=== PATIENT | male | born 1950 | race Caucasian/White ===

== ENCOUNTER 2017-09-21 09:04 | Day surgery (SDC) | payer MEDICARE ==
[2017-09-16 15:58] VITALS: BMI 30.7
[~2017-09-21 09:04] MED LIST: LACTATED RINGERS 1,000 ML IV SCH
[2017-09-21 09:33] VITALS: RESP 16; TEMP 98.3
[2017-09-21] MEDS ORDERED: LIDOCAINE 1% 20 ML VIAL (10MG/ML) FOR IV START INTRADERMA ONE (09:45)
[2017-09-21] MEDS ORDERED: PROPOFOL 10 MG/ML 20 ML VIAL IV ONE (10:13)
[2017-09-21 11:04] VITALS: BP 128/80; PULSE 68
--- NOTE | 2017-09-21 11:04 | P.PCN ---
Date of Procedure: 09/21/17 Procedure(s) Performed: Procedure: Colonoscopy and biopsy. Preoperative diagnosis: History of Crohn's colitis. Postoperative diagnosis: 1. Active involvement in the distal sigmoid and rectum. 2. Mild involvement in the cecum. 3. Biopsies obtained from the terminal ileum, cecum, random colon and sigmoid. Preparation: HalfLytely prep. Sedation: Was provided by anesthesia. Brief clinical history: The patient is a 66-year-old male with history of Crohn' s colitis diagnosed more than 10 years ago maintained on Humira for the last 2 years or so with ongoing issues of frequent stools and intermittent bleeding and urgency. His last colonoscopy was with Dr. You in [place] around 2 years ago. This evaluation is to assess activity and rule out dysplasia or other pathology. Procedure: With the patient on his left lateral decubitus position and after informed consent and adequate sedation, the perianal area was inspected and it did not show any fissures or fistulas. There were no masses felt on digital rectal examination. The Olympus CFQ 160L video colonoscope was then inserted in the rectum in the usual fashion and advanced to the cecum. I did not intubate the ileocecal valve but I was able to obtain blind biopsy from the terminal ileum. The cecum showed some edema and erythema. The colon distal to 35 cm from the anal verge showed edema erythema and serpiginous ulcerations consistent with active colitis. That area of the rectum and distal sigmoid appeared somewhat not distensible but there were no obvious strictures to impeded the advancement of the endoscope. No polyps or tumors were seen. I obtained biopsies from the terminal ileum, cecum, random colon and sigmoid before the endoscope was withdrawn. The patient tolerated the procedure well. Plan: The patient was briefed regarding the findings on this exam. I will review pathology results and make further adjustments to his medical regimen. I anticipate repeating this examination in 2 years or so.
== END 2017-09-21 11:29 | disposition home or self-care (01) ==
LOC: ORWHC2ENDO 09:04
DX: K51.90 Ulcerative colitis, unspecified, without complications (principal); K52.9 Noninfective gastroenteritis and colitis, unspecified; I10 Essential (primary) hypertension; E78.5 Hyperlipidemia, unspecified; M19.90 Unspecified osteoarthritis, unspecified site; J44.9 Chronic obstructive pulmonary disease, unspecified; Z87.891 Personal history of nicotine dependence; G47.33 Obstructive sleep apnea (adult) (pediatric); N40.0 Benign prostatic hyperplasia without lower urinary tract symptoms; Z85.46 Personal history of malignant neoplasm of prostate; H91.90 Unspecified hearing loss, unspecified ear; Z79.899 Other long term (current) drug therapy
CPT/HCPCS: 88305; 45380; J2704

== ENCOUNTER → 2017-10-21 | Outpatient (CLI) | payer MEDICARE | END | disposition home or self-care (01) | LOC: LABWHC1 15:18 | DX: K50.80 Crohn's disease of both small and large intestine without complications (principal) | CPT/HCPCS: 36415 ==

== ENCOUNTER → 2019-05-15 | Outpatient (CLI) | payer MEDICARE ==
[2019-05-15 13:35] LABS: Erythrocyte Sedimentation Rate 44 mm/hr (0-15)
[2019-05-15 13:47] LABS: Basophils # (A) 0.1 k/uL (0-0.2); Basophils % (A) 1 %; Eosinophils # (A) 0.3 k/uL (0-0.7); Eosinophils % (A) 4 %; HCT 41.6 % (39.0-53.0); HGB 13.5 gm/dL (13.0-17.5); Lymphocytes % (A) 13 %; MCH 28.7 pg (25.0-35.0); MCHC 32.4 g/dL (31.0-37.0); MCV 88.7 fL (80.0-100.0); Monocytes # (A) 0.8 k/uL (0-1.0); Monocytes % (A) 10 %; Neutrophils # (A) 5.6 k/uL (1.3-7.7); Neutrophils % (A) 71 %; Platelet Count 221 k/uL (150-450); RBC 4.68 m/uL (4.30-5.90); RDW 13.3 % (11.5-15.5)
[2019-05-15 19:03] LABS: African American GFR (CKD) 100.6 (60.0-200.0); Albumin 3.8 g/dL (3.80-4.90); Albumin/Globulin Ratio 1.23 (1.60-3.17); Anion Gap 7.6 mmol/L (4.00-12.00); BUN/Creat Ratio 16.67 Ratio (12.00-20.00); C Reactive Protein 3.8 mg/dL (0.0-0.8); Calcium 8.5 mg/dL (8.7-10.3); Carbon Dioxide 28.4 mmol/L (21.6-31.8); Globulin 3.1 g/dL (1.6-3.3); Potassium 4.8 mmol/L (3.5-5.5); Total Bilirubin 0.6 mg/dL (0.3-1.2); Total Protein 6.9 g/dL (6.2-8.2)
== END | disposition home or self-care (01) ==
LOC: LABWHC1 09:59
PROVIDERS: ATTEND Nurse Practitioner
DX: K50.80 Crohn's disease of both small and large intestine without complications (principal)
CPT/HCPCS: 36415; 80053; 83993; 85025; 85652; 86140

== ENCOUNTER → 2019-06-05 | Outpatient (CLI) | payer MEDICARE ==
--- NOTE | 2019-06-05 23:52 | MR ---
EXAMINATION TYPE: MR sacroiliac joints wo con DATE OF EXAM: 06/05/2019 COMPARISON: HISTORY: SI Joint Inflammation / Hx of Crohns and CA/ Pain in lower extremities Standard multiplanar, multisequence MRI departmental protocol Multiplanar, multisequence images of the sacroiliac joints were acquired. FINDINGS: There is narrowing of the sacroiliac joint spaces with variable anchylosis. I see no focal bone destruction. There is no evidence of a fracture. There is no evidence of a soft tissue mass. IMPRESSION: There are some ankylotic changes of the sacroiliac joints consistent with long-standing sacroiliitis. No fracture.
== END ==
LOC: RADMRIMAIN 16:39
PROVIDERS: ATTEND Physician Assistant
DX: R93.7 Abnormal findings on diagnostic imaging of other parts of musculoskeletal system (principal)
CPT/HCPCS: 72195

== ENCOUNTER 2019-08-23 10:16 | Day surgery (SDC) | payer MEDICARE ==
[2019-08-22 09:11] VITALS: BMI 25.8
[~2019-08-23 10:16] MED LIST changes: +LIDOCAINE 1% 20 ML VIAL (10MG/ML) FOR IV START INTRADERMA PRN
[2019-08-23 10:54] VITALS: TEMP 97.1
[2019-08-23] MEDS ORDERED: PROPOFOL 10 MG/ML 20 ML VIAL IV ONE (11:33)
--- NOTE | 2019-08-23 11:58 | P.PCN ---
Date of Procedure: 08/23/19 Procedure(s) Performed: BRIEF HISTORY: Patient is a 68-year-old pleasant male scheduled for an elective colonoscopy as a part of surveillance of long-standing history of Crohn's colitis diagnosed in the . His last coloscopy was done in [address] Meza which revealed active proctosigmoiditis with some luminal narrowing. Has been maintained on antegrade infusions every 2 months. Lately has been having diarrhea 5-6 bottles daily with no blood or mucus in the stool. PROCEDURE PERFORMED: Colonoscop with multiple random biopsies y. PREOPERATIVE DIAGNOSIS: Chronic diarrhea/long-standing history of Crohn's colitis. IV sedation per Anesthesia. PROCEDURE: After informed consent was obtained, the patient, was brought into the endoscopy unit. IV sedation was administered by Anesthesia under continuous monitoring. Digital rectal examination revealed skin tags and anal fissure. Initially the Olympus CF-160 flexible video colonoscope was then inserted in the rectum, and in the proximal rectum at 10 cm from the anal was there was a tight stricture and the scope could not be advanced. At this time the scope was removed and a pediatric colonoscopy was then introduced into the rectum and with gentle pressure was able to advance to this stricture and gradually advanced into the cecum without any difficulty. Careful examination was performed as the scope was gradually being withdrawn. Ileocecal valve and the appendiceal orifice were visualized and appeared normal. Prep was excellent. Mucosa of the cecum, ascending colon, transverse colon, descending colon, sigmoid colon, appeared normal. Once again there was a tight stricture with mucosal erythema friability noted in the proximal rectum at 12-15 cm from the anal verge and biopsies were done from this area. There was mild proctitis seen. Biopsies were done from the rectum also. The patient tolerated the procedure well. IMPRESSION: Stricture involving the proximal rectum that was dilated with the passage of the pediatric colonoscope. He was erythema and friability noted at the bedside of the stricture consistent with active Crohn's disease Rest of the colon appeared normal. RECOMMENDATIONS: Findings of this examination were discussed with the patient as well as his family. He was advised to follow with the biopsy results. He'll be seen in office in one to 2 weeks.. Continue with entyvio infusions every 8 weeks.
[2019-08-23 12:07] VITALS: BP 116/68; PULSE 56; RESP 16
== END 2019-08-23 12:43 | disposition home or self-care (01) ==
LOC: ORWHC2ENDO 10:16
PROVIDERS: ATTEND Internal Medicine Gastroenterology
DX: K52.9 Noninfective gastroenteritis and colitis, unspecified (principal); K50.10 Crohn's disease of large intestine without complications; K62.4 Stenosis of anus and rectum; K62.89 Other specified diseases of anus and rectum; K60.2 Anal fissure, unspecified; K64.4 Residual hemorrhoidal skin tags; I10 Essential (primary) hypertension; E78.5 Hyperlipidemia, unspecified; G47.33 Obstructive sleep apnea (adult) (pediatric); J45.909 Unspecified asthma, uncomplicated; H91.90 Unspecified hearing loss, unspecified ear; C61 Malignant neoplasm of prostate; Z79.899 Other long term (current) drug therapy; Z87.891 Personal history of nicotine dependence
CPT/HCPCS: 88305; 45380; J2704

== ENCOUNTER → 2019-10-25 | Outpatient (CLI) | payer MEDICARE ==
--- NOTE | 2019-10-25 14:47 | MR ---
EXAMINATION TYPE: MR knee RT wo con DATE OF EXAM: 10/25/2019 COMPARISON: NONE HISTORY: Right knee effusion TECHNIQUE: Multiplanar, multisequence images of the knee is performed without IV contrast. FINDINGS: MEDIAL MENISCUS: Medial extrusion seen on coronal images. Anterior horn is intact without tear. Poste rior horn is truncated with abnormal signal through the central body consistent with tear. LATERAL MENISCUS: Posterior horn is intact without tear. Horizontal signal through the anterior horn is present not definitively extend to articular surface. CRUCIATE LIGAMENTS: The posterior cruciate ligament is intact and unremarkable. Anterior cruciate lig ament is intact with increased signal. COLLATERAL LIGAMENTS: The medial collateral ligament and lateral collateral ligament complex are inta ct and unremarkable. EXTENSOR MECHANISM: Visualized quadriceps and patellar tendons are intact. EFFUSION: Small to tiny suprapatellar joint effusion. POPLITEAL CYST: Moderate to large size popliteal/denise cyst coronal image 28 7.1 cm long axis. TRICOMPARTMENT SPACES: Moderate tricompartment joint space loss with mild to moderate spurring. CARTILAGE: Cartilaginous loss medial tibiofemoral compartment. Some chondromalacia patella with thinn ing of articular cartilage along the inferior posterior patellar pole. BONE MARROW SIGNAL: There is heterogeneous diminished T1 and increased T2 signal posterior aspect dis alexsander medial femoral condyle. OTHER: No additional significant abnormality is appreciated. IMPRESSION: 1. Full-thickness tear through the central body and posterior horn of medial meniscus. 2. Background moderate tricompartment degenerative changes greatest medial tibiofemoral compartment. 3. At least intrasubstance possible horizontal cleavage tear anterior horn of lateral meniscus. 4. Moderate to large sized popliteal cyst.
== END | disposition home or self-care (01) ==
LOC: RADMRIMAIN 13:36
PROVIDERS: ATTEND Internal Medicine Rheumatology
DX: S83.231A Complex tear of medial meniscus, current injury, right knee, initial encounter (principal); M17.11 Unilateral primary osteoarthritis, right knee

== ENCOUNTER → 2020-10-02 | Outpatient (CLI) | payer MEDICARE ==
--- NOTE | 2020-10-02 12:40 | CT ---
EXAMINATION TYPE: CT urogram wo/w con DATE OF EXAM: 10/02/2020 COMPARISON: None HISTORY: Hemturia, trouble urinaing CT DLP: 2814 mGycm, Automated Exposure Control for Dose Reduction was Utilized. CONTRAST: CT scan of the abdomen and pelvis is performed with oral and without and with IV Contrast, patient in jected with 100 mL of Isovue 300. FINDINGS: LUNG BASES: Findings suggest COPD and chronic interstitial lung disease with basilar atelectasis. 2 m m lower lobe nodule. LIVER/GB: Hypodensity within the dome of the liver is too small to characterize. There is mild intrah epatic biliary dilation likely related to postcholecystectomy status. PANCREAS: No significant abnormality is seen. SPLEEN: No significant abnormality is seen. Small accessory spleen noted. ADRENALS: No significant abnormality is seen. KIDNEYS: Multiple hypodense lesions are seen involving both kidneys most compatible with Bosniak clas sification 1 simple cysts. No hydronephrosis. 2 mm nonobstructing lower pole left renal calculus. Ure ters are normal course and caliber. No filling defect. Bladder wall mildly thickened which may be rel ated to incomplete distention. Correlate clinically. Prostate is enlarged with calcifications.. BOWEL: No significant abnormality is seen. PROSTATE/SEMINAL VESICLES: Prostate gland enlarged with calcifications. LYMPH NODES: No greater than 1cm abdominal or pelvic lymph nodes are appreciated. OSSEOUS STRUCTURES: Hypertrophic and degenerative changes of the spine. Multilevel facet arthropathy. OTHER: Small hiatal hernia. IMPRESSION: 1. Nonobstructing 2 mm left renal calculus. 2. Simple appearing bilateral renal cysts. 3. Prostate enlargement with calcifications. Correlate clinically with PSA. 4. Bladder wall thickening correlate for cystitis. Number 5. COPD with 2 mm right lower lobe pulmonary nodule.
== END | disposition home or self-care (01) ==
LOC: RADCTMAIN 11:10
PROVIDERS: ATTEND Urology
DX: N20.0 Calculus of kidney (principal); N28.1 Cyst of kidney, acquired; N40.0 Benign prostatic hyperplasia without lower urinary tract symptoms; R31.9 Hematuria, unspecified
CPT/HCPCS: 82565; 84520; 74178; 36415; 74400; Q9967

== ENCOUNTER 2021-05-13 11:37 | Inpatient (IN) | payer MEDICARE ==
--- NOTE | 2021-05-13 14:19 | ED ---
General Adult HPI - General Chief complaint: Urogenital Stated complaint: bladder infection Time Seen by Provider: 05/13/21 13:23 Source: patient, family Mode of arrival: wheelchair Limitations: no limitations - History of Present Illness Initial comments: 70-year-old male presents to the emergency room for a chief complaint of bladder infection. Patient states he has felt weak for the past few days. Patient reports that he went to his urologist today for a indwelling Harrison and they tested him and he had a bladder infection. He states his urologist sent him to the emergency room for IV antibiotics. Patient states he has felt feverish over the past couple days but has not checked a fever.Patient has no other complaints at this time including shortness of breath, chest pain, abdominal pain, nausea or vomiting, headache, or visual changes. - Related Data Home Medications Medication Instructions Recorded Confirmed Atorvastatin [Lipitor] 40 mg PO HS 09/16/17 08/22/19 Isosorbide Mononitrate ER [Imdur] 60 mg PO HS 09/16/17 08/23/19 Nitroglycerin Sl Tabs [Nitrostat] 0.4 mg SUBLINGUAL Q5M PRN 09/16/17 08/22/19 Vit C/E/Zn/Coppr/Lutein/Zeaxan 1 each PO DAILY 09/16/17 08/22/19 [Preservision Areds 2 Softgel] Cholecalciferol (Vitamin D3) 5,000 unit PO DAILY 08/22/19 08/22/19 [Vitamin D3] Cyanocobalamin (Vitamin B-12) 1,000 mcg PO DAILY 08/22/19 08/22/19 [Vitamin B-12] Entyvio Infusion 1 dose IV Q56D 08/22/19 08/22/19 Folic Acid 1 mg PO DAILY 08/22/19 08/22/19 Gabapentin [Neurontin] 300 mg PO BID 08/22/19 08/22/19 Sertraline HCl [Zoloft] 100 mg PO 1200 08/22/19 08/22/19 Allergies Allergy/AdvReac Type Severity Reaction Status Date / Time No Known Allergies Allergy Verified 05/13/21 12:09 Review of Systems ROS Statement: Those systems with pertinent positive or pertinent negative responses have been documented in the HPI. ROS Other: All systems not noted in ROS Statement are negative. Past Medical History Past Medical History: Asthma, Cancer, Hearing Disorder / Deafness, Hyperlipidemia, Hypertension, Prostate Disorder, Sleep Apnea/CPAP/BIPAP Additional Past Medical History / Comment(s): hx of Crohn's, hx of prostate ca with radiation approx 2009, does not use cpap machine,deaf rt ear,hearing aide lt ear History of Any Multi-Drug Resistant Organisms: None Reported Past Surgical History: Orthopedic Surgery Additional Past Surgical History / Comment(s): rt knee sx, neck "2 bolts", rod cataracts with lens implant Past Anesthesia/Blood Transfusion Reactions: No Reported Reaction Past Psychological History: No Psychological Hx Reported Smoking Status: Never smoker Past Alcohol Use History: Occasional Past Drug Use History: None Reported - Past Family History Mother Family Medical History: No Reported History Sister(s) Family Medical History: Cancer Additional Family Medical History / Comment(s): breast and lung CA General Exam Limitations: no limitations General appearance: alert, in no apparent distress Head exam: Present: atraumatic Eye exam: Present: normal appearance, PERRL, EOMI ENT exam: Present: normal exam, mucous membranes moist Neck exam: Present: normal inspection, full ROM. Absent: tenderness Respiratory exam: Present: normal lung sounds bilaterally. Absent: respiratory distress, wheezes Cardiovascular Exam: Present: regular rate, normal rhythm, normal heart sounds GI/Abdominal exam: Present: soft, normal bowel sounds. Absent: distended, tenderness Course Vital Signs 05/13/21 05/13/21 12:05 15:31 Temperature 97.8 F 98.9 F Pulse Rate 109 H 72 Respiratory 18 20 Rate Blood Pressure 99/61 92/50 O2 Sat by Pulse 97 100 Oximetry Medical Decision Making - Medical Decision Making Vitals are stable. Patient slightly tachycardic. CBC does show leukocytosis of 25.8 with a left shift. CMP also shows acute kidney injury. Lactic acid is elevated 2.6. Patient was given 2 g IV Rocephin assuming that patient has a urinary tract infection. Given fluid bolus of 30 mls/kg based on ideal body weight and started on 130 mls/hr of fluid. Blood cultures pending. Patient will be admitted for further treatment. - Lab Data Result diagrams: 05/13/21 13:40 05/13/21 13:40 Lab Results 05/13/21 05/13/21 05/13/21 Range/Units 13:40 13:40 13:40 WBC 25.8 H (3.8-10.6) k/uL RBC 4.41 (4.30-5.90) m/uL Hgb 14.1 (13.0-17.5) gm/dL Hct 41.3 (39.0-53.0) % MCV 93.6 (80.0-100.0) fL MCH 31.9 (25.0-35.0) pg MCHC 34.1 (31.0-37.0) g/dL RDW 15.7 H (11.5-15.5) % Plt Count 485 H (150-450) k/uL MPV 10.2 Neutrophils % 87 % Lymphocytes % 6 % Monocytes % 4 % Eosinophils % 1 % Basophils % 0 % Neutrophils # 22.5 H (1.3-7.7) k/uL Lymphocytes # 1.5 (1.0-4.8) k/uL Monocytes # 1.1 H (0-1.0) k/uL Eosinophils # 0.2 (0-0.7) k/uL Basophils # 0.1 (0-0.2) k/uL Sodium 132 L (137-145) mmol/L Potassium 4.8 (3.5-5.1) mmol/L Chloride 98 (98-107) mmol/L Carbon Dioxide 18 L (22-30) mmol/L Anion Gap 16 mmol/L BUN 76 H (9-20) mg/dL Creatinine 2.58 H (0.66-1.25) mg/dL Est GFR (CKD-EPI)AfAm 28 (>60 ml/min/1.73 sqM) Est GFR (CKD-EPI)NonAf 24 (>60 ml/min/1.73 sqM) Glucose 175 H (74-99) mg/dL Plasma Lactic Acid Leon (0.7-2.0) mmol/L Calcium 8.9 (8.4-10.2) mg/dL Total Bilirubin 1.6 H (0.2-1.3) mg/dL AST 61 H (17-59) U/L ALT 25 (4-49) U/L Alkaline Phosphatase 120 (38-126) U/L Total Protein 7.8 (6.3-8.2) g/dL Albumin 3.6 (3.5-5.0) g/dL Urine Color Yellow Urine Appearance Turbid (Clear) Urine pH 6.0 (5.0-8.0) Ur Specific [place] 1.013 (1.001-1.035) Urine Protein 2+ H (Negative) Urine Glucose (UA) Negative (Negative) Urine Ketones Negative (Negative) Urine Blood Large H (Negative) Urine Nitrite Negative (Negative) Urine Bilirubin Negative (Negative) Urine Urobilinogen <2.0 (<2.0) mg/dL Ur Leukocyte Esterase Large H (Negative) Urine RBC >182 H (0-5) /hpf Urine WBC >182 H (0-5) /hpf Urine WBC Clumps Many H (None) /hpf Urine Bacteria Many H (None) /hpf Urine Mucus Rare H (None) /hpf Urine Yeast (Budding) Occasional H (None) /hpf 05/13/21 Range/Units 13:40 WBC (3.8-10.6) k/uL RBC (4.30-5.90) m/uL Hgb (13.0-17.5) gm/dL Hct (39.0-53.0) % MCV (80.0-100.0) fL MCH (25.0-35.0) pg MCHC (31.0-37.0) g/dL RDW (11.5-15.5) % Plt Count (150-450) k/uL MPV Neutrophils % % Lymphocytes % % Monocytes % % Eosinophils % % Basophils % % Neutrophils # (1.3-7.7) k/uL Lymphocytes # (1.0-4.8) k/uL Monocytes # (0-1.0) k/uL Eosinophils # (0-0.7) k/uL Basophils # (0-0.2) k/uL Sodium (137-145) mmol/L Potassium (3.5-5.1) mmol/L Chloride (98-107) mmol/L Carbon Dioxide (22-30) mmol/L Anion Gap mmol/L BUN (9-20) mg/dL Creatinine (0.66-1.25) mg/dL Est GFR (CKD-EPI)AfAm (>60 ml/min/1.73 sqM) Est GFR (CKD-EPI)NonAf (>60 ml/min/1.73 sqM) Glucose (74-99) mg/dL Plasma Lactic Acid Leon 2.6 H* (0.7-2.0) mmol/L Calcium (8.4-10.2) mg/dL Total Bilirubin (0.2-1.3) mg/dL AST (17-59) U/L ALT (4-49) U/L Alkaline Phosphatase (38-126) U/L Total Protein (6.3-8.2) g/dL Albumin (3.5-5.0) g/dL Urine Color Urine Appearance (Clear) Urine pH (5.0-8.0) Ur Specific [place] (1.001-1.035) Urine Protein (Negative) Urine Glucose (UA) (Negative) Urine Ketones (Negative) Urine Blood (Negative) Urine Nitrite (Negative) Urine Bilirubin (Negative) Urine Urobilinogen (<2.0) mg/dL Ur Leukocyte Esterase (Negative) Urine RBC (0-5) /hpf Urine WBC (0-5) /hpf Urine WBC Clumps (None) /hpf Urine Bacteria (None) /hpf Urine Mucus (None) /hpf Urine Yeast (Budding) (None) /hpf Disposition Clinical Impression: Leukocytosis, Lactic acidosis, RAISA (acute kidney injury), UTI (urinary tract infection) Disposition: ADMITTED IP TO THIS HOSP Is patient prescribed a controlled substance at d/c from ED?: No Referrals: Kevin Ballard DO [Primary Care Provider] - 1-2 days Time of Disposition: 15:31
[2021-05-13] MEDS: SODIUM CHLORIDE 0.9% 500 ML 500 ML IV SCH ×2 (14:24→15:00)
[2021-05-13 14:26] LABS: Basophils # (A) 0.1 k/uL (0-0.2); Basophils % (A) 0 %; Eosinophils # (A) 0.2 k/uL (0-0.7); Eosinophils % (A) 1 %; HCT 41.3 % (39.0-53.0); HGB 14.1 gm/dL (13.0-17.5); Lymphocytes # (A) 1.5 k/uL (1.0-4.8); Lymphocytes % (A) 6 %; MCH 31.9 pg (25.0-35.0); MCHC 34.1 g/dL (31.0-37.0); MCV 93.6 fL (80.0-100.0); Mean Platelet Volume 10.2; Monocytes # (A) 1.1 k/uL (0-1.0); Monocytes % (A) 4 %; Neutrophils # (A) 22.5 k/uL (1.3-7.7); Neutrophils % (A) 87 %; Platelet Count 485 k/uL (150-450); RBC 4.41 m/uL (4.30-5.90); RDW 15.7 % (11.5-15.5); WBC 25.8 k/uL (3.8-10.6)
[2021-05-13 14:37] LABS: Albumin 3.6 g/dL (3.5-5.0); Calcium 8.9 mg/dL (8.4-10.2); Total Bilirubin 1.6 mg/dL (0.2-1.3); Total Protein 7.8 g/dL (6.3-8.2)
[2021-05-13 14:47] LABS: Potassium 4.8 mmol/L (3.5-5.1)
[2021-05-13] MEDS ORDERED: cefTRIAXone IN SWFI 1,000 MG/10 ML SYRINGE IVP STA ×2 (14:54→15:39)
--- NOTE | 2021-05-13 15:16 | XR ---
EXAMINATION TYPE: XR chest 2V DATE OF EXAM: 05/13/2021 COMPARISON: NONE HISTORY: Leukocytosis. Bladder infection. TECHNIQUE: Frontal and lateral views of the chest are obtained. FINDINGS: There is mild chronic parenchymal change without suspicious focal air space opacity, pleur al effusion, or pneumothorax seen. The cardiac silhouette size is within normal limits. The osseou s structures are somewhat demineralized. Old fracture deformities of the posterolateral left mid ribs are noted. IMPRESSION: No acute pulmonary process.
[2021-05-13] MEDS ORDERED: SODIUM CHLORIDE 0.9% 1,000 ML IV STA ×3 (15:30→15:45)
[2021-05-13 15:33] LABS: Appearance,Urine Turbid (Clear); Bacteria,Urine Many /hpf; Bilirubin,Urine Negative (Negative); Blood,Urine Large (Negative); Budding Yeast,Urine Occasional /hpf; Color,Urine Yellow; Glucose,Urine (UA) Negative (Negative); Ketones,Urine Negative (Negative); Leukocyte Esterase,Urine Large (Negative); Mucus,Urine Rare /hpf; Nitrite,Urine Negative (Negative); Protein,Urine 2+ (Negative); RBC,Urine >182 /hpf (0-5); Specific Gravity,Urine 1.013 (1.001-1.035); Urobilinogen,Urine <2.0 mg/dL (<2.0); WBC,Urine >182 /hpf (0-5)
[2021-05-13] MEDS ORDERED: ONDANSETRON 4 MG/2 ML VIAL IVP PRN (15:47)
[2021-05-13] MEDS ORDERED: NALOXONE 0.4 MG/ML 1 ML VIAL IV PRN (15:47)
--- NOTE | 2021-05-13 23:20 | P.HPIM ---
History of Present Illness H&P Date: 05/13/21 Patient is 70-year-old male with a PMH of ? BPH w/ history of prostate surgery, chronic urinary retention, hypertension, hyperlipidemia, and obstructive sleep apnea who presented to the emergency room for UTI. The patient reports that over the past 3 weeks, he has felt ill with occasional fevers, dysuria, suprapubic pain, and lethargy. He was seen at his urologist office earlier today where Harrison catheter was placed due to poor urinary output and the patient was sent to the emergency room. The patient reports feeling better since his admission. Reports a history of UTIs with last urine culture showing E. coli from 03/06/21. The patient denied chest discomfort, shortness of breath, cough, nausea, vomiting. Reports a poor oral intake due to inability to care for himself over the past few weeks. The patient lives with his who he claims is not very helpful. In the emergency room, after evaluation was remarkable for leukocytosis at 25.8, sodium 132, CO2 18, BUN 76 (baseline 14), creatinine 2.58 (baseline 1), lactic acid 2.6, and a grossly abnormal UA. Chest x-ray was unremarkable. Review of systems: Pertinent positives and negatives as discussed in HPI, a complete review of systems was performed and all other systems are negative. Physical examination: General: non toxic, no distress, appears at stated age, normal weight Derm: no unusual rashes/lesions no unusual ecchymoses, warm, dry Head: atraumatic, normocephalic, symmetric Eyes: EOMI, no lid lag, anicteric sclera, pupils equal round reactive to light ENT: Nose and ears atraumatic, no thrush, no pharyngeal erythema Neck: No thyromegaly, no cervical lymphadenopathy, trachea midline, supple Mouth: no lip lesion, mucus membranes moist Cardiovascular: S1S2 reg, no murmur, positive posterior tibial pulse bilateral, no edema, capillary refill less than 2 seconds Lungs: CTA bilateral, no rhonchi, no rales , no accessory muscle use Abdominal: soft, nontender to palpation, no guarding, no appreciable organomeg michael, normal bowel sounds Ext: no gross muscle atrophy, muscle strength 4 out of 5 in all 4 extremities grossly, no contractures, Neuro: CN II-XI grossly intact, light touch intact all 4 extremities, finger to nose within normal limits, Psych: Alert, oriented, appropriate affect Assessment/plan Sepsis secondary to UTI -C/w Ceftriaxone -F/u blood cultures -Urology consult -C/w IVFs RAISA on CKD -C/w IVFs -Monitor BMP Lactic acidosis -Monitor to resolution Chronic conditions: HTN, HLD -Hold off on antihypertensives -C/w home meds DVT prophylaxis -Heparin subq The patient is admitted with an anticipated greater than 2 midnight stay for evaluation of UTI CODE STATUS: Full Code Discussed with: Patient Anticipated discharge date: 2-[address]: Home Past Medical History Past Medical History: Asthma, Cancer, Hearing Disorder / Deafness, Hyperlipidemia, Hypertension, Prostate Disorder, Sleep Apnea/CPAP/BIPAP Additional Past Medical History / Comment(s): hx of Crohn's, hx of prostate ca with radiation approx 2009, does not use cpap machine,deaf rt ear,hearing aide lt ear History of Any Multi-Drug Resistant Organisms: None Reported Past Surgical History: Orthopedic Surgery Additional Past Surgical History / Comment(s): rt knee sx, neck "2 bolts", rod cataracts with lens implant Past Anesthesia/Blood Transfusion Reactions: No Reported Reaction Past Psychological History: No Psychological Hx Reported Smoking Status: Never smoker Past Alcohol Use History: Occasional Past Drug Use History: None Reported - Past Family History Mother Family Medical History: No Reported History Sister(s) Family Medical History: Cancer Additional Family Medical History / Comment(s): breast and lung CA Medications and Allergies Home Medications Medication Instructions Recorded Confirmed Type Atorvastatin [Lipitor] 40 mg PO HS 09/16/17 05/13/21 History Isosorbide Mononitrate ER [Imdur] 60 mg PO HS 09/16/17 05/13/21 History Vit C/E/Zn/Coppr/Lutein/Zeaxan 1 each PO DAILY 09/16/17 05/13/21 History [Preservision Areds 2 Softgel] Cyanocobalamin (Vitamin B-12) 1,000 mcg PO DAILY 08/22/19 05/13/21 History [Vitamin B-12] Entyvio Infusion 1 dose IV Q56D 08/22/19 05/13/21 History Folic Acid 1 mg PO DAILY 08/22/19 05/13/21 History Gabapentin [Neurontin] 300 mg PO DAILY 08/22/19 05/13/21 History Sertraline HCl [Zoloft] 150 mg PO DAILY 08/22/19 05/13/21 History Cholecalciferol (Vitamin D3) 125 mcg PO DAILY 05/13/21 05/13/21 History [Vitamin D3 (125 MCG = 5,000 IU)] Methotrexate/Pf [Reditrex 25 mg/ml 25 mg SQ TH 05/13/21 05/13/21 History Syringe] Allergies Allergy/AdvReac Type Severity Reaction Status Date / Time No Known Allergies Allergy Verified 05/13/21 16:27 Physical Exam Vitals: Vital Signs Temp Pulse Pulse Resp BP BP Pulse Ox 05/13/21 20:00 97.6 F 81 16 135/60 91 L 05/13/21 19:04 98.7 F 74 16 110/77 98 05/13/21 15:31 98.9 F 72 20 92/50 100 05/13/21 12:05 97.8 F 109 H 18 99/61 97 Intake and Output 05/13/21 05/13/21 05/13/21 06:59 14:59 22:59 Other: Voiding Method Indwelling Catheter Weight 70.76 kg Results CBC & Chem 7: 05/13/21 13:40 05/13/21 13:40 Labs: Abnormal Lab Results - Last 24 Hours (Table) 05/13/21 05/13/21 05/13/21 Range/Units 13:40 13:40 13:40 WBC 25.8 H (3.8-10.6) k/uL RDW 15.7 H (11.5-15.5) % Plt Count 485 H (150-450) k/uL Neutrophils # 22.5 H (1.3-7.7) k/uL Monocytes # 1.1 H (0-1.0) k/uL Sodium 132 L (137-145) mmol/L Carbon Dioxide 18 L (22-30) mmol/L BUN 76 H (9-20) mg/dL Creatinine 2.58 H (0.66-1.25) mg/dL Glucose 175 H (74-99) mg/dL Plasma Lactic Acid Leon (0.7-2.0) mmol/L Total Bilirubin 1.6 H (0.2-1.3) mg/dL AST 61 H (17-59) U/L Urine Protein 2+ H (Negative) Urine Blood Large H (Negative) Ur Leukocyte Esterase Large H (Negative) Urine RBC >182 H (0-5) /hpf Urine WBC >182 H (0-5) /hpf Urine WBC Clumps Many H (None) /hpf Urine Bacteria Many H (None) /hpf Urine Mucus Rare H (None) /hpf Urine Yeast (Budding) Occasional H (None) /hpf 05/13/21 Range/Units 13:40 WBC (3.8-10.6) k/uL RDW (11.5-15.5) % Plt Count (150-450) k/uL Neutrophils # (1.3-7.7) k/uL Monocytes # (0-1.0) k/uL Sodium (137-145) mmol/L Carbon Dioxide (22-30) mmol/L BUN (9-20) mg/dL Creatinine (0.66-1.25) mg/dL Glucose (74-99) mg/dL Plasma Lactic Acid Leon 2.6 H* (0.7-2.0) mmol/L Total Bilirubin (0.2-1.3) mg/dL AST (17-59) U/L Urine Protein (Negative) Urine Blood (Negative) Ur Leukocyte Esterase (Negative) Urine RBC (0-5) /hpf Urine WBC (0-5) /hpf Urine WBC Clumps (None) /hpf Urine Bacteria (None) /hpf Urine Mucus (None) /hpf Urine Yeast (Budding) (None) /hpf
--- NOTE | 2021-05-14 08:05 | P.GSCN ---
History of Present Illness Consult date: 05/14/21 History of present illness: 70-year-old gentleman who was recently in our office with a recurrent urine infection and incomplete bladder emptying. The patient has been cared for by in the past. He had radiation therapy for prostate cancer in 2009. Upon correction has cared for the patient. He is been treated different times for urine infection over the last month. He was seen in the office yesterday and a catheter apparently was placed for 600 mL of urine. The patient urine was grossly infected. He is sent to the emergency room for antibiotics and further evaluation and treatment. THe patient has been having problems urinating over the last several months. He doesn't feel as if he empties. It ordonez she has frequent urination. He feels better since he has been in the hospital. The patient's white count was 25,000 upon admission. Urine cultures have been obtained. Review of Systems All systems: negative Past Medical History Past Medical History: Asthma, Cancer, Hearing Disorder / Deafness, Hyperlipidemia, Hypertension, Prostate Disorder, Sleep Apnea/CPAP/BIPAP Additional Past Medical History / Comment(s): hx of Crohn's, hx of prostate ca with radiation approx 2009, does not use cpap machine,deaf rt ear,hearing aide lt ear History of Any Multi-Drug Resistant Organisms: None Reported Past Surgical History: Orthopedic Surgery Additional Past Surgical History / Comment(s): rt knee sx, neck "2 bolts", rod cataracts with lens implant Past Anesthesia/Blood Transfusion Reactions: No Reported Reaction Past Psychological History: No Psychological Hx Reported Smoking Status: Never smoker Past Alcohol Use History: Occasional Past Drug Use History: None Reported - Past Family History Mother Family Medical History: No Reported History Sister(s) Family Medical History: Cancer Additional Family Medical History / Comment(s): breast and lung CA Medications and Allergies Home Medications Medication Instructions Recorded Confirmed Type Atorvastatin [Lipitor] 40 mg PO HS 09/16/17 05/13/21 History Isosorbide Mononitrate ER [Imdur] 60 mg PO HS 09/16/17 05/13/21 History Vit C/E/Zn/Coppr/Lutein/Zeaxan 1 each PO DAILY 09/16/17 05/13/21 History [Preservision Areds 2 Softgel] Cyanocobalamin (Vitamin B-12) 1,000 mcg PO DAILY 08/22/19 05/13/21 History [Vitamin B-12] Entyvio Infusion 1 dose IV Q56D 08/22/19 05/13/21 History Folic Acid 1 mg PO DAILY 08/22/19 05/13/21 History Gabapentin [Neurontin] 300 mg PO DAILY 08/22/19 05/13/21 History Sertraline HCl [Zoloft] 150 mg PO DAILY 08/22/19 05/13/21 History Cholecalciferol (Vitamin D3) 125 mcg PO DAILY 05/13/21 05/13/21 History [Vitamin D3 (125 MCG = 5,000 IU)] Methotrexate/Pf [Reditrex 25 mg/ml 25 mg SQ TH 05/13/21 05/13/21 History Syringe] Allergies Allergy/AdvReac Type Severity Reaction Status Date / Time No Known Allergies Allergy Verified 05/13/21 16:27 Surgical - Exam Vital Signs Temp Pulse Resp BP Pulse Ox 97.8 F 109 H 18 99/61 97 05/13/21 12:05 05/13/21 12:05 05/13/21 12:05 05/13/21 12:05 05/13/21 12:05 - General well developed, well nourished, no distress - Eyes PERRL - ENT no hearing loss - Neck trachea midline - Respiratory normal expansion, normal respiratory effort - Cardiovascular Rhythm: regular - Abdomen Abdomen: soft, non tender - Genitourinary Indwelling catheter with cloudy urine - Neurologic normal sensation - Musculoskeletal normal posture - Psychiatric oriented to time, oriented to person, oriented to place, speech is normal, memory intact Results - Labs 05/13/21 13:40 05/13/21 13:40 Abnormal Lab Results - Last 24 Hours (Table) 05/13/21 05/13/21 05/13/21 Range/Units 13:40 13:40 13:40 WBC 25.8 H (3.8-10.6) k/uL RDW 15.7 H (11.5-15.5) % Plt Count 485 H (150-450) k/uL Neutrophils # 22.5 H (1.3-7.7) k/uL Monocytes # 1.1 H (0-1.0) k/uL Sodium 132 L (137-145) mmol/L Carbon Dioxide 18 L (22-30) mmol/L BUN 76 H (9-20) mg/dL Creatinine 2.58 H (0.66-1.25) mg/dL Glucose 175 H (74-99) mg/dL Plasma Lactic Acid Leon (0.7-2.0) mmol/L Total Bilirubin 1.6 H (0.2-1.3) mg/dL AST 61 H (17-59) U/L Urine Protein 2+ H (Negative) Urine Blood Large H (Negative) Ur Leukocyte Esterase Large H (Negative) Urine RBC >182 H (0-5) /hpf Urine WBC >182 H (0-5) /hpf Urine WBC Clumps Many H (None) /hpf Urine Bacteria Many H (None) /hpf Urine Mucus Rare H (None) /hpf Urine Yeast (Budding) Occasional H (None) /hpf 05/13/21 Range/Units 13:40 WBC (3.8-10.6) k/uL RDW (11.5-15.5) % Plt Count (150-450) k/uL Neutrophils # (1.3-7.7) k/uL Monocytes # (0-1.0) k/uL Sodium (137-145) mmol/L Carbon Dioxide (22-30) mmol/L BUN (9-20) mg/dL Creatinine (0.66-1.25) mg/dL Glucose (74-99) mg/dL Plasma Lactic Acid Leon 2.6 H* (0.7-2.0) mmol/L Total Bilirubin (0.2-1.3) mg/dL AST (17-59) U/L Urine Protein (Negative) Urine Blood (Negative) Ur Leukocyte Esterase (Negative) Urine RBC (0-5) /hpf Urine WBC (0-5) /hpf Urine WBC Clumps (None) /hpf Urine Bacteria (None) /hpf Urine Mucus (None) /hpf Urine Yeast (Budding) (None) /hpf Microbiology - Last 24 Hours (Table) 05/13/21 13:40 Urine Culture - Preliminary Urine,Clean Catch Diabetes panel 05/13/21 Range/Units 13:40 Sodium 132 L (137-145) mmol/L Potassium 4.8 (3.5-5.1) mmol/L Chloride 98 (98-107) mmol/L Carbon Dioxide 18 L (22-30) mmol/L BUN 76 H (9-20) mg/dL Creatinine 2.58 H (0.66-1.25) mg/dL Glucose 175 H (74-99) mg/dL Calcium 8.9 (8.4-10.2) mg/dL AST 61 H (17-59) U/L ALT 25 (4-49) U/L Alkaline Phosphatase 120 (38-126) U/L Total Protein 7.8 (6.3-8.2) g/dL Albumin 3.6 (3.5-5.0) g/dL Calcium panel 05/13/21 Range/Units 13:40 Calcium 8.9 (8.4-10.2) mg/dL Albumin 3.6 (3.5-5.0) g/dL Pituitary panel 05/13/21 Range/Units 13:40 Sodium 132 L (137-145) mmol/L Potassium 4.8 (3.5-5.1) mmol/L Chloride 98 (98-107) mmol/L Carbon Dioxide 18 L (22-30) mmol/L BUN 76 H (9-20) mg/dL Creatinine 2.58 H (0.66-1.25) mg/dL Glucose 175 H (74-99) mg/dL Calcium 8.9 (8.4-10.2) mg/dL Adrenal panel 05/13/21 Range/Units 13:40 Sodium 132 L (137-145) mmol/L Potassium 4.8 (3.5-5.1) mmol/L Chloride 98 (98-107) mmol/L Carbon Dioxide 18 L (22-30) mmol/L BUN 76 H (9-20) mg/dL Creatinine 2.58 H (0.66-1.25) mg/dL Glucose 175 H (74-99) mg/dL Calcium 8.9 (8.4-10.2) mg/dL Total Bilirubin 1.6 H (0.2-1.3) mg/dL AST 61 H (17-59) U/L ALT 25 (4-49) U/L Alkaline Phosphatase 120 (38-126) U/L Total Protein 7.8 (6.3-8.2) g/dL Albumin 3.6 (3.5-5.0) g/dL Assessment and Plan Assessment: Impression: Recurrent urinary tract infection aggravated by incomplete bladder emptying. History of prostate cancer treated with radiation therapy. Medical illnesses. Recommendations: Patient will continue with IV antibiotics until cultures are back. The catheter should remain in place. He will have to have further evaluation for the incomplete bladder emptying patient by as an outpatient.
[2021-05-14 08:35] LABS: HCT 37.3 % (39.0-53.0); HGB 11.5 gm/dL (13.0-17.5); MCH 30.2 pg (25.0-35.0); MCHC 30.8 g/dL (31.0-37.0); Mean Platelet Volume 8.2; Platelet Count 334 k/uL (150-450); RDW 15.3 % (11.5-15.5); WBC 21.2 k/uL (3.8-10.6)
[2021-05-14] MEDS ORDERED: cefTRIAXone IN SWFI 1,000 MG/10 ML SYRINGE IVP SCH (09:00)
[2021-05-14 09:13] LABS: Albumin 2.6 g/dL (3.5-5.0); Calcium 8.1 mg/dL (8.4-10.2); Potassium 3.2 mmol/L (3.5-5.1); Total Bilirubin 0.7 mg/dL (0.2-1.3); Total Protein 5.9 g/dL (6.3-8.2)
[2021-05-14] MEDS: HEPARIN SODIUM,PORCINE/PF 5,000 UNIT/0.5 ML SYRINGE SQ SCH ×2 (09:27→16:26)
[2021-05-14] MEDS: SERTRALINE 50 MG TAB PO SCH (09:28)
--- NOTE | 2021-05-14 11:23 | P.PN ---
Subjective Progress Note Date: 05/14/21 No acute events overnight. Pt reports feeling better but still generally weak, tired. Objective - Vital Signs Vital signs: Vital Signs Temp 98.5 F 05/14/21 04:31 Pulse 68 05/14/21 04:31 Resp 18 05/14/21 04:31 BP 101/54 05/14/21 04:31 Pulse Ox 97 05/14/21 04:31 Intake & Output 05/13/21 05/14/21 05/14/21 18:59 06:59 18:59 Intake Total 1000 Output Total 1500 Balance -500 Weight 70.76 kg Intake: Oral 1000 Output: Urine 1500 Other: Voiding Method Indwelling Catheter - Exam Gen: awake, alert HEENT: normocephalic, atraumatic, good hearing acuity, moist mucous membranes Resp: good air exchange, symmetric chest expansion CVS: good distal perfusion x 4, GI: soft, NTTP, ND : no SPT, no CVAT, quintanilla catheter is present MSK: no pitting edema, no clubbing Neuro: non-focal, moving all extremities Psych: cooperative, euthymic mood - Labs CBC & Chem 7: 05/14/21 08:22 05/14/21 08:22 Labs: Abnormal Lab Results - Last 24 Hours (Table) 05/13/21 05/13/21 05/13/21 Range/Units 13:40 13:40 13:40 WBC 25.8 H (3.8-10.6) k/uL RBC (4.30-5.90) m/uL Hgb (13.0-17.5) gm/dL Hct (39.0-53.0) % MCHC (31.0-37.0) g/dL RDW 15.7 H (11.5-15.5) % Plt Count 485 H (150-450) k/uL Neutrophils # 22.5 H (1.3-7.7) k/uL Monocytes # 1.1 H (0-1.0) k/uL Sodium 132 L (137-145) mmol/L Potassium (3.5-5.1) mmol/L Chloride (98-107) mmol/L Carbon Dioxide 18 L (22-30) mmol/L BUN 76 H (9-20) mg/dL Creatinine 2.58 H (0.66-1.25) mg/dL Glucose 175 H (74-99) mg/dL Plasma Lactic Acid Leon (0.7-2.0) mmol/L Calcium (8.4-10.2) mg/dL Total Bilirubin 1.6 H (0.2-1.3) mg/dL AST 61 H (17-59) U/L Total Protein (6.3-8.2) g/dL Albumin (3.5-5.0) g/dL Urine Protein 2+ H (Negative) Urine Blood Large H (Negative) Ur Leukocyte Esterase Large H (Negative) Urine RBC >182 H (0-5) /hpf Urine WBC >182 H (0-5) /hpf Urine WBC Clumps Many H (None) /hpf Urine Bacteria Many H (None) /hpf Urine Mucus Rare H (None) /hpf Urine Yeast (Budding) Occasional H (None) /hpf 05/13/21 05/14/21 05/14/21 Range/Units 13:40 08:22 08:22 WBC 21.2 H (3.8-10.6) k/uL RBC 3.80 L (4.30-5.90) m/uL Hgb 11.5 L (13.0-17.5) gm/dL Hct 37.3 L (39.0-53.0) % MCHC 30.8 L (31.0-37.0) g/dL RDW (11.5-15.5) % Plt Count (150-450) k/uL Neutrophils # (1.3-7.7) k/uL Monocytes # (0-1.0) k/uL Sodium (137-145) mmol/L Potassium 3.2 L (3.5-5.1) mmol/L Chloride 110 H (98-107) mmol/L Carbon Dioxide 20 L (22-30) mmol/L BUN 57 H (9-20) mg/dL Creatinine 1.66 H (0.66-1.25) mg/dL Glucose 184 H (74-99) mg/dL Plasma Lactic Acid Leon 2.6 H* (0.7-2.0) mmol/L Calcium 8.1 L (8.4-10.2) mg/dL Total Bilirubin (0.2-1.3) mg/dL AST (17-59) U/L Total Protein 5.9 L (6.3-8.2) g/dL Albumin 2.6 L (3.5-5.0) g/dL Urine Protein (Negative) Urine Blood (Negative) Ur Leukocyte Esterase (Negative) Urine RBC (0-5) /hpf Urine WBC (0-5) /hpf Urine WBC Clumps (None) /hpf Urine Bacteria (None) /hpf Urine Mucus (None) /hpf Urine Yeast (Budding) (None) /hpf Microbiology - Last 24 Hours (Table) 05/13/21 13:40 Urine Culture - Preliminary Urine,Clean Catch Assessment and Plan Assessment: Sepsis secondary to UTI -C/w Ceftriaxone daily -F/u blood cultures = NGTD -Urology consult, appreciate recs: outpatient follow up for delayed bladder e mptying, discharge with quintanilla -C/w IVFs RAISA on CKD, improving -C/w IVFs -Monitor BMP, Cr improving Chronic conditions: HTN, HLD -Hold off on antihypertensives: only home med for BP is imdur 60mg qHS, will follow pressures and restart at lower dose if pressures allow -C/w home meds DVT prophylaxis -Heparin subq The patient is admitted with an anticipated greater than 2 midnight stay for evaluation of UTI CODE STATUS: Full Code Discussed with: Patient Anticipated discharge date: 2-[address]: Home
[2021-05-14] MEDS ORDERED: ATORVASTATIN 40 MG TAB PO SCH (21:00)
[2021-05-15] MEDS: HEPARIN SODIUM,PORCINE/PF 5,000 UNIT/0.5 ML SYRINGE SQ SCH ×2 (01:14→07:22)
[2021-05-15 06:29] LABS: Basophils # (A) 0.1 k/uL (0-0.2); Basophils % (A) 1 %; Eosinophils # (A) 0.4 k/uL (0-0.7); Eosinophils % (A) 3 %; HCT 35.7 % (39.0-53.0); HGB 11.4 gm/dL (13.0-17.5); Lymphocytes # (A) 1.4 k/uL (1.0-4.8); Lymphocytes % (A) 11 %; MCH 31.1 pg (25.0-35.0); MCHC 31.9 g/dL (31.0-37.0); MCV 97.2 fL (80.0-100.0); Mean Platelet Volume 9.2; Monocytes # (A) 1.1 k/uL (0-1.0); Monocytes % (A) 9 %; Neutrophils # (A) 9.1 k/uL (1.3-7.7); Neutrophils % (A) 74 %; Platelet Count 329 k/uL (150-450); RBC 3.67 m/uL (4.30-5.90); RDW 15.5 % (11.5-15.5); WBC 12.3 k/uL (3.8-10.6)
[2021-05-15 06:43] LABS: Calcium 8.2 mg/dL (8.4-10.2); Magnesium 1.4 mg/dL (1.6-2.3); Potassium 3.4 mmol/L (3.5-5.1)
[2021-05-15] MEDS: SERTRALINE 50 MG TAB PO SCH (07:22)
[2021-05-15 07:52] VITALS: BP 141/63; PULSE 78; RESP 17; TEMP 97.8
[2021-05-15] MEDS ORDERED: GABAPENTIN 300 MG CAP PO SCH (09:00)
[2021-05-15] MEDS ORDERED: POTASSIUM CHLORIDE ER 20 MEQ TAB.ER PO STA (11:05)
[2021-05-15] MEDS: MAGNESIUM SULFATE-D5W PMX 1 GM in DEXTROSE/WATER 1 100ML.BAG IVPB SCH ×2 (11:31→12:32)
--- NOTE | 2021-05-15 12:50 | P.DS ---
Providers Date of admission: 05/13/21 15:47 Expected date of discharge: 05/15/21 Attending physician: Jere Hopkins Consults: 05/13/21 15:49 Consult Physician Routine Consulting Provider: Terrance Lockhart Consult Reason/Comments: urosepsis Do you want consulting provider notified?: Yes 05/13/21 23:16 Consult Physician Urgent Consulting Provider: Michael Mclaughlin Consult Reason/Comments: UTI, BPH Do you want consulting provider notified?: Yes Primary care physician: Kevin Ballard DO Hospital Course: Sepsis secondary to UTI Acute Kidney Injury Patient presented with sepsis secondary to UTI. He was started on ceftriaxone daily. UCX and BCx did not grow microbiota. Urology consulted for delayed bladder emptying and recommended treating infection and following up in their clinic after treatment; also recommended discharge with quintanilla catheter. Due to UTI/Sepsis, patient also had RAISA which resolved with IVF. Patient discharged with cefdinir to complete 7 day course of abx. Chronic conditions: HTN, HLD -Held antihypertensives in house and BP recovered: only home med for BP is imdur 60mg qHS, on discharge, changed dosing of imdur to half dose of 30mg qHS. -No ther medication changes. Assessment: Gen: awake, alert HEENT: normocephalic, atraumatic, good hearing acuity, moist mucous membranes Resp: good air exchange, symmetric chest expansion CVS: good distal perfusion x 4, GI: soft, NTTP, ND : no SPT, no CVAT, quintanilla catheter is present MSK: no pitting edema, no clubbing Neuro: non-focal, moving all extremities Psych: cooperative, euthymic mood Patient Condition at Discharge: Good Plan - Discharge Summary Discharge Rx Participant: No New Discharge Prescriptions: New Cefdinir [Omnicef] 300 mg PO Q12HR #10 Continue Isosorbide Mononitrate ER [Imdur] 60 mg PO HS Atorvastatin [Lipitor] 40 mg PO HS Vit C/E/Zn/Coppr/Lutein/Zeaxan [Preservision Areds 2 Softgel] 1 each PO DAILY Sertraline HCl [Zoloft] 150 mg PO DAILY Folic Acid 1 mg PO DAILY Gabapentin [Neurontin] 300 mg PO DAILY Cyanocobalamin (Vitamin B-12) [Vitamin B-12] 1,000 mcg PO DAILY Entyvio Infusion 1 dose IV Q56D Cholecalciferol (Vitamin D3) [Vitamin D3 (125 MCG = 5,000 IU)] 125 mcg PO DAILY Methotrexate/Pf [Reditrex 25 mg/ml Syringe] 25 mg SQ TH Discharge Medication List Atorvastatin [Lipitor] 40 mg PO HS 09/16/17 [History] Isosorbide Mononitrate ER [Imdur] 60 mg PO HS 09/16/17 [History] Vit C/E/Zn/Coppr/Lutein/Zeaxan [Preservision Areds 2 Softgel] 1 each PO DAILY 09/16/17 [History] Cyanocobalamin (Vitamin B-12) [Vitamin B-12] 1,000 mcg PO DAILY 08/22/19 [History] Entyvio Infusion 1 dose IV Q56D 08/22/19 [History] Folic Acid 1 mg PO DAILY 08/22/19 [History] Gabapentin [Neurontin] 300 mg PO DAILY 08/22/19 [History] Sertraline HCl [Zoloft] 150 mg PO DAILY 08/22/19 [History] Cholecalciferol (Vitamin D3) [Vitamin D3 (125 MCG = 5,000 IU)] 125 mcg PO DAILY 05/13/21 [History] Methotrexate/Pf [Reditrex 25 mg/ml Syringe] 25 mg SQ TH 05/13/21 [History] Cefdinir [Omnicef] 300 mg PO Q12HR #10 05/15/21 [Rx] Follow up Appointment(s)/Referral(s): Kevin Ballard DO [Primary Care Provider] - 1-2 days [facility], [NON-STAFF] - 1-2 Days Patient Instructions/Handouts: Urinary Tract Infection in Men (DC), Leukocytosis (DC) Discharge Disposition: HOME SELF-CARE
== END 2021-05-15 14:59 | disposition home or self-care (01) | DRG 872 ==
LOC: EC 11:37 → 4SSUR 15:47 → 1SOBS 18:19
PROVIDERS: ADMIT Internal Medicine; ATTEND Internal Medicine
DX: A41.9 Sepsis, unspecified organism (principal); N17.9 Acute kidney failure, unspecified; E87.2 Acidosis; K50.90 Crohn's disease, unspecified, without complications; I12.9 Hypertensive chronic kidney disease with stage 1 through stage 4 chronic kidney disease, or unspecified chronic kidney disease; N18.9 Chronic kidney disease, unspecified; Z20.822 Contact with and (suspected) exposure to COVID-19; R33.8 Other retention of urine; N30.90 Cystitis, unspecified without hematuria; G47.33 Obstructive sleep apnea (adult) (pediatric); E78.5 Hyperlipidemia, unspecified; H91.90 Unspecified hearing loss, unspecified ear; J45.909 Unspecified asthma, uncomplicated; N40.1 Benign prostatic hyperplasia with lower urinary tract symptoms; Z79.899 Other long term (current) drug therapy; Z85.46 Personal history of malignant neoplasm of prostate; Z87.440 Personal history of urinary (tract) infections; Z92.3 Personal history of irradiation; Z98.42 Cataract extraction status, left eye; Z98.41 Cataract extraction status, right eye; Z96.1 Presence of intraocular lens
CPT/HCPCS: 36415; 71046; 80048; 80053; 81001; 83605; 83735; 85025; 85027; 87040; 87077; 87086; 87186; 87635; 96361; 96374; 99285

== ENCOUNTER 2021-07-16 12:59 | Inpatient (IN) | payer MEDICARE ==
[2021-07-16] MEDS ORDERED: SODIUM CHLORIDE 0.9% 1,000 ML IV STA (15:09)
[2021-07-16 15:11] LABS: Calcium 8.1 mg/dL (8.4-10.2); Potassium 3.1 mmol/L (3.5-5.1); Total Protein 6.5 g/dL (6.3-8.2)
[2021-07-16 15:14] LABS: INR 1.1 (<1.2); Prothrombin Time 11.2 sec (9.0-12.0)
--- NOTE | 2021-07-16 15:18 | XR ---
EXAMINATION TYPE: XR chest 2V DATE OF EXAM: 07/16/2021 COMPARISON: 05/13/2021 INDICATION: Weakness, fall TECHNIQUE: Frontal and lateral views chest were obtained. FINDINGS: The heart size is normal. The pulmonary vasculature is normal. The lungs are clear. Old left rib fractures are present. No pneumothorax is evident. IMPRESSION: 1. No acute pulmonary process.
[2021-07-16 15:20] LABS: Anisocytosis Slight; HCT 36.3 % (39.0-53.0); HGB 11.7 gm/dL (13.0-17.5); MCH 31.4 pg (25.0-35.0); MCHC 32.3 g/dL (31.0-37.0); MCV 97.2 fL (80.0-100.0); Macrocytosis Slight; Platelet Count 166 k/uL (150-450); RBC 3.73 m/uL (4.30-5.90); RDW 17.1 % (11.5-15.5); WBC 10.1 k/uL (3.8-10.6)
[2021-07-16] MEDS ORDERED: ASPIRIN 81 MG PO STA (15:35)
[2021-07-16] MEDS ORDERED: POTASSIUM CHLORIDE ER 20 MEQ TAB.ER PO STA (15:55)
--- NOTE | 2021-07-16 15:56 | ED ---
Weakness HPI - General Chief complaint: Weakness Stated complaint: weakness, falls Time Seen by Provider: 07/16/21 13:43 Source: patient, RN notes reviewed Mode of arrival: wheelchair Limitations: no limitations - History of Present Illness Initial comments: Patient is a 70-year-old male that presents to the emergency Department the complaint of feeling sick for the past 2-4 days. He notes that he has some congestion not sleeping aching all over coughing and shortness of breath. States that he is been feeling weak and has been falling over for the past 4 days. States that he is for about 3-4 times. Patient denies having chest pain or nausea vomiting. Patient did appear to be mildly lethargic and under the weather while in bed during the exam interview. Again he denied chest pain. He denied any headache nausea vomiting diarrhea constipation fever fatigue chills. - Related Data Home Medications Medication Instructions Recorded Confirmed Atorvastatin [Lipitor] 40 mg PO HS 09/16/17 05/13/21 Vit C/E/Zn/Coppr/Lutein/Zeaxan 1 each PO DAILY 09/16/17 05/13/21 [Preservision Areds 2 Softgel] Cyanocobalamin (Vitamin B-12) 1,000 mcg PO DAILY 08/22/19 05/13/21 [Vitamin B-12] Entyvio Infusion 1 dose IV Q56D 08/22/19 05/13/21 Folic Acid 1 mg PO DAILY 08/22/19 05/13/21 Gabapentin [Neurontin] 300 mg PO DAILY 08/22/19 05/13/21 Sertraline HCl [Zoloft] 150 mg PO DAILY 08/22/19 05/13/21 Cholecalciferol (Vitamin D3) 125 mcg PO DAILY 05/13/21 05/13/21 [Vitamin D3 (125 MCG = 5,000 IU)] Methotrexate/Pf [Reditrex 25 mg/ml 25 mg SQ TH 05/13/21 05/13/21 Syringe] Previous Rx's Medication Instructions Recorded Cefdinir [Omnicef] 300 mg PO Q12HR #10 cap 05/15/21 Isosorbide Mononitrate ER [Imdur] 30 mg PO HS #0 05/15/21 Allergies Allergy/AdvReac Type Severity Reaction Status Date / Time No Known Allergies Allergy Verified 07/16/21 15:52 Review of Systems ROS Statement: Those systems with pertinent positive or pertinent negative responses have been documented in the HPI. ROS Other: All systems not noted in ROS Statement are negative. Past Medical History Past Medical History: Asthma, Cancer, Hearing Disorder / Deafness, Hyperlipidemia, Hypertension, Prostate Disorder, Sleep Apnea/CPAP/BIPAP Additional Past Medical History / Comment(s): hx of Crohn's, hx of prostate ca with radiation approx 2009, does not use cpap machine,deaf rt ear,hearing aide lt ear History of Any Multi-Drug Resistant Organisms: None Reported Past Surgical History: Orthopedic Surgery Additional Past Surgical History / Comment(s): rt knee sx, neck "2 bolts", rod cataracts with lens implant Past Anesthesia/Blood Transfusion Reactions: No Reported Reaction Past Psychological History: No Psychological Hx Reported Smoking Status: Never smoker Past Alcohol Use History: Occasional Past Drug Use History: None Reported - Past Family History Mother Family Medical History: No Reported History Sister(s) Family Medical History: Cancer Additional Family Medical History / Comment(s): breast and lung CA General Exam Limitations: no limitations General appearance: alert, in no apparent distress Head exam: Present: atraumatic, normocephalic, normal inspection Eye exam: Present: normal appearance, PERRL, EOMI. Absent: scleral icterus, conjunctival injection, periorbital swelling ENT exam: Present: normal exam, mucous membranes moist Neck exam: Present: normal inspection Respiratory exam: Present: normal lung sounds bilaterally. Absent: respiratory distress, wheezes, rales, rhonchi, stridor Cardiovascular Exam: Present: regular rate, normal rhythm, normal heart sounds. Absent: systolic murmur, diastolic murmur, rubs, gallop, clicks GI/Abdominal exam: Present: soft, normal bowel sounds. Absent: distended, tenderness, guarding, rebound, rigid Extremities exam: Present: normal inspection, full ROM, normal capillary refill. Absent: tenderness, pedal edema, joint swelling, calf tenderness Neurological exam: Present: alert, oriented X3 Psychiatric exam: Present: normal affect, normal mood Skin exam: Present: warm, dry, intact, normal color. Absent: rash Course Vital Signs 07/16/21 07/16/21 13:05 15:29 Temperature 98.5 F Pulse Rate 74 83 Respiratory 20 20 Rate Blood Pressure 98/61 89/51 O2 Sat by Pulse 100 98 Oximetry EKG Findings - EKG Comments: EKG Findings:: Ventricular rate 99 bpm, AR interval 150 ms, QRS duration 84 ms, QTC 530 ms, PRT axes 69/40//54. Sinus rhythm with marked sinus arrhythmia with occasional premature ventricular complexes, prolonged QT, abnormal ECG. Medical Decision Making - Medical Decision Making 70-year-old male with weakness for the past 4 days. Covid test ordered. Covid test negative. Labs, chest x-ray, 1 L normal saline ordered. Labs: CBC unremarkable, CMP shows potassium of 3.1 creatinine of 4.4, last comparable lab value was 1.15, lactic acid 2.5, troponin 0.039. Chest x-ray shows no acute pulmonary process. Case discussed with Dr. Aguilera, patient will be admitted for elevated troponins acute kidney injury and hypokalemia. Dr. Villar was consulted and will accept the admit with nephrology on consult. RSV and influenza test ordered. - Lab Data Result diagrams: 07/16/21 14:52 07/16/21 14:52 Lab Results 07/16/21 07/16/21 07/16/21 Range/Units 13:35 14:52 14:52 WBC 10.1 (3.8-10.6) k/uL RBC 3.73 L (4.30-5.90) m/uL Hgb 11.7 L (13.0-17.5) gm/dL Hct 36.3 L (39.0-53.0) % MCV 97.2 (80.0-100.0) fL MCH 31.4 (25.0-35.0) pg MCHC 32.3 (31.0-37.0) g/dL RDW 17.1 H (11.5-15.5) % Plt Count 166 (150-450) k/uL MPV 10.0 Anisocytosis Slight Macrocytosis Slight PT 11.2 (9.0-12.0) sec INR 1.1 (<1.2) APTT 28.0 (22.0-30.0) sec Sodium (137-145) mmol/L Potassium (3.5-5.1) mmol/L Chloride (98-107) mmol/L Carbon Dioxide (22-30) mmol/L Anion Gap mmol/L BUN (9-20) mg/dL Creatinine (0.66-1.25) mg/dL Est GFR (CKD-EPI)AfAm (>60 ml/min/1.73 sqM) Est GFR (CKD-EPI)NonAf (>60 ml/min/1.73 sqM) Glucose (74-99) mg/dL Plasma Lactic Acid Leon (0.7-2.0) mmol/L Calcium (8.4-10.2) mg/dL Total Bilirubin (0.2-1.3) mg/dL AST (17-59) U/L ALT (4-49) U/L Alkaline Phosphatase (38-126) U/L Troponin I (0.000-0.034) ng/mL Total Protein (6.3-8.2) g/dL Albumin (3.5-5.0) g/dL Coronavirus (PCR) Not Detected (Not Detectd) 07/16/21 07/16/21 07/16/21 Range/Units 14:52 14:52 14:52 WBC (3.8-10.6) k/uL RBC (4.30-5.90) m/uL Hgb (13.0-17.5) gm/dL Hct (39.0-53.0) % MCV (80.0-100.0) fL MCH (25.0-35.0) pg MCHC (31.0-37.0) g/dL RDW (11.5-15.5) % Plt Count (150-450) k/uL MPV Anisocytosis Macrocytosis PT (9.0-12.0) sec INR (<1.2) APTT (22.0-30.0) sec Sodium 137 (137-145) mmol/L Potassium 3.1 L (3.5-5.1) mmol/L Chloride 100 (98-107) mmol/L Carbon Dioxide 21 L (22-30) mmol/L Anion Gap 16 mmol/L BUN 65 H (9-20) mg/dL Creatinine 4.44 H (0.66-1.25) mg/dL Est GFR (CKD-EPI)AfAm 14 (>60 ml/min/1.73 sqM) Est GFR (CKD-EPI)NonAf 12 (>60 ml/min/1.73 sqM) Glucose 195 H (74-99) mg/dL Plasma Lactic Acid Leon 2.5 H* (0.7-2.0) mmol/L Calcium 8.1 L (8.4-10.2) mg/dL Total Bilirubin 1.0 (0.2-1.3) mg/dL AST 22 (17-59) U/L ALT 20 (4-49) U/L Alkaline Phosphatase 81 (38-126) U/L Troponin I 0.039 H* (0.000-0.034) ng/mL Total Protein 6.5 (6.3-8.2) g/dL Albumin 3.0 L (3.5-5.0) g/dL Coronavirus (PCR) (Not Detectd) - EKG Data -: EKG Interpreted by [place] EKG shows normal: sinus rhythm, QRS complexes (Prolonged) Rate: normal - Radiology Data Radiology results: report reviewed, image reviewed Chest x-ray: No acute pulmonary process. Disposition Clinical Impression: RAISA (acute kidney injury), Elevated troponin, Hypokalemia Disposition: ADMITTED IP TO THIS [facility] Condition: Good Is patient prescribed a controlled substance at d/c from ED?: No Referrals: Kevin Ballard DO [Primary Care Provider] - 1-2 days Time of Disposition: 16:01
[2021-07-16] MEDS ORDERED: NALOXONE 0.4 MG/ML 1 ML VIAL IV PRN (15:59)
[2021-07-16] MEDS ORDERED: SODIUM CHLORIDE 0.9% 1,000 ML IV SCH (16:00)
[2021-07-16] MEDS ORDERED: LACTATED RINGERS 1,000 ML IV ONE (16:10)
[2021-07-16] MEDS ORDERED: MAGNESIUM SULFATE-D5W PMX 1 GM in DEXTROSE/WATER 1 100ML.BAG IVPB ONE (16:15)
[2021-07-16 16:30] LABS: Band Neutrophils % 3 %; Lymphocytes # (M) 1.92 k/uL (1.0-4.8); Monocytes # (M) 0.81 k/uL (0-1.0); Neutrophils % (M) 69 %; Nucleated Red Blood Cells 0 /100 WBC (0-0); Total Cells Counted 100
--- NOTE | 2021-07-16 17:27 | CT ---
EXAMINATION TYPE: CT abdomen pelvis wo con DATE OF EXAM: 07/16/2021 COMPARISON: 10/02/2020 HISTORY: Right sided pain with difficulty urinating. CT DLP: 519.2 mGycm Automated exposure control for dose reduction was used. There is coarse reticular interstitial infiltrate in the lower lobes and more on the right side. Hear t size is normal. There is no pericardial effusion. There is no pleural effusion. Liver is intact. There are clips from cholecystectomy. The bile ducts are not dilated. Spleen is inta ct. Stomach is intact. There is no evidence of pancreatic mass. There are bilateral renal multiple cortical cysts. There is a large cyst posterior right kidney with anterior displacement of the kidney. Cyst measures 9 cm. There is bilateral hydronephrosis and hydrou reter. There is 1 mm calculus lower pole left kidney. No other calculus seen. There is no retroperito lam adenopathy. There is prostatic calcification. Bladder distends fairly smoothly. There is no ingu inal hernia. There is no mesenteric edema. There is some fat stranding around the right kidney. There is no ascite s. There is no sign of free air. There is no bowel obstruction. There is no inguinal hernia. The lumbar vertebra have normal alignment. There is no compression fracture. There is L5 spondylolysi s without spondylolisthesis. There is no evidence of a pelvic fracture. Hip joints are intact. IMPRESSION: Bilateral renal cortical cysts. There is bilateral hydronephrosis and hydroureter which is new compar ed to old exam. No obstructing calculus seen. Cause for the hydronephrosis and hydroureter is not isidra ar. There is enlarged prostate with calcification. Prostate measures 5.4 cm. There is right-sided perinephric edema and fat stranding that suggests obstruction on the right side. Appendix not seen. No sign of appendicitis. There is some interstitial infiltrates at the lung bases which have increased compared to last exam.
--- NOTE | 2021-07-16 17:29 | P.HPIM ---
History of Present Illness Chief Complaint: Generalized weakness and difficulties in urination This is a very pleasant 70-year-old male with history of BPH who is coming for evaluation of generalized weakness, difficulties urination and malaise for one week. Patient states that about a week ago he started experiencing some nasal drainage and congestion and was started on Vianey. He's been having also some URI-like symptoms. He was tested for COVID-19 and it was negative. From that standpoint he quite improved. However for the last few days he's noticed difficulties in urination sustaining and burning with urination. Frequency. He then started experiencing generalized weakness and malaise low energy level. He was experiencing right flank pain intermittent lasting few minutes and radiating down to his right groin. No nausea or vomiting but his appetite significantly declined he had poor by mouth intake. He did not have any fever. He did not describe any shortness of breath chest pain nausea vomiting orthopnea. This morning all of the symptoms intensified and he had one episode of brown nonbloody diarrhea and he decided to come to emergency department Emergency department it was found that he has elevated 4.4 and BUNs of 65 which is significantly above his baseline. White blood cell count was normal. He was slightly anemic which was at his baseline. Lactic acid 2.5. Vital signs notable for hypertension in the range of 80s. Troponin slightly elevated. Chest x-ray shows some interstitial changes no infiltrates. Patient received a bolus of IV fluids in the emergency department. COVID-19 test was negative and he was admitted for further evaluation. Patient tells me that he does not take any medications at home he has no known cardiac problems that he not a smoker. Patient tells me that he has a history of BPH and bladder issues. He was admitted in the past with urinary tract infections and difficulties in urination. He had cystoscopy about a month ago and was told that his bladder he is in "poor shape". Review of Systems All systems: negative Past Medical History Past Medical History: Asthma, Cancer, Hearing Disorder / Deafness, Hyperlipidemia, Hypertension, Prostate Disorder, Sleep Apnea/CPAP/BIPAP Additional Past Medical History / Comment(s): hx of Crohn's, hx of prostate ca with radiation approx 2009, does not use cpap machine,deaf rt ear,hearing aide lt ear History of Any Multi-Drug Resistant Organisms: None Reported Past Surgical History: Orthopedic Surgery Additional Past Surgical History / Comment(s): rt knee sx, neck "2 bolts", rod cataracts with lens implant Past Anesthesia/Blood Transfusion Reactions: No Reported Reaction Past Psychological History: No Psychological Hx Reported Smoking Status: Never smoker Past Alcohol Use History: Occasional Past Drug Use History: None Reported - Past Family History Mother Family Medical History: No Reported History Sister(s) Family Medical History: Cancer Additional Family Medical History / Comment(s): breast and lung CA Medications and Allergies Home Medications Medication Instructions Recorded Confirmed Type Atorvastatin [Lipitor] 40 mg PO HS 09/16/17 07/16/21 History Vit C/E/Zn/Coppr/Lutein/Zeaxan 1 tab PO DAILY 09/16/17 07/16/21 History [Preservision Areds 2 Softgel] Cyanocobalamin (Vitamin B-12) 1,000 mcg PO DAILY 08/22/19 07/16/21 History [Vitamin B-12] Entyvio Infusion 1 dose IV Q56D 08/22/19 07/16/21 History Folic Acid 1 mg PO DAILY 08/22/19 07/16/21 History Gabapentin [Neurontin] 300 mg PO DAILY 08/22/19 07/16/21 History Sertraline HCl [Zoloft] 150 mg PO DAILY 08/22/19 07/16/21 History Cholecalciferol (Vitamin D3) 125 mcg PO DAILY 05/13/21 07/16/21 History [Vitamin D3 (125 MCG = 5,000 IU)] Methotrexate/Pf [Reditrex 25 mg/ml 25 mg SQ TH 05/13/21 07/16/21 History Syringe] Fexofenadine HCl [Vianey Allergy] 180 mg PO DAILY PRN 07/16/21 07/16/21 History Isosorbide Mononitrate ER [Imdur] 60 mg PO HS 07/16/21 07/16/21 History predniSONE See Taper PO DIRECTED 07/16/21 07/16/21 History Allergies Allergy/AdvReac Type Severity Reaction Status Date / Time No Known Allergies Allergy Verified 07/16/21 15:52 Physical Exam Vitals: Vital Signs Temp Pulse Resp BP Pulse Ox 07/16/21 15:29 83 20 89/51 98 07/16/21 13:05 98.5 F 74 20 98/61 100 Intake and Output 07/16/21 07/16/21 07/16/21 06:59 14:59 22:59 Other: Weight 77.111 kg Patient is awake and alert oriented 3 no any active distress but appears somewhat tired Head and neck: Anicteric sclere, no facial asymmetry, dry mucous members without any lesions, neck I do not see any neck vein distention or masses or thyromegaly Lungs: Normal breath sounds bilaterally, without any wheezing rhonchi or cr ackles, breathing is nonlabored Cardiovascular: Regular rhythm and rate S1-S2 no murmurs rubs or gallops Abdomen: Bowel sounds are present throughout he does have some suprapubic tenderness otherwise not tender to palpation soft he does have right flank tenderness to percussion Extremities: No peripheral edema no cyanosis warm well perfused Neurological: No focal neurological deficits cranial nerves are intact no asterixis Skin without rashes Musculoskeletal: No joint swelling Results CBC & Chem 7: 07/16/21 14:52 07/16/21 14:52 Labs: Abnormal Lab Results - Last 24 Hours (Table) 07/16/21 07/16/21 07/16/21 Range/Units 14:52 14:52 14:52 RBC 3.73 L (4.30-5.90) m/uL Hgb 11.7 L (13.0-17.5) gm/dL Hct 36.3 L (39.0-53.0) % RDW 17.1 H (11.5-15.5) % Potassium 3.1 L (3.5-5.1) mmol/L Carbon Dioxide 21 L (22-30) mmol/L BUN 65 H (9-20) mg/dL Creatinine 4.44 H (0.66-1.25) mg/dL Glucose 195 H (74-99) mg/dL Plasma Lactic Acid Leon 2.5 H* (0.7-2.0) mmol/L Calcium 8.1 L (8.4-10.2) mg/dL Troponin I (0.000-0.034) ng/mL Albumin 3.0 L (3.5-5.0) g/dL 07/16/21 Range/Units 14:52 RBC (4.30-5.90) m/uL Hgb (13.0-17.5) gm/dL Hct (39.0-53.0) % RDW (11.5-15.5) % Potassium (3.5-5.1) mmol/L Carbon Dioxide (22-30) mmol/L BUN (9-20) mg/dL Creatinine (0.66-1.25) mg/dL Glucose (74-99) mg/dL Plasma Lactic Acid Leon (0.7-2.0) mmol/L Calcium (8.4-10.2) mg/dL Troponin I 0.039 H* (0.000-0.034) ng/mL Albumin (3.5-5.0) g/dL Assessment and Plan Plan: #Acute kidney injury we need to urgently rule acute urinary retention especially in view of recently being started on Vianey and history of BPH with difficulties in urination plus patient presented hypotensive Continue IV fluids Ordered stat UA Spoke with nursing staff, Harrison catheter to be placed stat CT of abdomen and pelvis without contrast stone protocol Sepsis workup ESR, CRP Nephrology consultation #SIRS r/o severe sepsis Rule out urinary tract infection and pyelonephritis Continue IV fluids, received volume bolus per sepsis protocol in the ER Ordered blood cultures, urine analysis and urine culture Ordered cefepime Chart review showing previous UTI with pansensitive E. coli CT of the abdomen and pelvis without contrast stone protocol #Lactic acidosis Hypotension Due to dehydration sepsis Received IV fluids per sepsis protocol, continue IV fluids we'll adjust Repeat lactic acid pending If blood pressure and lactic acidosis does not respond to IV fluids he should be considered for intensive care unit #Electronic abnormalities Hypokalemia, hypomagnesemia Significantly decreased by mouth intake Patient claims not to be a diuretic This was replaced in ER #Elevated troponin No chest pain EKG without acute findings Received aspirin in ER Serial troponin Cardiology consultation Echocardiogram #Acute URI Likely acute bronchitis No infiltrates in the chest x-ray Lungs are clear to auscultation He does have some interstitial changes, will monitor respiratory status, repeat imaging We will order bronchodilators, incentive spirometer COVID-19 test was negative Influenza, RSV Pro calcitonin ESR, CRP Patient will need more than 2 minutes hospital stay Patient is a full code Home medications reviewed
[2021-07-16] MEDS ORDERED: CEFEPIME 2 GM in SODIUM CHLORIDE 0.9% 100 ML IVPB STA (17:38)
[2021-07-16 17:51] LABS: Appearance,Urine Turbid (Clear); Bilirubin,Urine Negative (Negative); Blood,Urine Moderate (Negative); Color,Urine Yellow; Glucose,Urine (UA) Negative (Negative); Ketones,Urine Negative (Negative); Leukocyte Esterase,Urine Large (Negative); Nitrite,Urine Negative (Negative); PH, Urine 6.5 (5.0-8.0); Protein,Urine 2+ (Negative); Urobilinogen,Urine <2.0 mg/dL (<2.0); WBC,Urine >182 /hpf (0-5)
[2021-07-16 17:56] LABS: Specific Gravity,Urine 1.011 (1.001-1.035)
--- NOTE | 2021-07-16 20:23 | US ---
EXAMINATION TYPE: US kidneys/renal and bladder DATE OF EXAM: 07/16/2021 COMPARISON: CT CLINICAL HISTORY: RAISA. RAISA. Hx cyst. EXAM MEASUREMENTS: Right Kidney: 12.6 x 7.4 x 6.9 cm Left Kidney: 11.9 x 6.0 x 6.1 cm Right Kidney: Appears slightly enlarged. Hydronephrosis appearance present. Area of mixed echogenicit y seen upper pole: 8.3 x 9.2 x 8.5 cm. Area does not appear to be completely anechoic. Left Kidney: Hydronephrosis appearance present. Hyperechoic focus seen upper pole: 0.5 x 0.6 x 0.5 cm . Multiple anechoic areas seen. Largest appears slightly complex, medially: 3.2 x 2.6 x 2.7 cm. Bladder: Catheter in place. Unable to evaluate bladder. Bilateral Jets seen: No. IMPRESSION: Bilateral hydronephrosis. Large cyst in the upper pole right kidney. No definite solid renal mass.
[2021-07-16] MEDS: ATORVASTATIN 40 MG TAB PO SCH (21:11)
[2021-07-17] MEDS: LACTATED RINGERS 1,000 ML IV SCH ×3 (00:12→22:26)
[2021-07-17] MEDS ORDERED: CEFEPIME 1 GM in SODIUM CHLORIDE 0.9% 50 ML IVPB SCH (06:00)
[2021-07-17 09:03] LABS: Anisocytosis Slight; HCT 33.9 % (39.0-53.0); HGB 10.8 gm/dL (13.0-17.5); MCH 31.3 pg (25.0-35.0); MCHC 31.9 g/dL (31.0-37.0); MCV 98.3 fL (80.0-100.0); Macrocytosis Slight; Mean Platelet Volume 9.3; Platelet Count 194 k/uL (150-450); RBC 3.45 m/uL (4.30-5.90); RDW 17.4 % (11.5-15.5); WBC 8.1 k/uL (3.8-10.6)
[2021-07-17 09:16] LABS: Calcium 8.1 mg/dL (8.4-10.2); Magnesium 1.8 mg/dL (1.6-2.3); Potassium 3.3 mmol/L (3.5-5.1)
[2021-07-17] MEDS ORDERED: POTASSIUM CHLORIDE ER 20 MEQ TAB.ER PO STA (09:28)
--- NOTE | 2021-07-17 09:36 | P.PN ---
Subjective Principal diagnosis: Urinary retention, severe sepsis, UTI This is a 70-year-old male with history of BPH admitted with generalized w eakness and difficulties in urination post URI and Vianey. Presented with acute urinary retention bilateral hydronephrosis, severe sepsis due to urinary tract infection. Patient has been treated with fluids per sepsis protocol, antibiotics, urine and blood cultures obtained. This morning he is feeling better. Blood pressures are better. Urine output has been satisfactory overnight. He still feeling weak and tired but better than yesterday. He has no respiratory complaints no abdominal pain nausea or vomiting at this time. Objective - Vital Signs Vital signs: Vital Signs Temp 98.2 F 07/17/21 08:56 Pulse 95 07/17/21 08:56 Resp 20 07/17/21 08:56 BP 109/65 07/17/21 08:56 Pulse Ox 97 07/17/21 08:56 Intake & Output 07/16/21 07/17/21 07/17/21 18:59 06:59 18:59 Intake Total 150 480 Output Total 1300 Balance 150 -820 Weight 77.111 kg 73.5 kg Intake: IV 50 Cefepime 1 gm In Sodium 50 Chloride 0.9% 50 ml @ 100 mls/hr IVPB Q12H [facility] Rx# :[id number] Intake, IV Titration 100 Amount Magnesium Sulfate-D5w Pmx 100 1 gm In Dextrose/Water 1 100ml.bag @ 100 mls/hr IVPB ONCE ONE Rx#: [id number] Oral 480 Output: Urine 1300 Other: Voiding Method Indwelling Catheter Indwelling Catheter Indwelling Catheter # Bowel Movements 2 - Exam Patient is awake and alert oriented 3 no any active distress but appears somewhat tired Head and neck: Anicteric sclere, no facial asymmetry, dry mucous members without any lesions, neck I do not see any neck vein distention or masses or thyromegaly Lungs: Normal breath sounds bilaterally, without any wheezing rhonchi or crackles, breathing is nonlabored Cardiovascular: Regular rhythm and rate S1-S2 no murmurs rubs or gallops Abdomen: Bowel sounds are present throughout he does have some suprapubic tenderness otherwise not tender to palpation soft he does have right flank tenderness to percussion Extremities: No peripheral edema no cyanosis warm well perfused Neurological: No focal neurological deficits cranial nerves are intact no asterixis Skin without rashes Musculoskeletal: No joint swelling - Labs CBC & Chem 7: 07/17/21 07:32 07/17/21 07:32 Labs: Abnormal Lab Results - Last 24 Hours (Table) 07/16/21 07/16/21 07/16/21 Range/Units 14:52 14:52 14:52 RBC 3.73 L (4.30-5.90) m/uL Hgb 11.7 L (13.0-17.5) gm/dL Hct 36.3 L (39.0-53.0) % RDW 17.1 H (11.5-15.5) % Potassium 3.1 L (3.5-5.1) mmol/L Carbon Dioxide 21 L (22-30) mmol/L BUN 65 H (9-20) mg/dL Creatinine 4.44 H (0.66-1.25) mg/dL Glucose 195 H (74-99) mg/dL Plasma Lactic Acid Leon 2.5 H* (0.7-2.0) mmol/L Calcium 8.1 L (8.4-10.2) mg/dL Troponin I (0.000-0.034) ng/mL Albumin 3.0 L (3.5-5.0) g/dL Urine Protein (Negative) Urine Blood (Negative) Ur Leukocyte Esterase (Negative) Urine WBC (0-5) /hpf Urine WBC Clumps (None) /hpf RSV (PCR) (Negative) 07/16/21 07/16/21 07/16/21 Range/Units 14:52 17:06 17:26 RBC (4.30-5.90) m/uL Hgb (13.0-17.5) gm/dL Hct (39.0-53.0) % RDW (11.5-15.5) % Potassium (3.5-5.1) mmol/L Carbon Dioxide (22-30) mmol/L BUN (9-20) mg/dL Creatinine (0.66-1.25) mg/dL Glucose (74-99) mg/dL Plasma Lactic Acid Leon (0.7-2.0) mmol/L Calcium (8.4-10.2) mg/dL Troponin I 0.039 H* (0.000-0.034) ng/mL Albumin (3.5-5.0) g/dL Urine Protein 2+ H (Negative) Urine Blood Moderate H (Negative) Ur Leukocyte Esterase Large H (Negative) Urine WBC >182 H (0-5) /hpf Urine WBC Clumps Many H (None) /hpf RSV (PCR) Positive H (Negative) 07/16/21 07/17/21 07/17/21 Range/Units 17:36 07:32 07:32 RBC 3.45 L (4.30-5.90) m/uL Hgb 10.8 L (13.0-17.5) gm/dL Hct 33.9 L (39.0-53.0) % RDW 17.4 H (11.5-15.5) % Potassium 3.3 L (3.5-5.1) mmol/L Carbon Dioxide 20 L (22-30) mmol/L BUN 57 H (9-20) mg/dL Creatinine 3.24 H (0.66-1.25) mg/dL Glucose 133 H (74-99) mg/dL Plasma Lactic Acid Leon 2.3 H* (0.7-2.0) mmol/L Calcium 8.1 L (8.4-10.2) mg/dL Troponin I (0.000-0.034) ng/mL Albumin (3.5-5.0) g/dL Urine Protein (Negative) Urine Blood (Negative) Ur Leukocyte Esterase (Negative) Urine WBC (0-5) /hpf Urine WBC Clumps (None) /hpf RSV (PCR) (Negative) Microbiology - Last 24 Hours (Table) 07/16/21 17:26 Urine Culture - Preliminary Urine,Voided Assessment and Plan Plan: #Acute pyelonephritis with severe sepsis Due to acute urinary obstruction post Harrison catheter: Draining purulent urine that has been clearing up this morning Started on cefepime on 07/16/21 Blood and urine culture pending Urine cultures 04/2010: Pansensitive E. 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 with urologist information technology professor at admission time #Lactic acidosis Due sepsis and dehydration Received IV fluids per sepsis protocol Repeat lactic acid within normal limits Continue IV fluid #Electronic abnormalities Hypokalemia, hypomagnesemia Continue replacement #Elevated troponin Likely related to demand ischemia due to severe sepsis Trending down No chest pain EKG without acute findings Received aspirin in ER Serial troponin Cardiology consultation Echocardiogram #Acute URI with acute bronchitis due to RSV Bronchodilators when necessary, nasal decongestion DVT prophylaxis: Subcu Lovenox
--- NOTE | 2021-07-17 10:15 | P.NPCON ---
History of Present Illness - Reason for Consult acute renal failure - History of Present Illness Reason for consult: Acute kidney injury History of present illness: The patient is a 70-year-old male seen in consultation for acute kidney injury. Patient's creatinine on admission was 4.44 and is 3.24 today. Patient presented to the hospital due to generalized weakness and not feeling well for about one week. He admits to a productive cough with clear phlegm. Also complains of diarrhea. No vomiting. Oral intake has been poor. He is currently receiving IV fluids. He was noted to have urinary retention and currently is a 40 catheter. He is nonoliguric. He denies use of nonsteroidals. No history of diabetes. He tested negative for coronavirus but positive for RSV. He is currently receiving antibiotics for UTI. UA is suggestive of UTI. CT of the abdomen and pelvis also showed bilateral hydronephrosis. Kidneys are normal in size. Urology has been consulted. Blood pressure stable. He is currently on room air. Vital signs are stable. General: The patient appeared well nourished and normally developed. HEENT: Head exam is unremarkable. LUNGS: Breath sounds decreased. HEART: Rate and Rhythm are regular. ABDOMEN: Soft, no distention. EXTREMITITES: No edema. Past Medical History Past Medical History: Asthma, Cancer, Hearing Disorder / Deafness, Hyperlipidemia, Hypertension, Prostate Disorder, Sleep Apnea/CPAP/BIPAP Additional Past Medical History / Comment(s): hx of Crohn's, hx of prostate ca with radiation approx 2009, does not use cpap machine,deaf rt ear,hearing aide lt ear History of Any Multi-Drug Resistant Organisms: None Reported Past Surgical History: Orthopedic Surgery Additional Past Surgical History / Comment(s): rt knee sx, neck "2 bolts", rod cataracts with lens implant Past Anesthesia/Blood Transfusion Reactions: No Reported Reaction Past Psychological History: No Psychological Hx Reported Smoking Status: Former smoker Past Alcohol Use History: Occasional Additional Past Alcohol Use History / Comment(s): quit smoking approx 1997, smoked 2ppd from age 11 (1961) Past Drug Use History: None Reported - Past Family History Mother Family Medical History: No Reported History Sister(s) Family Medical History: Cancer Additional Family Medical History / Comment(s): breast and lung CA Medications and Allergies Home Medications Medication Instructions Recorded Confirmed Type Atorvastatin [Lipitor] 40 mg PO HS 09/16/17 07/16/21 History Vit C/E/Zn/Coppr/Lutein/Zeaxan 1 tab PO DAILY 09/16/17 07/16/21 History [Preservision Areds 2 Softgel] Cyanocobalamin (Vitamin B-12) 1,000 mcg PO DAILY 08/22/19 07/16/21 History [Vitamin B-12] Entyvio Infusion 1 dose IV Q56D 08/22/19 07/16/21 History Folic Acid 1 mg PO DAILY 08/22/19 07/16/21 History Gabapentin [Neurontin] 300 mg PO DAILY 08/22/19 07/16/21 History Sertraline HCl [Zoloft] 150 mg PO DAILY 08/22/19 07/16/21 History Cholecalciferol (Vitamin D3) 125 mcg PO DAILY 05/13/21 07/16/21 History [Vitamin D3 (125 MCG = 5,000 IU)] Methotrexate/Pf [Reditrex 25 mg/ml 25 mg SQ TH 05/13/21 07/16/21 History Syringe] Fexofenadine HCl [Vianye Allergy] 180 mg PO DAILY PRN 07/16/21 07/16/21 History Isosorbide Mononitrate ER [Imdur] 60 mg PO HS 07/16/21 07/16/21 History predniSONE See Taper PO DIRECTED 07/16/21 07/16/21 History Allergies Allergy/AdvReac Type Severity Reaction Status Date / Time No Known Allergies Allergy Verified 07/16/21 15:52 Physical Exam Vitals: Vital Signs Temp Pulse Pulse Resp BP BP Pulse Ox 07/17/21 08:56 98.2 F 95 16 109/65 97 07/17/21 04:00 99.3 F 97 20 118/56 96 07/17/21 00:00 99 F 93 18 117/53 95 07/16/21 20:00 98.7 F 89 20 97/57 99 07/16/21 18:32 18 07/16/21 17:26 83 16 122/51 98 07/16/21 15:29 83 20 89/51 98 07/16/21 13:05 98.5 F 74 20 98/61 100 Intake and Output 07/16/21 07/17/21 07/17/21 22:59 06:59 14:59 Intake Total 390 240 480 Output Total 500 800 Balance -110 -560 480 Intake: IV 50 Cefepime 1 gm In Sodium 50 Chloride 0.9% 50 ml @ 100 mls/hr IVPB Q12H [facility] Rx# :[id number] Intake, IV Titration 100 Amount Magnesium Sulfate-D5w Pmx 100 1 gm In Dextrose/Water 1 100ml.bag @ 100 mls/hr IVPB ONCE ONE Rx#: [id number] Oral 240 240 480 Output: Urine 500 800 Other: Voiding Method Indwelling Catheter Indwelling Catheter Indwelling Catheter # Bowel Movements 1 2 Weight 77.111 kg 73.5 kg Results - Lab Results Most recent lab results Calcium 8.1 mg/dL (8.4-10.2) L 07/17/21 07:32 Magnesium 1.8 mg/dL (1.6-2.3) 07/17/21 07:32 07/17/21 07:32 07/17/21 07:32 Assessment and Plan Plan: Assessment: 1. Acute kidney injury secondary to ATN secondary to infection as well as obstructive uropathy. Creatinine was 4.44 on admission and is 3.24 today. 2. Bilateral hydronephrosis. Currently has a Harrison catheter. Urology c onsulted. 3. Hypokalemia from poor intake. Magnesium normal. 4. UTI maintained on antibiotics. 5. Metabolic acidosis secondary to acute kidney injury. Plan: Maintain IV fluids. Add oral bicarb. Replace potassium. Follow-up cultures. Add Flomax. Continue to monitor renal function and urine output. Thank you for the consultation. I will continue to follow the patient with you during his hospital stay.
[2021-07-17] MEDS: METOPROLOL SUCCINATE (ER) 25 MG TAB.ER.24H PO SCH (10:56)
[2021-07-17] MEDS: SODIUM BICARBONATE TAB 650 MG TAB PO SCH ×2 (10:57→21:25)
[2021-07-17] MEDS: TAMSULOSIN 0.4 MG CAP.ER.24H PO SCH (10:57)
[2021-07-17] MEDS: ASPIRIN 81 MG PO SCH (10:57)
--- NOTE | 2021-07-17 11:29 | P.CRDCN ---
History of Present Illness Consult date: 07/17/21 History of present illness: CHIEF COMPLAINT: abnormal troponins HISTORY OF PRESENT ILLNESS: This is a 70-year-old male with a past medical history significant for hyperlipidemia and BPH. 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 We have been asked to see the patient in consultation for abnormal troponins. Patient initially presented to the hospital with a chief complaint of generalized weakness, feeling "sick" for 3-4 days, respiratory congestion, body aches, coughing, and shortness of breath. Patient was tested for Covid and it was negative but he was found to be positive for RSV. Patient was also found to be in acute renal failure with a creatinine of 4.44. Case discussed with the patient's nurse who states the patient has had no complaints of chest pain or pressure. Blood pressure 109/65. Telemetry reveals sinus mechanism with a heart rate in the 90s. He is afebrile. He is on room air with oxygen s aturations greater than 92%. DIAGNOSTICS: EKG reveals sinus mechanism with PACs with nonspecific ST-T wave changes Chest xray negative for acute process Laboratory data: WBC 8.1. Hemoglobin 10.8. Platelet count 194. Sodium 139. Potassium 3.3. BUN 57. Creatinine 3.24. Lactic acid 2.3. Repeat 1.9. Troponin 0.039. 0.033. Current home cardiac medications include imdur 30mg daily and lipitor 40mg at HS REVIEW OF SYSTEMS: Thorough review of systems not completed secondary to limited evaluation/examination due to RSV PHYSICAL EXAM: Thorough physical exam not completed secondary to limited evaluation/examination due to RSV ASSESSMENT: Weakness and generalized malaise Acute URI with acute bronchitis secondary to RSV Acute renal failure Urinary tract infection Obstructive uropathy Minimally abnormal troponin, likely secondary to infectious process and RAISA, not suggestive of ACS Hyperlipidemia PLAN: Obtain 2D echo to assess cardiac structure and function Add aspirin 81mg daily and metoprolol succinate 12.5mg daily Check additional troponin level Continue Lipitor Further recommendations pending patient's course Nurse practitioner note has been reviewed by physician. Signing provider agrees with the documented findings, assessment, and plan of care. Past Medical History Past Medical History: Asthma, Cancer, Hearing Disorder / Deafness, Hyperlipidemia, Hypertension, Prostate Disorder, Sleep Apnea/CPAP/BIPAP Additional Past Medical History / Comment(s): hx of Crohn's, hx of prostate ca with radiation approx 2009, does not use cpap machine,deaf rt ear,hearing aide lt ear History of Any Multi-Drug Resistant Organisms: None Reported Past Surgical History: Orthopedic Surgery Additional Past Surgical History / Comment(s): rt knee sx, neck "2 bolts", rod cataracts with lens implant Past Anesthesia/Blood Transfusion Reactions: No Reported Reaction Past Psychological History: No Psychological Hx Reported Smoking Status: Former smoker Past Alcohol Use History: Occasional Additional Past Alcohol Use History / Comment(s): quit smoking approx 1997, smoked 2ppd from age 11 (1961) Past Drug Use History: None Reported - Past Family History Mother Family Medical History: No Reported History Sister(s) Family Medical History: Cancer Additional Family Medical History / Comment(s): breast and lung CA Medications and Allergies Home Medications Medication Instructions Recorded Confirmed Type Atorvastatin [Lipitor] 40 mg PO HS 09/16/17 07/16/21 History Vit C/E/Zn/Coppr/Lutein/Zeaxan 1 tab PO DAILY 09/16/17 07/16/21 History [Preservision Areds 2 Softgel] Cyanocobalamin (Vitamin B-12) 1,000 mcg PO DAILY 08/22/19 07/16/21 History [Vitamin B-12] Entyvio Infusion 1 dose IV Q56D 08/22/19 07/16/21 History Folic Acid 1 mg PO DAILY 08/22/19 07/16/21 History Gabapentin [Neurontin] 300 mg PO DAILY 08/22/19 07/16/21 History Sertraline HCl [Zoloft] 150 mg PO DAILY 08/22/19 07/16/21 History Cholecalciferol (Vitamin D3) 125 mcg PO DAILY 05/13/21 07/16/21 History [Vitamin D3 (125 MCG = 5,000 IU)] Methotrexate/Pf [Reditrex 25 mg/ml 25 mg SQ TH 05/13/21 07/16/21 History Syringe] Fexofenadine HCl [Vianey Allergy] 180 mg PO DAILY PRN 07/16/21 07/16/21 History Isosorbide Mononitrate ER [Imdur] 60 mg PO HS 07/16/21 07/16/21 History predniSONE See Taper PO DIRECTED 07/16/21 07/16/21 History Allergies Allergy/AdvReac Type Severity Reaction Status Date / Time No Known Allergies Allergy Verified 07/16/21 15:52 Physical Exam Vitals: Vital Signs Temp Pulse Pulse Resp BP BP Pulse Ox 07/17/21 08:56 98.2 F 95 16 109/65 97 07/17/21 04:00 99.3 F 97 20 118/56 96 07/17/21 00:00 99 F 93 18 117/53 95 07/16/21 20:00 98.7 F 89 20 97/57 99 07/16/21 18:32 18 07/16/21 17:26 83 16 122/51 98 07/16/21 15:29 83 20 89/51 98 07/16/21 13:05 98.5 F 74 20 98/61 100 Intake and Output 07/16/21 07/17/21 07/17/21 22:59 06:59 14:59 Intake Total 390 240 480 Output Total 500 800 Balance -110 -560 480 Intake: IV 50 Cefepime 1 gm In Sodium 50 Chloride 0.9% 50 ml @ 100 mls/hr IVPB Q12H [facility] Rx# :[id number] Intake, IV Titration 100 Amount Magnesium Sulfate-D5w Pmx 100 1 gm In Dextrose/Water 1 100ml.bag @ 100 mls/hr IVPB ONCE ONE Rx#: [id number] Oral 240 240 480 Output: Urine 500 800 Other: Voiding Method Indwelling Catheter Indwelling Catheter Indwelling Catheter # Bowel Movements 1 2 Weight 77.111 kg 73.5 kg Results 07/17/21 07:32 07/17/21 07:32 Cardiac Enzymes 07/16/21 07/16/21 07/16/21 Range/Units 14:52 14:52 17:36 AST 22 (17-59) U/L Troponin I 0.039 H* 0.033 (0.000-0.034) ng/mL Coagulation 07/16/21 Range/Units 14:52 PT 11.2 (9.0-12.0) sec APTT 28.0 (22.0-30.0) sec CBC 07/16/21 07/17/21 Range/Units 14:52 07:32 WBC 10.1 8.1 (3.8-10.6) k/uL RBC 3.73 L 3.45 L (4.30-5.90) m/uL Hgb 11.7 L 10.8 L (13.0-17.5) gm/dL Hct 36.3 L 33.9 L (39.0-53.0) % Plt Count 166 194 (150-450) k/uL Comprehensive Metabolic Panel 07/16/21 07/17/21 Range/Units 14:52 07:32 Sodium 137 139 (137-145) mmol/L Potassium 3.1 L 3.3 L (3.5-5.1) mmol/L Chloride 100 107 (98-107) mmol/L Carbon Dioxide 21 L 20 L (22-30) mmol/L BUN 65 H 57 H (9-20) mg/dL Creatinine 4.44 H 3.24 H (0.66-1.25) mg/dL Glucose 195 H 133 H (74-99) mg/dL Calcium 8.1 L 8.1 L (8.4-10.2) mg/dL AST 22 (17-59) U/L ALT 20 (4-49) U/L Alkaline Phosphatase 81 (38-126) U/L Total Protein 6.5 (6.3-8.2) g/dL Albumin 3.0 L (3.5-5.0) g/dL Current Medications Generic Name Dose Route Start Last Admin Trade Name Freq PRN Reason Stop Dose Admin Aspirin 81 mg 07/17/21 09:45 07/17/21 10:57 Aspirin 81 Mg PO 81 mg DAILY NOEL Administration Atorvastatin Calcium 40 mg 07/16/21 21:00 07/16/21 21:11 Atorvastatin 40 Mg Tab PO 40 mg HS NOEL Administration Lactated Ringer's 1,000 mls @ 125 mls/hr 07/16/21 23:45 07/17/21 05:15 Lactated Ringers IV 125 mls/hr .Q8H NOEL Administration Cefepime HCl 1 gm/ Sodium 50 mls @ 100 mls/hr 07/17/21 18:00 Chloride IVPB Q12H [facility] Metoprolol Succinate 12.5 mg 07/17/21 10:00 07/17/21 10:56 Metoprolol Succinate (Er) 25 Mg Tab.Er.24h PO 12.5 mg DAILY NOEL Administration Naloxone HCl 0.2 mg 07/16/21 15:59 Naloxone 0.4 Mg/Ml 1 Ml Vial IV Q2M PRN Opioid Reversal Sodium Bicarbonate 650 mg 07/17/21 10:15 12/09/21 10:57 Sodium Bicarbonate Tab 650 Mg Tab PO 650 mg BID NOEL Administration Tamsulosin HCl 0.4 mg 07/17/21 10:15 07/17/21 10:57 Tamsulosin 0.4 Mg Cap.Er.24h PO 0.4 mg [id number] NOEL Administration Intake and Output 07/16/21 07/17/21 07/17/21 22:59 06:59 14:59 Intake Total 390 240 480 Output Total 500 800 Balance -110 -560 480 Intake: IV 50 Cefepime 1 gm In Sodium 50 Chloride 0.9% 50 ml @ 100 mls/hr IVPB Q12H [facility] Rx# :[id number] Intake, IV Titration 100 Amount Magnesium Sulfate-D5w Pmx 100 1 gm In Dextrose/Water 1 100ml.bag @ 100 mls/hr IVPB ONCE ONE Rx#: [id number] Oral 240 240 480 Output: Urine 500 800 Other: Voiding Method Indwelling Catheter Indwelling Catheter Indwelling Catheter # Bowel Movements 1 2 Weight 77.111 kg 73.5 kg 07/17/21 07:32 07/17/21 07:32
[2021-07-17 11:38] VITALS: BMI 24.6
--- NOTE | 2021-07-17 18:50 | ECHOF ---
Referral Reason:LV function MEASUREMENTS -------- HEIGHT: 172.7 cm WEIGHT: 73.5 kg BP: 109/65 IVSd: 1.0 cm (0.6 - 1.1) LVIDd: 5.3 cm (3.9 - 5.3) LVPWd: 1.1 cm (0.6 - 1.1) EDV(Teich): 135 ml IVSs: 1.4 cm LVIDs: 3.9 cm LVPWs: 1.9 cm %IVS Thck: 39 % ESV(Teich): 65 ml EF(Teich): 52 % %FS: 27 % SV(Teich): 70 ml LVOT Diam: 2.1 cm LA Diam: 3.2 cm (2.7 - 3.8) RVIDd: 3.1 cm (< 3.3) LALs A4C: 5.0 cm LAAs A4C: 17.0 cm LAESV A-L A4C: 49 ml LAESV MOD A4C: 45 ml LALs A2C: 4.9 cm LAAs A2C: 15.2 cm LAESV A-L A2C: 40 ml LAESV MOD A2C: 37 ml LAESV(A-L): 44 ml LAESV Index (A-L): 23.69 ml/m Ao Diam: 3.8 cm (2.0 - 3.7) AV Cusp: 2.0 cm (1.5 - 2.6) EPSS: 0.7 cm MV E Petar: 0.69 m/s MV DecT: 216 ms MV Dec Tol[place]: 3.2 m/s MV A Petar: 0.90 m/s MV E/A Ratio: 0.76 MV PHT: 63 ms LVOT Vmax: 1.26 m/s LVOT maxP.34 mmHg AV Vmax: 3.24 m/s AV maxP.08 mmHg GENIA Vmax, Pt: 1.4 cm AV Vmax: 3.27 m/s AV Vmean: 2.44 m/s AV maxP.91 mmHg AV meanP.08 mmHg AV Env.Ti: 271 ms AV VTI: 66.0 cm GENIA Vmax, Pt: 1.3 cm AR Vmax: 4.47 m/s AR maxP.75 mmHg AR PHT: 362 ms AR Dec Time: 1247 ms AR Dec [place]: 3.6 m/s TR Vmax: 2.00 m/s TR maxP.00 mmHg RAP: 5.00 mmHg RVSP: 21.00 mmHg MV EF SLOPE: 58.21 mm/s (70 - 150) MV EXCURSION: 17.70 mm (> 18.000) FINDINGS -------- Sinus rhythm. This was a technically adequate study. The left ventricular size is normal. There is borderline concentric left ventricular hypertrophy. Overall left ventricular systolic function is mild-moderately impaired with, an EF between 40 - 45 % . The right ventricle is normal in size. Normal LA size by volume 22+/-6 ml/m2. The right atrium is normal in size. Interatrial and interventricular septum intact. There is moderate aortic valve sclerosis. There is moderate aortic regurgitation. There is modera te aortic stenosis present. Peak/mean gradient across the Aortic Valve is 42.91mmHg / 26.08mmHg. There is trace to mild mitral regurgitation. Mild tricuspid regurgitation present. Right ventricular systolic pressure is normal at < 35 mmHg. Trace/mild (physiologic) pulmonic regurgitation. The aortic root is dilated measuring 3.8cm. Normal inferior vena cava with normal inspiratory collapse consistent with estimated right atrial pre ssure of 5 mmHg. There is no pericardial effusion. CONCLUSIONS -------- 1. The left ventricular size is normal. 2. There is borderline concentric left ventricular hypertrophy. 3. Overall left ventricular systolic function is mild-moderately impaired with, an EF between 40 - 45 %. 4. There is moderate aortic valve sclerosis. 5. There is moderate aortic regurgitation. 6. There is moderate aortic stenosis present. 7. Peak/mean gradient across the Aortic Valve is 42.91mmHg / 26.08mmHg. 8. There is trace to mild mitral regurgitation. 9. Mild tricuspid regurgitation present. 10. Trace/mild (physiologic) pulmonic regurgitation. 11. The aortic root is dilated measuring 3.8cm. 12. There is no pericardial effusion. HOOKER INSPECTOR: Amanda Cordon RDCS
[2021-07-17] MEDS: ATORVASTATIN 40 MG TAB PO SCH (21:25)
[2021-07-17] MEDS ORDERED: MELATONIN 3 MG TABLET PO STA (21:42)
[2021-07-17] MEDS: CEFEPIME 1 GM in SODIUM CHLORIDE 0.9% 50 ML IVPB SCH (22:18)
[2021-07-18] MEDS: CEFEPIME 1 GM in SODIUM CHLORIDE 0.9% 50 ML IVPB SCH (05:43)
[2021-07-18] MEDS: LACTATED RINGERS 1,000 ML IV SCH ×2 (05:43→17:01)
[2021-07-18 07:34] LABS: Anisocytosis Slight; HCT 32.3 % (39.0-53.0); HGB 10.2 gm/dL (13.0-17.5); Hypochromasia Slight; MCH 31.7 pg (25.0-35.0); MCHC 31.5 g/dL (31.0-37.0); MCV 100.6 fL (80.0-100.0); Macrocytosis Slight; Mean Platelet Volume 8.9; Platelet Count 247 k/uL (150-450); RBC 3.21 m/uL (4.30-5.90); WBC 7.7 k/uL (3.8-10.6)
[2021-07-18 08:11] LABS: Calcium 8.1 mg/dL (8.4-10.2); Magnesium 1.7 mg/dL (1.6-2.3); Potassium 3.6 mmol/L (3.5-5.1)
[2021-07-18] MEDS: ASPIRIN 81 MG PO SCH (08:58)
[2021-07-18] MEDS: SODIUM BICARBONATE TAB 650 MG TAB PO SCH ×2 (08:58→20:35)
[2021-07-18] MEDS: TAMSULOSIN 0.4 MG CAP.ER.24H PO SCH (08:58)
[2021-07-18] MEDS: METOPROLOL SUCCINATE (ER) 25 MG TAB.ER.24H PO SCH (08:58)
[2021-07-18] MEDS ORDERED: ENOXAPARIN 30 MG/0.3 ML SYRINGE SQ SCH (09:00)
[2021-07-18] MEDS ORDERED: POTASSIUM CHLORIDE ER 20 MEQ TAB.ER PO STA (09:52)
--- NOTE | 2021-07-18 09:52 | P.PN ---
Subjective Patient is seen in follow-up for acute kidney injury and urinary retention. Renal function improving. Nonoliguric. Receiving IV fluids. Oral intake fair. On room air. Blood pressure stable. Vital signs are stable. General: The patient appeared well nourished and normally developed. HEENT: Head exam is unremarkable. LUNGS: Breath sounds decreased. HEART: Rate and Rhythm are regular. ABDOMEN: Soft, no distention. EXTREMITITES: No edema. Objective - Vital Signs Vital signs: Vital Signs Temp 97.9 F 07/17/21 20:00 Pulse 77 07/18/21 04:00 Resp 18 07/18/21 04:00 BP 106/59 07/18/21 04:00 Pulse Ox 96 07/18/21 04:00 Intake & Output 07/17/21 07/18/21 07/18/21 18:59 06:59 18:59 Intake Total 1440 1535 Output Total 1250 2500 Balance 190 -965 Weight 73.5 kg 74.5 kg Intake: Intake, IV Titration 1050 Amount Cefepime 1 gm In Sodium 50 Chloride 0.9% 50 ml @ 100 mls/hr IVPB Q12H [facility] Rx# :[id number] Lactated Ringers 1,000 ml 1000 @ 125 mls/hr IV .Q8H [facility] Rx#:[id number] Oral 1440 485 Output: Urine 1250 2500 Other: Voiding Method Indwelling Catheter Indwelling Catheter # Bowel Movements 1 - Labs CBC & Chem 7: 07/18/21 07:23 07/18/21 07:23 Labs: Abnormal Lab Results - Last 24 Hours (Table) 07/18/21 07/18/21 Range/Units 07:23 07:23 RBC 3.21 L (4.30-5.90) m/uL Hgb 10.2 L (13.0-17.5) gm/dL Hct 32.3 L (39.0-53.0) % MCV 100.6 H (80.0-100.0) fL RDW 17.0 H (11.5-15.5) % BUN 47 H (9-20) mg/dL Creatinine 1.93 H (0.66-1.25) mg/dL Glucose 129 H (74-99) mg/dL Calcium 8.1 L (8.4-10.2) mg/dL Microbiology - Last 24 Hours (Table) 07/16/21 17:26 Urine Culture - Preliminary Urine,Voided Gram Neg Bacilli 07/16/21 17:36 Blood Culture - Preliminary Blood No Growth after 24 hours Assessment and Plan Plan: Assessment: 1. Acute kidney injury secondary to ATN secondary to infection as well as obstructive uropathy. Creatinine was 4.44 on admission and is 1.93 today. 2. Bilateral hydronephrosis. Currently has a Harrison catheter. Urology consulted. On Flomax. 3. Hypokalemia from poor intake. Magnesium normal. 4. UTI maintained on antibiotics. Urine culture positive for gram-negative bacilli. 5. Metabolic acidosis secondary to acute kidney injury. Improved. On oral bicarbonate. Plan: Maintain IV fluids - decreased rate to 75 mL an hour. Replace potassium. Follow-up cultures. Continue to monitor renal function and urine output.
--- NOTE | 2021-07-18 11:35 | P.CONS ---
History of Present Illness - Reason for Consult Consult date: 07/17/21 urosepsis Requesting physician: Diego Petersen - Chief Complaint weakness x few days - History of Present Illness History of Present Illness : Patient is 70-year male presenting to the hospital yesterday afternoon for evaluation of feeling sick for the last 2 to 4 days patient complaining of some congestion not sleeping aching all over the body along with shortness of breath patient also complaining of pain to the right flank area describing it to be more of a dull aching to sharp 5-6 over 10 and no radiation patient on presentation to the hospital was afebrile did have low-grade fever subsequently of 99.3 patient currently not hypoxic or need for supplemental oxygen therapy patient did have normal white count did have elevated BUN/creatinine patient did have a positive UA carrillo PCR was negative RSV was positive urine showing a gram-negative bacilli patient did have a chest x-ray no acute pulmonary process patient did have a CT of abdominal pelvis with evidence of bilateral renal cortical cyst bilateral hydronephrosis hydroureter ureter which is new compared to old exam no obstructing calculus is seen right- sided perinephric edema and fat stranding suggest obstruction on the right side patient also have an ultrasound bilateral hydronephrosis large cyst in the upper pole of the right kidney patient is currently being treated with cefepime infectious was consulted for urosepsis Review of system: CONSTITUTIONAL: Positive for weakness denies high-grade fever. EYES: No complaint. ENT: No complaint. RESPIRATORY: As per history of present illness CARDIOVASCULAR: No complaint. GENITOURINARY as per history of present illness. GASTROINTESTINAL: As per history of present illness. MUSCULOSKELETAL: No complaint. INTEGUMENTARY : No complaint. PSYCHOLOGIC: No complaint. ENDOCRINE: No complaint. NEUROLOGIC: No complaint. Past medical history : Reviewed, documented below Past surgical history : Reviewed, documented below Social history: Reviewed, documented below Medications: Reviewed, as documented below EXAMINATION: Vital sigans= Reviewed and documented below GENERAL DESCRIPTION: Elderly male lying in bed, no distress. No tachypnea or accessory muscle of respiration use. HEENT: Shows Pallor , no scleral icterus. Oral mucous membrane is dry. NECK: Trachea central, no thyromegaly. LUNGS: Unlabored breathing. Clear to auscultation anteriorly. No wheeze or crackle. HEART: S1, S2, regular rate and rhythm. ABDOMEN: Soft, no tenderness , guarding or rigidity EXTREMITIES: No edema feet SKIN: No rash, no masses palpable. NEUROLOGICAL: The patient is awake, alert, oriented x3, mood and affect normal. LABS AND RADIOLOGY: Reviewed results see below Assessment :1- Patient presented to hospital generalized weakness which is likely multifactorial in this patient with a complicated UTI with evidence of bilateral hydronephrosis mild on the right side positive UA likely will need to call for the enteric gram-negative with a likely pathogen 2-patient with a positive RSV PCR with some respiratory symptoms however chest x -ray has been negative more likely mild RSV pneumonia treatment will be supportive Plan: 1-await urology evaluation and possible cystoscopy and right-sided ureteral stent placement 2-cefepime 1 g every 12 hours dose has been adjusted the kidney function 3-gentle IV fluid We will follow on clinical condition and cultures to further adjust medication if needed Thank you for this consultation we will follow the patient along with you Past Medical History Past Medical History: Asthma, Cancer, Hearing Disorder / Deafness, Hyperlipidemia, Hypertension, Prostate Disorder, Sleep Apnea/CPAP/BIPAP Additional Past Medical History / Comment(s): hx of Crohn's, hx of prostate ca with radiation approx 2009, does not use cpap machine,deaf rt ear,hearing aide lt ear History of Any Multi-Drug Resistant Organisms: None Reported Past Surgical History: Orthopedic Surgery Additional Past Surgical History / Comment(s): rt knee sx, neck "2 bolts", rod cataracts with lens implant Past Anesthesia/Blood Transfusion Reactions: No Reported Reaction Past Psychological History: No Psychological Hx Reported Smoking Status: Former smoker Past Alcohol Use History: Occasional Additional Past Alcohol Use History / Comment(s): quit smoking approx 1997, smoked 2ppd from age 11 (1961) Past Drug Use History: None Reported - Past Family History Mother Family Medical History: No Reported History Sister(s) Family Medical History: Cancer Additional Family Medical History / Comment(s): breast and lung CA Medications and Allergies Home Medications Medication Instructions Recorded Confirmed Type Atorvastatin [Lipitor] 40 mg PO HS 09/16/17 07/16/21 History Vit C/E/Zn/Coppr/Lutein/Zeaxan 1 tab PO DAILY 09/16/17 07/16/21 History [Preservision Areds 2 Softgel] Cyanocobalamin (Vitamin B-12) 1,000 mcg PO DAILY 08/22/19 07/16/21 History [Vitamin B-12] Entyvio Infusion 1 dose IV Q56D 08/22/19 07/16/21 History Folic Acid 1 mg PO DAILY 08/22/19 07/16/21 History Gabapentin [Neurontin] 300 mg PO DAILY 08/22/19 07/16/21 History Sertraline HCl [Zoloft] 150 mg PO DAILY 08/22/19 07/16/21 History Cholecalciferol (Vitamin D3) 125 mcg PO DAILY 05/13/21 07/16/21 History [Vitamin D3 (125 MCG = 5,000 IU)] Methotrexate/Pf [Reditrex 25 mg/ml 25 mg SQ TH 05/13/21 07/16/21 History Syringe] Fexofenadine HCl [Vianey Allergy] 180 mg PO DAILY PRN 07/16/21 07/16/21 History Isosorbide Mononitrate ER [Imdur] 60 mg PO HS 07/16/21 07/16/21 History predniSONE See Taper PO DIRECTED 07/16/21 07/16/21 History Allergies Allergy/AdvReac Type Severity Reaction Status Date / Time No Known Allergies Allergy Verified 07/16/21 15:52 Physical Exam Vitals: Vital Signs Temp Pulse Pulse Resp BP BP Pulse Ox 07/17/21 08:56 98.2 F 95 16 109/65 97 07/17/21 04:00 99.3 F 97 20 118/56 96 07/17/21 00:00 99 F 93 18 117/53 95 07/16/21 20:00 98.7 F 89 20 97/57 99 07/16/21 18:32 18 07/16/21 17:26 83 16 122/51 98 07/16/21 15:29 83 20 89/51 98 07/16/21 13:05 98.5 F 74 20 98/61 100 Intake and Output 07/16/21 07/17/21 07/17/21 22:59 06:59 14:59 Intake Total 390 240 480 Output Total 500 800 Balance -110 -560 480 Intake: IV 50 Cefepime 1 gm In Sodium 50 Chloride 0.9% 50 ml @ 100 mls/hr IVPB Q12H [facility] Rx# :[id number] Intake, IV Titration 100 Amount Magnesium Sulfate-D5w Pmx 100 1 gm In Dextrose/Water 1 100ml.bag @ 100 mls/hr IVPB ONCE ONE Rx#: [id number] Oral 240 240 480 Output: Urine 500 800 Other: Voiding Method Indwelling Catheter Indwelling Catheter Indwelling Catheter # Bowel Movements 1 2 Weight 77.111 kg 73.5 kg Results CBC & Chem 7: 07/18/21 07:23 07/18/21 07:23 Labs: Abnormal Lab Results - Last 24 Hours (Table) 07/16/21 07/16/21 07/16/21 Range/Units 14:52 14:52 14:52 RBC 3.73 L (4.30-5.90) m/uL Hgb 11.7 L (13.0-17.5) gm/dL Hct 36.3 L (39.0-53.0) % RDW 17.1 H (11.5-15.5) % Potassium 3.1 L (3.5-5.1) mmol/L Carbon Dioxide 21 L (22-30) mmol/L BUN 65 H (9-20) mg/dL Creatinine 4.44 H (0.66-1.25) mg/dL Glucose 195 H (74-99) mg/dL Plasma Lactic Acid Leon 2.5 H* (0.7-2.0) mmol/L Calcium 8.1 L (8.4-10.2) mg/dL Troponin I (0.000-0.034) ng/mL Albumin 3.0 L (3.5-5.0) g/dL Urine Protein (Negative) Urine Blood (Negative) Ur Leukocyte Esterase (Negative) Urine WBC (0-5) /hpf Urine WBC Clumps (None) /hpf RSV (PCR) (Negative) 07/16/21 07/16/21 07/16/21 Range/Units 14:52 17:06 17:26 RBC (4.30-5.90) m/uL Hgb (13.0-17.5) gm/dL Hct (39.0-53.0) % RDW (11.5-15.5) % Potassium (3.5-5.1) mmol/L Carbon Dioxide (22-30) mmol/L BUN (9-20) mg/dL Creatinine (0.66-1.25) mg/dL Glucose (74-99) mg/dL Plasma Lactic Acid Leon (0.7-2.0) mmol/L Calcium (8.4-10.2) mg/dL Troponin I 0.039 H* (0.000-0.034) ng/mL Albumin (3.5-5.0) g/dL Urine Protein 2+ H (Negative) Urine Blood Moderate H (Negative) Ur Leukocyte Esterase Large H (Negative) Urine WBC >182 H (0-5) /hpf Urine WBC Clumps Many H (None) /hpf RSV (PCR) Positive H (Negative) 07/16/21 07/17/21 07/17/21 Range/Units 17:36 07:32 07:32 RBC 3.45 L (4.30-5.90) m/uL Hgb 10.8 L (13.0-17.5) gm/dL Hct 33.9 L (39.0-53.0) % RDW 17.4 H (11.5-15.5) % Potassium 3.3 L (3.5-5.1) mmol/L Carbon Dioxide 20 L (22-30) mmol/L BUN 57 H (9-20) mg/dL Creatinine 3.24 H (0.66-1.25) mg/dL Glucose 133 H (74-99) mg/dL Plasma Lactic Acid Leon 2.3 H* (0.7-2.0) mmol/L Calcium 8.1 L (8.4-10.2) mg/dL Troponin I (0.000-0.034) ng/mL Albumin (3.5-5.0) g/dL Urine Protein (Negative) Urine Blood (Negative) Ur Leukocyte Esterase (Negative) Urine WBC (0-5) /hpf Urine WBC Clumps (None) /hpf RSV (PCR) (Negative) Microbiology - Last 24 Hours (Table) 07/16/21 17:26 Urine Culture - Preliminary Urine,Voided
[2021-07-18] MEDS ORDERED: ALBUTEROL NEBULIZED 2.5 MG/3 ML INHALATION PRN (12:47)
--- NOTE | 2021-07-18 12:47 | P.PN ---
Subjective Principal diagnosis: Urinary retention, severe sepsis, UTI This is a 70-year-old male with history of BPH admitted with generalized w eakness and difficulties in urination post URI and Vianey. Presented with acute urinary retention bilateral hydronephrosis, severe sepsis due to urinary tract infection. Patient has been treated with fluids per sepsis protocol, antibiotics, urine and blood cultures obtained. This morning he is feeling better. Blood pressures are better. Urine output has been satisfactory overnight. He still feeling weak and tired but better than yesterday. He has no respiratory complaints no abdominal pain nausea or vomiting at this time. Objective - Vital Signs Vital signs: Vital Signs Temp 97.9 F 07/18/21 11:39 Pulse 71 07/18/21 11:39 Resp 20 07/18/21 11:39 BP 107/59 07/18/21 11:39 Pulse Ox 99 07/18/21 11:39 Intake & Output 07/17/21 07/18/21 07/18/21 18:59 06:59 18:59 Intake Total 1440 1535 360 Output Total 1250 2500 1000 Balance 190 -965 -640 Weight 73.5 kg 74.5 kg Intake: Intake, IV Titration 1050 Amount Cefepime 1 gm In Sodium 50 Chloride 0.9% 50 ml @ 100 mls/hr IVPB Q12H [facility] Rx# :[id number] Lactated Ringers 1,000 ml 1000 @ 75 mls/hr IV .[id number] [facility] Rx#:[id number] Oral 1440 485 360 Output: Urine 1250 2500 1000 Other: Voiding Method Indwelling Catheter Indwelling Catheter Indwelling Catheter # Bowel Movements 1 - Exam Patient is awake and alert oriented 3 no any active distress but appears somewhat tired Head and neck: Anicteric sclere, no facial asymmetry, dry mucous members without any lesions, neck I do not see any neck vein distention or masses or thyromegaly Lungs: Normal breath sounds bilaterally, without any wheezing rhonchi or cr ackles, breathing is nonlabored Cardiovascular: Regular rhythm and rate S1-S2 no murmurs rubs or gallops Abdomen: Bowel sounds are present throughout he does have some suprapubic tenderness otherwise not tender to palpation soft he does have right flank tenderness to percussion Extremities: No peripheral edema no cyanosis warm well perfused Neurological: No focal neurological deficits cranial nerves are intact no asterixis Skin without rashes Musculoskeletal: No joint swelling - Labs CBC & Chem 7: 07/18/21 07:23 07/18/21 07:23 Labs: Abnormal Lab Results - Last 24 Hours (Table) 07/18/21 07/18/21 Range/Units 07:23 07:23 RBC 3.21 L (4.30-5.90) m/uL Hgb 10.2 L (13.0-17.5) gm/dL Hct 32.3 L (39.0-53.0) % MCV 100.6 H (80.0-100.0) fL RDW 17.0 H (11.5-15.5) % BUN 47 H (9-20) mg/dL Creatinine 1.93 H (0.66-1.25) mg/dL Glucose 129 H (74-99) mg/dL Calcium 8.1 L (8.4-10.2) mg/dL Microbiology - Last 24 Hours (Table) 07/16/21 17:26 Urine Culture - Preliminary Urine,Voided Gram Neg Bacilli 07/16/21 17:36 Blood Culture - Preliminary Blood No Growth after 24 hours Assessment and Plan Plan: #Acute pyelonephritis with severe sepsis Due to acute urinary obstruction post Harrison catheter: Draining purulent urine that has been clearing up this morning Started on cefepime on 07/16/21 Blood and urine culture pending Urine culture: Gram-negative bacilli Urine cultures 04/2010: Pansensitive E. 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
--- NOTE | 2021-07-18 13:57 | P.PN ---
Subjective Progress Note Date: 07/18/21 CHIEF COMPLAINT: abnormal troponins HISTORY OF PRESENT ILLNESS: This is a 70-year-old male with a past medical history significant for hyperlipidemia and BPH. Patient does not follow with a biostatistics teacher. We have been asked to see the patient in consultation for abnormal troponins. Patient initially presented to the hospital with a chief complaint of generalized weakness, feeling "sick" for 3-4 days, respiratory congestion, body aches, coughing, and shortness of breath. Patient was tested for Covid and it was negative but he was found to be positive for RSV. Patient was also found to be in acute renal failure with a creatinine of 4.44. Case discussed with the patient's nurse who states the patient has had no complaints of chest pain or pressure. Blood pressure 109/65. Telemetry reveals sinus mechanism with a heart rate in the 90s. He is afebrile. He is on room air with oxygen saturations greater than 92%. DIAGNOSTICS: EKG reveals sinus mechanism with PACs with nonspecific ST-T wave changes Chest xray negative for acute process Laboratory data: WBC 8.1. Hemoglobin 10.8. Platelet count 194. Sodium 139. Potassium 3.3. BUN 57. Creatinine 3.24. Lactic acid 2.3. Repeat 1.9. Troponin 0.039. 0.033. Current home cardiac medications include imdur 30mg daily and lipitor 40mg at HS 07/18/2021 Patient remains on the cardiac stepdown unit. Echocardiogram completed revealing ejection fraction 40-45%, moderate aortic regurgitation, moderate aortic stenosis, trace to mild mitral regurgitation, and mild tricuspid regurgitation. Patient's vital signs are stable. He has no complaints of chest pain or pressure. PHYSICAL EXAM: Thorough physical exam not completed secondary to limited evaluation/examination due to RSV ASSESSMENT: Weakness and generalized malaise Acute URI with acute bronchitis secondary to RSV Acute renal failure Urinary tract infection Obstructive uropathy Minimally abnormal troponin, likely secondary to infectious process and RAISA, not suggestive of ACS Hyperlipidemia PLAN: Continue current cardiac medications No further inpatient recommendations from a cardiac standpoint. We will sign off. Please reconsult if needed. Nurse practitioner note has been reviewed by physician. Signing provider agrees with the documented findings, assessment, and plan of care. Objective - Vital Signs Vital signs: Vital Signs Temp 97.9 F 07/18/21 11:39 Pulse 71 07/18/21 11:39 Resp 20 07/18/21 11:39 BP 107/59 07/18/21 11:39 Pulse Ox 99 07/18/21 11:39 Intake & Output 07/17/21 07/18/21 07/18/21 18:59 06:59 18:59 Intake Total 1440 1535 360 Output Total 1250 2500 1000 Balance 190 -965 -640 Weight 73.5 kg 74.5 kg Intake: Intake, IV Titration 1050 Amount Cefepime 1 gm In Sodium 50 Chloride 0.9% 50 ml @ 100 mls/hr IVPB Q12H [facility] Rx# :[id number] Lactated Ringers 1,000 ml 1000 @ 75 mls/hr IV .[id number] [facility] Rx#:[id number] Oral 1440 485 360 Output: Urine 1250 2500 1000 Other: Voiding Method Indwelling Catheter Indwelling Catheter Indwelling Catheter # Bowel Movements 1 - Labs CBC & Chem 7: 07/18/21 07:23 07/18/21 07:23 Labs: Abnormal Lab Results - Last 24 Hours (Table) 07/18/21 07/18/21 Range/Units 07:23 07:23 RBC 3.21 L (4.30-5.90) m/uL Hgb 10.2 L (13.0-17.5) gm/dL Hct 32.3 L (39.0-53.0) % MCV 100.6 H (80.0-100.0) fL RDW 17.0 H (11.5-15.5) % BUN 47 H (9-20) mg/dL Creatinine 1.93 H (0.66-1.25) mg/dL Glucose 129 H (74-99) mg/dL Calcium 8.1 L (8.4-10.2) mg/dL Microbiology - Last 24 Hours (Table) 07/16/21 17:26 Urine Culture - Preliminary Urine,Voided Gram Neg Bacilli 07/16/21 17:36 Blood Culture - Preliminary Blood No Growth after 24 hours
--- NOTE | 2021-07-18 16:27 | P.GSCN ---
History of Present Illness Consult date: 07/18/21 Reason for Consult: Bilateral hydronephrosis, UTI Requesting physician: Kristie Villar History of present illness: The patient is a 70-year-old white male with a history of prostate cancer, treated with radiation therapy approximately 10 years ago. His PSA level in April 2021 was 0.3. He also has a long history of lower urinary tract symptoms. He was previously followed by Dr. Oseguera and more recently by Dr. Harmony fair. He has been found to empty his bladder incompletely. Urodynamic testing has shown a small capacity bladder with uninhibited contractions. He is now admitted with renal failure. His serum creatinine level at the time of admission was 4.44, and a CT scan showed bilateral hydroureteronephrosis and moderate bladder distention. A Harrison catheter was placed, and his renal function is improving. Review of Systems - Constitutional Reports weakness, Denies chills, Denies fever - Genitourinary Reports as per HPI Past Medical History Past Medical History: Asthma, Cancer, Hearing Disorder / Deafness, Hyperlipidemia, Hypertension, Prostate Disorder, Sleep Apnea/CPAP/BIPAP Additional Past Medical History / Comment(s): hx of Crohn's, hx of prostate ca with radiation approx 2009, does not use cpap machine,deaf rt ear,hearing aide lt ear History of Any Multi-Drug Resistant Organisms: None Reported Past Surgical History: Orthopedic Surgery Additional Past Surgical History / Comment(s): rt knee sx, neck "2 bolts", rod cataracts with lens implant Past Anesthesia/Blood Transfusion Reactions: No Reported Reaction Past Psychological History: No Psychological Hx Reported Smoking Status: Former smoker Past Alcohol Use History: Occasional Additional Past Alcohol Use History / Comment(s): quit smoking approx 1997, smoked 2ppd from age 11 (1961) Past Drug Use History: None Reported - Past Family History Mother Family Medical History: No Reported History Sister(s) Family Medical History: Cancer Additional Family Medical History / Comment(s): breast and lung CA Medications and Allergies Home Medications Medication Instructions Recorded Confirmed Type Atorvastatin [Lipitor] 40 mg PO HS 09/16/17 07/16/21 History Vit C/E/Zn/Coppr/Lutein/Zeaxan 1 tab PO DAILY 09/16/17 07/16/21 History [Preservision Areds 2 Softgel] Cyanocobalamin (Vitamin B-12) 1,000 mcg PO DAILY 08/22/19 07/16/21 History [Vitamin B-12] Entyvio Infusion 1 dose IV Q56D 08/22/19 07/16/21 History Folic Acid 1 mg PO DAILY 08/22/19 07/16/21 History Gabapentin [Neurontin] 300 mg PO DAILY 08/22/19 07/16/21 History Sertraline HCl [Zoloft] 150 mg PO DAILY 08/22/19 07/16/21 History Cholecalciferol (Vitamin D3) 125 mcg PO DAILY 05/13/21 07/16/21 History [Vitamin D3 (125 MCG = 5,000 IU)] Methotrexate/Pf [Reditrex 25 mg/ml 25 mg SQ TH 05/13/21 07/16/21 History Syringe] Fexofenadine HCl [Vianey Allergy] 180 mg PO DAILY PRN 07/16/21 07/16/21 History Isosorbide Mononitrate ER [Imdur] 60 mg PO HS 07/16/21 07/16/21 History predniSONE See Taper PO DIRECTED 07/16/21 07/16/21 History Allergies Allergy/AdvReac Type Severity Reaction Status Date / Time No Known Allergies Allergy Verified 07/16/21 15:52 Surgical - Exam Vital Signs Temp Pulse Resp BP Pulse Ox 98.5 F 74 20 98/61 100 07/16/21 13:05 07/16/21 13:05 07/16/21 13:05 07/16/21 13:05 07/16/21 13:05 - General well developed, well nourished, no distress - Respiratory normal respiratory effort - Abdomen Abdomen: soft, non tender, no guarding, no rigid, no rebound - Genitourinary normal penis with no external lesions, testicles non-tender - Psychiatric oriented to time, oriented to person, oriented to place, speech is normal, memory intact Results - Labs 07/18/21 07:23 07/18/21 07:23 Abnormal Lab Results - Last 24 Hours (Table) 07/17/21 07/17/21 Range/Units 07:32 07:32 RBC 3.45 L (4.30-5.90) m/uL Hgb 10.8 L (13.0-17.5) gm/dL Hct 33.9 L (39.0-53.0) % RDW 17.4 H (11.5-15.5) % Potassium 3.3 L (3.5-5.1) mmol/L Carbon Dioxide 20 L (22-30) mmol/L BUN 57 H (9-20) mg/dL Creatinine 3.24 H (0.66-1.25) mg/dL Glucose 133 H (74-99) mg/dL Calcium 8.1 L (8.4-10.2) mg/dL Microbiology - Last 24 Hours (Table) 07/16/21 17:26 Urine Culture - Preliminary Urine,Voided Gram Neg Bacilli 07/16/21 17:36 Blood Culture - Preliminary Blood No Growth after 24 hours Diabetes panel 07/17/21 Range/Units 07:32 Sodium 139 (137-145) mmol/L Potassium 3.3 L (3.5-5.1) mmol/L Chloride 107 (98-107) mmol/L Carbon Dioxide 20 L (22-30) mmol/L BUN 57 H (9-20) mg/dL Creatinine 3.24 H (0.66-1.25) mg/dL Glucose 133 H (74-99) mg/dL Calcium 8.1 L (8.4-10.2) mg/dL Calcium panel 07/17/21 Range/Units 07:32 Calcium 8.1 L (8.4-10.2) mg/dL Pituitary panel 07/17/21 Range/Units 07:32 Sodium 139 (137-145) mmol/L Potassium 3.3 L (3.5-5.1) mmol/L Chloride 107 (98-107) mmol/L Carbon Dioxide 20 L (22-30) mmol/L BUN 57 H (9-20) mg/dL Creatinine 3.24 H (0.66-1.25) mg/dL Glucose 133 H (74-99) mg/dL Calcium 8.1 L (8.4-10.2) mg/dL Adrenal panel 07/17/21 Range/Units 07:32 Sodium 139 (137-145) mmol/L Potassium 3.3 L (3.5-5.1) mmol/L Chloride 107 (98-107) mmol/L Carbon Dioxide 20 L (22-30) mmol/L BUN 57 H (9-20) mg/dL Creatinine 3.24 H (0.66-1.25) mg/dL Glucose 133 H (74-99) mg/dL Calcium 8.1 L (8.4-10.2) mg/dL - Imaging CT scan - abdomen: report reviewed, image reviewed CT scan - chest: report reviewed, image reviewed Assessment and Plan (1) Unspecified hydronephrosis Current Visit: Yes Status: Acute Code(s): N13.30 - UNSPECIFIED HYDR ONEPHROSIS SNOMED Code(s): 28171677 (2) UTI (urinary tract infection) Current Visit: No Status: Acute Code(s): N39.0 - URINARY TRACT INFECTION, SITE NOT SPECIFIED SNOMED Code(s): 28822905 Plan: There is no evidence of recurrent prostate cancer at this time. The patient's hydronephrosis and renal failure appears to be due to a poorly compliant bladder with incomplete bladder emptying. I would suggested the Harrison catheter remain in place. I anticipate continued improvement in the patient's renal function. He should be discharged home with the Harrison catheter and follow up with Dr. Lockhart as an outpatient. Time with Patient: Greater than 30
[2021-07-18] MEDS: CEFEPIME 2 GM in SODIUM CHLORIDE 0.9% 100 ML IVPB SCH (17:42)
[2021-07-18] MEDS ORDERED: BUDESONIDE 0.25 MG/2 ML NEBU INHALATION SCH (20:00)
[2021-07-18] MEDS: ATORVASTATIN 40 MG TAB PO SCH (20:35)
[2021-07-18] MEDS: FLUTICASONE 110 MCG INHALER INHALATION SCH (20:53)
[2021-07-18] MEDS ORDERED: MELATONIN 5 MG TABLET PO STA (20:56)
--- NOTE | 2021-07-18 23:31 | PN ---
PROGRESS NOTE DATE OF SERVICE: 07/18/2021 REASON FOR FOLLOWUP: 1. Complicated urinary tract infection. 2. RSV infection. INTERVAL HISTORY: Patient is afebrile. The patient is breathing comfortably. Still complaining of cough and bringing up some sputum though for any supplemental oxygen. Denies any chest pain. Denies any flank pain has improved. No vomiting or diarrhea. PHYSICAL EXAMINATION: Blood pressure 118/59 with a pulse of 79, temperature of 97.9. He is 98% on room air. General description is an elderly male lying in bed in no distress. Respiratory system: Unlabored breathing, decreased intensity of breath sounds. No wheeze. Heart S1, S2. Regular rate and rhythm. Abdomen soft, no tenderness. LABS: Hemoglobin is 10.1, white count 7.7. Creatinine is 1.93. Urine with Gram-negative bacilli. Blood culture has been negative so far. DIAGNOSTIC IMPRESSION AND PLAN: 1. Patient with complicated urinary tract infection with bilateral hydronephrosis. Urine showing gram-negative. Patient is covered cefepime. 2. Patient with RSV pneumonia, mild illness. The patient is not hypoxic and continue with current supportive treatment. MMODL / IJN: [id number] /
[2021-07-19] MEDS: CEFEPIME 2 GM in SODIUM CHLORIDE 0.9% 100 ML IVPB SCH ×2 (06:24→17:41)
[2021-07-19] MEDS: FLUTICASONE 110 MCG INHALER INHALATION SCH ×2 (08:19→20:37)
[2021-07-19] MEDS: ALBUTEROL HFA INHALER INHALATION PRN ×2 (08:20→20:36)
[2021-07-19 09:01] LABS: Calcium 8.4 mg/dL (8.4-10.2); Magnesium 1.5 mg/dL (1.6-2.3); Potassium 4.1 mmol/L (3.5-5.1)
[2021-07-19] MEDS: ASPIRIN 81 MG PO SCH (09:49)
[2021-07-19] MEDS: METOPROLOL SUCCINATE (ER) 25 MG TAB.ER.24H PO SCH (09:49)
[2021-07-19] MEDS: ENOXAPARIN 40 MG/0.4 ML SYRINGE SQ SCH (09:49)
[2021-07-19] MEDS: SODIUM BICARBONATE TAB 650 MG TAB PO SCH ×2 (09:49→20:11)
[2021-07-19] MEDS: TAMSULOSIN 0.4 MG CAP.ER.24H PO SCH (09:49)
--- NOTE | 2021-07-19 10:19 | P.PN ---
Progress Note - Text Progress Note Date: 07/19/21 Mr. De La O has no complaints. He remains afebrile. His Harrison catheter is draining clear yellow urine. His serum creatinine level continues to improve and was 1.51 today. It is my recommendation that he be discharged home with the Harrison catheter and follow up with Dr. Lockhart to discuss alternative treatment options. Urine culture shows an E. coli UTI, so would be appropriate to discharge him on appropriate antibiotic therapy. Please notify me if I can be of any further assistance.
--- NOTE | 2021-07-19 10:58 | P.PN ---
Subjective Progress Note Date: 07/19/21 Principal diagnosis: This is 70-year-old male seen in consultation because of acute kidney injury, had bilateral hydronephrosis, creatinine coming down with a Harrison catheter also has antibiotics started for E. coli urinary tract infection. Currently on Ceftin. Urology has seen him and has recommended Harrison catheter to be maintained He complains of cough and wheezing. In the remote past few years to be on inhalers for asthma He is Covid negative. No nausea vomiting diarrhea abdominal pain no fever chills. Objective - Vital Signs Vital signs: Vital Signs Temp 97.9 F 07/18/21 20:00 Pulse 71 07/19/21 04:00 Resp 16 07/19/21 04:00 BP 131/60 07/19/21 04:00 Pulse Ox 98 07/19/21 04:00 Intake & Output 07/18/21 07/19/21 07/19/21 18:59 06:59 18:59 Intake Total 1540 970 Output Total 1550 1850 600 Balance -10 -880 -600 Weight 73 kg Intake: Intake, IV Titration 700 Amount Cefepime 2 gm In Sodium 100 Chloride 0.9% 100 ml @ 25 mls/hr IVPB Q12H [facility] Rx# :[id number] Lactated Ringers 1,000 ml 600 @ 75 mls/hr IV .[id number] [facility] Rx#:[id number] Oral 840 970 Output: Urine 1550 1850 600 Other: Voiding Method Indwelling Catheter Indwelling Catheter Exam is awake alert oriented A chin exam no JVP neck is supple no facial asymmetry Lungs clear to auscultation except for occasional end expiratory wheezing Heart sounds unremarkable for any murmur rub gallop Abdomen soft nontender Extremity exam was no edema Neurologically awake alert oriented - Labs CBC & Chem 7: 07/18/21 07:23 07/19/21 07:52 Labs: Abnormal Lab Results - Last 24 Hours (Table) 07/19/21 Range/Units 07:52 Chloride 108 H (98-107) mmol/L BUN 35 H (9-20) mg/dL Creatinine 1.51 H (0.66-1.25) mg/dL Glucose 145 H (74-99) mg/dL Magnesium 1.5 L (1.6-2.3) mg/dL Microbiology - Last 24 Hours (Table) 07/16/21 17:26 Urine Culture - Final Urine,Voided Escherichia coli 07/16/21 17:36 Blood Culture - Preliminary Blood No Growth after 48 hours Assessment and Plan Assessment: Impression 1. Acute kidney injury from bilateral hydronephrosis from outlet obstruction possibly neurogenic bladder and improving with Harrison catheter. Creatinine came down from 4.4-1.5 on as of this morning. Good urine output 2. Previous creatinine was 1.15 on 05/15/2021 3. Computed tomography scan on 07/16/2021 shows bilateral renal cortical cysts bilateral hydro-nephrosis and hydroureter no calculi seen enlarged prostate with calcification noted Large cyst in the right upper pole by ultrasound on 07/16/2021. Recommendation 1. Continue antibiotics for E. coli urinary tract infection 2. Deferred to the primary regarding his shortness of breath and may benefit from some bronchodilator inhalation treatments. Patient is already prescribed inhaler twice a day 3. Monitor labs urine output blood pressure.
--- NOTE | 2021-07-19 12:22 | XR ---
EXAMINATION TYPE: XR chest 1V DATE OF EXAM: 07/19/2021 COMPARISON: Chest x-ray 07/16/2021 HISTORY: Wheezing TECHNIQUE: Single frontal view of the chest is obtained. FINDINGS: There is no focal air space opacity, pleural effusion, or pneumothorax seen. The cardiac silhouette size is within normal limits. There are overlying leads. Some interstitial changes are pr esent at the costophrenic angle similar to prior exam. Patient is rotated. The osseous structures are intact. IMPRESSION: There is interstitial lung disease present.
--- NOTE | 2021-07-19 13:09 | P.PN ---
Subjective Principal diagnosis: Urinary retention, severe sepsis, UTI This is a 70-year-old male with history of BPH admitted with generalized w eakness and difficulties in urination post URI and Vianey. Presented with acute urinary retention bilateral hydronephrosis, severe sepsis due to urinary tract infection. Feeling better better. His most complained of respiratory discomfort some wheezing in shortness of breath. He is in the room air. He is not coughing up any phlegm. Objective - Vital Signs Vital signs: Vital Signs Temp 98.5 F 07/19/21 08:00 Pulse 78 07/19/21 08:00 Resp 18 07/19/21 08:00 BP 128/60 07/19/21 08:00 Pulse Ox 98 07/19/21 08:00 Intake & Output 07/18/21 07/19/21 07/19/21 18:59 06:59 18:59 Intake Total 1540 970 Output Total 1550 1850 600 Balance -10 -880 -600 Weight 73 kg Intake: Intake, IV Titration 700 Amount Cefepime 2 gm In Sodium 100 Chloride 0.9% 100 ml @ 25 mls/hr IVPB Q12H [facility] Rx# :[id number] Lactated Ringers 1,000 ml 600 @ 75 mls/hr IV .[id number] [facility] Rx#:[id number] Oral 840 970 Output: Urine 1550 1850 600 Other: Voiding Method Indwelling Catheter Indwelling Catheter Indwelling Catheter # Bowel Movements 1 - Exam Patient is awake and alert oriented 3 no any active distress but appears somewhat tired Head and neck: Anicteric sclere, no facial asymmetry, dry mucous members without any lesions, neck I do not see any neck vein distention or masses or thyromegaly Lungs: Normal breath sounds bilaterally, bilateral diffuse expiratory wheezing Cardiovascular: Regular rhythm and rate S1-S2 no murmurs rubs or gallops Abdomen: Bowel sounds are present throughout he does have some suprapubic tenderness otherwise not tender to palpation soft he does have right flank tenderness to percussion Extremities: No peripheral edema no cyanosis warm well perfused Neurological: No focal neurological deficits cranial nerves are intact no asterixis Skin without rashes Musculoskeletal: No joint swelling - Labs CBC & Chem 7: 07/18/21 07:23 07/19/21 07:52 Labs: Abnormal Lab Results - Last 24 Hours (Table) 07/19/21 Range/Units 07:52 Chloride 108 H (98-107) mmol/L BUN 35 H (9-20) mg/dL Creatinine 1.51 H (0.66-1.25) mg/dL Glucose 145 H (74-99) mg/dL Magnesium 1.5 L (1.6-2.3) mg/dL Microbiology - Last 24 Hours (Table) 07/16/21 17:26 Urine Culture - Final Urine,Voided Escherichia coli 07/16/21 17:36 Blood Culture - Preliminary Blood No Growth after 48 hours Assessment and Plan Plan: #Acute pyelonephritis with severe sepsis Due to acute urinary obstruction post Harrison catheter: Draining purulent urine that has been clearing up this morning Started on cefepime on 07/16/21 Blood and urine culture pending Urine culture: Gram-negative bacilli Urine cultures 04/2010: Pansensitive E. coli Urology and infectious disease consultation #Acute URI with acute bronchitis due to RSV Patient has more respiratory complaints, on today's exam he has diffuse expiratory wheezing Related to acute bronchitis versus fluid overload We'll start systemic steroids, continue bronchodilators, incentive spirometer Encourage out of bed into recliner Bumex 1 Chest x-ray #Acute kidney injury, nonoliguric Due to acute urinary obstruction, severe sepsis, hypotension, ATN Creatinine trending down He is having a great urine output this morning Urine catheter in place, continue IV fluids Strict ins and outs Nephrology consultation #Acute urinary retention With bilateral hydroureteronephrosis Likely to related to combination of BPH and use of Vianey Continue Harrison catheter Urology consultation, case was discussed with urologist stone layer at admission time #Lactic acidosis Due sepsis and dehydration Received IV fluids per sepsis protocol Repeat lactic acid within normal limits Continue IV fluid #Electronic abnormalities Hypokalemia, hypomagnesemia Continue replacement #Elevated troponin Likely related to demand ischemia due to severe sepsis Trending down No chest pain EKG without acute findings Received aspirin in ER Serial troponin Cardiology consultation Echocardiogram DVT prophylaxis: Subcu Lovenox
[2021-07-19] MEDS: methylPREDNISolone SOD SUCCI 40 MG/ML 1 ML VIAL IV SCH ×5 (16:28→23:46)
[2021-07-19] MEDS: BUMETANIDE 0.25 MG/ML 10 ML VIAL IV SCH (17:41)
[2021-07-19] MEDS: MAGNESIUM SULFATE-D5W PMX 1 GM in DEXTROSE/WATER 1 100ML.BAG IVPB SCH ×2 (17:42→20:20)
[2021-07-19] MEDS ORDERED: MELATONIN 5 MG TABLET PO STA (20:06)
[2021-07-19] MEDS: ATORVASTATIN 40 MG TAB PO SCH (20:11)
[2021-07-19] MEDS ORDERED: MAGNESIUM SULFATE-D5W PMX 1 GM in DEXTROSE/WATER 1 100ML.BAG IVPB ONE (20:30)
--- NOTE | 2021-07-20 01:24 | PN ---
PROGRESS NOTE DATE OF SERVICE: 07/19/2021 REASON FOR FOLLOW UP: 1. Complicated UTI. 2. RSV infection. INTERVAL HISTORY: Patient is afebrile. The patient is breathing comfortably. The patient denies having any chest pain. Did have a cough with occasional clear sputum. No nausea, vomiting. No abdominal pain. No diarrhea. PHYSICAL EXAMINATION: Blood pressure 113/56, pulse of 88, temperature 98.2. He is 95% on room air. General description is an elderly male lying in bed in no distress. Respiratory system: Unlabored breathing, clear to auscultation anteriorly. Heart S1, S2. Regular rate and rhythm. Abdomen soft, no tenderness. LABS: BUN of 35, creatinine 1.51, E coli sensitive pathogen. DIAGNOSTIC IMPRESSION AND PLAN: 1. Patient with complicated E coli urinary tract infection which is sensitive pathogen with bilateral hydronephrosis. Patient's kidney function has improved. Antibiotic adjusted to Rocephin 2 grams daily. 2. Patient with RSV infection. Mild illness. No evidence of pneumonia. Treated symptomatic along with . Continue supportive care. MMODL / IJN: [id number] /
[2021-07-20] MEDS: ALBUTEROL HFA INHALER INHALATION PRN ×3 (08:28→21:45)
[2021-07-20] MEDS: FLUTICASONE 110 MCG INHALER INHALATION SCH ×2 (08:28→21:45)
[2021-07-20] MEDS: BUMETANIDE 0.25 MG/ML 10 ML VIAL IV SCH (08:50)
[2021-07-20] MEDS: SODIUM BICARBONATE TAB 650 MG TAB PO SCH ×2 (08:50→21:34)
[2021-07-20] MEDS: ASPIRIN 81 MG PO SCH (08:50)
[2021-07-20] MEDS: METOPROLOL SUCCINATE (ER) 25 MG TAB.ER.24H PO SCH (08:50)
[2021-07-20] MEDS: TAMSULOSIN 0.4 MG CAP.ER.24H PO SCH (08:50)
[2021-07-20] MEDS: ENOXAPARIN 40 MG/0.4 ML SYRINGE SQ SCH (08:51)
[2021-07-20] MEDS: methylPREDNISolone SOD SUCCI 40 MG/ML 1 ML VIAL IV SCH (08:51)
--- NOTE | 2021-07-20 09:27 | P.PN ---
Subjective Principal diagnosis: Urinary retention, severe sepsis, UTI This is a 70-year-old male with history of BPH admitted with generalized w eakness and difficulties in urination post URI and Vianey. Presented with acute urinary retention bilateral hydronephrosis, severe sepsis due to urinary tract infection. Patient has a setback in his recovery process is due to shortness of breath and wheezing. Chest x-ray showed some interstitial changes. He is positive for RSV. [place] to be likely fluid overloaded as well. He was started yesterday on prednisone, bronchodilators and given Bumex. He is feeling much better today. He is up in the chair. He is still feeling somewhat weak and reluctant to go home but feels otherwise improved. No nausea no vomiting no abdominal pain or diarrhea. Objective - Vital Signs Vital signs: Vital Signs Temp 97.9 F 07/19/21 20:00 Pulse 82 07/20/21 04:00 Resp 18 07/20/21 04:00 BP 122/56 07/20/21 04:00 Pulse Ox 97 07/20/21 04:00 Intake & Output 07/19/21 07/20/21 07/20/21 18:59 06:59 18:59 Intake Total 118 485 Output Total 1800 1600 Balance -3322 -1110 Weight 71 kg Intake: Oral 118 485 Output: Urine 1800 1600 Other: Voiding Method Indwelling Catheter Indwelling Catheter # Bowel Movements 1 1 - Exam Patient is awake and alert oriented 3 no any active distress but appears somewhat tired Head and neck: Anicteric sclere, no facial asymmetry, dry mucous members without any lesions, neck I do not see any neck vein distention or masses or thyromegaly Lungs: Normal breath sounds, wheezing is not present today Cardiovascular: Regular rhythm and rate S1-S2 no murmurs rubs or gallops Abdomen: Bowel sounds are present throughout he does have some suprapubic tenderness otherwise not tender to palpation soft he does have right flank tenderness to percussion Extremities: No peripheral edema no cyanosis warm well perfused Neurological: No focal neurological deficits cranial nerves are intact no asterixis Skin without rashes Musculoskeletal: No joint swelling - Labs CBC & Chem 7: 07/18/21 07:23 07/19/21 07:52 Labs: Microbiology - Last 24 Hours (Table) 07/16/21 17:36 Blood Culture - Preliminary Blood No Growth after 72 hours Assessment and Plan Plan: #Acute pyelonephritis with severe sepsis Due to acute urinary obstruction post Harrison catheter: Draining purulent urine that has been clearing up this morning Started on cefepime on 07/16/21 Blood cultures, no growth to date Urine culture: E. coli Urology and infectious diseases consultants following #Acute URI with acute bronchitis and bronchospasm due to RSV and acute hypoxic respiratory failure Chest x-ray: Interstitial changes no infiltrates Started on prednisone, bronchodilators and Bumex when necessary Respiratory status improving, subjective feeling much better, lungs are clear to auscultation today Continue above treatment, encourage out of bed, incentive spirometer Wean off oxygen #Acute kidney injury, nonoliguric Due to acute urinary obstruction, severe sepsis, hypotension, ATN Creatinine trending down He is having a great urine output this morning Urine catheter in place, continue IV fluids Strict ins and outs Nephrology consultation #Acute urinary retention With bilateral hydroureteronephrosis Likely to related to combination of BPH and use of Vianey Continue Harrison catheter Urology consultation, case was discussed with urologist production pattern maker at admission time #Lactic acidosis Due sepsis and dehydration Received IV fluids per sepsis protocol Repeat lactic acid within normal limits Continue IV fluid #Electronic abnormalities Hypokalemia, hypomagnesemia Continue replacement #Elevated troponin Likely related to demand ischemia due to severe sepsis Trending down No chest pain EKG without acute findings Received aspirin in ER Serial troponin Cardiology consultation Echocardiogram DVT prophylaxis: Subcu Lovenox Disposition: We will obtain physical and occupational therapy. Patient is clinically improving however he will need physical therapy assessment as he remains quite weak and concerned about going home.
--- NOTE | 2021-07-20 11:01 | P.PN ---
Subjective Progress Note Date: 07/20/21 Principal diagnosis: This is 70-year-old male seen in consultation because of acute kidney injury, had bilateral hydronephrosis, creatinine coming down with a Harrison catheter also has antibiotics started for E. coli urinary tract infection. Currently on Ceftin. Urology has seen him and has recommended Harrison catheter to be maintained his urine output is 3400 mL, vital signs arestable He complains of cough and wheezinghas improved. In the remote past few years to be on inhalers for asthma He is Covid negative. No nausea vomiting diarrhea abdominal pain no fever chills. Objective - Vital Signs Vital signs: Vital Signs Temp 97.9 F 07/19/21 20:00 Pulse 68 07/20/21 08:00 Resp 18 07/20/21 08:00 BP 111/59 07/20/21 08:00 Pulse Ox 98 07/20/21 08:00 Intake & Output 07/19/21 07/20/21 07/20/21 18:59 06:59 18:59 Intake Total 118 485 118 Output Total 1800 1600 Balance -4972 -1115 118 Weight 71 kg Intake: Oral 118 485 118 Output: Urine 1800 1600 Other: Voiding Method Indwelling Catheter Indwelling Catheter Indwelling Catheter # Bowel Movements 1 1 Exam is awake alert oriented HEENTexam no JVP neck is supple no facial asymmetry Lungs clear to auscultation except for occasional end expiratory wheezing, significantly improved since yesterday Heart sounds unremarkable for any murmur rub gallop Abdomen soft non tender Extremity exam was no edema Neurologically awake alert oriented - Labs CBC & Chem 7: 07/18/21 07:23 07/19/21 07:52 Labs: Microbiology - Last 24 Hours (Table) 07/16/21 17:36 Blood Culture - Preliminary Blood No Growth after 72 hours Assessment and Plan Assessment: Impression 1. Acute kidney injury from bilateral hydronephrosis from outlet obstruction possibly neurogenic bladder and improving with Harrison catheter. Creatinine came down from 4.4-1.5 yesterday. Good urine output 2. Previous creatinine was 1.15 on 05/15/2021 3. Computed tomography scan on 07/16/2021 shows bilateral renal cortical cysts bilateral hydro-nephrosis and hydroureter no calculi seen enlarged prostate with calcification noted Large cyst in the right upper pole by ultrasound on 07/16/2021. Recommendation 1. Continue antibiotics for E. coli urinary tract infection 2. Cont Bicarb, for now 3. patient may be dischargedmay be discharged per prim Care
[2021-07-20] MEDS: ATORVASTATIN 40 MG TAB PO SCH (21:34)
[2021-07-20] MEDS ORDERED: MELATONIN 5 MG TABLET PO ONE (21:45)
--- NOTE | 2021-07-20 22:55 | PN ---
PROGRESS NOTE DATE OF SERVICE: 07/20/2021 REASON FOR FOLLOWUP: 1. Complicated E coli urinary tract infection. 2. Patient with RSV infection. INTERVAL HISTORY: The patient is afebrile. The patient is currently breathing comfortably. The patient denies having any chest pain. Cough has decreased in intensity. The patient's right flank pain has improved. No vomiting or diarrhea. PHYSICAL EXAMINATION: Blood pressure 119/56, pulse of 83, temperature of 97.6. He is 97% on room air. General description is an elderly male lying in bed in no distress. Respiratory system: Unlabored breathing, decreased intensity of breath sounds. No wheeze. Heart S1, S2. Regular rate and rhythm. Abdomen soft, no tenderness. LABS: Creatinine is 1.51, white count of 7.7. Urine with an E coli. Blood culture has been negative. DIAGNOSTIC IMPRESSION AND PLAN: 1. Patient with an Escherichia coli complicated urinary tract infection in this patient who did have bilateral hydronephrosis. Patient's overall kidney function is improving. He is currently on Rocephin. Will transition to oral Cipro for another 7-10 days to finish his course of therapy. 2. Patient with an RSV infection. No evidence of pneumonia. Treatment is mostly supportive. Continue supportive care. MMODL / IJN: [id number] /
[2021-07-21 00:41] LABS: Potassium 4.7 mmol/L (3.5-5.1)
[2021-07-21 00:42] LABS: Calcium 8.4 mg/dL (8.4-10.2); Magnesium 1.7 mg/dL (1.6-2.3)
[2021-07-21] MEDS: FLUTICASONE 110 MCG INHALER INHALATION SCH (07:15)
[2021-07-21] MEDS: ALBUTEROL HFA INHALER INHALATION PRN (07:15)
[2021-07-21] MEDS: TAMSULOSIN 0.4 MG CAP.ER.24H PO SCH (09:19)
[2021-07-21] MEDS: ASPIRIN 81 MG PO SCH (09:19)
[2021-07-21] MEDS: SODIUM BICARBONATE TAB 650 MG TAB PO SCH (09:19)
[2021-07-21] MEDS: ENOXAPARIN 40 MG/0.4 ML SYRINGE SQ SCH (09:19)
[2021-07-21] MEDS: BUMETANIDE 0.25 MG/ML 10 ML VIAL IV SCH (09:19)
[2021-07-21] MEDS: METOPROLOL SUCCINATE (ER) 25 MG TAB.ER.24H PO SCH (09:19)
--- NOTE | 2021-07-21 12:32 | PN ---
PROGRESS NOTE Patient is seen for followup for acute kidney injury obstructive uropathy currently with Harrison catheter with improved creatinine currently staying at about 1.5 mg/dL. Patient has an indwelling Harrison catheter. EXAMINATION: Today patient is doing well. Blood pressure 110/64, heart rate 84 per minute. He is afebrile. Examination of the heart S1, S2. Examination of the lungs, decreased breath sounds at bases. Abdomen is soft, nontender. Examination of lower extremities shows no significant edema. 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 LAB: Show sodium 132, potassium 4.7, serum creatinine 1.59 on 07/20/2021. ASSESSMENT: 1. Acute kidney injury, obstructive uropathy, currently with indwelling Harrison catheter with improving renal function. The patient can be discharged. Will follow up as outpatient with Urology and Nephrology. 2. Escherichia coli urinary tract infection. 3. Bilateral hydronephrosis, possibly neurogenic bladder. Follow up with Urology as outpatient. 4. Bilateral renal cortical cysts. Repeat ultrasound in about 6 months to a year. 5. Metabolic acidosis maintained on oral sodium bicarb, can decrease to once a day. PLAN: Follow up as outpatient in 2 weeks. Follow up with Urology in one week and decrease sodium bicarb to once a day. MMODL / IJN: [id number] /
[2021-07-21 12:50] VITALS: BP 115/60; PULSE 75; RESP 16; TEMP 97.6
--- NOTE | 2021-07-21 17:59 | P.DS ---
Providers Date of admission: 07/16/21 16:00 Expected date of discharge: 07/21/21 Attending physician: Kristie Villar DO Consults: 07/16/21 15:59 Consult Physician Urgent Consulting Provider: Gui Chau Consult Reason/Comments: RAISA Do you want consulting provider notified?: Yes 07/16/21 17:00 Consult Physician Routine Consulting Provider: Terrance Lockhart Consult Reason/Comments: Urinary retention Do you want consulting provider notified?: Yes 07/16/21 17:01 Consult Physician Routine Consulting Provider: Javad Jamison Consult Reason/Comments: Elevated trop Do you want consulting provider notified?: Yes 07/17/21 06:56 Consult Physician Routine Consulting Provider: Turner Petersen Consult Reason/Comments: Urosepsis Do you want consulting provider notified?: Yes Primary care physician: Kevin Ballard DO Hospital Course: Discharge Diagnosis: E. coli urinary tract infection with sepsis Bilateral hydronephrosis Acute urinary retention Upper respiratory tract infection secondary to bronchitis Acute kidney injury Metabolic acidosis Hypokalemia Cardiomyopathy with ejection fraction 40-45% Lactic acidosis Elevated troponin Hospital Course: Patient is a 70-year-old male for history of BPH, asthma, hypertension, dyslipidemia, and sleep apnea who presented to the emergency department for generalized weakness difficulty urinating 1 week. In the emergency department he underwent an extensive evaluation. Troponin was mildly elevated. Creatinine was significantly elevated at 4.4 lactic acid was elevated at 2.5. Chest x-ray showed no interstitial infiltrates. COVID-19 testing was negative. He is admitted for further monitoring. Patient had a bladder scan was found to be in acute urinary retention and immediately had a Harrison catheter placed. He underwent a CT abdomen and pelvis which showed bilateral hydroureter and hydronephrosis with the right side showing fat stranding consistent with pyelonephritis. This was confirmed with ultrasound of the kidneys and bladder. He was seen by nephrology and medication regimen was optimized. He was seen by urology who recommended continued Harrison catheter at discharge and follow-up as outpatient. He was seen by cardiology secondary to his abnormal troponin which was felt to be secondary to sepsis and not suggestive of acute coronary syndrome, echocardiogram was completed which showed an ejection fraction of 40- 45% however this is felt to be old. He was seen by infectious disease. His urine culture came back with E. coli. He was doing well. He did have some upper respiratory symptoms during hospital stay was subsequently diagnosed with RSV. He is up and ambulating well. He was determined stable for discharge with outpatient home health. He'll complete an additional 7 days of Cipro at the recommendations of infectious disease, he will follow up with his primary care physician and his ethics instructor. He will also follow-up with urology. He was given instructions on how to watch his leg bag. He will stay off his injectable methotrexate and biologic agent for his Crohn's disease until he completes tr eatment for UTI. He will be on Oral Bicarb once dialy for the next 2 weeks. He should follow-up with Dr. Jaffe in 2 weeks. Patient seen and examined at bedside. Feeling well. No abdominal pain no nausea no vomiting no diarrhea. No chest pain or shortness of breath. He wants to go home. Vital signs reviewed and stable. General: non toxic, no distress, appears at stated age Derm: warm, dry Head: atraumatic, normocephalic, symmetric Eyes: EOMI, no lid lag, anicteric sclera Mouth: no lip lesion, mucus membranes moist Cardiovascular: S1S2 reg, no murmur, positive posterior tibial pulse bilateral, Lungs: CTA bilateral, no rhonchi, no rales , no accessory muscle use Abdominal: soft, nontender to palpation, no guarding, no appreciable organomegaly Ext: no gross muscle atrophy, no edema, no contractures Neuro: CN II-XI grossly intact, no focal neuro deficits Psych: Alert, oriented, appropriate affect A total of 42 minutes of time were spent preparing this complex discharge summar y . Patient Condition at Discharge: Good Plan - Discharge Summary Discharge Rx Participant: Yes New Discharge Prescriptions: New Aspirin 81 mg PO DAILY tab Isosorbide Mononitrate ER [Imdur] 30 mg PO DAILY #30 tab Metoprolol Succinate (ER) [Toprol XL] 12.5 mg PO DAILY #30 tablet Albuterol Inhaler [Ventolin Hfa Inhaler] 2 puff INHALATION RT-QID PRN #1 inh PRN Reason: Shortness Of Breath Or Wheezing Tamsulosin [Flomax] 0.4 mg PO PC-BRKFST #30 capsule Sodium Bicarbonate Tab 650 mg PO DAILY #30 tablet Ciprofloxacin HCl [Cipro] 500 mg PO Q12HR 7 Days #14 tab Continue Atorvastatin [Lipitor] 40 mg PO HS Vit C/E/Zn/Coppr/Lutein/Zeaxan [Preservision Areds 2 Softgel] 1 tab PO DAILY Sertraline HCl [Zoloft] 150 mg PO DAILY Folic Acid 1 mg PO DAILY Gabapentin [Neurontin] 300 mg PO DAILY Cyanocobalamin (Vitamin B-12) [Vitamin B-12] 1,000 mcg PO DAILY Cholecalciferol (Vitamin D3) [Vitamin D3 (125 MCG = 5,000 IU)] 125 mcg PO DAILY Methotrexate/Pf [Reditrex 25 mg/ml Syringe] 25 mg SQ TH Fexofenadine HCl [Vianey Allergy] 180 mg PO DAILY PRN PRN Reason: Runny Nose Discontinued Entyvio Infusion 1 dose IV Q56D predniSONE See Taper PO DIRECTED Isosorbide Mononitrate ER [Imdur] 60 mg PO HS Discharge Medication List Atorvastatin [Lipitor] 40 mg PO HS 09/16/17 [History] Vit C/E/Zn/Coppr/Lutein/Zeaxan [Preservision Areds 2 Softgel] 1 tab PO DAILY 09/16/17 [History] Cyanocobalamin (Vitamin B-12) [Vitamin B-12] 1,000 mcg PO DAILY 08/22/19 [History] Folic Acid 1 mg PO DAILY 08/22/19 [History] Gabapentin [Neurontin] 300 mg PO DAILY 08/22/19 [History] Sertraline HCl [Zoloft] 150 mg PO DAILY 08/22/19 [History] Cholecalciferol (Vitamin D3) [Vitamin D3 (125 MCG = 5,000 IU)] 125 mcg PO DAILY 05/13/21 [History] Methotrexate/Pf [Reditrex 25 mg/ml Syringe] 25 mg SQ TH 05/13/21 [History] Fexofenadine HCl [Vianey Allergy] 180 mg PO DAILY PRN 07/16/21 [History] Albuterol Inhaler [Ventolin Hfa Inhaler] 2 puff INHALATION RT-QID PRN #1 inh 07/21/21 [Rx] Aspirin 81 mg PO DAILY tab 07/21/21 [Rx] Ciprofloxacin HCl [Cipro] 500 mg PO Q12HR 7 Days #14 tab 07/21/21 [Rx] Isosorbide Mononitrate ER [Imdur] 30 mg PO DAILY #30 tab 07/21/21 [Rx] Metoprolol Succinate (ER) [Toprol XL] 12.5 mg PO DAILY #30 tablet 07/21/21 [Rx] Sodium Bicarbonate Tab 650 mg PO DAILY #30 tablet 07/21/21 [Rx] Tamsulosin [Flomax] 0.4 mg PO PC-BRKFST #30 capsule 07/21/21 [Rx] Follow up Appointment(s)/Referral(s): Kevin Ballard DO [Primary Care Provider] - 07/22/21 11:00 am Terrance Lockhart MD [STAFF PHYSICIAN] - 07/29/21 8:00 am [facility], [NON-STAFF] - Sharron Jaffe MD [STAFF PHYSICIAN] - 2 Weeks Patient Instructions/Handouts: Respiratory Syncytial Virus (DC), Acute Kidney Injury (DC) Activity/Diet/Wound Care/Special Instructions: Activity: as tolerated Diet: heart healthy Special Instructions: Discharge home with Harrison catheter. Follow up with Dr. Lockhart in 1 week., Leg bag with instructions on discharge. Follow-up with your ethics instructor in 2 weeks Discharge Disposition: HOME WITH HOME HEALTH SERVICES
== END 2021-07-21 12:34 | disposition home health service (06) | DRG 871 ==
LOC: EC 12:59 → 3SCARD 16:00
PROVIDERS: ADMIT Internal Medicine; ATTEND Internal Medicine
DX: A41.9 Sepsis, unspecified organism (principal); N17.0 Acute kidney failure with tubular necrosis; E87.2 Acidosis; I42.9 Cardiomyopathy, unspecified; K50.90 Crohn's disease, unspecified, without complications; N13.6 Pyonephrosis; N39.0 Urinary tract infection, site not specified; R65.20 Severe sepsis without septic shock; D64.9 Anemia, unspecified; E78.5 Hyperlipidemia, unspecified; E83.42 Hypomagnesemia; E86.0 Dehydration; E87.6 Hypokalemia; E87.70 Fluid overload, unspecified; H91.90 Unspecified hearing loss, unspecified ear; I10 Essential (primary) hypertension; J20.5 Acute bronchitis due to respiratory syncytial virus; J45.909 Unspecified asthma, uncomplicated; N28.1 Cyst of kidney, acquired; N32.89 Other specified disorders of bladder; N40.1 Benign prostatic hyperplasia with lower urinary tract symptoms; Z20.822 Contact with and (suspected) exposure to COVID-19; R33.8 Other retention of urine; R77.8 Other specified abnormalities of plasma proteins; B96.20 Unspecified Escherichia coli [E. coli] as the cause of diseases classified elsewhere; Z79.899 Other long term (current) drug therapy; Z80.1 Family history of malignant neoplasm of trachea, bronchus and lung; Z85.46 Personal history of malignant neoplasm of prostate; Z87.891 Personal history of nicotine dependence; Z92.3 Personal history of irradiation
CPT/HCPCS: 36415; 71045; 71046; 74176; 76770; 80048; 80053; 81001; 83605; 83735; 84145; 84484; 85025; 85027; 85610; 85730; 87040; 87077; 87086; 87186; 87502; 87634; 87635; 93005; 93306; 94640; 99285

== ENCOUNTER → 2021-08-20 | Outpatient (CLI) | payer MEDICARE ==
--- NOTE | 2021-08-20 16:01 | US ---
EXAMINATION TYPE: US kidneys/renal and bladder DATE OF EXAM: 08/20/2021 COMPARISON: CT scan 07/16/2021 CLINICAL HISTORY: N13.30 hydronephrosis. history of hydronephrosis EXAM MEASUREMENTS: Right Kidney: 10.8 x 4.7 x 5.1 cm Left Kidney: 10.9 x 5.3 x 4.4 cm Right Kidney: complex cystic area upper pole = 2.4 x 2.3 x 2.5cm. mild hydronephrosis Left Kidney: cystic area medially = 2.7 x 1.7 x 3.3cm. mild hydronephrosis Bladder: irregularities noted along posterior wall Bilateral Jets seen: no IMPRESSION: 1. Complex cystic area within the right kidney with mild right hydronephrosis. Lesion does not meet t he criteria of a simple cyst and MRI is recommended. 2. Bladder wall thickening with irregularity could be on the basis of cystitis. Could not exclude muc osal lesion correlate clinically.
== END | disposition home or self-care (01) ==
LOC: RADUSWWP 14:59
PROVIDERS: ATTEND Urology
DX: N13.30 Unspecified hydronephrosis (principal); N28.1 Cyst of kidney, acquired; N32.89 Other specified disorders of bladder
CPT/HCPCS: 76770

== ENCOUNTER → 2021-10-13 | Outpatient (CLI) | payer MEDICARE ==
--- NOTE | 2021-10-13 21:20 | MR ---
MR kidney without and with contrast HISTORY: N 28.3 Multiplanar multisequence and postcontrast images obtained through the kidneys following 8 cc Gadavis t IV Correlation to renal ultrasound dated 07/16/2021, 08/20/2021, CT scan 07/16/2021 Large exophytic cyst at the upper pole the right kidney seen on CT scan and ultrasound 07/16/2021 rolanda uring 8.3 x 8.5 cm is not present on ultrasound 08/20/2021, is likely been interval decrease in size, possible rupture of cyst in the interval. On MRI, the area now shows intermediate signal on T1, low s ignal on T2-weighted sequences, no significant enhancement following contrast administration, there i s residual distortion at the upper pole the right kidney with possible septation present on postcontr ast images. There is a cortical cyst at the upper pole of the left kidney which shows increased signa l on T1-weighted sequences suggesting proteinaceous cyst measuring approximately 18 mm. Right-sided hydronephrosis is again noted, there is left-sided hydronephrosis, cortical cysts are ass ociated with the left kidney. There is bilateral hydroureter. No retroperitoneal adenopathy. Aorta sh ows normal caliber. There is a left pleural effusion present. Interstitial changes are present within the lungs. Probable splenule is present posterior to the spleen. Patient is post cholecystectomy. Di lated ducts within the liver are likely due to postcholecystectomy change. Pancreas shows no mass. Ad renal glands are unremarkable. There is no bowel obstruction. Aorta shows normal caliber. IMPRESSION: Findings in the upper pole the right kidney may be residual of ruptured cortical cysts, f ollow-up could BE performed to assess for stability.
== END | disposition home or self-care (01) ==
LOC: RADMRIMAIN 14:02
PROVIDERS: ATTEND Urology
DX: N28.89 Other specified disorders of kidney and ureter (principal); N28.1 Cyst of kidney, acquired; N13.30 Unspecified hydronephrosis; N13.4 Hydroureter
CPT/HCPCS: 74183; A9585

== ENCOUNTER 2021-10-25 15:38 | Emergency (ER) | payer MEDICARE ==
[2021-10-25 16:20] VITALS: TEMP 99.1
[2021-10-25 16:58] LABS: Appearance,Urine Turbid (Clear); Bilirubin,Urine Negative (Negative); Blood,Urine Large (Negative); Color,Urine Light Orange; Glucose,Urine (UA) Negative (Negative); Ketones,Urine Negative (Negative); Leukocyte Esterase,Urine Large (Negative); Mucus,Urine Occasional /hpf; Nitrite,Urine Positive (Negative); PH, Urine 7.5 (5.0-8.0); Protein,Urine 3+ (Negative); RBC,Urine >182 /hpf (0-5); Specific Gravity,Urine 1.018 (1.001-1.035); Urobilinogen,Urine <2.0 mg/dL (<2.0); WBC,Urine >182 /hpf (0-5)
[2021-10-25] MEDS ORDERED: CIPROFLOXACIN HCL 500 MG TAB PO STA (17:43)
--- NOTE | 2021-10-25 17:46 | ED ---
General Adult HPI - General Chief complaint: Urogenital Stated complaint: Blood in urine Time Seen by Provider: 10/25/21 17:35 Source: patient, RN notes reviewed, old records reviewed Mode of arrival: ambulatory Limitations: no limitations - History of Present Illness Initial comments: 71-year-old male presents with 1 day of suprapubic abdominal pain, dysuria and hematuria. He has a history of frequent urinary tract infections and sees [facility] with Dr. Lockhart He denies any fevers, no nausea vomiting diarrhea or back pain. He is a nonsmoker. -: days(s) (1) Location: pelvis (suprapubic) Severity scale (1-10): 8 Quality: aching Consistency: constant Improves with: none Worsens with: none Associated Symptoms: denies other symptoms - Related Data Home Medications Medication Instructions Recorded Confirmed Atorvastatin [Lipitor] 40 mg PO HS 09/16/17 10/25/21 Vit C/E/Zn/Coppr/Lutein/Zeaxan 1 tab PO DAILY 09/16/17 10/25/21 [Preservision Areds 2 Softgel] Cyanocobalamin (Vitamin B-12) 1,000 mcg PO DAILY 08/22/19 10/25/21 [Vitamin B-12] Folic Acid 1 mg PO DAILY 08/22/19 10/25/21 Gabapentin [Neurontin] 300 mg PO DAILY 08/22/19 10/25/21 Sertraline HCl [Zoloft] 150 mg PO DAILY 08/22/19 10/25/21 Cholecalciferol (Vitamin D3) 125 mcg PO DAILY 05/13/21 10/25/21 [Vitamin D3 (125 MCG = 5,000 IU)] Methotrexate/Pf [Reditrex 25 mg/ml 25 mg SQ TH 05/13/21 10/25/21 Syringe] Chlorthalidone [Hygroton] 12.5 mg PO DAILY 10/25/21 10/25/21 Isosorbide Mononitrate ER [Imdur] 15 mg PO DAILY 10/25/21 10/25/21 Previous Rx's Medication Instructions Recorded Albuterol Inhaler [Ventolin Hfa 2 puff INHALATION RT-QID PRN #1 inh 07/21/21 Inhaler] Ciprofloxacin HCl [Cipro] 500 mg PO Q12HR #20 tablet 10/25/21 Allergies Allergy/AdvReac Type Severity Reaction Status Date / Time No Known Allergies Allergy Verified 10/25/21 18:10 Review of Systems ROS Statement: Those systems with pertinent positive or pertinent negative responses have been documented in the HPI. ROS Other: All systems not noted in ROS Statement are negative. Past Medical History Past Medical History: Asthma, Cancer, Hearing Disorder / Deafness, Hyperlipidemia, Hypertension, Prostate Disorder, Sleep Apnea/CPAP/BIPAP Additional Past Medical History / Comment(s): hx of Crohn's, hx of prostate ca with radiation approx 2009, does not use cpap machine,deaf rt ear,hearing aide lt ear History of Any Multi-Drug Resistant Organisms: None Reported Past Surgical History: Orthopedic Surgery Additional Past Surgical History / Comment(s): rt knee sx, neck "2 bolts", rod cataracts with lens implant Past Anesthesia/Blood Transfusion Reactions: No Reported Reaction Past Psychological History: No Psychological Hx Reported Smoking Status: Former smoker Past Alcohol Use History: Occasional Past Drug Use History: None Reported - Past Family History Mother Family Medical History: No Reported History Sister(s) Family Medical History: Cancer Additional Family Medical History / Comment(s): breast and lung CA General Exam Limitations: no limitations General appearance: alert, in no apparent distress ENT exam: Present: normal oropharynx, mucous membranes moist Respiratory exam: Present: normal lung sounds bilaterally. Absent: respiratory distress, wheezes, rales, rhonchi, stridor, accessory muscle use, decreased breath sounds Cardiovascular Exam: Present: regular rate GI/Abdominal exam: Present: soft, tenderness (Suprapubic). Absent: distended, guarding, rebound, rigid, normal bowel sounds exam: Present: normal inspection, circumcision. Absent: testicular tenderness, urethral discharge, scrotal swelling Extremities exam: Absent: pedal edema, calf tenderness Neurological exam: Present: alert, oriented X3, normal gait Psychiatric exam: Present: normal affect, normal mood Skin exam: Present: warm, dry, normal color. Absent: cyanosis, diaphoretic Course Vital Signs 10/25/21 10/25/21 16:18 18:00 Temperature 99.1 F Pulse Rate 86 78 Respiratory 16 18 Rate Blood Pressure 163/69 161/93 O2 Sat by Pulse 97 94 L Oximetry Medical Decision Making - Medical Decision Making 71-year-old male presents with 1 day of dysuria and hematuria. He has history of frequent UTIs in the past. He is patient of Dr. Blveins. He has been in remission from prostate cancer for more than 10 years. He denies any fevers, no nausea vomiting diarrhea or flank pain. He is able to urinate in the emergency room without difficulty. Testicles are not swollen or tender. He'll be discharged home on Cipro directed follow-up with his urologist on Wednesday morning return to the emergency room with any new or concerning symptoms. - Lab Data Lab Results 10/25/21 Range/Units 16:27 Urine Color Light [place] Urine Appearance Turbid (Clear) Urine pH 7.5 (5.0-8.0) Ur Specific [place] 1.018 (1.001-1.035) Urine Protein 3+ H (Negative) Urine Glucose (UA) Negative (Negative) Urine Ketones Negative (Negative) Urine Blood Large H (Negative) Urine Nitrite Positive (Negative) Urine Bilirubin Negative (Negative) Urine Urobilinogen <2.0 (<2.0) mg/dL Ur Leukocyte Esterase Large H (Negative) Urine RBC >182 H (0-5) /hpf Urine WBC >182 H (0-5) /hpf Urine WBC Clumps Many H (None) /hpf Urine Mucus Occasional H (None) /hpf Disposition Clinical Impression: UTI (urinary tract infection) Disposition: HOME SELF-CARE Condition: Good Instructions (If sedation given, give patient instructions): Urinary Tract Infection in Men (ED) Additional Instructions: Increase your fluid intake. Take the antibiotics as prescribed. Follow-up with your urologist on Wednesday. Return to the emergency room with any new or concerning symptoms including increased pain, fevers, nausea vomiting or inability to urinate. Prescriptions: Ciprofloxacin HCl [Cipro] 500 mg PO Q12HR #20 tablet Is patient prescribed a controlled substance at d/c from ED?: No Referrals: Kevin Ballard DO [Primary Care Provider] - 1-2 days Terrance Lockhart MD [STAFF PHYSICIAN] - 1-2 days Time of Disposition: 17:50
[2021-10-25] MEDS ORDERED: IBUPROFEN 600 MG TAB PO STA (17:50)
[2021-10-25 18:02] VITALS: BP 161/93; PULSE 78; RESP 18
== END 2021-10-25 18:25 | disposition home or self-care (01) ==
LOC: EC 15:38
DX: N39.0 Urinary tract infection, site not specified (principal); E78.5 Hyperlipidemia, unspecified; J45.909 Unspecified asthma, uncomplicated; I10 Essential (primary) hypertension; Z79.899 Other long term (current) drug therapy; Z87.891 Personal history of nicotine dependence
CPT/HCPCS: 81001; 87086; 99284

== ENCOUNTER → 2021-11-25 | Outpatient (CLI) | payer MEDICARE ==
[~2021-11-25] MED LIST changes: +FUROSEMIDE 10 MG/ML 2 ML VIAL IV ONE; -LACTATED RINGERS 1,000 ML IV SCH; -LIDOCAINE 1% 20 ML VIAL (10MG/ML) FOR IV START INTRADERMA PRN
--- NOTE | 2021-11-25 16:11 | NM ---
EXAMINATION TYPE: NM lasix renogram DATE OF EXAM: 11/25/2021 COMPARISON: NONE HISTORY: Hydronephrosis Following administration of 9.8 mCi Tc 99m MAG3 with 20mg Lasix. Immediate images post injection FINDINGS: Left: 40 %. Right: 60 %. Max renal flow left: 21.5 minutes. Max renal flow right: 60 minutes. Satisfactory accumulation of radiotracer within both renal collecting systems. After the administrati on of Lasix, there is delayed excretion from both collecting systems. On the right excretion appears to begin 11 minutes after Lasix injection. Significant excretion on the left is not identified by the calculated curves. T 1/2 left: NA minutes. T 1/2 right: NA minutes. IMPRESSION: 1. Findings compatible with left renal obstruction.
== END | disposition home or self-care (01) ==
LOC: RADNMMAIN 13:10
PROVIDERS: ATTEND Urology
DX: N13.30 Unspecified hydronephrosis (principal)
CPT/HCPCS: 78708; A9562

== ENCOUNTER 2023-06-30 17:29 | Emergency (ER) | payer MEDICARE ==
--- NOTE | 2023-06-30 18:04 | ED ---
General Adult HPI - General Source: patient, family Mode of arrival: ambulatory Limitations: no limitations <Shmuel Coffey - Last Filed: 06/30/23 18:04> <Nelli Gore - Last Filed: 06/30/23 19:37> - General Chief complaint: Urogenital Stated complaint: UTI - History of Present Illness Initial comments: Male presents to the ED with a chief complaint of urinary tract infection. Patient states for the past week has had difficulties urinating noting pain with urination, urgency, frequency. For this, patient states that he was taking leftover antibiotics however reports no improvement of his symptoms since starting his antibiotics prompting presentation to the ED for further evaluation. Patient has been taking Keflex 250 mg once a day for the past few days. (Shmuel Coffey) 72-year-old male presenting with chief complaint of UTI like symptoms. Patient admits to dysuria, urgency, frequency for the last several days. He also admits to suprapubic discomfort. Patient has been taking leftover Keflex 250 mg daily for his symptoms, no improvement. No flank pain, fever, chills, nausea, vomiting, diarrhea. (Nelli Gore) - Related Data Home Medications Medication Instructions Recorded Confirmed Atorvastatin [Lipitor] 40 mg PO HS 09/16/17 09/17/22 Vit C/E/Zn/Coppr/Lutein/Zeaxan 1 tab PO HS 09/16/17 09/17/22 [Preservision Areds 2 Softgel] Cyanocobalamin (Vitamin B-12) 1,000 mcg PO HS 08/22/19 09/17/22 [Vitamin B-12] Folic Acid 1 mg PO DAILY 08/22/19 09/17/22 Gabapentin [Neurontin] 300 mg PO HS 08/22/19 09/17/22 Sertraline HCl [Zoloft] 150 mg PO HS 08/22/19 09/17/22 Cholecalciferol (Vitamin D3) 125 mcg PO DAILY 05/13/21 09/17/22 [Vitamin D3 (125 MCG = 5,000 IU)] Isosorbide Mononitrate ER [Imdur] 15 mg PO HS 10/25/21 09/17/22 traMADol HCL 50 mg PO BID 09/17/22 09/17/22 Previous Rx's Medication Instructions Recorded Albuterol Inhaler [Ventolin Hfa 2 puff INHALATION RT-QID PRN #1 inh 07/21/21 Inhaler] Levofloxacin [Levaquin] 750 mg PO DAILY 5 Days #5 tab 06/30/23 Allergies Allergy/AdvReac Type Severity Reaction Status Date / Time No Known Allergies Allergy Verified 09/18/22 12:10 Review of Systems ROS Other: All systems not noted in ROS Statement are negative. <Shmuel Coffey - Last Filed: 06/30/23 18:04> ROS Other: All systems not noted in ROS Statement are negative. <Nelli Gore - Last Filed: 06/30/23 19:37> ROS Statement: Those systems with pertinent positive or pertinent negative responses have been documented in the HPI. Past Medical History Past Medical History: Asthma, Cancer, Hearing Disorder / Deafness, Hyperlipidemia, Hypertension, Prostate Disorder, Sleep Apnea/CPAP/BIPAP Additional Past Medical History / Comment(s): hx of Crohn's, hx of prostate ca with radiation approx 2009, does not use cpap machine,deaf rt ear,hearing aide lt ear History of Any Multi-Drug Resistant Organisms: None Reported Past Surgical History: Orthopedic Surgery Additional Past Surgical History / Comment(s): rt knee sx, neck "2 bolts", rod cataracts with lens implant Past Anesthesia/Blood Transfusion Reactions: No Reported Reaction Past Psychological History: No Psychological Hx Reported Smoking Status: Former smoker - Past Family History Mother Family Medical History: No Reported History Sister(s) Family Medical History: Cancer Additional Family Medical History / Comment(s): breast and lung CA <Shmuel Coffey - Last Filed: 06/30/23 18:04> General Exam Limitations: no limitations Eye exam: Present: normal appearance Neck exam: Present: normal inspection Extremities exam: Present: normal inspection Back exam: Present: normal inspection Neurological exam: Present: alert <Shmuel Coffey - Last Filed: 06/30/23 18:04> Limitations: no limitations General appearance: alert, in no apparent distress Head exam: Present: atraumatic, normocephalic, normal inspection Eye exam: Present: normal appearance, EOMI Neck exam: Present: normal inspection, full ROM Respiratory exam: Absent: respiratory distress Neurological exam: Present: alert, oriented X3 Psychiatric exam: Present: normal affect, normal mood Skin exam: Present: warm, dry, intact, normal color. Absent: rash <Nelli Gore - Last Filed: 06/30/23 19:37> Course Vital Signs 06/30/23 06/30/23 17:56 19:24 Temperature 97.4 F L 98.2 F Pulse Rate 88 76 Respiratory 20 16 Rate Blood Pressure 135/69 132/76 O2 Sat by Pulse 98 98 Oximetry Medical Decision Making <Shmuel Coffey - Last Filed: 06/30/23 18:04> <Nelli Gore - Last Filed: 06/30/23 19:37> - Medical Decision Making Quicknote portion performed. Signed Shmuel Coffey PA-C (Shmuel Coffey) Was pt. sent in by a medical professional or institution (FELA Padron, FOLDER GLUER OPERATOR, urgent care, hospital, or prison...) When possible be specific @ -No Did you speak to anyone other than the patient for history (EMS, parent, family, police, friend...)? What history was obtained from this source @ -No Did you review nursing and triage notes (agree or disagree)? Why? @ -I reviewed and agree with nursing and triage notes Were old charts reviewed (outside hosp., previous admission, EMS record, old EKG, old radiological studies, urgent care reports/EKG's, prison records)? Report findings @ -No old charts were reviewed Differential Diagnosis (chest pain, altered mental status, abdominal pain women, abdominal pain men, vaginal bleeding, weakness, fever, dyspnea, syncope, hea dache, dizziness, GI bleed, back pain, seizure, CVA, palpatations, mental health, musculoskeletal)? @ -Differential includes UTI, pyelonephritis, kidney stone, this is not an all inclusive last EKG interpreted by me (3pts min.). @ -As above X-rays interpreted by me (1pt min.). @ -None done CT interpreted by me (1pt min.). @ -None done U/S interpreted by me (1pt. min.). @ -None done What testing was considered but not performed or refused? (CT, X-rays, U/S, labs)? Why? @ -None What meds were considered but not given or refused? Why? @ -None Did you discuss the management of the patient with other professionals (professionals i.e. Dr., PA, FOLDER GLUER OPERATOR, lab, RT, psych nurse, manager social work, testing coordinator, teacher, corporate responsibility officer, immigration case worker)? Give summary @ -No Was smoking cessation discussed for >3mins.? @ -No Was critical care preformed (if so, how long)? @ -No Were there social determinants of health that impacted care today? How? (Homelessness, low income, unemployed, alcoholism, drug addiction, transportation, low edu. Level, literacy, decrease access to med. care, fdc, rehab)? @ -No Was there de-escalation of care discussed even if they declined (Discuss DNR or withdrawal of care, Hospice)? DNR status @ -No What co-morbidities impacted this encounter? (DM, HTN, Smoking, COPD, CAD, Cancer, CVA, ARF, Chemo, Hep., AIDS, mental health diagnosis, sleep apnea, morbid obesity)? @ -None Was patient admitted / discharged? Hospital course, mention meds given and route, prescriptions, significant lab abnormalities, going to OR and other pertinent info. @ -72-year-old male presenting with chief complaint of UTI like symptoms. Denies flank pain, fever, vomiting. History and physical exam are contracted. Urine shows UTI. Patient will be treated with Levaquin based on previous culture results. Urine culture sent out. Patient's educated on today's findings and treatment plan. Follow-up with PCP. Report back to ER with any new or worsening symptoms. Discussed return parameters and answered all questions. Patient conveyed verbal understanding and agreed to the plan. I discussed this case in detail with my attending Dr. Charles Undiagnosed new problem with uncertain prognosis? @ -No Drug Therapy requiring intensive monitoring for toxicity (Heparin, Nitro, Insulin, Cardizem)? @ -No Were any procedures done? @ -No Diagnosis/symptom? @ -UTI Acute, or Chronic, or Acute on Chronic? @ -Acute Uncomplicated (without systemic symptoms) or Complicated (systemic symptoms)? @ -Uncomplicated Side effects of treatment? @ -No Exacerbation, Progression, or Severe Exacerbation? @ -No Poses a threat to life or bodily function? How? (Chest pain, [place], [place], pneumonia, PE, COPD, DKA, ARF, appy, cholecystitis, CVA, Diverticulitis, Homicidal, Suicidal, threat to staff... and all critical care pts) @ -Low likelihood (Nelli Gore) - Lab Data Lab Results 06/30/23 Range/Units 18:07 Urine Color Light Yellow Urine Appearance Turbid (Clear) Urine pH 5.5 (5.0-8.0) Ur Specific [place] 1.018 (1.001-1.035) Urine Protein 1+ H (Negative) Urine Glucose (UA) Negative (Negative) Urine Ketones Negative (Negative) Urine Blood Moderate H (Negative) Urine Nitrite Negative (Negative) Urine Bilirubin Negative (Negative) Urine Urobilinogen <2.0 (<2.0) mg/dL Ur Leukocyte Esterase Large H (Negative) Urine RBC 36 H (0-5) /hpf Urine WBC >182 H (0-5) /hpf Urine WBC Clumps Many H (None) /hpf Urine Bacteria Few H (None) /hpf Urine Mucus Rare H (None) /hpf Disposition <Shmuel Coffey - Last Filed: 06/30/23 18:04> Is patient prescribed a controlled substance at d/c from ED?: No Time of Disposition: 19:17 <Nelli Gore - Last Filed: 06/30/23 19:37> Clinical Impression: UTI (urinary tract infection) Disposition: HOME SELF-CARE Condition: Good Instructions (If sedation given, give patient instructions): Urinary Tract Infection in Men (ED) Additional Instructions: Follow-up with PCP. Report back to ER with any new or worsening symptoms. Take medication as prescribed. Prescriptions: Levofloxacin [Levaquin] 750 mg PO DAILY 5 Days #5 tab Referrals: Kevin Ballard DO [Primary Care Provider] - 1-2 days
[2023-06-30 18:28] LABS: Appearance,Urine Turbid (Clear); Bacteria,Urine Few /hpf; Bilirubin,Urine Negative (Negative); Blood,Urine Moderate (Negative); Color,Urine Light Yellow; Glucose,Urine (UA) Negative (Negative); Ketones,Urine Negative (Negative); Leukocyte Esterase,Urine Large (Negative); Mucus,Urine Rare /hpf; Nitrite,Urine Negative (Negative); PH, Urine 5.5 (5.0-8.0); Protein,Urine 1+ (Negative); RBC,Urine 36 /hpf (0-5); Specific Gravity,Urine 1.018 (1.001-1.035); Urobilinogen,Urine <2.0 mg/dL (<2.0); WBC,Urine >182 /hpf (0-5)
[2023-06-30] MEDS ORDERED: LEVOFLOXACIN 500 MG TAB PO STA (19:16)
[2023-06-30 19:29] VITALS: BP 132/76; PULSE 76; RESP 16; TEMP 98.2
== END 2023-06-30 19:24 | disposition home or self-care (01) ==
LOC: EC 17:29
DX: N39.0 Urinary tract infection, site not specified (principal); J45.909 Unspecified asthma, uncomplicated; E78.5 Hyperlipidemia, unspecified; I10 Essential (primary) hypertension; Z87.891 Personal history of nicotine dependence; Z79.899 Other long term (current) drug therapy
CPT/HCPCS: 81001; 87086; 99283

== ENCOUNTER → 2023-07-29 | Outpatient (CLI) | payer MEDICARE ==
[2023-07-29 11:22] LABS: African American GFR (CKD) 21 (>60 ml/min/1.73 sqM); Blood Urea Nitrogen 35 mg/dL (9-20); Non-African American GFR(CKD) 18 (>60 ml/min/1.73 sqM)
--- NOTE | 2023-07-29 13:36 | CT ---
EXAMINATION: CT ABDOMEN AND PELVIS WITH IV CONTRAST DATE OF EXAMINATION: 07/29/2023. COMPARISON: 07/16/2021.. INDICATION: Urinary tract infection. PROCEDURE: Axial CT of the abdomen and pelvis was performed with contrast and sagittal and coronal reformatted images were performed. CT dose lowering techniques were used, to include: automated expos ure control, adjustment for patient size, and/or use of iterative reconstruction. FINDINGS: LOWER CHEST : Scattered subpleural areas of reticulation are seen within the lower lobes bilaterally which is likely related to early fibrotic changes. There is no significant honeycombing seen at this time. There are trace bilateral pleural effusions. ABDOMEN: Liver and Biliary system: Normal. Adrenal glands: Normal. Kidneys and ureters: There is severe bilateral hydronephrosis and dilation of the ureters down to the level of the ureterovesical junctions without a definitive obstructing lesion or mass identified. No definitive stones are seen. There are a few scattered cortical cysts also seen within the left kidne y. Evaluation for solid renal masses is limited due to the lack of intravenous contrast. Pelvis. Ther e is a right-sided Spleen: Normal. Pancreas: Normal. Gallbladder: Surgically absent. Lymph nodes, Peritoneum and mesentery: There is no mesenteric or retroperitoneal lymphadenopathy. Gastrointestinal tract: There are no dilated loops of bowel or free intraperitoneal air. The appe ndix is normal. There is a small sliding hiatal hernia. Aorta/IVC: There is moderate vascular calcification seen throughout the abdominal aorta without shankar dence of aneurysmal dilation IVC normal. Abdominal wall: Normal. PELVIS: Fluid: There is no free fluid in the pelvis. Lymph Nodes: There is no pelvic or inguinal lymphadenopathy.. Urinary bladder: The prostate is mildly enlarged indenting the base of the bladder with areas of comfort cification.. BONES: There are no osseous destructive lesions.. ADDITIONAL SIGNIFICANT FINDINGS: None. IMPRESSION: 1. Severe bilateral hydronephrosis and hydroureter dilated down to the level of the ureterovesical ju nction well without a clear obstructing lesion or stone identified on this noncontrast examination. T his is significantly progressed since the previous examination. 2. Small hiatal hernia. 3. Prostamegaly. 4. Additional findings as above.
== END | disposition home or self-care (01) ==
LOC: RADCTMAIN 10:39
PROVIDERS: ATTEND Urology
DX: K44.9 Diaphragmatic hernia without obstruction or gangrene (principal); N13.30 Unspecified hydronephrosis; N39.0 Urinary tract infection, site not specified; N40.0 Benign prostatic hyperplasia without lower urinary tract symptoms; Z90.49 Acquired absence of other specified parts of digestive tract
CPT/HCPCS: 74176; 82565; 84520

== ENCOUNTER 2023-08-13 17:28 | Emergency (ER) | payer OTHER, MEDICARE ==
[2023-08-13] MEDS ORDERED: SODIUM CHLORIDE 0.9% 1,000 ML IV STA (17:40)
[2023-08-13 17:47] VITALS: RESP 18
[2023-08-13 17:47] LABS: Glucose,Whole Blood 171 mg/dL (70-110)
[2023-08-13] MEDS ORDERED: HYDROmorphone 1 MG/ML 1 ML SYRINGE IVP STA ×3 (17:47→19:56)
[2023-08-13 17:56] LABS: HCT 31.4 % (39.0-53.0); HGB 10.1 gm/dL (13.0-17.5); MCH 28.7 pg (25.0-35.0); MCHC 32.1 g/dL (31.0-37.0); MCV 89.6 fL (80.0-100.0); Mean Platelet Volume 9.3; Platelet Count 186 k/uL (150-450); RDW 15.5 % (11.5-15.5); WBC 21.3 k/uL (3.8-10.6)
[2023-08-13 18:09] LABS: ALT 26 U/L (4-49); African American GFR (CKD) 23 (>60 ml/min/1.73 sqM); Alcohol <10 mg/dL; Anion Gap 14 mmol/L; Blood Urea Nitrogen 37 mg/dL (9-20); Calcium 8.4 mg/dL (8.4-10.2); Carbon Dioxide 21 mmol/L (22-30); Chloride 105 mmol/L (98-107); Glucose 154 mg/dL (74-99); Non-African American GFR(CKD) 20 (>60 ml/min/1.73 sqM); Sodium 140 mmol/L (137-145)
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
[2023-08-13 18:16] LABS: AST 66 U/L (17-59); Alkaline Phosphatase 77 U/L (38-126); Potassium 5.5 mmol/L (3.5-5.1)
[2023-08-13 18:17] LABS: Albumin 3.7 g/dL (3.5-5.0); Total Bilirubin 0.8 mg/dL (0.2-1.3)
[2023-08-13 18:19] LABS: Prothrombin Time 10.8 sec (10.0-12.5)
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
[2023-08-13 18:32] LABS: Partial Thromboplastin Time 20.9 sec (22.0-30.0)
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
[2023-08-13] MEDS ORDERED: SODIUM CHLORIDE 0.9% 1,000 ML IV ONE (19:59)
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
[2023-08-13 20:37] VITALS: BP 135/76; PULSE 89; TEMP 98.5
[2023-08-13 21:35] LABS: Basophils # (M) 0.21 k/uL (0-0.2); Lymphocytes # (M) 10.01 k/uL (1.0-4.8); Monocytes # (M) 1.28 k/uL (0-1.0); Neutrophils % (M) 46 %; Nucleated Red Blood Cells 0 /100 WBC (0-0); Total Cells Counted 100
== END 2023-08-13 20:05 | disposition other institution (70) ==
LOC: EC 17:28
DX: S32.019A Unspecified fracture of first lumbar vertebra, initial encounter for closed fracture (principal); S61.402A Unspecified open wound of left hand, initial encounter; E78.5 Hyperlipidemia, unspecified; I10 Essential (primary) hypertension; J45.909 Unspecified asthma, uncomplicated; G47.30 Sleep apnea, unspecified; Z87.891 Personal history of nicotine dependence; Z79.899 Other long term (current) drug therapy; V89.2XXA Person injured in unspecified motor-vehicle accident, traffic, initial encounter; Y92.410 Unspecified street and highway as the place of occurrence of the external cause
CPT/HCPCS: 36415; 93005; 86900; 86901; 80053; 83605; 84484; 85025; 85610; 85730; 86850; 80320; 72170; 73030; 73130; 71045; 72125; 70450; 71260; 74177; 99285; 96365; 96375; 96376 ×2; G0390; J0690; J1170; Q9967

== ENCOUNTER → 2023-09-15 | Outpatient (CLI) | payer MEDICARE ==
[2023-09-16 03:10] LABS: BUN/Creat Ratio 17.29 Ratio (12.00-20.00); Blood Urea Nitrogen 29.4 mg/dL (9.0-27.0); Calcium 9.7 mg/dL (8.7-10.3); Carbon Dioxide 22.2 mmol/L (21.6-31.8); Chloride 104 mmol/L (96-109); Glucose 103 mg/dL (70-110); Potassium 4.7 mmol/L (3.5-5.5); Sodium 139 mmol/L (135-145)
== END | disposition home or self-care (01) ==
LOC: LABWHC1 14:54
PROVIDERS: ATTEND Urology
DX: C61 Malignant neoplasm of prostate (principal); N13.30 Unspecified hydronephrosis
CPT/HCPCS: 36415; 80048; 84153

== ENCOUNTER 2023-11-26 17:52 | Inpatient (IN) | payer MEDICARE ==
[2023-11-26 19:46] LABS: HCT 30.9 % (39.0-53.0); HGB 9.4 gm/dL (13.0-17.5); Hypochromasia Slight; MCH 27.6 pg (25.0-35.0); MCHC 30.5 g/dL (31.0-37.0); MCV 90.3 fL (80.0-100.0); Mean Platelet Volume 8.1; Platelet Count 318 k/uL (150-450); RBC 3.43 m/uL (4.30-5.90); RDW 14.7 % (11.5-15.5); WBC 32.1 k/uL (3.8-10.6)
[2023-11-26 19:57] LABS: ALT 23 U/L (4-49); AST 30 U/L (17-59); African American GFR (CKD) 20 (>60 ml/min/1.73 sqM); Albumin 3.5 g/dL (3.5-5.0); Alkaline Phosphatase 99 U/L (38-126); Anion Gap 11 mmol/L; Blood Urea Nitrogen 45 mg/dL (9-20); Calcium 9.2 mg/dL (8.4-10.2); Carbon Dioxide 17 mmol/L (22-30); Chloride 111 mmol/L (98-107); Glucose 92 mg/dL (74-99); Lipase 74 U/L (23-300); Non-African American GFR(CKD) 17 (>60 ml/min/1.73 sqM); Sodium 139 mmol/L (137-145); Total Bilirubin 0.4 mg/dL (0.2-1.3)
[2023-11-26] MEDS: SODIUM CHLORIDE 0.9% 500 ML 500 ML IV STA (19:58)
[2023-11-26 20:01] LABS: Appearance,Urine Turbid (Clear); Bacteria,Urine Moderate /hpf; Bilirubin,Urine Negative (Negative); Blood,Urine Small (Negative); Color,Urine Colorless; Glucose,Urine (UA) Negative (Negative); Ketones,Urine Negative (Negative); Leukocyte Esterase,Urine Large (Negative); Nitrite,Urine Negative (Negative); PH, Urine 6.5 (5.0-8.0); Protein,Urine 1+ (Negative); RBC,Urine 11 /hpf (0-5); Specific Gravity,Urine 1.018 (1.001-1.035); Urobilinogen,Urine <2.0 mg/dL (<2.0); WBC,Urine >182 /hpf (0-5)
[2023-11-26 20:11] LABS: Potassium 6.3 mmol/L (3.5-5.1)
[2023-11-26] MEDS ORDERED: NALOXONE 0.4 MG/ML 1 ML VIAL IV PRN (20:54)
--- NOTE | 2023-11-26 20:54 | ED ---
General Adult HPI - General Chief complaint: Recheck/Abnormal Lab/Rx Stated complaint: Abn labs Time Seen by Provider: 11/26/23 18:05 Source: patient Mode of arrival: ambulatory Limitations: no limitations - History of Present Illness Initial comments: 73-year-old male with past medical history of asthma, Crohn's, recurrent urinary tract infections who presents to the emergency department from Dr. Patino's office. Patient has been having some lower abdominal pain with abnormal urination. He had laboratory studies conducted which demonstrated high potassium. He was called and told to come into the emergency department to have this reevaluated. He does take potassium supplementation. Reports to a history of chronic kidney disease. States that his urine output has been significantly decreased. He has lower pelvic pain. Denies fevers. Admits nausea without vomiting. Denies any black or bloody stools. No other alleviating, prec ipitating or modifying factors - Related Data Home Medications Medication Instructions Recorded Confirmed Atorvastatin [Lipitor] 40 mg PO HS 09/16/17 11/27/23 Cyanocobalamin (Vitamin B-12) 1,000 mcg PO HS 08/22/19 11/27/23 [Vitamin B-12] Folic Acid 1 mg PO HS 08/22/19 11/27/23 Gabapentin [Neurontin] 300 mg PO HS 08/22/19 11/27/23 Sertraline HCl [Zoloft] 150 mg PO HS 08/22/19 11/27/23 Isosorbide Mononitrate ER [Imdur] 30 mg PO HS 10/25/21 11/27/23 Acetaminophen Tab [Tylenol] 650 mg PO HS 11/27/23 11/27/23 Cholecalciferol [Vitamin D3 (25 50 mcg PO HS 11/27/23 11/27/23 Mcg = 1000 Iu)] Furosemide [Lasix] 20 mg PO HS 11/27/23 11/27/23 Ibuprofen [Motrin] 800 mg PO Q8H PRN 11/27/23 11/27/23 Magnesium Oxide 420mg 420 mg PO BID 11/27/23 11/27/23 Metoprolol Succinate (ER) [Toprol 25 mg PO HS 11/27/23 11/27/23 XL] Nitroglycerin Sl Tabs [Nitrostat] 0.4 mg SL Q5M PRN 11/27/23 11/27/23 Vedolizumab [Entyvio] 300 mg IV Q56D 11/29/23 11/29/23 Previous Rx's Medication Instructions Recorded Amoxic-Pot Clav 875-125Mg 1 tab PO Q12HR 7 Days #14 tab 12/01/23 [Augmentin 875-125] Famotidine [Pepcid] 20 mg PO DAILY #30 tab 12/01/23 Allergies Allergy/AdvReac Type Severity Reaction Status Date / Time No Known Allergies Allergy Verified 11/27/23 12:16 Review of Systems ROS Statement: Those systems with pertinent positive or pertinent negative responses have been documented in the HPI. ROS Other: All systems not noted in ROS Statement are negative. Past Medical History Past Medical History: Asthma, Cancer, Hearing Disorder / Deafness, Hyperlipidemia, Hypertension, Prostate Disorder, Sleep Apnea/CPAP/BIPAP Additional Past Medical History / Comment(s): hx of Crohn's, hx of prostate ca with radiation approx 2009, does not use cpap machine,deaf rt ear,hearing aide lt ear History of Any Multi-Drug Resistant Organisms: None Reported Past Surgical History: Orthopedic Surgery Additional Past Surgical History / Comment(s): rt knee sx, neck "2 bolts", rod cataracts with lens implant Past Anesthesia/Blood Transfusion Reactions: No Reported Reaction Past Psychological History: No Psychological Hx Reported Smoking Status: Former smoker - Past Family History Mother Family Medical History: No Reported History Sister(s) Family Medical History: Cancer Additional Family Medical History / Comment(s): breast and lung CA General Exam Limitations: no limitations General appearance: alert, in no apparent distress Head exam: Present: atraumatic, normocephalic, normal inspection Eye exam: Present: normal appearance, PERRL, EOMI. Absent: scleral icterus, conjunctival injection, periorbital swelling ENT exam: Present: normal exam, mucous membranes moist Neck exam: Present: normal inspection. Absent: tenderness, meningismus, lymphadenopathy Respiratory exam: Present: normal lung sounds bilaterally. Absent: respiratory distress, wheezes, rales, rhonchi, stridor Cardiovascular Exam: Present: regular rate, normal rhythm, normal heart sounds. Absent: systolic murmur, diastolic murmur, rubs, gallop, clicks GI/Abdominal exam: Present: soft, tenderness (Suprapubic), normal bowel sounds. Absent: distended, guarding, rebound, rigid Extremities exam: Present: normal inspection, full ROM, normal capillary refill. Absent: tenderness, pedal edema, joint swelling, calf tenderness Back exam: Present: normal inspection Neurological exam: Present: alert, oriented X3, CN II-XII intact Psychiatric exam: Present: normal affect, normal mood Skin exam: Present: warm, dry, intact, normal color. Absent: rash Course Vital Signs 11/26/23 11/26/23 11/26/23 18:01 20:00 21:00 Temperature 98.0 F Pulse Rate 69 70 117 H Respiratory 16 18 19 Rate Blood Pressure 135/74 143/62 142/60 O2 Sat by Pulse 94 L 100 95 Oximetry 11/26/23 11/26/23 11/26/23 21:54 22:00 23:00 Temperature Pulse Rate 88 115 H 114 H Respiratory 18 18 Rate Blood Pressure 130/69 105/53 O2 Sat by Pulse 94 L 94 L Oximetry 11/27/23 00:00 Temperature Pulse Rate 105 H Respiratory 19 Rate Blood Pressure 103/51 O2 Sat by Pulse 96 Oximetry Medical Decision Making - Medical Decision Making Was pt. sent in by a medical professional or institution (, PA, ASSEMBLING FABRICATOR, urgent care, hospital, or residential...) When possible be specific @ -Patient was sent in by Dr. Patino's office for abnormal labs Did you speak to anyone other than the patient for history (EMS, parent, family, police, friend...)? What history was obtained from this source @ -Spoke with the patient's son for history Did you review nursing and triage notes (agree or disagree)? Why? @ -I reviewed and agree with nursing and triage notes Were old charts reviewed (outside hosp., previous admission, EMS record, old EKG, old radiological studies, urgent care reports/EKG's, residential records)? Report findings @ -No old charts were reviewed Differential Diagnosis (chest pain, altered mental status, abdominal pain women, abdominal pain men, vaginal bleeding, weakness, fever, dyspnea, syncope, headache, dizziness, GI bleed, back pain, seizure, CVA, palpatations, mental health, musculoskeletal)? @ -Differential Abdominal Pain Men: Appendicitis, cholecystitis, diverticulosis, ischemic bowel, pancreatitis, hepatitis, UTI, gastroenteritis, AAA, incarcerated hernia, bowel obstruction, constipation, inflammatory bowel, hepatitis, peptic ulcer disease, splenic infarction, perforated viscus, testicular torsion, this is not meant to be an all-inclusive list EKG interpreted by me (3pts min.). @ -Yes and demonstrates sinus rhythm with a rate of 70. AR interval 175. QRS 86. QTc of 369. No acute ST segment elevations or depression X-rays interpreted by me (1pt min.). @ -None done CT interpreted by me (1pt min.). @ -None done U/S interpreted by me (1pt. min.). @ -Yes and demonstrates bilateral severe hydronephrosis What testing was considered but not performed or refused? (CT, X-rays, U/S, labs)? Why? @ -None What meds were considered but not given or refused? Why? @ -None Did you discuss the management of the patient with other professionals (jessica zamora i.e. , PA, ASSEMBLING FABRICATOR, lab, RT, psych nurse, social media coordinator, manager willow, teacher, equal employment opportunity officer, bilingual case manager)? Give summary @ -Spoke with [facility] for admission Was smoking cessation discussed for >3mins.? @ -No Was critical care preformed (if so, how long)? @ -Yes, 40 minutes for management of hyperkalemia Were there social determinants of health that impacted care today? How? (Homelessness, low income, unemployed, alcoholism, drug addiction, transportation, low edu. Level, literacy, decrease access to med. care, correction, rehab)? @ -No Was there de-escalation of care discussed even if they declined (Discuss DNR or withdrawal of care, Hospice)? DNR status @ -No What co-morbidities impacted this encounter? (DM, HTN, Smoking, COPD, CAD, Cancer, CVA, ARF, Chemo, Hep., AIDS, mental health diagnosis, sleep apnea, morbid obesity)? @ -Crohn's Was patient admitted / discharged? Hospital course, mention meds given and route, prescriptions, significant lab abnormalities, going to OR and other perti nent info. @ -Upon arrival patient was seen and evaluated in room 12. Thorough history and physical exam was performed. IV access was established. Laboratory studies were conducted. Blood cultures obtained. Patient initiated on antibiotics for UTI. As he is in kidney failure a Harrison was placed. Renal ultrasound was performed. Recommended admission for nephrology consultation. Patient was agreeable to this. Spoke with [facility] for admission Undiagnosed new problem with uncertain prognosis? @ -Yes Drug Therapy requiring intensive monitoring for toxicity (Heparin, Nitro, Insulin, Cardizem)? @ -Yes, intravenous insulin Were any procedures done? @ -No Diagnosis/symptom? @ -Acute suprapubic pain, acute UTI, RAISA, severe hydronephrosis, acute hyperkalemia Acute, or Chronic, or Acute on Chronic? @ -Acute Uncomplicated (without systemic symptoms) or Complicated (systemic symptoms)? @ -Complicated Side effects of treatment? @ -Hypoglycemia Exacerbation, Progression, or Severe Exacerbation? @ -No Poses a threat to life or bodily function? How? (Chest pain, [place], NH, pneumonia, PE, COPD, DKA, ARF, appy, cholecystitis, CVA, Diverticulitis, Homicidal, Suicidal, threat to staff... and all critical care pts) @ -Yes as patient has significant hyperkalemia - Lab Data Result diagrams: 12/01/23 04:31 12/01/23 04:31 Lab Results 11/26/23 11/26/23 11/26/23 Range/Units 19:20 19:20 19:20 WBC 32.1 H (3.8-10.6) k/uL RBC 3.43 L (4.30-5.90) m/uL Hgb 9.4 L (13.0-17.5) gm/dL Hct 30.9 L (39.0-53.0) % MCV 90.3 (80.0-100.0) fL MCH 27.6 (25.0-35.0) pg MCHC 30.5 L (31.0-37.0) g/dL RDW 14.7 (11.5-15.5) % Plt Count 318 (150-450) k/uL MPV 8.1 Neutrophils % (Manual) 26 % Lymphocytes % (Manual) 71 % Monocytes % (Manual) 2 % Eosinophils % (Manual) 1 % Neutrophils # (Manual) 8.35 H (1.3-7.7) k/uL Lymphocytes # (Manual) 22.79 H (1.0-4.8) k/uL Monocytes # (Manual) 0.64 (0-1.0) k/uL Eosinophils # (Manual) 0.32 (0-0.7) k/uL Nucleated RBCs 0 (0-0) /100 WBC Manual Slide Review Performed Pathologist Review See comment A Hypochromasia Slight Rouleaux Present Sodium 139 (137-145) mmol/L Potassium 6.3 H* (3.5-5.1) mmol/L Chloride 111 H (98-107) mmol/L Carbon Dioxide 17 L (22-30) mmol/L Anion Gap 11 mmol/L BUN 45 H (9-20) mg/dL Creatinine 3.32 H (0.66-1.25) mg/dL Est GFR (CKD-EPI)AfAm 20 (>60 ml/min/1.73 sqM) Est GFR (CKD-EPI)NonAf 17 (>60 ml/min/1.73 sqM) Glucose 92 (74-99) mg/dL Plasma Lactic Acid Leon (0.7-2.0) mmol/L Calcium 9.2 (8.4-10.2) mg/dL Total Bilirubin 0.4 (0.2-1.3) mg/dL AST 30 (17-59) U/L ALT 23 (4-49) U/L Alkaline Phosphatase 99 (38-126) U/L Total Protein 8.0 (6.3-8.2) g/dL Albumin 3.5 (3.5-5.0) g/dL Lipase 74 (23-300) U/L Urine Color Colorless Urine Appearance Turbid (Clear) Urine pH 6.5 (5.0-8.0) Ur Specific [place] 1.018 (1.001-1.035) Urine Protein 1+ H (Negative) Urine Glucose (UA) Negative (Negative) Urine Ketones Negative (Negative) Urine Blood Small H (Negative) Urine Nitrite Negative (Negative) Urine Bilirubin Negative (Negative) Urine Urobilinogen <2.0 (<2.0) mg/dL Ur Leukocyte Esterase Large H (Negative) Urine RBC 11 H (0-5) /hpf Urine WBC >182 H (0-5) /hpf Urine WBC Clumps Many H (None) /hpf Urine Bacteria Moderate H (None) /hpf 11/26/23 Range/Units 19:20 WBC (3.8-10.6) k/uL RBC (4.30-5.90) m/uL Hgb (13.0-17.5) gm/dL Hct (39.0-53.0) % MCV (80.0-100.0) fL MCH (25.0-35.0) pg MCHC (31.0-37.0) g/dL RDW (11.5-15.5) % Plt Count (150-450) k/uL MPV Neutrophils % (Manual) % Lymphocytes % (Manual) % Monocytes % (Manual) % Eosinophils % (Manual) % Neutrophils # (Manual) (1.3-7.7) k/uL Lymphocytes # (Manual) (1.0-4.8) k/uL Monocytes # (Manual) (0-1.0) k/uL Eosinophils # (Manual) (0-0.7) k/uL Nucleated RBCs (0-0) /100 WBC Manual Slide Review Pathologist Review Hypochromasia Rouleaux Sodium (137-145) mmol/L Potassium (3.5-5.1) mmol/L Chloride (98-107) mmol/L Carbon Dioxide (22-30) mmol/L Anion Gap mmol/L BUN (9-20) mg/dL Creatinine (0.66-1.25) mg/dL Est GFR (CKD-EPI)AfAm (>60 ml/min/1.73 sqM) Est GFR (CKD-EPI)NonAf (>60 ml/min/1.73 sqM) Glucose (74-99) mg/dL Plasma Lactic Acid Leon 1.1 (0.7-2.0) mmol/L Calcium (8.4-10.2) mg/dL Total Bilirubin (0.2-1.3) mg/dL AST (17-59) U/L ALT (4-49) U/L Alkaline Phosphatase (38-126) U/L Total Protein (6.3-8.2) g/dL Albumin (3.5-5.0) g/dL Lipase (23-300) U/L Urine Color Urine Appearance (Clear) Urine pH (5.0-8.0) Ur Specific [place] (1.001-1.035) Urine Protein (Negative) Urine Glucose (UA) (Negative) Urine Ketones (Negative) Urine Blood (Negative) Urine Nitrite (Negative) Urine Bilirubin (Negative) Urine Urobilinogen (<2.0) mg/dL Ur Leukocyte Esterase (Negative) Urine RBC (0-5) /hpf Urine WBC (0-5) /hpf Urine WBC Clumps (None) /hpf Urine Bacteria (None) /hpf Disposition Clinical Impression: RAISA (acute kidney injury), UTI (urinary tract infection), Leukocytosis, H yperkalemia Disposition: ADMITTED IP TO THIS HOSP Condition: Stable Is patient prescribed a controlled substance at d/c from ED?: No Time of Disposition: 20:53 Decision to Admit Reason: Admit from EC Decision Date: 11/26/23 Decision Time: 20:54
[2023-11-26 20:57] LABS: Eosinophils # (M) 0.32 k/uL (0-0.7); Lymphocytes # (M) 22.79 k/uL (1.0-4.8); Monocytes # (M) 0.64 k/uL (0-1.0); Neutrophils # (M) 8.35 k/uL (1.3-7.7); Neutrophils % (M) 26 %; Nucleated Red Blood Cells 0 /100 WBC (0-0); Total Cells Counted 100
[2023-11-26] MEDS: SODIUM CHLORIDE 0.9% 1,000 ML IV ONE (21:03)
[2023-11-26] MEDS: SODIUM CHLORIDE 0.9% 1,000 ML IV STA (21:09)
[2023-11-26] MEDS: DEXTROSE 50% SYRINGE 50 ML IVP STA (21:24)
[2023-11-26] MEDS: INSULIN REGULAR 100 UNIT/ML VIAL (IV) IV ONE (21:24)
[2023-11-26] MEDS: ALBUTEROL NEBULIZED 2.5 MG/3 ML INHALATION STA (21:52)
--- NOTE | 2023-11-26 23:55 | US ---
EXAMINATION TYPE: US kidneys/renal and bladder DATE OF EXAM: 11/26/2023 COMPARISON: CT 08/13/2023, US 08/20/2021 CLINICAL INDICATION: Male, 73 years old with history of abd pain; EXAM MEASUREMENTS: Right Kidney: 10.6 x 5.9 x 5.8 cm Left Kidney: 11.4 x 5.7 x 5.1 cm FINDINGS: The bilateral kidneys show moderate to severe hydronephrosis, this appears similar to the most recent CT. No definite shadowing calculus or mass identified. Bladder is nondistended, decompressed with a Harrison in place. IMPRESSION: Moderate to severe bilateral hydronephrosis.
[2023-11-27 00:04] LABS: Glucose,Whole Blood 82 mg/dL (70-110)
[2023-11-27 02:16] LABS: Glucose,Whole Blood 92 mg/dL (70-110)
[2023-11-27 04:06] LABS: Glucose,Whole Blood 92 mg/dL (70-110)
[2023-11-27 04:19] LABS: African American GFR (CKD) 22 (>60 ml/min/1.73 sqM); Anion Gap 11 mmol/L; Blood Urea Nitrogen 38 mg/dL (9-20); Calcium 8.2 mg/dL (8.4-10.2); Carbon Dioxide 13 mmol/L (22-30); Chloride 115 mmol/L (98-107); Glucose 87 mg/dL (74-99); Non-African American GFR(CKD) 19 (>60 ml/min/1.73 sqM); Potassium 5.2 mmol/L (3.5-5.1); Sodium 139 mmol/L (137-145)
[2023-11-27 04:27] LABS: HCT 26.8 % (39.0-53.0); HGB 8.2 gm/dL (13.0-17.5); Hypochromasia Marked; MCHC 30.6 g/dL (31.0-37.0); MCV 91.5 fL (80.0-100.0); Mean Platelet Volume 8.6; Platelet Count 251 k/uL (150-450); RBC 2.93 m/uL (4.30-5.90); RDW 14.7 % (11.5-15.5); WBC 26.6 k/uL (3.8-10.6)
[2023-11-27 05:59] LABS: Lymphocytes # (M) 11.17 k/uL (1.0-4.8); Monocytes # (M) 1.06 k/uL (0-1.0); Neutrophils # (M) 14.36 k/uL (1.3-7.7); Neutrophils % (M) 54 %; Nucleated Red Blood Cells 0 /100 WBC (0-0); Total Cells Counted 100
[2023-11-27 06:01] LABS: RBC Morphology Normal
[2023-11-27 06:07] LABS: Glucose,Whole Blood 84 mg/dL (70-110)
[2023-11-27 08:04] LABS: Glucose,Whole Blood 150 mg/dL (70-110)
[2023-11-27 11:04] LABS: Glucose,Whole Blood 119 mg/dL (70-110)
--- NOTE | 2023-11-27 11:30 | CT ---
EXAMINATION TYPE: CT abdomen pelvis wo con DATE OF EXAM: 11/27/2023 COMPARISON: 08/13/2023 HISTORY: 73-year-old male lower abdominal pain , hematuria CT DLP: 536.1 mGycm. Automated exposure control for dose reduction was used. TECHNIQUE: Contiguous axial scanning of the abdomen and pelvis without IV contrast. Coronal and sagit alexsander reconstructions performed. FINDINGS: Heart normal size without pericardial effusion. Moderate emphysematous change in the lower lungs. The re is some interstitial fibrosis. Numerous calcified granulomas are also present. Noncontrast the liver, adrenal glands, spleen, and pancreas show no gross abnormality. Bile duct remains dilated at 1 cm, likely normal given postcholecystectomy status. A couple renal cortical cysts measuring up to 1.7 cm. There is ongoing moderate bilateral hydronephro sis and hydroureter but no obstructing stone seen. No dilated small bowel, free fluid, or free air. Scattered liquid stool within the colon. The mid to distal sigmoid colon and rectum shows fairly moderate circumferential wall thickening with pericolonic fat stranding and inflammation. Prostate gland enlargement 5.0 cm wide with a Harrison catheter in place. There is moderate circumferent ial bladder wall thickening which appears to have increased from 08/13/2023 also with surrounding fat s tranding. No pelvic lymphadenopathy seen. Bones: Interval vertebroplasty at the fracture L1 vertebral body with T12-L2 posterior fusion present . There are bilateral L5 pars defects present with trace grade 1 anterolisthesis L5-S1. Degenerative bony ankylosis SI joints. Mild degenerative change bilateral hips. IMPRESSION: 1. A significant nonspecific colitis extending from the mid to distal sigmoid colon and rectum. Mode rate surrounding inflammation and fat stranding. No abscess or free air. 2. Adjacent new moderate circumferential bladder wall thickening with surrounding fat stranding here as well. Correlate for concurrent cystitis. A Harrison catheter is in place. 3. Ongoing moderate bilateral hydronephrosis and bilateral hydroureter. No obstructing lesion or obs tructing stone is seen. Correlate with patient's kidney function.
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
[2023-11-27 12:48] LABS: Rouleaux Present
[2023-11-27] MEDS: DEXTROSE 5% IN WATER 1,000 ML with SODIUM BICARB (1 MEQ/ML) 150 ML IV SCH (12:57)
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
[2023-11-27 16:18] LABS: Glucose,Whole Blood 121 mg/dL (70-110)
[2023-11-27 21:06] LABS: Glucose,Whole Blood 127 mg/dL (70-110)
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
[2023-11-27] MEDS: metroNIDAZOLE 500 MG TAB PO SCH (22:34)
[2023-11-27] MEDS: ACETAMINOPHEN TAB 325 MG TAB PO PRN (22:34)
[2023-11-28 04:40] LABS: ALT 21 U/L (4-49); AST 30 U/L (17-59); African American GFR (CKD) 29 (>60 ml/min/1.73 sqM); Albumin 2.6 g/dL (3.5-5.0); Albumin/Globulin Ratio 0.7; Alkaline Phosphatase 83 U/L (38-126); Anion Gap 9 mmol/L; Blood Urea Nitrogen 32 mg/dL (9-20); Calcium 8.3 mg/dL (8.4-10.2); Carbon Dioxide 22 mmol/L (22-30); Chloride 108 mmol/L (98-107); Globulin 3.7 g/dL; Glucose 120 mg/dL (74-99); Non-African American GFR(CKD) 25 (>60 ml/min/1.73 sqM); Potassium 4.5 mmol/L (3.5-5.1); Sodium 139 mmol/L (137-145); Total Bilirubin 0.2 mg/dL (0.2-1.3); Total Protein 6.3 g/dL (6.3-8.2)
[2023-11-28 04:53] LABS: Basophils # (A) 0.1 k/uL (0-0.2); Basophils % (A) 0 %; Eosinophils # (A) 0.4 k/uL (0-0.7); Eosinophils % (A) 2 %; HCT 30.4 % (39.0-53.0); HGB 9.8 gm/dL (13.0-17.5); Hypochromasia Moderate; Lymphocytes # (A) 9.5 k/uL (1.0-4.8); Lymphocytes % (A) 51 %; MCH 28.8 pg (25.0-35.0); MCHC 32.2 g/dL (31.0-37.0); MCV 89.4 fL (80.0-100.0); Mean Platelet Volume 8.8; Monocytes # (A) 0.7 k/uL (0-1.0); Monocytes % (A) 4 %; Neutrophils # (A) 7.2 k/uL (1.3-7.7); Neutrophils % (A) 39 %; Platelet Count 235 k/uL (150-450); RBC 3.41 m/uL (4.30-5.90); RDW 14.6 % (11.5-15.5); WBC 18.6 k/uL (3.8-10.6)
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
[2023-11-28 11:00] LABS: Appearance,Urine Cloudy (Clear); Bilirubin,Urine Negative (Negative); Blood,Urine Moderate (Negative); Color,Urine Colorless; Glucose,Urine (UA) Negative (Negative); Ketones,Urine Negative (Negative); Leukocyte Esterase,Urine Large (Negative); Mucus,Urine Rare /hpf; Nitrite,Urine Negative (Negative); PH, Urine 7.5 (5.0-8.0); Protein,Urine 2+ (Negative); RBC,Urine >182 /hpf (0-5); Specific Gravity,Urine 1.011 (1.001-1.035); Urobilinogen,Urine <2.0 mg/dL (<2.0); WBC,Urine 142 /hpf (0-5)
--- NOTE | 2023-11-28 12:04 | P.PN ---
Subjective Patient is seen for follow-up for acute kidney injury. Currently maintained on IV fluids. Also noted to have significant urine retention on admission, currently with indwelling Harrison catheter. Renal function has improved. Serum creatinine decreased to 2.4 from 3.3 on initial admission. Objective - Vital Signs Vital signs: Vital Signs Temp 97.6 F 11/28/23 06:53 Pulse 60 11/28/23 06:53 Resp 18 11/28/23 06:53 BP 149/61 11/28/23 06:53 Pulse Ox 98 11/28/23 06:53 FiO2 Intake & Output 11/27/23 11/28/23 11/28/23 18:59 06:59 18:59 Intake Total 118 Output Total 1200 700 Balance -1200 -582 Weight 62.7 kg Intake: Oral 118 Output: Urine 1200 700 Other: Voiding Method Indwelling Catheter Indwelling Catheter Indwelling Catheter # Voids 2 # Bowel Movements 1 2 - Exam patient is awake, comfortable, in no acute distress Alert oriented 3 Examination of the heart S1 and S2 Examination of the lungs bilateral breath sounds are heard [place] abdomen is sof t nontender Examination of lower extremities shows no significant edema [place] exam grossly intac - Labs CBC & Chem 7: 11/28/23 03:41 11/28/23 03:41 Labs: Abnormal Lab Results - Last 24 Hours (Table) 11/26/23 11/27/23 11/27/23 Range/Units 19:20 16:17 21:03 WBC 32.1 H (3.8-10.6) k/uL RBC 3.43 L (4.30-5.90) m/uL Hgb 9.4 L (13.0-17.5) gm/dL Hct 30.9 L (39.0-53.0) % MCHC 30.5 L (31.0-37.0) g/dL Neutrophils # (Manual) 8.35 H (1.3-7.7) k/uL Lymphocytes # (1.0-4.8) k/uL Lymphocytes # (Manual) 22.79 H (1.0-4.8) k/uL Chloride (98-107) mmol/L BUN (9-20) mg/dL Creatinine (0.66-1.25) mg/dL Glucose (74-99) mg/dL POC Glucose (mg/dL) 121 H 127 H (70-110) mg/dL Calcium (8.4-10.2) mg/dL Albumin (3.5-5.0) g/dL Urine Protein (Negative) Urine Blood (Negative) Ur Leukocyte Esterase (Negative) Urine RBC (0-5) /hpf Urine WBC (0-5) /hpf Urine WBC Clumps (None) /hpf Urine Mucus (None) /hpf 11/28/23 11/28/23 11/28/23 Range/Units 03:41 03:41 09:53 WBC 18.6 H (3.8-10.6) k/uL RBC 3.41 L (4.30-5.90) m/uL Hgb 9.8 L D (13.0-17.5) gm/dL Hct 30.4 L (39.0-53.0) % MCHC (31.0-37.0) g/dL Neutrophils # (Manual) (1.3-7.7) k/uL Lymphocytes # 9.5 H (1.0-4.8) k/uL Lymphocytes # (Manual) (1.0-4.8) k/uL Chloride 108 H (98-107) mmol/L BUN 32 H (9-20) mg/dL Creatinine 2.45 H (0.66-1.25) mg/dL Glucose 120 H (74-99) mg/dL POC Glucose (mg/dL) (70-110) mg/dL Calcium 8.3 L (8.4-10.2) mg/dL Albumin 2.6 L (3.5-5.0) g/dL Urine Protein 2+ H (Negative) Urine Blood Moderate H (Negative) Ur Leukocyte Esterase Large H (Negative) Urine RBC >182 H (0-5) /hpf Urine WBC 142 H (0-5) /hpf Urine WBC Clumps Occasional H (None) /hpf Urine Mucus Rare H (None) /hpf Microbiology - Last 24 Hours (Table) 11/26/23 20:15 Blood Culture - Preliminary Blood 11/26/23 20:30 Blood Culture - Preliminary Blood Assessment and Plan Assessment: 1. Acute kidney injury, ATN, as well as secondary to urine retention. Ultrasound showed bilateral hydronephrosis.currently with indwelling Harrison catheter. Maintained on IV fluids. 2. Chronic kidney disease NKF stage IV with previous creatinine 2.5 on 10/25/2023, probably has had worsening renal function due to obstructive uropathy as serum creatinine increased from 1.7 on 09/15/2023 to 2.5 on 10/25/2023. 3. Non-gap metabolic acidosis secondary to GI fluid loss and acute kidney injury 4. Hyperkalemia associated with acute kidney injury metabolic acidosis and potassium supplementation, currently on hold. 5. Volume depletion 6. Crohn's disease with recent exacerbation, being followed by Dr. Bryan 7. Anemia, multifactorial, rule out iron deficiency 8. Bilateral hydronephrosis, currently with Harrison catheter and urology on consult. Plan: continue IV fluids. Continue with IV bicarb for 1 more day Repeat labs in a.m.
--- NOTE | 2023-11-28 12:25 | P.PN ---
Subjective Progress Note Date: 11/28/23 patient is a 73-year-old gentleman with past medical history significant for Crohn's disease, recurrent UTIs, prostate cancer status post radiation therapy who was sent in to the ER from Dr. bradshaw office for abnormal labs . patient has been complaining of lower abdominal pain, also complaining of inability to empty his bladder, there was no complain of burning micturition but was complaining of decreased urination. There was no complains of fever or chills. Dr. Patino ordered some labs and later called the patient to come to the ER as his potassium was elevated. Patient does follow up outpatient with urology and has been told that he empty his bladder incompletely, Urodynamic testing has shown a small capacity bladder with uninhibited contractions. Initial lab work done in the ER showed WBC 32.1, hemoglobin 9.4, platelet count 318, sodium 139, potassium 6.3, BUN 45, creatinine 3.32, glucose 92 UA showing leukocyte Estrace positive, urine WBC 182, nitrite negative ultrasound abdominal done showed moderate to severe bilateral hydronephrosis Patient admitted to internal medicine service 11/27. Patient seen and examined. Patient renal functions are improving, creatinine is down to 2.4. Complaining of lethargy and weakness. REVIEW OF SYSTEMS: CONSTITUTIONAL: No fever, no malaise,. CARDIOVASCULAR: No chest pain, no palpitations, no syncope. PULMONARY: No shortness of breath, no cough, GASTROINTESTINAL: No diarrhea, no nausea, no vomiting, no abdominal pain. NEUROLOGICAL: No headaches, no weakness, PHYSICAL EXAMINATION: GENERAL: The patient is alert and oriented x3, not in any acute distress. Well developed, well nourished. HEENT: Pupils are round and equally reacting to light. EOMI. No scleral icterus. No conjunctival pallor. Normocephalic, atraumatic. No pharyngeal erythema. No thyromegaly. CARDIOVASCULAR: S1 and S2 present. No murmurs, rubs, or gallops. PULMONARY: Chest is clear to auscultation, no wheezing or crackles. ABDOMEN: Soft, nontender, nondistended, normoactive bowel sounds. No palpable organomegaly. MUSCULOSKELETAL: No joint swelling or deformity. EXTREMITIES: No cyanosis, clubbing, or pedal edema. NEUROLOGICAL: Gross neurological examination did not reveal any focal deficits. SKIN: No rashes. Assessment and plan UTI Sepsis Hyperkalemia Acute on chronic kidney disease Bilateral hydronephrosis history of prostate cancer history of hypertension History of dyslipidemia Monitor vital signs Monitor CBC Monitor CMP Continue telemetry monitoring follow-up on blood cultures Follow-up on urine cultures Continue IV Rocephin Flagyl Continue IV fluids ID following Nephrology following Urology following, recommend discharging patient home with Harrison with outpatient follow-up at which time they will start patient on CIC program with eventual p jnoelle of starting Botox for his bladder Labs and medication were reviewed.. Continue same treatment. Continue with symptomatic treatment. Resume home medication. Monitor labs and vitals. DVT and GI prophylaxis. Further recommendations as per clinical course of the patient Dictation was produced using [employer] dictation software. please excuse any grammatical, word or spelling errors. Objective - Vital Signs Vital signs: Vital Signs Temp 97.6 F 11/28/23 06:53 Pulse 60 11/28/23 06:53 Resp 18 11/28/23 06:53 BP 149/61 11/28/23 06:53 Pulse Ox 98 11/28/23 06:53 FiO2 Intake & Output 11/27/23 11/28/23 11/28/23 18:59 06:59 18:59 Intake Total 118 Output Total 1200 700 Balance -1200 -582 Weight 62.7 kg Intake: Oral 118 Output: Urine 1200 700 Other: Voiding Method Indwelling Catheter Indwelling Catheter Indwelling Catheter # Voids 2 # Bowel Movements 1 2 - Labs CBC & Chem 7: 11/28/23 03:41 11/28/23 03:41 Labs: Abnormal Lab Results - Last 24 Hours (Table) 11/26/23 11/27/23 11/27/23 Range/Units 19:20 16:17 21:03 WBC 32.1 H (3.8-10.6) k/uL RBC 3.43 L (4.30-5.90) m/uL Hgb 9.4 L (13.0-17.5) gm/dL Hct 30.9 L (39.0-53.0) % MCHC 30.5 L (31.0-37.0) g/dL Neutrophils # (Manual) 8.35 H (1.3-7.7) k/uL Lymphocytes # (1.0-4.8) k/uL Lymphocytes # (Manual) 22.79 H (1.0-4.8) k/uL Chloride (98-107) mmol/L BUN (9-20) mg/dL Creatinine (0.66-1.25) mg/dL Glucose (74-99) mg/dL POC Glucose (mg/dL) 121 H 127 H (70-110) mg/dL Calcium (8.4-10.2) mg/dL Albumin (3.5-5.0) g/dL Urine Protein (Negative) Urine Blood (Negative) Ur Leukocyte Esterase (Negative) Urine RBC (0-5) /hpf Urine WBC (0-5) /hpf Urine WBC Clumps (None) /hpf Urine Mucus (None) /hpf 11/28/23 11/28/23 11/28/23 Range/Units 03:41 03:41 09:53 WBC 18.6 H (3.8-10.6) k/uL RBC 3.41 L (4.30-5.90) m/uL Hgb 9.8 L D (13.0-17.5) gm/dL Hct 30.4 L (39.0-53.0) % MCHC (31.0-37.0) g/dL Neutrophils # (Manual) (1.3-7.7) k/uL Lymphocytes # 9.5 H (1.0-4.8) k/uL Lymphocytes # (Manual) (1.0-4.8) k/uL Chloride 108 H (98-107) mmol/L BUN 32 H (9-20) mg/dL Creatinine 2.45 H (0.66-1.25) mg/dL Glucose 120 H (74-99) mg/dL POC Glucose (mg/dL) (70-110) mg/dL Calcium 8.3 L (8.4-10.2) mg/dL Albumin 2.6 L (3.5-5.0) g/dL Urine Protein 2+ H (Negative) Urine Blood Moderate H (Negative) Ur Leukocyte Esterase Large H (Negative) Urine RBC >182 H (0-5) /hpf Urine WBC 142 H (0-5) /hpf Urine WBC Clumps Occasional H (None) /hpf Urine Mucus Rare H (None) /hpf Microbiology - Last 24 Hours (Table) 11/26/23 20:15 Blood Culture - Preliminary Blood 11/26/23 20:30 Blood Culture - Preliminary Blood
[2023-11-29 09:18] LABS: ALT 21 U/L (10-49); AST 39 U/L (14-35); Albumin 2.6 g/dL (3.8-4.9); Alkaline Phosphatase 70 U/L (41-126); BUN/Creat Ratio 10.67 Ratio (12.00-20.00); Blood Urea Nitrogen 22.4 mg/dL (9.0-27.0); Carbon Dioxide 30.4 mmol/L (21.6-31.8); Chloride 98 mmol/L (96-109); Globulin 3.7 g/dL (1.6-3.3); Glucose 123 mg/dL (70-110); Potassium 4.7 mmol/L (3.5-5.5); Sodium 139 mmol/L (135-145); Total Bilirubin <0.2 mg/dL (0.3-1.2); Total Protein 6.3 g/dL (6.2-8.2)
[2023-11-29 09:35] LABS: HCT 27.1 % (39.6-50.0); HGB 8.4 g/dL (13.0-17.0); MCH 26.9 pg (27.0-32.0); MCV 86.9 FL (80.0-97.0); NRBC Per 100 WBC 0 X 10*3/uL (0.00-0.01); Platelet Count 304 X 10*3/uL (140-440); RBC 3.12 X 10*6/uL (4.40-5.60); RDW 14.6 % (11.5-14.5); WBC 19.88 X 10*3/uL (4.50-10.00)
[2023-11-29 09:36] LABS: Basophils # (M) 0 X 10*3/uL (0.00-0.10); Lymphocytes # (M) 11.93 X 10*3/uL (0.90-5.00); Neutrophils # (M) 6.76 X 10*3/uL (1.80-7.70); Neutrophils % (M) 34 %
--- NOTE | 2023-11-29 10:57 | P.PN ---
Subjective Patient is seen in follow-up for acute kidney injury. Has Harrison catheter for urinary retention. Nonoliguric. Renal function improving. Vital signs are stable. General: No acute distress. HEENT: Head exam is unremarkable. LUNGS: No audible rhonchi or wheezes. HEART: Rate and Rhythm are regular. ABDOMEN: Nontender. EXTREMITITES: No edema. Objective - Vital Signs Vital signs: Vital Signs Temp 97.5 F L 11/29/23 07:00 Pulse 65 11/29/23 07:00 Resp 15 11/29/23 07:00 BP 152/79 11/29/23 07:00 Pulse Ox 97 11/29/23 07:00 FiO2 Intake & Output 11/28/23 11/29/23 11/29/23 18:59 06:59 18:59 Intake Total 118 1960 Output Total 1100 1300 800 Balance -982 660 -800 Weight 61.4 kg Intake: Intake, IV Titration 1000 Amount Dextrose 5% in Water 1, 1000 000 ml @ 100 mls/hr IV . [id number] NOEL with Sodium Bicarb (1 Meq/ml) 150 ml Rx#:[id number] Oral 118 960 Output: Urine 1100 1300 800 Uretheral (Harrison) 800 Other: Voiding Method Indwelling Catheter Indwelling Catheter Indwelling Catheter # Voids 4 # Bowel Movements 1 - Labs CBC & Chem 7: 11/29/23 04:52 11/29/23 04:52 Labs: Abnormal Lab Results - Last 24 Hours (Table) 11/28/23 11/29/23 11/29/23 Range/Units 09:53 04:52 04:52 WBC 19.88 H (4.50-10.00) X 10*3/uL RBC 3.12 L (4.40-5.60) X 10*6/uL Hgb 8.4 L (13.0-17.0) g/dL Hct 27.1 L (39.6-50.0) % MCH 26.9 L (27.0-32.0) pg MCHC 31.0 L (32.0-37.0) g/dL RDW 14.6 H (11.5-14.5) % Lymphocytes # (Manual) 11.93 H (0.90-5.00) X 10*3/uL Eosinophils # (Manual) 0.80 H (0.04-0.35) X 10*3/uL Creatinine 2.1 H (0.6-1.5) mg/dL Est GFR (CKD-EPI) 32 L (>=60) BUN/Creatinine Ratio 10.67 L (12.00-20.00) Ratio Glucose 123 H (70-110) mg/dL Calcium 8.0 L (8.7-10.3) mg/dL Total Bilirubin <0.2 L (0.3-1.2) mg/dL AST 39 H (14-35) U/L Albumin 2.6 L (3.8-4.9) g/dL Globulin 3.7 H (1.6-3.3) g/dL Albumin/Globulin Ratio 0.70 L (1.60-3.17) Ratio Urine Protein 2+ H (Negative) Urine Blood Moderate H (Negative) Ur Leukocyte Esterase Large H (Negative) Urine RBC >182 H (0-5) /hpf Urine WBC 142 H (0-5) /hpf Urine WBC Clumps Occasional H (None) /hpf Urine Mucus Rare H (None) /hpf Microbiology - Last 24 Hours (Table) 11/26/23 20:15 Blood Culture - Preliminary Blood 11/26/23 20:30 Blood Culture - Preliminary Blood Assessment and Plan Plan: Assessment: 1. Acute kidney injury secondary to obstructive uropathy. Creatinine 3.3 on admission and is 2.1 today. Urology following. Plan to go home with Harrison cat heter and follow-up outpatient. 2. Chronic kidney disease stage IIIb with creatinine 1.7 dated September 15, 2023. Etiology is nephrosclerosis and obstructive uropathy. 3. Metabolic acidosis secondary to acute kidney injury maintained on bicarb drip. Resolved. 4. Anemia. Rule out on deficiency. Plan: Stop bicarb drip. Start normal saline at 75 cc an hour. Encouraged oral intake. Avoid nephrotoxins. Follow-up outpatient 1 week postdischarge.
[2023-11-29] MEDS: FAMOTIDINE 20 MG TAB PO SCH (11:26)
[2023-11-29] MEDS: SODIUM CHLORIDE 0.9% 1,000 ML IV SCH (11:26)
--- NOTE | 2023-11-29 12:36 | P.PN ---
Subjective Progress Note Date: 11/29/23 Creat continues to trend down, now 2.1. Denies flank pain. quintanilla draining clear yellow urine Objective - Vital Signs Vital signs: Vital Signs Temp 97.5 F L 11/29/23 07:00 Pulse 65 11/29/23 07:00 Resp 15 11/29/23 07:00 BP 152/79 11/29/23 07:00 Pulse Ox 97 11/29/23 07:00 FiO2 Intake & Output 11/28/23 11/29/23 11/29/23 18:59 06:59 18:59 Intake Total 118 1960 Output Total 1100 1300 800 Balance -982 660 -800 Weight 61.4 kg Intake: Intake, IV Titration 1000 Amount Dextrose 5% in Water 1, 1000 000 ml @ 100 mls/hr IV . [id number] NOEL with Sodium Bicarb (1 Meq/ml) 150 ml Rx#:[id number] Oral 118 960 Output: Urine 1100 1300 800 Uretheral (Quintanilla) 800 Other: Voiding Method Indwelling Catheter Indwelling Catheter Indwelling Catheter # Voids 4 # Bowel Movements 1 - Constitutional General appearance: Present: no acute distress - Gastrointestinal General gastrointestinal: Present: soft. Absent: distended, tenderness - Psychiatric Psychiatric: Present: A&O x's 3 - Labs CBC & Chem 7: 11/29/23 04:52 11/29/23 04:52 Labs: Abnormal Lab Results - Last 24 Hours (Table) 11/29/23 11/29/23 Range/Units 04:52 04:52 WBC 19.88 H (4.50-10.00) X 10*3/uL RBC 3.12 L (4.40-5.60) X 10*6/uL Hgb 8.4 L (13.0-17.0) g/dL Hct 27.1 L (39.6-50.0) % MCH 26.9 L (27.0-32.0) pg MCHC 31.0 L (32.0-37.0) g/dL RDW 14.6 H (11.5-14.5) % Lymphocytes # (Manual) 11.93 H (0.90-5.00) X 10*3/uL Eosinophils # (Manual) 0.80 H (0.04-0.35) X 10*3/uL Creatinine 2.1 H (0.6-1.5) mg/dL Est GFR (CKD-EPI) 32 L (>=60) BUN/Creatinine Ratio 10.67 L (12.00-20.00) Ratio Glucose 123 H (70-110) mg/dL Calcium 8.0 L (8.7-10.3) mg/dL Total Bilirubin <0.2 L (0.3-1.2) mg/dL AST 39 H (14-35) U/L Albumin 2.6 L (3.8-4.9) g/dL Globulin 3.7 H (1.6-3.3) g/dL Albumin/Globulin Ratio 0.70 L (1.60-3.17) Ratio Microbiology - Last 24 Hours (Table) 11/26/23 20:15 Blood Culture - Preliminary Blood 11/26/23 20:30 Blood Culture - Preliminary Blood Assessment and Plan Assessment: 73-year-old male with history of chronic bilateral hydronephrosis, previously had bilateral stents without improvement in hydronephrosis or kidney function. His baseline creatinine is 1.7, presentation was 3.3 trended down to 2.1. His hydronephrosis was likely secondary to neurogenic bladder rather than ureteral obstruction given the failed improvement with previous stent placement. At this point his creatinine is trending down with Quintanilla catheter. given continue d erica creat no need for stent or any further intervention from Urology standpoint -Recommend keeping Quintanilla catheter in place at this time, can be discharged home with a Quintanilla catheter and he can follow-up as an outpatient in 2 weeks in our office, at that point we will start him on CIC program with eventual plan of starting Botox for his bladder
[2023-11-29 16:16] LABS: % Iron Saturation 9.09 (15.00-50.00)
[2023-11-29] MEDS: HEPARIN SODIUM,PORCINE 5,000 UNIT/ML 1 ML VIAL SQ SCH (21:25)
--- NOTE | 2023-11-30 06:03 | P.PN ---
Subjective Progress Note Date: 11/29/23 patient is a 73-year-old gentleman with past medical history significant for Crohn's disease, recurrent UTIs, prostate cancer status post radiation therapy who was sent in to the ER from Dr. bradshaw office for abnormal labs . patient has been complaining of lower abdominal pain, also complaining of inability to empty his bladder, there was no complain of burning micturition but was complaining of decreased urination. There was no complains of fever or chills. Dr. Patino o rdered some labs and later called the patient to come to the ER as his potassium was elevated. Patient does follow up outpatient with urology and has been told that he empty his bladder incompletely, Urodynamic testing has shown a small capacity bladder with uninhibited contractions. Initial lab work done in the ER showed WBC 32.1, hemoglobin 9.4, platelet count 318, sodium 139, potassium 6.3, BUN 45, creatinine 3.32, glucose 92 UA showing leukocyte Estrace positive, urine WBC 182, nitrite negative ultrasound abdominal done showed moderate to severe bilateral hydronephrosis Patient admitted to internal medicine service 11/27. Patient seen and examined. Patient renal functions are improving, creatinine is down to 2.4. Complaining of lethargy and weakness. 11/29/2023 Patient is evaluated today in follow-up. Urine culture is currently pending at this time patient remains on a combination of IV ceftriaxone. White blood cell count has improved down to 19. Additionally potassium is now 4.7. Patient continues with indwelling catheter for the urinary retention with urology recommending to continue with indwelling catheter on discharge. Patient had evidence of moderate to severe hydronephrosis on imaging. Review of Systems Constitutional: Denied any fatigue denied any fever. Cardio vascular: denied any chest pain, palpitations Gastrointestinal: denied any nausea, vomiting, diarrhea Pulmonary: Denied any shortness of breath cough Neurologic denied any new focal deficits All inpatient medications were reviewed and appropriate changes in these medications as dictated in the interval history and assessment and plan. PHYSICAL EXAMINATION: GENERAL: The patient is alert and oriented x3, not in any acute distress. Well developed, well nourished. HEENT: Pupils are round and equally reacting to light. EOMI. No scleral icterus. No conjunctival pallor. Normocephalic, atraumatic. No pharyngeal erythema. No thyromegaly. CARDIOVASCULAR: S1 and S2 present. No murmurs, rubs, or gallops. PULMONARY: Chest is clear to auscultation, no wheezing or crackles. ABDOMEN: Soft, nontender, nondistended, normoactive bowel sounds. No palpable organomegaly. MUSCULOSKELETAL: No joint swelling or deformity. EXTREMITIES: No cyanosis, clubbing, or pedal edema. NEUROLOGICAL: Gross neurological examination did not reveal any focal deficits. SKIN: No rashes. Assessment and plan acute urinary tract infection with sepsis, present on admission Urinary retention requiring indwelling quintanilla catheter Hyperkalemia Acute kidney injury from urinary retention/ATN improving Chronic kidney disease Bilateral hydronephrosis Anemia rule out iron deficient history of prostate cancer history of hypertension History of dyslipidemia GI prophylaxis DVT prophylaxis Full Code Plan follow-up on blood cultures Follow-up on urine cultures Continue IV Rocephin Flagyl per ID Continue IV fluids Pending iron studies ID following Nephrology following Urology following, recommend discharging patient home with Quintanilla with outpatient follow-up at which time they will start patient on CIC program with eventual plan of starting Botox for his bladder Repeat labs in the AM The impression and plan of care has been dictated by Ana Villa Nurse Practitioner as directed. Dr. Roberto Carlos MD I have performed a history and physical examination and medical decision making of this patient, discussed the same with the dictator, and agree with the dictators assessment and plan as written, documented as a scribe. Based on total visit time, I have performed more than 50% of this visit. Objective - Vital Signs Vital signs: Vital Signs Temp 97.5 F L 11/29/23 07:00 Pulse 65 11/29/23 07:00 Resp 15 11/29/23 07:00 BP 152/79 11/29/23 07:00 Pulse Ox 97 11/29/23 07:00 FiO2 Intake & Output 11/28/23 11/29/23 11/29/23 18:59 06:59 18:59 Intake Total 118 1960 Output Total 1100 1300 800 Balance -982 660 -800 Weight 61.4 kg Intake: Intake, IV Titration 1000 Amount Dextrose 5% in Water 1, 1000 000 ml @ 100 mls/hr IV . [id number] NOEL with Sodium Bicarb (1 Meq/ml) 150 ml Rx#:[id number] Oral 118 960 Output: Urine 1100 1300 800 Uretheral (Quintanilla) 800 Other: Voiding Method Indwelling Catheter Indwelling Catheter Indwelling Catheter # Voids 4 # Bowel Movements 1 - Labs CBC & Chem 7: 11/29/23 04:52 11/29/23 04:52 Labs: Abnormal Lab Results - Last 24 Hours (Table) 11/29/23 11/29/23 Range/Units 04:52 04:52 WBC 19.88 H (4.50-10.00) X 10*3/uL RBC 3.12 L (4.40-5.60) X 10*6/uL Hgb 8.4 L (13.0-17.0) g/dL Hct 27.1 L (39.6-50.0) % MCH 26.9 L (27.0-32.0) pg MCHC 31.0 L (32.0-37.0) g/dL RDW 14.6 H (11.5-14.5) % Lymphocytes # (Manual) 11.93 H (0.90-5.00) X 10*3/uL Eosinophils # (Manual) 0.80 H (0.04-0.35) X 10*3/uL Creatinine 2.1 H (0.6-1.5) mg/dL Est GFR (CKD-EPI) 32 L (>=60) BUN/Creatinine Ratio 10.67 L (12.00-20.00) Ratio Glucose 123 H (70-110) mg/dL Calcium 8.0 L (8.7-10.3) mg/dL Total Bilirubin <0.2 L (0.3-1.2) mg/dL AST 39 H (14-35) U/L Albumin 2.6 L (3.8-4.9) g/dL Globulin 3.7 H (1.6-3.3) g/dL Albumin/Globulin Ratio 0.70 L (1.60-3.17) Ratio Microbiology - Last 24 Hours (Table) 11/26/23 20:15 Blood Culture - Preliminary Blood 11/26/23 20:30 Blood Culture - Preliminary Blood Assessment and Plan Time with Patient: Less than 30
[2023-11-30 09:28] LABS: BUN/Creat Ratio 9.05 Ratio (12.00-20.00); Blood Urea Nitrogen 17.2 mg/dL (9.0-27.0); Chloride 104 mmol/L (96-109); Glucose 87 mg/dL (70-110); Magnesium 1.3 mg/dL (1.5-2.4); Potassium 3.8 mmol/L (3.5-5.5); Sodium 142 mmol/L (135-145)
[2023-11-30] MEDS ORDERED: Magnesium Replacement Protocol 1 EACH MISC MISCELLANE PRN (09:52)
--- NOTE | 2023-11-30 11:11 | P.PN ---
Subjective Patient is seen in follow-up for acute kidney injury. Has Harrison catheter for urinary retention. Nonoliguric. Renal function improving. Hemodynamically stable. No active complaints. Vital signs are stable. General: No acute distress. HEENT: Head exam is unremarkable. LUNGS: No audible rhonchi or wheezes. HEART: Rate and Rhythm are regular. ABDOMEN: Nontender. EXTREMITITES: No edema. Objective - Vital Signs Vital signs: Vital Signs Temp 97.4 F L 11/30/23 07:03 Pulse 72 11/30/23 07:03 Resp 15 11/30/23 07:03 BP 158/65 11/30/23 07:03 Pulse Ox 97 11/30/23 07:03 FiO2 Intake & Output 11/29/23 11/30/23 11/30/23 18:59 06:59 18:59 Intake Total 118 Output Total 1600 625 Balance -1482 -625 Weight 63 kg Intake: Oral 118 Output: Urine 1600 625 Uretheral (Harrison) 800 Other: Voiding Method Indwelling Catheter Indwelling Catheter Indwelling Catheter # Bowel Movements 1 1 - Labs CBC & Chem 7: 11/29/23 04:52 11/30/23 06:10 Labs: Abnormal Lab Results - Last 24 Hours (Table) 11/26/23 11/29/23 11/30/23 Range/Units 19:20 04:52 06:10 Pathologist Review See comment A Creatinine 1.9 H (0.6-1.5) mg/dL Est GFR (CKD-EPI) 37 L (>=60) BUN/Creatinine Ratio 9.05 L (12.00-20.00) Ratio Calcium 8.0 L (8.7-10.3) mg/dL Magnesium 1.3 L (1.5-2.4) mg/dL Iron 16 L (65-175) UG/DL TIBC 176 L (228-460) UG/DL % Saturation 9.09 L (15.00-50.00) Transferrin 126.0 L (204.0-354.0) mg/dL Microbiology - Last 24 Hours (Table) 11/27/23 13:56 Stool Culture - Preliminary Stool 11/26/23 20:15 Blood Culture - Preliminary Blood 11/26/23 20:30 Blood Culture - Preliminary Blood 11/28/23 09:53 Urine Culture - Final Urine,Voided Assessment and Plan Plan: Assessment: 1. Acute kidney injury secondary to obstructive uropathy. Creatinine 3.3 on admission and is 1.9 today. Urology following. Plan to go home with Harrison catheter and follow-up outpatient with urology. 2. Chronic kidney disease stage IIIb with creatinine 1.7 dated September 15, 2023. Etiology is nephrosclerosis and obstructive uropathy. 3. Metabolic acidosis secondary to acute kidney injury status post bicarb drip. Resolved. 4. Anemia. Iron deficiency noted. 5. Hypomagnesemia from poor intake and postobstructive diuresis. Plan: Maintain IV fluids. Add IV iron. Replace magnesium. Encouraged oral intake. Avoid nephrotoxins. Follow-up outpatient 1 week postdischarge.
[2023-11-30] MEDS ORDERED: MAGNESIUM SULFATE-D5W PMX 1 GM in DEXTROSE/WATER 1 100ML.BAG IVPB SCH (11:15)
[2023-11-30] MEDS: MAGNESIUM SULFATE-D5W PMX 1 GM in DEXTROSE/WATER 1 100ML.BAG IVPB SCH (11:36)
[2023-11-30 12:42] LABS: HCT 30.5 % (39.0-53.0); HGB 9.1 gm/dL (13.0-17.5); Hypochromasia Marked; MCH 27.4 pg (25.0-35.0); MCV 91.4 fL (80.0-100.0); Mean Platelet Volume 7.7; Platelet Count 318 k/uL (150-450); RBC 3.33 m/uL (4.30-5.90); RDW 14.5 % (11.5-15.5)
--- NOTE | 2023-11-30 13:21 | P.PN ---
Subjective Progress Note Date: 11/28/23 Principal diagnosis: Reason for follow-up is colitis and UTI Patient is a 73-year-old male with a past medical history significant for hypertension hyperlipidemia prostate disorder did have history of Crohn's disease and prostate cancer s/p radiation was sent to the hospital because of abnormal blood work in this patient who did have elevated white count patient did have cloudy urine urine retention requiring Harrison catheter placement CT abdominal pelvis did show some nonspecific colitis. On today's evaluation that is 11/28/2023, the patient continues to be afebrile, the patient is on room air and breathing comfortably, the Pt denies having any chest pain or cough, the patient denies having any abdominal pain no vomiting diarrhea has slowed down. Patient white count is down to 18.6, creatinine is 2.45 cultures currently pending stool for C. difficile negative Objective - Vital Signs Vital signs: Vital Signs Temp 97.6 F 11/28/23 06:53 Pulse 60 11/28/23 06:53 Resp 18 11/28/23 06:53 BP 149/61 11/28/23 06:53 Pulse Ox 98 11/28/23 06:53 FiO2 Intake & Output 11/27/23 11/28/23 11/28/23 18:59 06:59 18:59 Intake Total 118 Output Total 1200 Balance -1200 118 Weight 62.7 kg Intake: Oral 118 Output: Urine 1200 Other: Voiding Method Indwelling Catheter Indwelling Catheter Indwelling Catheter # Voids 2 # Bowel Movements 1 2 - Exam GENERAL DESCRIPTION: An elderly male lying in bed in no distress RESPIRATORY SYSTEM: Unlabored breathing , decreased breath sounds at bases HEART: S1 S2 regular rate and rhythm , ABDOMEN: Soft , no tenderness EXTREMITIES: No edema feet Exam completed with help of TRASH COLLECTOR - Labs CBC & Chem 7: 11/30/23 11:55 11/30/23 06:10 Labs: Abnormal Lab Results - Last 24 Hours (Table) 11/26/23 11/27/23 11/27/23 Range/Units 19:20 11:02 16:17 WBC 32.1 H (3.8-10.6) k/uL RBC 3.43 L (4.30-5.90) m/uL Hgb 9.4 L (13.0-17.5) gm/dL Hct 30.9 L (39.0-53.0) % MCHC 30.5 L (31.0-37.0) g/dL Neutrophils # (Manual) 8.35 H (1.3-7.7) k/uL Lymphocytes # (1.0-4.8) k/uL Lymphocytes # (Manual) 22.79 H (1.0-4.8) k/uL Chloride (98-107) mmol/L BUN (9-20) mg/dL Creatinine (0.66-1.25) mg/dL Glucose (74-99) mg/dL POC Glucose (mg/dL) 119 H 121 H (70-110) mg/dL Calcium (8.4-10.2) mg/dL Albumin (3.5-5.0) g/dL 11/27/23 11/28/23 11/28/23 Range/Units 21:03 03:41 03:41 WBC 18.6 H (3.8-10.6) k/uL RBC 3.41 L (4.30-5.90) m/uL Hgb 9.8 L D (13.0-17.5) gm/dL Hct 30.4 L (39.0-53.0) % MCHC (31.0-37.0) g/dL Neutrophils # (Manual) (1.3-7.7) k/uL Lymphocytes # 9.5 H (1.0-4.8) k/uL Lymphocytes # (Manual) (1.0-4.8) k/uL Chloride 108 H (98-107) mmol/L BUN 32 H (9-20) mg/dL Creatinine 2.45 H (0.66-1.25) mg/dL Glucose 120 H (74-99) mg/dL POC Glucose (mg/dL) 127 H (70-110) mg/dL Calcium 8.3 L (8.4-10.2) mg/dL Albumin 2.6 L (3.5-5.0) g/dL Microbiology - Last 24 Hours (Table) 11/26/23 20:15 Blood Culture - Preliminary Blood 11/26/23 20:30 Blood Culture - Preliminary Blood Assessment and Plan (1) Colitis Current Visit: Yes Status: Acute Code(s): K52.9 - NONINFECTIVE GASTROENTERITIS AND COLITIS, UNSPECIFIED SNOMED Code(s): 36229505 (2) Leukocytosis Current Visit: Yes Status: Acute Code(s): D72.829 - ELEVATED WHITE BLOOD CELL COUNT, UNSPECIFIED SNOMED Code(s): 577978695 (3) UTI (urinary tract infection) Current Visit: Yes Status: Acute Code(s): N39.0 - URINARY TRACT INFECTION, SITE NOT SPECIFIED SNOMED Code(s): 80726399 Plan: 1patient with admission to the hospital with abnormal lab in this patient who did have elevated potassium also have elevated white count of 32,000 patient to have a history of Crohn's disease with recent exacerbation and has received antibiotics, now with elevated white count diarrhea and evidence of colitis question of infectious colitis also have abnormality of the bladder wall with a positive UA symptomatic UTI likely etiology 2, stool for C. difficile is negative and stool culture as well as urine culture currently pending 3patient currently being treated with Rocephin and Flagyl to continue while waiting for the workup to complete Dictation was produced using [employer] dictation software. please excuse any grammatical, word or spelling errors. Time with Patient: Less than 30
--- NOTE | 2023-11-30 13:23 | P.PN ---
Subjective Progress Note Date: 11/29/23 Principal diagnosis: Reason for follow-up is colitis and UTI Patient is a 73-year-old male with a past medical history significant for hypertension hyperlipidemia prostate disorder did have history of Crohn's disease and prostate cancer s/p radiation was sent to the hospital because of abnormal blood work in this patient who did have elevated white count patient did have cloudy urine urine retention requiring Harrison catheter placement CT abdominal pelvis did show some nonspecific colitis. On today's evaluation that is 11/29/2023, Patient is afebrile patient is cur rently on room air and denies having any shortness of breath, the patient denies any chest pain or cough, the patient denies any nausea vomiting denies any abdominal pain and diarrhea has resolved still have the Harrison catheter and urine is clearing out. Patient white count slightly up to 19.8 today creatinine is 2.1 blood urine cultures currently pending stool cultures pending Objective - Vital Signs Vital signs: Vital Signs Temp 97.5 F L 11/29/23 19:09 Pulse 68 11/29/23 19:09 Resp 18 11/29/23 19:09 BP 121/66 11/29/23 19:09 Pulse Ox 99 11/29/23 19:09 FiO2 Intake & Output 11/29/23 11/29/23 11/30/23 06:59 18:59 06:59 Intake Total 1960 118 Output Total 1300 1600 Balance 660 -1482 Weight 61.4 kg Intake: Intake, IV Titration 1000 Amount Dextrose 5% in Water 1, 1000 000 ml @ 100 mls/hr IV . [id number] NOEL with Sodium Bicarb (1 Meq/ml) 150 ml Rx#:[id number] Oral 960 118 Output: Urine 1300 1600 Uretheral (Harrison) 800 Other: Voiding Method Indwelling Catheter Indwelling Catheter # Voids 4 # Bowel Movements 1 1 - Exam GENERAL DESCRIPTION: An elderly male lying in bed in no distress RESPIRATORY SYSTEM: Unlabored breathing , decreased breath sounds at bases HEART: S1 S2 regular rate and rhythm , ABDOMEN: Soft , no tenderness EXTREMITIES: No edema feet - Labs CBC & Chem 7: 11/30/23 11:55 11/30/23 06:10 Labs: Abnormal Lab Results - Last 24 Hours (Table) 11/26/23 11/29/23 11/29/23 Range/Units 19:20 04:52 04:52 WBC 19.88 H (4.50-10.00) X 10*3/uL RBC 3.12 L (4.40-5.60) X 10*6/uL Hgb 8.4 L (13.0-17.0) g/dL Hct 27.1 L (39.6-50.0) % MCH 26.9 L (27.0-32.0) pg MCHC 31.0 L (32.0-37.0) g/dL RDW 14.6 H (11.5-14.5) % Lymphocytes # (Manual) 11.93 H (0.90-5.00) X 10*3/uL Eosinophils # (Manual) 0.80 H (0.04-0.35) X 10*3/uL Pathologist Review See comment A Creatinine 2.1 H (0.6-1.5) mg/dL Est GFR (CKD-EPI) 32 L (>=60) BUN/Creatinine Ratio 10.67 L (12.00-20.00) Ratio Glucose 123 H (70-110) mg/dL Calcium 8.0 L (8.7-10.3) mg/dL Iron (65-175) UG/DL TIBC (228-460) UG/DL % Saturation (15.00-50.00) Transferrin (204.0-354.0) mg/dL Total Bilirubin <0.2 L (0.3-1.2) mg/dL AST 39 H (14-35) U/L Albumin 2.6 L (3.8-4.9) g/dL Globulin 3.7 H (1.6-3.3) g/dL Albumin/Globulin Ratio 0.70 L (1.60-3.17) Ratio 11/29/23 Range/Units 04:52 WBC (4.50-10.00) X 10*3/uL RBC (4.40-5.60) X 10*6/uL Hgb (13.0-17.0) g/dL Hct (39.6-50.0) % MCH (27.0-32.0) pg MCHC (32.0-37.0) g/dL RDW (11.5-14.5) % Lymphocytes # (Manual) (0.90-5.00) X 10*3/uL Eosinophils # (Manual) (0.04-0.35) X 10*3/uL Pathologist Review Creatinine (0.6-1.5) mg/dL Est GFR (CKD-EPI) (>=60) BUN/Creatinine Ratio (12.00-20.00) Ratio Glucose (70-110) mg/dL Calcium (8.7-10.3) mg/dL Iron 16 L (65-175) UG/DL TIBC 176 L (228-460) UG/DL % Saturation 9.09 L (15.00-50.00) Transferrin 126.0 L (204.0-354.0) mg/dL Total Bilirubin (0.3-1.2) mg/dL AST (14-35) U/L Albumin (3.8-4.9) g/dL Globulin (1.6-3.3) g/dL Albumin/Globulin Ratio (1.60-3.17) Ratio Microbiology - Last 24 Hours (Table) 11/28/23 09:53 Urine Culture - Final Urine,Voided 11/26/23 20:15 Blood Culture - Preliminary Blood 11/26/23 20:30 Blood Culture - Preliminary Blood Assessment and Plan (1) Colitis Current Visit: Yes Status: Acute Code(s): K52.9 - NONINFECTIVE GASTROENTERITIS AND COLITIS, UNSPECIFIED SNOMED Code(s): 20067068 (2) Leukocytosis Current Visit: Yes Status: Acute Code(s): D72.829 - ELEVATED WHITE BLOOD CELL COUNT, UNSPECIFIED SNOMED Code(s): 801699752 (3) UTI (urinary tract infection) Current Visit: Yes Status: Acute Code(s): N39.0 - URINARY TRACT INFECTION, SITE NOT SPECIFIED SNOMED Code(s): 95039479 Plan: 1patient with admission to the hospital with abnormal lab in this patient who did have elevated potassium also have elevated white count of 32,000 patient to have a history of Crohn's disease with recent exacerbation and has received antibiotics, now with elevated white count diarrhea and evidence of colitis question of infectious colitis also have abnormality of the bladder wall with a positive UA symptomatic UTI likely etiology 2the patient stool for C. difficile is negative and stool culture and blood cultures pending urine culture has been done so far 3patient white count is slightly up today and need to be monitored closely for now continue with Rocephin and Flagyl keeping in mind clinical improvement Dictation was produced using [employer] dictation software. please excuse any grammatical, word or spelling errors. Time with Patient: Less than 30
--- NOTE | 2023-11-30 13:24 | P.PN ---
Subjective Progress Note Date: 11/30/23 Principal diagnosis: Reason for follow-up is colitis and UTI Patient is a 73-year-old male with a past medical history significant for hypertension hyperlipidemia prostate disorder did have history of Crohn's disease and prostate cancer s/p radiation was sent to the hospital because of abnormal blood work in this patient who did have elevated white count patient did have cloudy urine urine retention requiring Harrison catheter placement CT abdominal pelvis did show some nonspecific colitis. On today's evaluation that is 11/30/2023, patient has been afebrile, patient is breathing comfortably and is currently on room air, patient denies having any significant cough no chest pain shortness of breath, patient denies nausea vomiting and no abdominal pain, did have resolution of his diarrhea and did have soft bowel movement and urine is clearing out the Harrison catheter. The patient white count is down to 16,000 creatinine is 1.9 Objective - Vital Signs Vital signs: Vital Signs Temp 97.4 F L 11/30/23 07:03 Pulse 72 11/30/23 07:03 Resp 15 11/30/23 07:03 BP 158/65 11/30/23 07:03 Pulse Ox 97 11/30/23 07:03 FiO2 Intake & Output 11/29/23 11/30/23 11/30/23 18:59 06:59 18:59 Intake Total 118 Output Total 1600 625 Balance -1482 -625 Weight 63 kg Intake: Oral 118 Output: Urine 1600 625 Uretheral (Harrison) 800 Other: Voiding Method Indwelling Catheter Indwelling Catheter Indwelling Catheter # Bowel Movements 1 1 - Exam GENERAL DESCRIPTION: An elderly male lying in bed in no distress RESPIRATORY SYSTEM: Unlabored breathing , decreased breath sounds at bases HEART: S1 S2 regular rate and rhythm , ABDOMEN: Soft , no tenderness EXTREMITIES: No edema feet - Labs CBC & Chem 7: 11/30/23 11:55 11/30/23 06:10 Labs: Abnormal Lab Results - Last 24 Hours (Table) 11/26/23 11/29/23 11/30/23 Range/Units 19:20 04:52 06:10 WBC (3.8-10.6) k/uL RBC (4.30-5.90) m/uL Hgb (13.0-17.5) gm/dL Hct (39.0-53.0) % MCHC (31.0-37.0) g/dL Pathologist Review See comment A Creatinine 1.9 H (0.6-1.5) mg/dL Est GFR (CKD-EPI) 37 L (>=60) BUN/Creatinine Ratio 9.05 L (12.00-20.00) Ratio Calcium 8.0 L (8.7-10.3) mg/dL Magnesium 1.3 L (1.5-2.4) mg/dL Iron 16 L (65-175) UG/DL TIBC 176 L (228-460) UG/DL % Saturation 9.09 L (15.00-50.00) Transferrin 126.0 L (204.0-354.0) mg/dL 11/30/23 Range/Units 11:55 WBC 16.0 H (3.8-10.6) k/uL RBC 3.33 L (4.30-5.90) m/uL Hgb 9.1 L (13.0-17.5) gm/dL Hct 30.5 L (39.0-53.0) % MCHC 30.0 L (31.0-37.0) g/dL Pathologist Review Creatinine (0.6-1.5) mg/dL Est GFR (CKD-EPI) (>=60) BUN/Creatinine Ratio (12.00-20.00) Ratio Calcium (8.7-10.3) mg/dL Magnesium (1.5-2.4) mg/dL Iron (65-175) UG/DL TIBC (228-460) UG/DL % Saturation (15.00-50.00) Transferrin (204.0-354.0) mg/dL Microbiology - Last 24 Hours (Table) 11/27/23 13:56 Stool Culture - Preliminary Stool 11/26/23 20:15 Blood Culture - Preliminary Blood 11/26/23 20:30 Blood Culture - Preliminary Blood 11/28/23 09:53 Urine Culture - Final Urine,Voided Assessment and Plan (1) Colitis Current Visit: Yes Status: Acute Code(s): K52.9 - NONINFECTIVE GASTROENTERITIS AND COLITIS, UNSPECIFIED SNOMED Code(s): 75041904 (2) Leukocytosis Current Visit: Yes Status: Acute Code(s): D72.829 - ELEVATED WHITE BLOOD CELL COUNT, UNSPECIFIED SNOMED Code(s): 609968762 (3) UTI (urinary tract infection) Current Visit: Yes Status: Acute Code(s): N39.0 - URINARY TRACT INFECTION, SITE NOT SPECIFIED SNOMED Code(s): 68080002 Plan: 1patient with admission to the hospital with abnormal lab in this patient who did have elevated potassium also have elevated white count of 32,000 patient to have a history of Crohn's disease with recent exacerbation and has received antibiotics, now with elevated white count diarrhea and evidence of colitis question of infectious colitis also have abnormality of the bladder wall with a positive UA symptomatic UTI likely etiology 2the patient stool for C. difficile is negative and stool culture and blood cultures pending urine culture has been done so far 3patient white count is slightly down today to 16,000 from yesterday of 19,000 still elevated for now continue with Rocephin and Flagyl any further improvement in the white count by tomorrow may be able to finish therapy with oral Ceftin and Flagyl multiple question concern answered Dictation was produced using [employer] dictation software. please excuse any grammatical, word or spelling errors. Time with Patient: Less than 30
[2023-11-30 14:02] LABS: Eosinophils # (M) 0.16 k/uL (0-0.7); Lymphocytes # (M) 11.04 k/uL (1.0-4.8); Monocytes # (M) 0.64 k/uL (0-1.0); Neutrophils # (M) 4.16 k/uL (1.3-7.7); Neutrophils % (M) 26 %; Nucleated Red Blood Cells 0 /100 WBC (0-0); Total Cells Counted 100
--- NOTE | 2023-11-30 15:16 | P.PN ---
Subjective Creat continues to trend down, now 1.9. Denies flank pain. quintanilla draining clear yellow urine, urine culture showed no growth Objective - Vital Signs Vital signs: Vital Signs Temp 97.4 F L 11/30/23 07:03 Pulse 72 11/30/23 07:03 Resp 15 11/30/23 07:03 BP 158/65 11/30/23 07:03 Pulse Ox 97 11/30/23 07:03 FiO2 Intake & Output 11/29/23 11/30/23 11/30/23 18:59 06:59 18:59 Intake Total 118 Output Total 1600 625 Balance -1482 -625 Weight 63 kg Intake: Oral 118 Output: Urine 1600 625 Uretheral (Quintanilla) 800 Other: Voiding Method Indwelling Catheter Indwelling Catheter Indwelling Catheter # Bowel Movements 1 1 - Constitutional General appearance: Present: no acute distress - Gastrointestinal General gastrointestinal: Present: soft. Absent: distended, tenderness - Labs CBC & Chem 7: 11/30/23 11:55 11/30/23 06:10 Labs: Abnormal Lab Results - Last 24 Hours (Table) 11/29/23 11/30/23 11/30/23 Range/Units 04:52 06:10 11:55 WBC 16.0 H (3.8-10.6) k/uL RBC 3.33 L (4.30-5.90) m/uL Hgb 9.1 L (13.0-17.5) gm/dL Hct 30.5 L (39.0-53.0) % MCHC 30.0 L (31.0-37.0) g/dL Lymphocytes # (Manual) 11.04 H (1.0-4.8) k/uL Creatinine 1.9 H (0.6-1.5) mg/dL Est GFR (CKD-EPI) 37 L (>=60) BUN/Creatinine Ratio 9.05 L (12.00-20.00) Ratio Calcium 8.0 L (8.7-10.3) mg/dL Magnesium 1.3 L (1.5-2.4) mg/dL Iron 16 L (65-175) UG/DL TIBC 176 L (228-460) UG/DL % Saturation 9.09 L (15.00-50.00) Transferrin 126.0 L (204.0-354.0) mg/dL Microbiology - Last 24 Hours (Table) 11/27/23 13:56 Stool Culture - Preliminary Stool 11/26/23 20:15 Blood Culture - Preliminary Blood 11/26/23 20:30 Blood Culture - Preliminary Blood 11/28/23 09:53 Urine Culture - Final Urine,Voided Assessment and Plan Assessment: 73-year-old male with history of chronic bilateral hydronephrosis, previously had bilateral stents without improvement in hydronephrosis or kidney function. His baseline creatinine is 1.7, presentation was 3.3 trended down to 1.9. His hydronephrosis was likely secondary to neurogenic bladder rather than ureteral obstruction given the failed improvement with previous stent placement. At this point his creatinine is trending down with Quintanilla catheter. given continue downard creat no need for stent or any further intervention from Urology st [facility] -Recommend keeping Quintanilla catheter in place at this time, can be discharged home with a Quintanilla catheter and he can follow-up as an outpatient in 2 weeks in our office, at that point we will start him on CIC program with eventual plan of starting Botox for his bladder. From urology standpoint he is stable for discharge
[2023-11-30] MEDS: SODIUM FERRIC GLUCONAT-SUCROSE 125 MG in SODIUM CHLORIDE 0.9% 100 ML IVPB SCH (17:20)
--- NOTE | 2023-11-30 22:35 | P.PN ---
Subjective Progress Note Date: 11/30/23 patient is a 73-year-old gentleman with past medical history significant for Crohn's disease, recurrent UTIs, prostate cancer status post radiation therapy who was sent in to the ER from Dr. bradshaw office for abnormal labs . patient has been complaining of lower abdominal pain, also complaining of inability to empty his bladder, there was no complain of burning micturition but was complaining of decreased urination. There was no complains of fever or chills. Dr. Patino o rdered some labs and later called the patient to come to the ER as his potassium was elevated. Patient does follow up outpatient with urology and has been told that he empty his bladder incompletely, Urodynamic testing has shown a small capacity bladder with uninhibited contractions. Initial lab work done in the ER showed WBC 32.1, hemoglobin 9.4, platelet count 318, sodium 139, potassium 6.3, BUN 45, creatinine 3.32, glucose 92 UA showing leukocyte Estrace positive, urine WBC 182, nitrite negative ultrasound abdominal done showed moderate to severe bilateral hydronephrosis Patient admitted to internal medicine service 11/27. Patient seen and examined. Patient renal functions are improving, creatinine is down to 2.4. Complaining of lethargy and weakness. 11/29/2023 Patient is evaluated today in follow-up. Urine culture is currently pending at this time patient remains on a combination of IV ceftriaxone. White blood cell count has improved down to 19. Additionally potassium is now 4.7. Patient continues with indwelling catheter for the urinary retention with urology recommending to continue with indwelling catheter on discharge. Patient had evidence of moderate to severe hydronephrosis on imaging. 11/30/2023 Patient evaluated today resting in bed. Reports nausea. Continues on IV ceftriaxone. Urine culture negative. Patient will discharge home with the IDC. White blood cell count improving to 16. Review of Systems Constitutional: Denied any fatigue denied any fever. Cardio vascular: denied any chest pain, palpitations Gastrointestinal: denied any nausea, vomiting, diarrhea Pulmonary: Denied any shortness of breath cough Neurologic denied any new focal deficits All inpatient medications were reviewed and appropriate changes in these medications as dictated in the interval history and assessment and plan. PHYSICAL EXAMINATION: GENERAL: The patient is alert and oriented x3, not in any acute distress. Well developed, well nourished. HEENT: Pupils are round and equally reacting to light. EOMI. No scleral icterus. No conjunctival pallor. Normocephalic, atraumatic. No pharyngeal erythema. No thyromegaly. CARDIOVASCULAR: S1 and S2 present. No murmurs, rubs, or gallops. PULMONARY: Chest is clear to auscultation, no wheezing or crackles. ABDOMEN: Soft, nontender, nondistended, normoactive bowel sounds. No palpable organomegaly. MUSCULOSKELETAL: No joint swelling or deformity. EXTREMITIES: No cyanosis, clubbing, or pedal edema. NEUROLOGICAL: Gross neurological examination did not reveal any focal deficits. SKIN: No rashes. Assessment and plan acute urinary tract infection with sepsis, present on admission Urinary retention requiring indwelling quintanilla catheter Hyperkalemia Acute kidney injury from urinary retention/ATN improving Chronic kidney disease Bilateral hydronephrosis Anemia iron deficiency history of prostate cancer history of hypertension History of dyslipidemia GI prophylaxis DVT prophylaxis Full Code Plan follow-up on blood cultures Follow-up on urine cultures Continue IV Rocephin Flagyl per ID Continue IV fluids Patient started on IV ferrlecit. ID following Nephrology following Urology following, recommend discharging patient home with Quintanilla with outpatient follow-up at which time they will start patient on CIC program with eventual plan of starting Botox for his bladder Repeat labs in the AM Possible D/C home in the next 24 hours. The impression and plan of care has been dictated by Nurse Dianne Pr actitioner as directed. Dr. Roberto Carlos MD I have performed a history and physical examination and medical decision making of this patient, discussed the same with the dictator, and agree with the dicta tors assessment and plan as written, documented as a scribe. Based on total visit time, I have performed more than 50% of this visit. Objective - Vital Signs Vital signs: Vital Signs Temp 98.2 F 11/30/23 19:45 Pulse 71 11/30/23 19:45 Resp 18 11/30/23 19:45 BP 143/65 11/30/23 19:45 Pulse Ox 98 11/30/23 19:45 FiO2 Intake & Output 11/30/23 11/30/23 12/01/23 06:59 18:59 06:59 Output Total 625 800 Balance -625 -800 Weight 63 kg Output: Urine 625 800 Other: Voiding Method Indwelling Catheter Indwelling Catheter # Bowel Movements 1 - Labs CBC & Chem 7: 11/30/23 11:55 11/30/23 06:10 Labs: Abnormal Lab Results - Last 24 Hours (Table) 11/30/23 11/30/23 Range/Units 06:10 11:55 WBC 16.0 H (3.8-10.6) k/uL RBC 3.33 L (4.30-5.90) m/uL Hgb 9.1 L (13.0-17.5) gm/dL Hct 30.5 L (39.0-53.0) % MCHC 30.0 L (31.0-37.0) g/dL Lymphocytes # (Manual) 11.04 H (1.0-4.8) k/uL Creatinine 1.9 H (0.6-1.5) mg/dL Est GFR (CKD-EPI) 37 L (>=60) BUN/Creatinine Ratio 9.05 L (12.00-20.00) Ratio Calcium 8.0 L (8.7-10.3) mg/dL Magnesium 1.3 L (1.5-2.4) mg/dL Microbiology - Last 24 Hours (Table) 11/27/23 13:56 Stool Culture - Preliminary Stool 11/26/23 20:15 Blood Culture - Preliminary Blood 11/26/23 20:30 Blood Culture - Preliminary Blood 11/28/23 09:53 Urine Culture - Final Urine,Voided Assessment and Plan Time with Patient: Less than 30
[2023-12-01 06:32] LABS: HCT 29.9 % (39.0-53.0); HGB 8.8 gm/dL (13.0-17.5); Hypochromasia Marked; MCH 27.7 pg (25.0-35.0); MCHC 29.4 g/dL (31.0-37.0); MCV 94.4 fL (80.0-100.0); Mean Platelet Volume 8.1; Platelet Count 286 k/uL (150-450); RBC 3.17 m/uL (4.30-5.90); RDW 14.4 % (11.5-15.5); WBC 17.1 k/uL (3.8-10.6)
[2023-12-01 06:42] LABS: African American GFR (CKD) 48 (>60 ml/min/1.73 sqM); Anion Gap 7 mmol/L; Blood Urea Nitrogen 15 mg/dL (9-20); Calcium 7.9 mg/dL (8.4-10.2); Carbon Dioxide 21 mmol/L (22-30); Chloride 112 mmol/L (98-107); Glucose 84 mg/dL (74-99); Magnesium 2.1 mg/dL (1.6-2.3); Non-African American GFR(CKD) 41 (>60 ml/min/1.73 sqM); Potassium 3.6 mmol/L (3.5-5.1); Sodium 140 mmol/L (137-145)
[2023-12-01 09:15] LABS: Eosinophils # (M) 0.34 k/uL (0-0.7); Lymphocytes # (M) 10.77 k/uL (1.0-4.8); Monocytes # (M) 0.86 k/uL (0-1.0); Neutrophils # (M) 5.13 k/uL (1.3-7.7); Neutrophils % (M) 30 %; Nucleated Red Blood Cells 0 /100 WBC (0-0); Total Cells Counted 100
[2023-12-01 09:16] LABS: Rouleaux Present
--- NOTE | 2023-12-01 12:03 | P.PN ---
Subjective Patient is seen in follow-up for acute kidney injury. Has Harrison catheter for urinary retention. Nonoliguric. Renal function improving. Hemodynamically stable. No active complaints. Vital signs are stable. General: No acute distress. HEENT: Head exam is unremarkable. LUNGS: No audible rhonchi or wheezes. HEART: Rate and Rhythm are regular. ABDOMEN: Nontender. EXTREMITITES: No edema. Objective - Vital Signs Vital signs: Vital Signs Temp 97.4 F L 12/01/23 07:07 Pulse 62 12/01/23 08:00 Resp 19 12/01/23 08:00 BP 139/62 12/01/23 07:07 Pulse Ox 95 12/01/23 07:07 FiO2 Intake & Output 11/30/23 12/01/23 12/01/23 18:59 06:59 18:59 Intake Total 1230 Output Total 800 850 400 Balance -800 380 -400 Weight 63.4 kg Intake: Intake, IV Titration 750 Amount Sodium Chloride 0.9% 1, 750 000 ml @ 75 mls/hr IV . [id number] [facility] Rx#:[id number] Oral 480 Output: Urine 800 850 400 Other: Voiding Method Indwelling Catheter Indwelling Catheter Indwelling Catheter # Bowel Movements 1 - Labs CBC & Chem 7: 12/01/23 04:31 12/01/23 04:31 Labs: Abnormal Lab Results - Last 24 Hours (Table) 11/30/23 12/01/23 12/01/23 Range/Units 11:55 04:31 04:31 WBC 16.0 H 17.1 H (3.8-10.6) k/uL RBC 3.33 L 3.17 L (4.30-5.90) m/uL Hgb 9.1 L 8.8 L (13.0-17.5) gm/dL Hct 30.5 L 29.9 L (39.0-53.0) % MCHC 30.0 L 29.4 L (31.0-37.0) g/dL Lymphocytes # (Manual) 11.04 H 10.77 H (1.0-4.8) k/uL Chloride 112 H (98-107) mmol/L Carbon Dioxide 21 L (22-30) mmol/L Creatinine 1.62 H (0.66-1.25) mg/dL Calcium 7.9 L (8.4-10.2) mg/dL Microbiology - Last 24 Hours (Table) 11/27/23 13:56 Stool Culture - Preliminary Stool Assessment and Plan Plan: Assessment: 1. Acute kidney injury secondary to obstructive uropathy. Creatinine 3.3 on admission and is 1.62 today. Urology following. Plan to go home with Harrison catheter and follow-up outpatient with urology. 2. Chronic kidney disease stage IIIb with creatinine 1.7 dated September 15, 2023. Etiology is nephrosclerosis and obstructive uropathy. 3. Metabolic acidosis secondary to acute kidney injury and IV fluids status post bicarb drip. 4. Anemia. Iron deficiency noted. Receiving IV iron. 5. Hypomagnesemia from poor intake and postobstructive diuresis. Replaced. Better. Plan: Hep-Lock IV fluids. Encouraged oral intake. Avoid nephrotoxins. Follow-up outpatient 1 week postdischarge. Repeat BMP and magnesium level 2 to 3 days postdischarge.
--- NOTE | 2023-12-01 12:59 | P.PN ---
Subjective Progress Note Date: 12/01/23 Principal diagnosis: Reason for follow-up is colitis and UTI Patient is a 73-year-old male with a past medical history significant for hypertension hyperlipidemia prostate disorder did have history of Crohn's disease and prostate cancer s/p radiation was sent to the hospital because of abnormal blood work in this patient who did have elevated white count patient did have cloudy urine urine retention requiring Harrison catheter placement CT abdominal pelvis did show some nonspecific colitis. On today's evaluation that is 11/30/2023, patient has been afebrile, patient is breathing comfortably and is currently on room air, patient denies having any significant cough no chest pain shortness of breath, patient denies nausea vomiting or diarrhea and no abdominal pain, feeling better wants to go home. Patient complaining about the Flagyl taste Patient white count is 17.1 today, creatinine 1.62, culture has been negative Objective - Vital Signs Vital signs: Vital Signs Temp 97.4 F L 12/01/23 07:07 Pulse 62 12/01/23 07:07 Resp 19 12/01/23 07:07 BP 139/62 12/01/23 07:07 Pulse Ox 95 12/01/23 07:07 FiO2 Intake & Output 11/30/23 12/01/23 12/01/23 18:59 06:59 18:59 Intake Total 1230 Output Total 800 850 400 Balance -800 380 -400 Weight 63.4 kg Intake: Intake, IV Titration 750 Amount Sodium Chloride 0.9% 1, 750 000 ml @ 75 mls/hr IV . [id number] [facility] Rx#:[id number] Oral 480 Output: Urine 800 850 400 Other: Voiding Method Indwelling Catheter Indwelling Catheter # Bowel Movements 1 - Exam GENERAL DESCRIPTION: An elderly male lying in bed in no distress RESPIRATORY SYSTEM: Unlabored breathing , decreased breath sounds at bases HEART: S1 S2 regular rate and rhythm , ABDOMEN: Soft , no tenderness EXTREMITIES: No edema feet - Labs CBC & Chem 7: 12/01/23 04:31 12/01/23 04:31 Labs: Abnormal Lab Results - Last 24 Hours (Table) 11/30/23 12/01/23 12/01/23 Range/Units 11:55 04:31 04:31 WBC 16.0 H 17.1 H (3.8-10.6) k/uL RBC 3.33 L 3.17 L (4.30-5.90) m/uL Hgb 9.1 L 8.8 L (13.0-17.5) gm/dL Hct 30.5 L 29.9 L (39.0-53.0) % MCHC 30.0 L 29.4 L (31.0-37.0) g/dL Lymphocytes # (Manual) 11.04 H 10.77 H (1.0-4.8) k/uL Chloride 112 H (98-107) mmol/L Carbon Dioxide 21 L (22-30) mmol/L Creatinine 1.62 H (0.66-1.25) mg/dL Calcium 7.9 L (8.4-10.2) mg/dL Microbiology - Last 24 Hours (Table) 11/27/23 13:56 Stool Culture - Preliminary Stool Assessment and Plan (1) Colitis Current Visit: Yes Status: Acute Code(s): K52.9 - NONINFECTIVE GASTROENTERITIS AND COLITIS, UNSPECIFIED SNOMED Code(s): 94678737 (2) Leukocytosis Current Visit: Yes Status: Acute Code(s): D72.829 - ELEVATED WHITE BLOOD CELL COUNT, UNSPECIFIED SNOMED Code(s): 843655212 (3) UTI (urinary tract infection) Current Visit: Yes Status: Acute Code(s): N39.0 - URINARY TRACT INFECTION, SITE NOT SPECIFIED SNOMED Code(s): 52110295 Plan: 1patient with admission to the hospital with abnormal lab in this patient who did have elevated potassium also have elevated white count of 32,000 patient to have a history of Crohn's disease with recent exacerbation and has received antibiotics, now with elevated white count diarrhea and evidence of colitis question of infectious colitis also have abnormality of the bladder wall with a positive UA symptomatic UTI likely etiology 2the patient stool for C. difficile is negative and stool culture and blood cultures pending urine culture has been done so far 3patient white count is slightly up however the patient did have overall clinical improvement has been insisting on going home keeping in mind patient complaining about the taste and Flagyl we will consider oral Augmentin on discharge x 7 days and close outpatient follow-up multiple question concern were answered, also discussed with the OCCUPATIONAL HEALTH NURSING DIRECTOR for admitting team Dictation was produced using [employer] software. please excuse any grammatical, word or spelling errors. Time with Patient: Less than 30
[2023-12-01 15:28] VITALS: BP 141/68; PULSE 65; RESP 18; TEMP 97.5
--- NOTE | 2023-12-02 15:25 | P.DS ---
Providers Date of admission: 11/26/23 20:54 Attending physician: Stiven Larson Consults: 11/26/23 20:58 Consult Physician Urgent Consulting Provider: Sharron Jaffe Consult Reason/Comments: melita Do you want consulting provider notified?: Yes 11/26/23 20:59 Consult Physician Urgent Consulting Provider: Turner Petersen Consult Reason/Comments: recurrent pneumonias UTI Do you want consulting provider notified?: Yes 11/27/23 10:08 Consult Physician Routine Consulting Provider: Chuck Olvera Consult Reason/Comments: bilateral hydronephrosis Do you want consulting provider notified?: Yes Primary care physician: Kevin Ballard DO Hospital Course: Final Diagnosis acute urinary tract infection with sepsis, present on admission Urinary retention requiring indwelling quintanilla catheter Hyperkalemia Acute kidney injury from urinary retention/ATN improving Chronic kidney disease Bilateral hydronephrosis Anemia iron deficiency history of prostate cancer history of hypertension History of dyslipidemia Full Code Discharge Disposition Patient stable medically for discharge home. Recommending to repeat a basic metabolic panel as well as magnesium in 1 week. Patient will continue with indwelling catheter for the next 2 weeks and follow-up with urology in the office he has an appointment scheduled with Dr. Lockhart on 12/17/2023 at 10am. Patient is continued on all same home medications. Additional follow-ups include infectious disease, nephrology and his PCP Dr. Kevin Ballard in 1 to 2 days. Hospital Course patient is a 73-year-old gentleman with past medical history significant for Crohn's disease, recurrent UTIs, prostate cancer status post radiation therapy who was sent in to the ER from Dr. bradshaw office for abnormal labs . patient has been complaining of lower abdominal pain, also complaining of inability to empty his bladder, there was no complain of burning micturition but was complaining of decreased urination. There was no complains of fever or chills. Dr. Patino ordered some labs and later called the patient to come to the ER as his potassium was elevated. Patient does follow up outpatient with urology and has been told that he empty his bladder incompletely, Urodynamic testing has shown a small capacity bladder with uninhibited contractions. Initial lab work done in the ER showed WBC 32.1, hemoglobin 9.4, platelet count 318, sodium 139, potassium 6.3, BUN 45, creatinine 3.32, glucose 92. UA showing leukocyte Estrace positive, urine WBC 182, nitrite negative. ultrasound abdominal done showed moderate to severe bilateral hydronephrosis. Patient admitted to internal medicine service with infectious disease, nephrology and urology coverage. Indwelling catheter was placed for the urinary retention. Urine culture comes back negative as well as blood culture negative. White count did improve down to 17.1 he was treated with IV ceftriaxone while inpatient. As well as oral Flagyl. Patient did have diarrhea and nausea likely from the antibiotic therapy. He was discharged on a course of oral Augmentin for 7 days. Patient will continue with the indwelling catheter for 2 weeks and follow-up with urology in the office and will be considered for CIC program with the eventual plan of starting Botox for his bladder. Hemodynamically he is stable. Creatinine improved to 1.62. Please see medication reconciliation for a list of current medications. Thank you for allowing us to participate in the care of this patient. The impression and plan of care has been dictated by Ana Villa, Nurse Practitioner as directed. Dr. Roberto Carlos MD I have performed a history and physical examination and medical decision making of this patient, discussed the same with the dictator, and agree with the dictators assessment and plan as written, documented as a scribe. Based on total visit time, I have performed more than 50% of this visit. Patient Condition at Discharge: Stable Plan - Discharge Summary Discharge Rx Participant: No New Discharge Prescriptions: New Amoxic-Pot Clav 875-125Mg [Augmentin 875-125] 1 tab PO Q12HR 7 Days #14 tab Famotidine [Pepcid] 20 mg PO DAILY #30 tab Continue Atorvastatin [Lipitor] 40 mg PO HS Sertraline HCl [Zoloft] 150 mg PO HS Folic Acid 1 mg PO HS Gabapentin [Neurontin] 300 mg PO HS Cyanocobalamin (Vitamin B-12) [Vitamin B-12] 1,000 mcg PO HS Magnesium Oxide 420mg 420 mg PO BID Ibuprofen [Motrin] 800 mg PO Q8H PRN PRN Reason: Pain Acetaminophen Tab [Tylenol] 650 mg PO HS Cholecalciferol [Vitamin D3 (25 Mcg = 1000 Iu)] 50 mcg PO HS Vedolizumab [Entyvio] 300 mg IV Q56D Isosorbide Mononitrate ER [Imdur] 30 mg PO HS Nitroglycerin Sl Tabs [Nitrostat] 0.4 mg SL Q5M PRN PRN Reason: Chest Pain Metoprolol Succinate (ER) [Toprol XL] 25 mg PO HS Furosemide [Lasix] 20 mg PO HS Discharge Medication List Atorvastatin [Lipitor] 40 mg PO HS 09/16/17 [History] Cyanocobalamin (Vitamin B-12) [Vitamin B-12] 1,000 mcg PO HS 08/22/19 [History] Folic Acid 1 mg PO HS 08/22/19 [History] Gabapentin [Neurontin] 300 mg PO HS 08/22/19 [History] Sertraline HCl [Zoloft] 150 mg PO HS 08/22/19 [History] Isosorbide Mononitrate ER [Imdur] 30 mg PO HS 10/25/21 [History] Acetaminophen Tab [Tylenol] 650 mg PO HS 11/27/23 [History] Cholecalciferol [Vitamin D3 (25 Mcg = 1000 Iu)] 50 mcg PO HS 11/27/23 [History] Furosemide [Lasix] 20 mg PO HS 11/27/23 [History] Ibuprofen [Motrin] 800 mg PO Q8H PRN 11/27/23 [History] Magnesium Oxide 420mg 420 mg PO BID 11/27/23 [History] Metoprolol Succinate (ER) [Toprol XL] 25 mg PO HS 11/27/23 [History] Nitroglycerin Sl Tabs [Nitrostat] 0.4 mg SL Q5M PRN 11/27/23 [History] Vedolizumab [Entyvio] 300 mg IV Q56D 11/29/23 [History] Amoxic-Pot Clav 875-125Mg [Augmentin 875-125] 1 tab PO Q12HR 7 Days #14 tab 12/01/23 [Rx] Famotidine [Pepcid] 20 mg PO DAILY #30 tab 12/01/23 [Rx] Follow up Appointment(s)/Referral(s): Kevin Ballard DO [Primary Care Provider] - 1-2 days (Call office if you feel lyou need to see him) Terrance Lockhart MD [STAFF PHYSICIAN] - 12/17/23 10:00 am Gui Chau DO [STAFF PHYSICIAN] - 12/10/23 11:20 am Turner Petersen MD [STAFF PHYSICIAN] - 12/13/23 3:30 pm Ambulatory/Diagnostic Orders: Basic Metabolic Panel [LAB.AMB] Time Frame: 3 Days, Location: None Selected Magnesium [LAB.AMB] Location: None Selected Patient Instructions/Handouts: Acute Kidney Injury (DC), Urinary Tract Infection in Men (DC) Discharge Disposition: HOME SELF-CARE
== END 2023-12-01 15:44 | disposition home or self-care (01) | DRG 871 ==
LOC: EC 17:52 → 4SSUR 20:54
PROVIDERS: ADMIT Hospitalist; ATTEND Hospitalist
DX: A41.9 Sepsis, unspecified organism (principal); N17.0 Acute kidney failure with tubular necrosis; N13.6 Pyonephrosis; K50.90 Crohn's disease, unspecified, without complications; E87.20 Acidosis, unspecified; I12.9 Hypertensive chronic kidney disease with stage 1 through stage 4 chronic kidney disease, or unspecified chronic kidney disease; Z85.46 Personal history of malignant neoplasm of prostate; E78.5 Hyperlipidemia, unspecified; N18.32 Chronic kidney disease, stage 3b; D64.9 Anemia, unspecified; E86.9 Volume depletion, unspecified; D50.9 Iron deficiency anemia, unspecified; R33.8 Other retention of urine; E11.22 Type 2 diabetes mellitus with diabetic chronic kidney disease; E83.42 Hypomagnesemia; H91.90 Unspecified hearing loss, unspecified ear; Z79.899 Other long term (current) drug therapy; Z87.01 Personal history of pneumonia (recurrent); Z87.440 Personal history of urinary (tract) infections; Z92.3 Personal history of irradiation; Z96.1 Presence of intraocular lens; Z98.42 Cataract extraction status, left eye; Z98.41 Cataract extraction status, right eye
CPT/HCPCS: 36415; 51702; 74176; 76770; 80048; 80053; 81001; 82728; 83540; 83550; 83605; 83690; 83735; 84100; 85025; 87040; 87045; 87046; 87086; 87324; 93005; 96361; 96365; 96375; 99291

== ENCOUNTER → 2023-12-06 | Outpatient (CLI) | payer MEDICARE ==
[2023-12-06 11:15] LABS: Creatinine,Urine Random 83.1 mg/dL; Protein/Creatinine Ratio,Urine 2.07
[2023-12-06 14:59] LABS: HCT 32.4 % (39.6-50.0); HGB 9.4 g/dL (13.0-17.0); MCH 27.2 pg (27.0-32.0); MCV 93.9 FL (80.0-97.0); Mean Platelet Volume 11.3 FL (9.5-12.2); NRBC Per 100 WBC 0 X 10*3/uL (0.00-0.01); Platelet Count 356 X 10*3/uL (140-440); RBC 3.45 X 10*6/uL (4.40-5.60); RDW 15.5 % (11.5-14.5); WBC 20.67 X 10*3/uL (4.50-10.00)
[2023-12-06 15:17] LABS: BUN/Creat Ratio 10.19 Ratio (12.00-20.00); Blood Urea Nitrogen 16.3 mg/dL (9.0-27.0); Carbon Dioxide 22.2 mmol/L (21.6-31.8); Chloride 107 mmol/L (96-109); Glucose 124 mg/dL (70-110); Magnesium 1.2 mg/dL (1.5-2.4); Phosphorus 3.2 mg/dL (2.4-5.1); Potassium 3.8 mmol/L (3.5-5.5); Sodium 142 mmol/L (135-145)
[2023-12-06 15:51] LABS: Appearance,Urine Turbid (Clear); Bilirubin,Urine Negative (Negative); Blood,Urine Moderate (Negative); Color,Urine Yellow (Yellow); Ketones,Urine Negative (Negative); Nitrite,Urine Negative (Negative); PH, Urine 6.5; Specific Gravity,Urine 1.013 (1.001-1.030); Urobilinogen,Urine 0.2 E.U./DL
[2023-12-06 16:36] LABS: Bacteria,Urine 2+ (None Seen); Calcium Oxalate Crystals,Urine Present (None Seen)
[2023-12-06 16:42] LABS: Yeast (UA) Present (None Seen)
== END | disposition home or self-care (01) ==
LOC: LABWHC1 10:21
PROVIDERS: ATTEND Nurse Practitioner Acute Care
DX: N18.2 Chronic kidney disease, stage 2 (mild) (principal); N17.9 Acute kidney failure, unspecified
CPT/HCPCS: 36415; 80048; 81001; 82043; 82306; 82570; 83735; 83970; 84100; 84156; 85027

== ENCOUNTER 2024-03-21 07:45 | Day surgery (SDC) | payer MEDICARE ==
--- NOTE | 2024-03-07 13:12 | P.HPIHPCON ---
History of Present Illness H&P Date: 03/07/24 Chief Complaint: BPH, urinary retention This is a 73-year-old male with history of prostate cancer treated with radiation therapy, has now developed urinary retention has failed multiple trial of void. He is unable to perform CIC and currently is catheter dependent. Option of UroLift was discussed with him, alternative of a TURP was also discussed. He agreed to proceed with a UroLift aware the risk which includes but not limited to bleeding, infection, persistent retention, and urinary incontinence. Risk of anesthesia was also discussed. He understood all the risk and agreed to proceed Consent for Procedure: I have explained the operation/procedure to the patient, including the risks, benefits, side effects, alternative therapies (including not receiving the proposed treatment or service), the likelihood of the patient achieving his/her goals, and potential recuperation problems for the procedure/sedation/analgesia, as well as any blood products, if indicated. I also explained to the patient the risks, benefits and side effects of the alternatives, as well as the risks related to not receiving the proposed procedure, care, treatment, or services. Past Medical History Past Medical History: Asthma, Cancer, Hearing Disorder / Deafness, Hyperlipidemia, Hypertension, Prostate Disorder, Sleep Apnea/CPAP/BIPAP Additional Past Medical History / Comment(s): hx of Crohn's, hx of prostate ca with radiation approx 2009, does not use cpap machine,deaf rt ear,hearing aide lt ear History of Any Multi-Drug Resistant Organisms: None Reported Past Surgical History: Orthopedic Surgery Additional Past Surgical History / Comment(s): rt knee sx, neck "2 bolts", rod cataracts with lens implant Past Anesthesia/Blood Transfusion Reactions: No Reported Reaction Past Psychological History: No Psychological Hx Reported Smoking Status: Former smoker Past Alcohol Use History: Occasional Additional Past Alcohol Use History / Comment(s): quit smoking approx 1997, smoked 2ppd from age 11 (1961) Past Drug Use History: None Reported - Past Family History Mother Family Medical History: No Reported History Sister(s) Family Medical History: Cancer Additional Family Medical History / Comment(s): breast and lung CA Medications and Allergies Home Medications Medication Instructions Recorded Confirmed Type Atorvastatin [Lipitor] 40 mg PO HS 09/16/17 11/27/23 History Cyanocobalamin (Vitamin B-12) 1,000 mcg PO HS 08/22/19 11/27/23 History [Vitamin B-12] Folic Acid 1 mg PO HS 08/22/19 11/27/23 History Gabapentin [Neurontin] 300 mg PO HS 08/22/19 11/27/23 History Sertraline HCl [Zoloft] 150 mg PO HS 08/22/19 11/27/23 History Isosorbide Mononitrate ER [Imdur] 30 mg PO HS 10/25/21 11/27/23 History Acetaminophen Tab [Tylenol] 650 mg PO HS 11/27/23 11/27/23 History Cholecalciferol [Vitamin D3 (25 50 mcg PO HS 11/27/23 11/27/23 History Mcg = 1000 Iu)] Furosemide [Lasix] 20 mg PO HS 11/27/23 11/27/23 History Ibuprofen [Motrin] 800 mg PO Q8H PRN 11/27/23 11/27/23 History Magnesium Oxide 420mg 420 mg PO BID 11/27/23 11/27/23 History Metoprolol Succinate (ER) [Toprol 25 mg PO HS 11/27/23 11/27/23 History XL] Nitroglycerin Sl Tabs [Nitrostat] 0.4 mg SL Q5M PRN 11/27/23 11/27/23 History Vedolizumab [Entyvio] 300 mg IV Q56D 11/29/23 11/29/23 History Amoxic-Pot Clav 875-125Mg 1 tab PO Q12HR 7 Days #14 tab 12/01/23 Rx [Augmentin 875-125] Famotidine [Pepcid] 20 mg PO DAILY #30 tab 12/01/23 Rx Allergies Allergy/AdvReac Type Severity Reaction Status Date / Time No Known Allergies Allergy Verified 11/27/23 12:16 Surgical - Exam - General no distress, no no pain - Eyes normal ocular movement, no pale - ENT normal nares, normal mucosa - Respiratory normal expansion, normal respiratory effort - Abdomen Abdomen: soft, non tender Assessment and Plan Assessment: OR for Urolift
[~2024-03-21 07:45] MED LIST changes: +DEXAMETHASONE SOD PHOSPHATE 4 MG/ML 1 ML VIAL ONE; -FUROSEMIDE 10 MG/ML 2 ML VIAL IV ONE; +ONDANSETRON 4 MG/2 ML VIAL ONE
[2024-03-21] MEDS ORDERED: fentaNYL (PF) 50 MCG/ML 2 ML AMP ONE (07:49)
[2024-03-21] MEDS ORDERED: PROPOFOL 10 MG/ML 20 ML VIAL IV ONE (07:49)
[2024-03-21] MEDS ORDERED: IOPAMIDOL-370 100ML BTL ONE (07:49)
[2024-03-21] MEDS ORDERED: ceFAZolin 1,000 MG VIAL ONE (07:49)
[2024-03-21] MEDS ORDERED: LACTATED RINGERS 1,000 ML BAG ONE (07:49)
[2024-03-21] MEDS ORDERED: LIDOCAINE 1% INJ 10MG/ML (20 ML MDV) ONE (07:49)
[2024-03-21] MEDS ORDERED: ePHEDrine 50 MG/ML 1 ML VIAL ONE (07:49)
[2024-03-21] MEDS ORDERED: SUCCINYLCHOLINE CHLORIDE 200 MG/10 ML VIAL IV ONE (07:49)
[2024-03-21] MEDS ORDERED: SODIUM CHLORIDE 0.9% 50 ML BAG ONE (07:49)
[2024-03-21] MEDS ORDERED: WATER FOR INJECTION, STERILE 10 ML VIAL IV ONE (07:49)
[2024-03-21] MEDS ORDERED: MIDAZOLAM 2 MG/2 ML VIAL ONE (07:49)
--- NOTE | 2024-04-25 14:28 | OP ---
OPERATIVE REPORT DATE OF SERVICE : 03/21/2024 PREOPERATIVE DIAGNOSIS: Urinary retention, BPH. POSTOPERATIVE DIAGNOSIS: Urinary retention, BPH. OPERATION: UroLift x6, cystogram. IMPLANT: UroLift implant x6. COMPLICATIONS: None. CONDITION: Stable. ESTIMATED BLOOD LOSS: 10 mL. INDICATIONS: This is a 73-year-old male with history of prostate cancer, treated with radiation therapy. He has developed recurrent urinary retention, unable to perform CIC and he is currently catheter dependent, discussed with him an option of UroLift, based on cystoscopy, it showed evidence of an occlusive prostate. Discussed risks which include but not limited to bleeding, infection, urinary incontinence, persistent retention. Discussed with him there are higher risks of developing retention given his previous history of radiation. He understood all the risks and agreed to proceed. DESCRIPTION OF PROCEDURE: The patient was brought to the operating room, general anesthesia was induced. He was prepped and draped in sterile fashion, placed in dorsal lithotomy position. Cystoscopy was carried out with a 21-St Helenian sheath was inserted per urethra, cystoscopy was performed, which showed an occlusive prostate secondary to enlargement of bilateral lateral lobes. In addition, bladder was heavily trabeculated. Along the posterior bladder wall, there was an erythematous area within a diverticulum, it was not suspicious for malignancy, but given his history of Crohn's disease, there was concern that it could be a fistulous connection to the bowel. Given this finding, the decision was made to proceed with a cystogram. At this time, the cystoscope was withdrawn and 18-St Helenian Harrison was placed, dry kiln operator images were obtained, which showed no abnormality. At this point, the bladder was filled with contrast, of note the patient's bladder was contracted as I was only able to infuse 120 mL of Isovue, cystogram showed no evidence of fistulous tract, post-drainage image was obtained, also showed no evidence of any fistulous tract. At this point, given these findings, a decision was made to proceed with UroLift. At this time, cystoscopy was re-inserted per urethra. Attention was then taken to placement of UroLift clips. A total of 6 UroLift clips were placed, 3 at the right side and 3 on the left. Clips were placed distal to the bladder neck, staying proximal to the veru. After placement of 6 clips, there was formation of an anterior channel, there was no evidence of bleeding. There was no evidence of clip perforation into the bladder or any bone strikes. At this time, cystoscope was withdrawn and an 18-St Helenian Harrison was placed with return of clear urine. The patient tolerated the procedure well, was taken to the recovery in stable condition. He will follow up within 1 week for trial of void. MMODL / IJN: [id number] /
--- NOTE | 2024-05-09 18:21 | FL ---
EXAMINATION TYPE: FL urography retrograde DATE OF EXAM: 04/14/2024 1:15 PM COMPARISON: Pre Operative Images if available both CT/MRI or plain film CLINICAL INDICATION: Male, 73 years old with history of ASSESS FOR FISTULA OR CYSTO; TECHNIQUE: FL urography retrograde, multiple fluoroscopic images provided for procedure. Total fluoroscopy time: 10 seconds Total submitted images to PACS: 2 DAP: 0.6949 mGym2 Gycm2 uGym2 cGycm2 or equivalent. FINDINGS: Multiple intraoperative fluoroscopic images were taken to evaluat for urinary bladder fistula, No ext ravasation of contrast identified. Harrison catheter in place in appropriate position. No immediate intr aoperative complication. IMPRESSION: 1. No evidence for intraoperative complication. 2. Please see the operative/procedural note for further details. [facility], , 05/09/2024 6:18 PM
== END 2024-03-21 10:50 ==
LOC: OR 07:45
PROVIDERS: ATTEND Urology
DX: N40.1 Benign prostatic hyperplasia with lower urinary tract symptoms
CPT/HCPCS: 74420

== ENCOUNTER 2024-04-13 09:18 | Inpatient (IN) | payer MEDICARE ==
--- NOTE | 2024-04-13 10:03 | ED ---
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 Patient states that he is unsure what his abnormal labs were. Patient states he does have cloudy dark urine. Patient denies any dysuria he has been admitted in the past for renal failure, UTI. Reports no fevers chills chest pain shortness of breath headache or dizziness. -: week(s) - Related Data Home Medications Medication Instructions Recorded Confirmed Atorvastatin [Lipitor] 40 mg PO HS 09/16/17 11/27/23 Folic Acid 1 mg PO HS 08/22/19 11/27/23 Gabapentin [Neurontin] 300 mg PO HS 08/22/19 11/27/23 Sertraline HCl [Zoloft] 150 mg PO HS 08/22/19 11/27/23 Isosorbide Mononitrate ER [Imdur] 30 mg PO HS 10/25/21 11/27/23 Furosemide [Lasix] 20 mg PO HS 11/27/23 11/27/23 Magnesium Oxide 420mg 420 mg PO BID 11/27/23 11/27/23 Nitroglycerin Sl Tabs [Nitrostat] 0.4 mg SL Q5M PRN 11/27/23 11/27/23 Vedolizumab [Entyvio] 300 mg IV Q56D 11/29/23 11/29/23 Cholecalciferol [Vitamin D3 (125 125 mcg PO HS 04/13/24 04/13/24 Mcg = 5000 Iu)] Cyanocobalamin (Vitamin B-12) 5,000 mcg PO HS 04/13/24 04/13/24 [Vitamin B-12] Pro-Bifido Probiotic 150 mg PO HS 04/13/24 04/13/24 Vit C/E/Zn/Coppr/Lutein/Zeaxan 2 cap PO HS 04/13/24 04/13/24 [Preservision Areds 2 Softgel] Allergies Allergy/AdvReac Type Severity Reaction Status Date / Time No Known Allergies Allergy Verified 04/13/24 13:37 Review of Systems ROS Statement: Those systems with pertinent positive or pertinent negative responses have been documented in the HPI. ROS Other: All systems not noted in ROS Statement are negative. Past Medical History Past Medical History: Asthma, Cancer, Hearing Disorder / Deafness, Hyperlipidemia, Hypertension, Prostate Disorder, Sleep Apnea/CPAP/BIPAP Additional Past Medical History / Comment(s): hx of Crohn's, hx of prostate ca with radiation approx 2009, does not use cpap machine,deaf rt ear,hearing aide lt ear History of Any Multi-Drug Resistant Organisms: None Reported Past Surgical History: Orthopedic Surgery Additional Past Surgical History / Comment(s): rt knee sx, neck "2 bolts", rod cataracts with lens implant Past Anesthesia/Blood Transfusion Reactions: No Reported Reaction Past Psychological History: No Psychological Hx Reported Smoking Status: Former smoker Past Alcohol Use History: Occasional Past Drug Use History: None Reported - Past Family History Mother Family Medical History: No Reported History Sister(s) Family Medical History: Cancer Additional Family Medical History / Comment(s): breast and lung CA General Exam Limitations: no limitations General appearance: alert, in no apparent distress Head exam: Present: atraumatic, normocephalic, normal inspection Eye exam: Present: normal appearance, PERRL, EOMI. Absent: scleral icterus, conjunctival injection, periorbital swelling ENT exam: Present: normal exam, mucous membranes moist Neck exam: Present: normal inspection. Absent: tenderness, meningismus, lymphadenopathy Respiratory exam: Present: normal lung sounds bilaterally. Absent: respiratory distress, wheezes, rales, rhonchi, stridor Cardiovascular Exam: Present: normal rhythm, bradycardia, normal heart sounds. Absent: systolic murmur, diastolic murmur, rubs, gallop, clicks GI/Abdominal exam: Present: soft, normal bowel sounds. Absent: distended, tenderness, guarding, rebound, rigid Extremities exam: Present: normal inspection, full ROM, normal capillary refill. Absent: tenderness, pedal edema, joint swelling, calf tenderness Back exam: Present: normal inspection Neurological exam: Present: alert, oriented X3, CN II-XII intact Psychiatric exam: Present: normal affect, normal mood Skin exam: Present: warm, dry, intact, normal color. Absent: rash Course Vital Signs 09/05/24 09:39 Temperature 97.6 F Pulse Rate 50 L Respiratory 16 Rate Blood Pressure 126/65 O2 Sat by Pulse 100 Oximetry Medical Decision Making - Medical Decision Making Was pt. sent in by a medical professional or institution (FELA Padron, [employer], urgent care, hospital, or group home...) When possible be specific @ -Nephrology Did you speak to anyone other than the patient for history (EMS, parent, family, police, friend...)? What history was obtained from this source @ -No Did you review nursing and triage notes (agree or disagree)? Why? @ -I reviewed and agree with nursing and triage notes Were old charts reviewed (outside hosp., previous admission, EMS record, old EKG, old radiological studies, urgent care reports/EKG's, group home records)? Report findings @ -No old charts were reviewed Differential Diagnosis (chest pain, altered mental status, abdominal pain women, abdominal pain men, vaginal bleeding, weakness, fever, dyspnea, syncope, headache, dizziness, GI bleed, back pain, seizure, CVA, palpatations, mental health, musculoskeletal)? @ -Differential Abdominal Pain Men: Appendicitis, cholecystitis, diverticulosis, ischemic bowel, pancreatitis, hepatitis, UTI, gastroenteritis, AAA, incarcerated hernia, bowel obstruction, constipation, inflammatory bowel, hepatitis, peptic ulcer disease, splenic infarction, perforated viscus, testicular torsion, renal failure, dehydration, UTI this is not meant to be an all-inclusive list EKG interpreted by me (3pts min.). @ -As above X-rays interpreted by me (1pt min.). @ -None done CT interpreted by me (1pt min.). @ -None done U/S interpreted by me (1pt. min.). @ -Ultrasound kidney bladder showing evidence of bilateral hydronephrosis, changes within the bladder wall What testing was considered but not performed or refused? (CT, X-rays, U/S, labs)? Why? @ -None What meds were considered but not given or refused? Why? @ -None Did you discuss the management of the patient with other professionals (professionals i.e. FELA Padron, [employer], lab, RT, psych nurse, social services counselor, wire fence builder, teacher, community liaison officer, correctional case records supervisor)? Give summary @ -[Dr. Gomez for admission with consults to nephrology and urology Was smoking cessation discussed for >3mins.? @ -No Was critical care preformed (if so, how long)? @ -No Were there social determinants of health that impacted care today? How? (Homelessness, low income, unemployed, alcoholism, drug addiction, transportation, low edu. Level, literacy, decrease access to med. care, long-term, re hab)? @ -No Was there de-escalation of care discussed even if they declined (Discuss DNR or withdrawal of care, Hospice)? DNR status @ -No What co-morbidities impacted this encounter? (DM, HTN, Smoking, COPD, CAD, Cancer, CVA, ARF, Chemo, Hep., AIDS, mental health diagnosis, sleep apnea, morbid obesity)? @ -Renal disease Was patient admitted / discharged? Hospital course, mention meds given and ro dorinda, prescriptions, significant lab abnormalities, going to OR and other pertinent info. @ -Admitted patient's 5 significant leukocytosis, UTI patient was given Rocephin started maintenance fluids. Patient has hypokalemia was given sodium bicarb, insulin, dextrose, calcium gluconate patient will repeat laboratory studies. Patient have consult to nephrology, urology. Undiagnosed new problem with uncertain prognosis? @ -No Drug Therapy requiring intensive monitoring for toxicity (Heparin, Nitro, Insulin, Cardizem)? @ -No Were any procedures done? @ -No Diagnosis/symptom? @ -UTI, acute on chronic renal failure, hyperkalemia, leukocytosis, hydronephrosis Acute, or Chronic, or Acute on Chronic? @ -Acute Uncomplicated (without systemic symptoms) or Complicated (systemic symptoms)? @ -Complicated Side effects of treatment? @ -No Exacerbation, Progression, or Severe Exacerbation? @ -No Poses a threat to life or bodily function? How? (Chest pain, [place], AR, pneumonia, PE, COPD, DKA, ARF, appy, cholecystitis, CVA, Diverticulitis, Homicidal, Suicidal, threat to staff... and all critical care pts) @ -Yes renal failure causing hyperkalemia and cardiac issues arrhythmia causing cardiac arrest - Lab Data Result diagrams: 04/13/24 10:05 04/13/24 12:25 Lab Results 04/13/24 04/13/24 04/13/24 Range/Units 09:54 10: 12:25 WBC 24.8 H (3.8-10.6) k/uL RBC 3.89 L (4.30-5.90) m/uL Hgb 11.3 L (13.0-17.5) gm/dL Hct 33.9 L (39.0-53.0) % MCV 87.1 (80.0-100.0) fL MCH 29.2 (25.0-35.0) pg MCHC 33.5 (31.0-37.0) g/dL RDW 14.7 (11.5-15.5) % Plt Count 286 (150-450) k/uL MPV 8.4 Neutrophils % (Manual) 21 % Lymphocytes % (Manual) 79 % Neutrophils # (Manual) 5.21 (1.3-7.7) k/uL Lymphocytes # (Manual) 19.59 H (1.0-4.8) k/uL Nucleated RBCs 0 (0-0) /100 WBC Manual Slide Review Performed Hypochromasia Marked Ovalocytes Present Sodium 138 (137-145) mmol/L Potassium 6.3 H* (3.5-5.1) mmol/L Chloride 107 (98-107) mmol/L Carbon Dioxide 27 (22-30) mmol/L Anion Gap 4 mmol/L BUN 36 H (9-20) mg/dL Creatinine 2.42 H (0.66-1.25) mg/dL Est GFR (CKD-EPI)AfAm 29 (>60 ml/min/1.73 sqM) Est GFR (CKD-EPI)NonAf 25 (>60 ml/min/1.73 sqM) Glucose 88 (74-99) mg/dL Calcium 8.8 (8.4-10.2) mg/dL Total Bilirubin 0.4 (0.2-1.3) mg/dL AST 28 (17-59) U/L ALT 32 (4-49) U/L Alkaline Phosphatase 181 H (38-126) U/L Total Protein 7.2 (6.3-8.2) g/dL Albumin 3.6 (3.5-5.0) g/dL Urine Color Colorless Urine Appearance Turbid (Clear) Urine pH 7.5 (5.0-8.0) Ur Specific [place] 1.018 (1.001-1.035) Urine Protein 1+ H (Negative) Urine Glucose (UA) Negative (Negative) Urine Ketones Negative (Negative) Urine Blood Moderate H (Negative) Urine Nitrite Positive (Negative) Urine Bilirubin Negative (Negative) Urine Urobilinogen <2.0 (<2.0) mg/dL Ur Leukocyte Esterase Large H (Negative) Urine RBC 30 H (0-5) /hpf Urine WBC >182 H (0-5) /hpf Urine WBC Clumps Many H (None) /hpf Urine Bacteria Few H (None) /hpf Disposition Clinical Impression: Leukocytosis, RAISA (acute kidney injury), Unspecified hydronephrosis, Hyperkalemia, UTI (urinary tract infection) Disposition: ADMITTED IP TO THIS HOSP Condition: Poor Referrals: Kevin Ballard DO [Primary Care Provider] - 1-2 days Time of Disposition: 13:40
[2024-04-13 10:56] LABS: Appearance,Urine Turbid (Clear); Bacteria,Urine Few /hpf; Bilirubin,Urine Negative (Negative); Blood,Urine Moderate (Negative); Color,Urine Colorless; Glucose,Urine (UA) Negative (Negative); Ketones,Urine Negative (Negative); Leukocyte Esterase,Urine Large (Negative); Nitrite,Urine Positive (Negative); PH, Urine 7.5 (5.0-8.0); Protein,Urine 1+ (Negative); RBC,Urine 30 /hpf (0-5); Specific Gravity,Urine 1.018 (1.001-1.035); Urobilinogen,Urine <2.0 mg/dL (<2.0); WBC,Urine >182 /hpf (0-5)
--- NOTE | 2024-04-13 11:00 | US ---
EXAMINATION TYPE: US kidneys/renal and bladder DATE OF EXAM: 04/13/2024 COMPARISON: CT & US 2023 CLINICAL INDICATION: Male, 73 years old with history of Renal failure; EXAM MEASUREMENTS: Right Kidney: 10.5 x 5.3 x 5.9 cm Left Kidney: 10.8 x 5.2 x 5.9 cm Right Kidney: Moderate hydronephrosis Left Kidney: Moderate hydronephrosis, 2 cysts seen lateral upper pole measuring 1.9cm and 1.7cm Bladder: not fully distended, irregular wall Bilateral Jets seen: no IMPRESSION: 1. Ongoing moderate bilateral hydronephrosis. Correlate with patient's kidney function. 2. Some irregularity/trabeculation of the posterior bladder wall may be seen with chronic bladder out let obstruction.
[2024-04-13 11:13] LABS: HCT 33.9 % (39.0-53.0); HGB 11.3 gm/dL (13.0-17.5); Hypochromasia Marked; MCH 29.2 pg (25.0-35.0); MCHC 33.5 g/dL (31.0-37.0); MCV 87.1 fL (80.0-100.0); Mean Platelet Volume 8.4; Platelet Count 286 k/uL (150-450); RBC 3.89 m/uL (4.30-5.90); RDW 14.7 % (11.5-15.5); WBC 24.8 k/uL (3.8-10.6)
[2024-04-13 12:11] LABS: Lymphocytes # (M) 19.59 k/uL (1.0-4.8); Neutrophils # (M) 5.21 k/uL (1.3-7.7); Neutrophils % (M) 21 %; Nucleated Red Blood Cells 0 /100 WBC (0-0); Total Cells Counted 100
[2024-04-13 12:12] LABS: Ovalocytes Present
[2024-04-13 13:02] LABS: ALT 32 U/L (4-49); AST 28 U/L (17-59); African American GFR (CKD) 29 (>60 ml/min/1.73 sqM); Albumin 3.6 g/dL (3.5-5.0); Alkaline Phosphatase 181 U/L (38-126); Anion Gap 4 mmol/L; Blood Urea Nitrogen 36 mg/dL (9-20); Calcium 8.8 mg/dL (8.4-10.2); Carbon Dioxide 27 mmol/L (22-30); Chloride 107 mmol/L (98-107); Glucose 88 mg/dL (74-99); Non-African American GFR(CKD) 25 (>60 ml/min/1.73 sqM); Sodium 138 mmol/L (137-145); Total Bilirubin 0.4 mg/dL (0.2-1.3); Total Protein 7.2 g/dL (6.3-8.2)
[2024-04-13 13:22] LABS: Potassium 6.3 mmol/L (3.5-5.1)
[2024-04-13] MEDS: SODIUM CHLORIDE 0.9% 500 ML 500 ML IV ONE (13:36)
[2024-04-13] MEDS: DEXTROSE 50% SYRINGE 50 ML IVP ONE (13:36)
[2024-04-13] MEDS: SODIUM BICARB 8.4% 50 ML SYR (1 MEQ/ML) IV ONE (13:36)
[2024-04-13] MEDS: SODIUM CHLORIDE 0.9% 1,000 ML IV SCH (13:36)
[2024-04-13] MEDS: INSULIN REGULAR 100 UNIT/ML VIAL (IV) IV ONE (13:37)
[2024-04-13] MEDS ORDERED: NALOXONE 0.4 MG/ML 1 ML VIAL IV PRN (13:40)
[2024-04-13] MEDS ORDERED: ACETAMINOPHEN TAB 325 MG TAB PO PRN (13:40)
[2024-04-13] MEDS ORDERED: ONDANSETRON 4 MG/2 ML VIAL IVP PRN (13:40)
[2024-04-13] MEDS: CALCIUM GLUCONATE IN NACL 1 GM in SALINE 1 100ML.BAG IVPB ONE (14:03)
--- NOTE | 2024-04-13 16:17 | P.HPIM ---
History of Present Illness H&P Date: 04/13/24 Patient is a 73-year-old male with a past medical history of Crohn's disease, recurrent UTIs, prostate cancer status post radiation, CKD stage III with creatinine baseline around 1.7, chronic bilateral hydronephrosis who previously had bilateral stents without improvement in hydronephrosis or kidney function, neurogenic bladder, history of chronic Harrison catheter which was removed 1 month ago after UroLift procedure who was sent to the ED by his staffing mgr for abnormal labs. Patient also reports that his urine is cloudy color. Patient otherwise has no symptoms. In the ED patient WBC was 24.8 with predominantly lymphocytes, potassium 6.3, creatinine 2.42, BUN 36. Patient renal ultrasound showed bilateral moderate hydronephrosis with some irregularity tuberculation of the posterior bladder wall. Patient was admitted to the medicine service. ROS: 10 ROS reviewed and are negative except as noted in HPI Physical exam General: [Alert and oriented, well nourished, no acute distress]. Eye: [PERRL, EOMI, normal conjunctiva]. HENT: [Normocephalic, clear tympanic membranes, normal hearing, moist oral mucosa, no scleral icterus, no sinus tenderness]. Neck: [Supple, non-tender, no carotid bruits, no JVD, no lymphadenopathy]. Lungs: [Clear to auscultation and percussion, non-labored respiration]. Heart: [Normal rate, regular rhythm, no murmur, gallop or edema]. Abdomen: [Soft, non-tender, non-distended, normal bowel sounds, no masses]. Musculoskeletal: [Normal range of motion and strength, no tenderness or swelling]. Skin: [Skin is warm, dry and pink, no rashes or lesions]. Neurologic: [Awake, alert, and oriented X3, CN II-XII intact]. Psychiatric: [Cooperative, appropriate mood and affect]. Assessment and plan Acute kidney injury on CKD stage III suspect due to urinary obstruction Hyperkalemia Chronic bilateral hydronephrosis History of neurogenic bladder History of chronic Harrison catheter that was removed after UroLift procedure On admission potassium is 6.3, creatinine 2.42 and BUN 36. Patient's baseline creatinine is 1.7 In the ED patient was given IV calcium gluconate 1 g, 10 units of regular insulin IV, 1 amp dextrose, sodium bicarb 1 amp and also 1 L fluid bolus. Will recheck potassium this evening Consult nephrology Hold nephrotoxic medications which include Lasix I personally reviewed the EKG that shows no peaked T waves Urinary tract infection Patient is immunocompromised as he takes Entyvia Does not meet sepsis criteria except for leukocytosis Patient in the past has a history of Pseudomonas, Proteus mirabilis and Acinetobacter and E. coli that are all sensitive to cefepime Will start the patient on IV cefepime Follow-up on blood culture Trend CBC Crohn's disease Stable Hold off on Entyvia Hypertension Resume Imdur 30 mg at bedtime Neuropathy Continue with gabapentin 3 mg at bedtime Hyperlipidemia Continue atorvastatin 40 mg at bedtime Anxiety and depression Continue with sertraline 150 mg at bedtime DVT prophylaxis: Subcu heparin Past Medical History Past Medical History: Asthma, Cancer, Hearing Disorder / Deafness, Hyperlipidemia, Hypertension, Prostate Disorder, Sleep Apnea/CPAP/BIPAP Additional Past Medical History / Comment(s): hx of Crohn's, hx of prostate ca with radiation approx 2009, does not use cpap machine,deaf rt ear,hearing aide lt ear History of Any Multi-Drug Resistant Organisms: None Reported Past Surgical History: Orthopedic Surgery Additional Past Surgical History / Comment(s): rt knee sx, neck "2 bolts", rod cataracts with lens implant Past Anesthesia/Blood Transfusion Reactions: No Reported Reaction Past Psychological History: No Psychological Hx Reported Smoking Status: Former smoker Past Alcohol Use History: Occasional Past Drug Use History: None Reported - Past Family History Mother Family Medical History: No Reported History Sister(s) Family Medical History: Cancer Additional Family Medical History / Comment(s): breast and lung CA Medications and Allergies Home Medications Medication Instructions Recorded Confirmed Type Atorvastatin [Lipitor] 40 mg PO HS 09/16/17 04/13/24 History Folic Acid 1 mg PO HS 08/22/19 04/13/24 History Gabapentin [Neurontin] 300 mg PO HS 08/22/19 04/13/24 History Sertraline HCl [Zoloft] 150 mg PO HS 08/22/19 04/13/24 History Isosorbide Mononitrate ER [Imdur] 30 mg PO HS 10/25/21 04/13/24 History Furosemide [Lasix] 20 mg PO HS 11/27/23 04/13/24 History Magnesium Oxide 420mg 840 mg PO HS 11/27/23 04/13/24 History Nitroglycerin Sl Tabs [Nitrostat] 0.4 mg SL Q5M PRN 11/27/23 04/13/24 History Vedolizumab [Entyvio] 300 mg IV Q56D 11/29/23 04/13/24 History Cholecalciferol [Vitamin D3 (125 125 mcg PO HS 04/13/24 04/13/24 History Mcg = 5000 Iu)] Cyanocobalamin (Vitamin B-12) 5,000 mcg PO HS 04/13/24 04/13/24 History [Vitamin B-12] Pro-Bifido Probiotic 150 mg PO HS 04/13/24 04/13/24 History Vit C/E/Zn/Coppr/Lutein/Zeaxan 2 cap PO HS 04/13/24 04/13/24 History [Preservision Areds 2 Softgel] Allergies Allergy/AdvReac Type Severity Reaction Status Date / Time No Known Allergies Allergy Verified 04/13/24 13:37 Physical Exam Osteopathic Statement: *. No significant issues noted on an osteopathic structural exam other than those noted in the History and Physical/Consult. Vitals: Vital Signs Temp Pulse Resp BP Pulse Ox 04/13/24 14:46 98.1 F 56 L 18 124/65 97 04/13/24 09:39 97.6 F 50 L 16 126/65 100 Intake and Output 04/13/24 04/13/24 04/13/24 06:59 14:59 22:59 Other: Weight 65.771 kg Results CBC & Chem 7: 04/13/24 10:05 04/13/24 12:25 Labs: Abnormal Lab Results - Last 24 Hours (Table) 04/13/24 04/13/24 04/13/24 Range/Units 09:54 10:05 12:25 WBC 24.8 H (3.8-10.6) k/uL RBC 3.89 L (4.30-5.90) m/uL Hgb 11.3 L (13.0-17.5) gm/dL Hct 33.9 L (39.0-53.0) % Lymphocytes # (Manual) 19.59 H (1.0-4.8) k/uL Potassium 6.3 H* (3.5-5.1) mmol/L BUN 36 H (9-20) mg/dL Creatinine 2.42 H (0.66-1.25) mg/dL Alkaline Phosphatase 181 H (38-126) U/L Urine Protein 1+ H (Negative) Urine Blood Moderate H (Negative) Ur Leukocyte Esterase Large H (Negative) Urine RBC 30 H (0-5) /hpf Urine WBC >182 H (0-5) /hpf Urine WBC Clumps Many H (None) /hpf Urine Bacteria Few H (None) /hpf
[2024-04-13] MEDS: SERTRALINE 100 MG TAB PO SCH (21:43)
[2024-04-13] MEDS: ATORVASTATIN 40 MG TAB PO SCH (21:43)
[2024-04-13] MEDS: HEPARIN SODIUM,PORCINE 5,000 UNIT/ML 1 ML VIAL SQ SCH (21:43)
[2024-04-13] MEDS: GABAPENTIN 300 MG CAP PO SCH (21:43)
[2024-04-13] MEDS: CHOLECALCIFEROL 125 MCG (5000 IU) TABLET PO SCH (21:43)
[2024-04-13] MEDS: ISOSORBIDE MONONITRATE ER 30 MG TAB.ER.24H PO SCH (21:43)
[2024-04-13] MEDS: FOLIC ACID 1 MG TAB PO SCH (21:43)
[2024-04-13] MEDS: CEFEPIME 1 GM in SODIUM CHLORIDE 0.9% 50 ML IVPB SCH (21:53)
[2024-04-14 09:30] LABS: BUN/Creat Ratio 13.04 Ratio (12.00-20.00); Calcium 8.2 mg/dL (8.7-10.3); Carbon Dioxide 22.7 mmol/L (21.6-31.8); Chloride 110 mmol/L (96-109); Glucose 83 mg/dL (70-110); Potassium 5.8 mmol/L (3.5-5.5); Sodium 142 mmol/L (135-145)
[2024-04-14 10:32] LABS: Basophils # (M) 0 X 10*3/uL (0.00-0.10); HCT 33.5 % (39.6-50.0); HGB 10.2 g/dL (13.0-17.0); Lymphocytes # (M) 19.04 X 10*3/uL (0.90-5.00); MCH 26.7 pg (27.0-32.0); MCHC 30.4 g/dL (32.0-37.0); MCV 87.7 FL (80.0-97.0); Mean Platelet Volume 11.5 FL (9.5-12.2); NRBC Per 100 WBC 0 X 10*3/uL (0.00-0.01); Neutrophils # (M) 10.58 X 10*3/uL (1.80-7.70); Neutrophils % (M) 35 %; Platelet Count 267 X 10*3/uL (140-440); RBC 3.82 X 10*6/uL (4.40-5.60); RDW 15.1 % (11.5-14.5); WBC 30.22 X 10*3/uL (4.50-10.00)
--- NOTE | 2024-04-14 12:03 | P.NPCON ---
History of Present Illness - Reason for Consult acute renal failure - History of Present Illness Patient is a 73-year-old male with history of Crohn's disease and underlying chronic kidney disease NKF stage IV with baseline creatinine around 1.7 mg/dLand history of acute kidney injuryin November 2023 secondary to obstructive uropathy. Ultrasound at that time showed bilateral hydronephrosis and Harrison catheter was placed. Renal function improved with serum creatinine decreasing to about 1.6 on 12/06/2023 and Harrison catheter was removed about a month ago. Patient also had Urolift procedure in March 2024. He is admitted to the hospital due to abnormal labs as outpatient mostly serum potassium of 6.3 and creatinine up to 2.4. No significant urinary symptoms. He has been voiding. No history of use of NSAIDs. No significant hypotension noted. Maintained on low-dose Lasix as outpatient. Patient is maintained on IV fluids. UA showed evidence of UTI with urine culture growing gram-negative bacilli. Ultrasound was repeated on 04/13/2024 and showed persistent bilateral hydronephrosis. Urology has been consulted. Review of Systems as per HPI Past Medical History Past Medical History: Asthma, Cancer, Hearing Disorder / Deafness, Hyperlipidemia, Hypertension, Prostate Disorder, Sleep Apnea/CPAP/BIPAP Additional Past Medical History / Comment(s): hx of Crohn's, hx of prostate ca with radiation approx 2009, does not use cpap machine,deaf rt ear,hearing aide lt ear History of Any Multi-Drug Resistant Organisms: None Reported Past Surgical History: Orthopedic Surgery Additional Past Surgical History / Comment(s): rt knee sx, neck "2 bolts", rod cataracts with lens implant Past Anesthesia/Blood Transfusion Reactions: No Reported Reaction Past Psychological History: No Psychological Hx Reported Smoking Status: Former smoker Past Alcohol Use History: Occasional Past Drug Use History: None Reported - Past Family History Mother Family Medical History: No Reported History Sister(s) Family Medical History: Cancer Additional Family Medical History / Comment(s): breast and lung CA Father Family Medical History: Myocardial Infarction ([place]) Brother(s) Family Medical History: Coronary Artery Disease (CAD) Medications and Allergies Home Medications Medication Instructions Recorded Confirmed Type Atorvastatin [Lipitor] 40 mg PO HS 09/16/17 04/13/24 History Folic Acid 1 mg PO HS 08/22/19 04/13/24 History Gabapentin [Neurontin] 300 mg PO HS 08/22/19 04/13/24 History Sertraline HCl [Zoloft] 150 mg PO HS 08/22/19 04/13/24 History Isosorbide Mononitrate ER [Imdur] 30 mg PO HS 10/25/21 04/13/24 History Furosemide [Lasix] 20 mg PO HS 11/27/23 04/13/24 History Magnesium Oxide 420mg 840 mg PO HS 11/27/23 04/13/24 History Nitroglycerin Sl Tabs [Nitrostat] 0.4 mg SL Q5M PRN 11/27/23 04/13/24 History Vedolizumab [Entyvio] 300 mg IV Q56D 11/29/23 04/13/24 History Cholecalciferol [Vitamin D3 (125 125 mcg PO HS 04/13/24 04/13/24 History Mcg = 5000 Iu)] Cyanocobalamin (Vitamin B-12) 5,000 mcg PO HS 04/13/24 04/13/24 History [Vitamin B-12] Pro-Bifido Probiotic 150 mg PO HS 04/13/24 04/13/24 History Vit C/E/Zn/Coppr/Lutein/Zeaxan 2 cap PO HS 04/13/24 04/13/24 History [Preservision Areds 2 Softgel] Allergies Allergy/AdvReac Type Severity Reaction Status Date / Time No Known Allergies Allergy Verified 04/13/24 13:37 Physical Exam Vitals: Vital Signs Temp Pulse Pulse Resp BP BP Pulse Ox 04/14/24 08:00 97.8 F 61 16 122/57 98 04/14/24 01:34 99.2 F 75 16 117/64 96 04/13/24 20:00 97.7 F 65 16 145/73 99 04/13/24 19:38 97.7 F 60 16 135/52 100 04/13/24 16:23 98.0 F 52 L 16 143/50 98 04/13/24 14:46 98.1 F 56 L 18 124/65 97 Intake and Output 04/13/24 04/14/24 04/14/24 22:59 06:59 14:59 Intake Total 590 Balance 590 Intake: Oral 590 Other: Voiding Method Toilet Toilet # Voids 1 2 # Bowel Movements 1 patient is awake, comfortable, no acute distress. Alert oriented 3 Examination of the heart S1 and S2 Examination of the lungs bilateral breath sounds are heard Abdomen is soft nontender Examination of lower extremity shows no significant edema [employer] exam grossly intact Results - Lab Results Most recent lab results Calcium 8.2 mg/dL (8.7-10.3) L 04/14/24 03:29 Magnesium 2.0 mg/dL (1.5-2.4) 04/14/24 03:29 04/14/24 03:29 04/14/24 03:29 Assessment and Plan Assessment: 1. Acute kidney injury, ATN from underlying infection versus obstructive uropathy. Currently maintained on IV fluids. Urology has been consulted regarding possible need for reinsertion of Harrison catheter. 2. Obstructive uropathy with recent Urolift procedure in March 2024. Patient was hospitalized in November with acute kidney injury and had indwelling Harrison catheter which was subsequently removed about a month ago. Serum creatinine at that time had decreased from a peak of 3.3 to 1.6 on 12/06/2023. 3. Hyperkalemia associated with acute kidney injury and obstructive uropathy. 4. UTI with urine culture growing gram-negative bacilli. History of recent urology group procedure, Urolift on 03/21/2024 5. History of Crohn's disease Plan: continue with IV fluids. Await urology input regarding possible need for placement of Harrison catheter. Continue lokelma Continue low potassium diet Repeat labs in a.m. Thank you for the consultation. We will continue to follow the patient with you during his hospitalization
[2024-04-14] MEDS: SODIUM ZIRCONIUM CYCLOSILICATE 10 GM PACKET PO ONE (12:32)
[2024-04-14] MEDS: CEFEPIME 1 GM in SODIUM CHLORIDE 0.9% 50 ML IVPB SCH (12:33)
[2024-04-14 12:51] VITALS: BMI 22.4
--- NOTE | 2024-04-14 14:41 | P.PN ---
Subjective Progress Note Date: 04/14/24 No new complaints today. Seen by nephrology. Awaiting urology recommendations regarding need for Harrison catheter. Urine cultures growing gram-negative bacilli, increase cefepime to every 8 hours dosing. Gen: In NAD, non-toxic HEENT: normocephalic, atraumatic, hearing acuity is intant, mucous membranes moist CVS: perfusing all extremities well, no pitting edema, Respiratory: symmetric chest expansion, no accessory muscle use, GI: soft, NTTP, ND, : no suprapubic tenderness, no CVA tenderness MSK/Derm: no rashes, cyanosis Neuro: CN II-XII intact, no motor weakness, Psych: cooperative, euthymic mood, judgment and insight is intact Hospital course Patient is a 73-year-old male with a past medical history of Crohn's disease, recurrent UTIs, prostate cancer status post radiation, CKD stage III with creatinine baseline around 1.7, chronic bilateral hydronephrosis who previously had bilateral stents without improvement in hydronephrosis or kidney function, neurogenic bladder, history of chronic Harrison catheter which was removed 1 month ago after UroLift procedure who was 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 Patient also reports that his urine is cloudy color. Patient otherwise has no symptoms. In the ED patient WBC was 24.8 with predominantly lymphocytes, potassium 6.3, creatinine 2.42, BUN 36. Patient renal ultrasound showed bilateral moderate hydronephrosis with some irregularity tuberculation of the posterior bladder wall. Patient was admitted to the medicine service. Assessment and plan Acute kidney injury on CKD stage III suspect due to urinary obstruction Hyperkalemia Chronic bilateral hydronephrosis History of neurogenic bladder History of chronic Harrison catheter that was removed after UroLift procedure On admission potassium is 6.3, creatinine 2.42 and BUN 36. Patient's baseline creatinine is 1.7 In the ED patient was given IV calcium gluconate 1 g, 10 units of regular insulin IV, 1 amp dextrose, sodium bicarb 1 amp and also 1 L fluid bolus. Follow BMP Consult nephrology, urology Hold nephrotoxic medications which include Lasix Urinary tract infection Patient is immunocompromised as he takes Entyvia Does not meet sepsis criteria except for leukocytosis Patient in the past has a history of Pseudomonas, Proteus mirabilis and Acinetobacter and E. coli that are all sensitive to cefepime Will start the patient on IV cefepime Follow-up on blood culture Trend CBC Urology consults pending Crohn's disease Stable Hold off on Entyvia Hypertension Resume Imdur 30 mg at bedtime Neuropathy Continue with gabapentin 3 mg at bedtime Hyperlipidemia Continue atorvastatin 40 mg at bedtime Anxiety and depression Continue with sertraline 150 mg at bedtime DVT prophylaxis: Subcu heparin Objective - Vital Signs Vital signs: Vital Signs Temp 98.5 F 04/14/24 13:34 Pulse 67 04/14/24 13:34 Resp 18 04/14/24 13:34 BP 106/66 04/14/24 13:34 Pulse Ox 95 04/14/24 13:34 FiO2 Intake & Output 04/13/24 04/14/24 04/14/24 18:59 06:59 18:59 Intake Total 590 Balance 590 Weight 65.771 kg 65.771 kg Intake: Oral 590 Other: Voiding Method Toilet Toilet # Voids 1 2 # Bowel Movements 1 - Labs CBC & Chem 7: 04/14/24 03:29 04/14/24 03:29 Labs: Abnormal Lab Results - Last 24 Hours (Table) 04/14/24 04/14/24 Range/Units 03:29 03:29 WBC 30.22 H (4.50-10.00) X 10*3/uL RBC 3.82 L (4.40-5.60) X 10*6/uL Hgb 10.2 L (13.0-17.0) g/dL Hct 33.5 L (39.6-50.0) % MCH 26.7 L (27.0-32.0) pg MCHC 30.4 L (32.0-37.0) g/dL RDW 15.1 H (11.5-14.5) % Neutrophils # (Manual) 10.58 H (1.80-7.70) X 10*3/uL Lymphocytes # (Manual) 19.04 H (0.90-5.00) X 10*3/uL Potassium 5.8 H (3.5-5.5) mmol/L Chloride 110 H (96-109) mmol/L BUN 30.0 H (9.0-27.0) mg/dL Creatinine 2.3 H (0.6-1.5) mg/dL Est GFR (CKD-EPI) 29 L (>=60) Calcium 8.2 L (8.7-10.3) mg/dL Microbiology - Last 24 Hours (Table) 04/13/24 09:54 Urine Culture - Preliminary Urine,Voided Gram Neg Bacilli
--- NOTE | 2024-04-14 21:43 | P.GSCN ---
History of Present Illness Consult date: 04/14/24 Reason for Consult: Bilateral hydronephrosis History of present illness: This is a 73-year-old male history of prostate cancer treated with radiation, chronic hydronephrosis without kidney function improvement despite stent insertion in the past. Does have a history of urinary retention and was a Harrison catheter dependent, subsequently underwent a UroLift on March 21, since that time has been able to void with a low postvoid residual. Admitted to the hospital with UTI and acute kidney injury and hyperkalemia. Underwent a renal bladder ultrasound that showed evidence of bilateral hydronephrosis. His creatinine on presentation is at 2.4 baseline is around 1.6-1.7. On ultrasound the bladder was decompressed.His urine culture is growing gram negative bacilli previously underwent urodynamic which showed evidence of multiple detrusor contractions subsequently underwent sacral neuromodulator with some improvement of his symptoms. Denies any dysuria, gross hematuria or flank pain. Indicated he is voiding with good flow. He is on low dose keflex for recurrent UTI Review of Systems - Constitutional Denies fever, Denies weight loss - Cardiovascular Denies chest pain, Denies shortness of breath - Respiratory Denies cough, Denies 7 - Gastrointestinal Reports abdominal pain, Denies nausea, Denies vomiting - Integumentary Denies rash, Denies unusual bruising - Neurological Denies headaches, Denies syncope Past Medical History Past Medical History: Asthma, Cancer, Hearing Disorder / Deafness, Hyperlipidem ia, Hypertension, Prostate Disorder, Sleep Apnea/CPAP/BIPAP Additional Past Medical History / Comment(s): hx of Crohn's, hx of prostate ca with radiation approx 2009, does not use cpap machine,deaf rt ear,hearing aide lt ear History of Any Multi-Drug Resistant Organisms: None Reported Past Surgical History: Orthopedic Surgery Additional Past Surgical History / Comment(s): rt knee sx, neck "2 bolts", rod cataracts with lens implant Past Anesthesia/Blood Transfusion Reactions: No Reported Reaction Past Psychological History: No Psychological Hx Reported Smoking Status: Former smoker Past Alcohol Use History: Occasional Past Drug Use History: None Reported - Past Family History Mother Family Medical History: No Reported History Sister(s) Family Medical History: Cancer Additional Family Medical History / Comment(s): breast and lung CA Father Family Medical History: Myocardial Infarction (NE) Brother(s) Family Medical History: Coronary Artery Disease (CAD) Medications and Allergies Home Medications Medication Instructions Recorded Confirmed Type Atorvastatin [Lipitor] 40 mg PO HS 09/16/17 04/13/24 History Folic Acid 1 mg PO HS 08/22/19 04/13/24 History Gabapentin [Neurontin] 300 mg PO HS 08/22/19 04/13/24 History Sertraline HCl [Zoloft] 150 mg PO HS 08/22/19 04/13/24 History Isosorbide Mononitrate ER [Imdur] 30 mg PO HS 10/25/21 04/13/24 History Furosemide [Lasix] 20 mg PO HS 11/27/23 04/13/24 History Magnesium Oxide 420mg 840 mg PO HS 11/27/23 04/13/24 History Nitroglycerin Sl Tabs [Nitrostat] 0.4 mg SL Q5M PRN 11/27/23 04/13/24 History Vedolizumab [Entyvio] 300 mg IV Q56D 11/29/23 04/13/24 History Cholecalciferol [Vitamin D3 (125 125 mcg PO HS 04/13/24 04/13/24 History Mcg = 5000 Iu)] Cyanocobalamin (Vitamin B-12) 5,000 mcg PO HS 04/13/24 04/13/24 History [Vitamin B-12] Pro-Bifido Probiotic 150 mg PO HS 04/13/24 04/13/24 History Vit C/E/Zn/Coppr/Lutein/Zeaxan 2 cap PO HS 04/13/24 04/13/24 History [Preservision Areds 2 Softgel] Allergies Allergy/AdvReac Type Severity Reaction Status Date / Time No Known Allergies Allergy Verified 04/13/24 13:37 Surgical - Exam Vital Signs Temp Pulse Resp BP Pulse Ox 97.6 F 50 L 16 126/65 100 04/13/24 09:39 04/13/24 09:39 04/13/24 09:39 04/13/24 09:39 04/13/24 09:39 - General no distress, no pain - Eyes normal ocular movement, no pale - ENT normal nares, normal mucosa - Respiratory normal expansion, normal respiratory effort - Abdomen Abdomen: soft, non tender - Psychiatric oriented to time, oriented to person, oriented to place Results - Labs 04/14/24 03:29 04/14/24 03:29 Abnormal Lab Results - Last 24 Hours (Table) 04/14/24 04/14/24 Range/Units 03:29 03:29 WBC 30.22 H (4.50-10.00) X 10*3/uL RBC 3.82 L (4.40-5.60) X 10*6/uL Hgb 10.2 L (13.0-17.0) g/dL Hct 33.5 L (39.6-50.0) % MCH 26.7 L (27.0-32.0) pg MCHC 30.4 L (32.0-37.0) g/dL RDW 15.1 H (11.5-14.5) % Neutrophils # (Manual) 10.58 H (1.80-7.70) X 10*3/uL Lymphocytes # (Manual) 19.04 H (0.90-5.00) X 10*3/uL Potassium 5.8 H (3.5-5.5) mmol/L Chloride 110 H (96-109) mmol/L BUN 30.0 H (9.0-27.0) mg/dL Creatinine 2.3 H (0.6-1.5) mg/dL Est GFR (CKD-EPI) 29 L (>=60) Calcium 8.2 L (8.7-10.3) mg/dL Microbiology - Last 24 Hours (Table) 04/13/24 12:25 Blood Culture - Preliminary Blood 04/13/24 09:54 Urine Culture - Preliminary Urine,Voided Gram Neg Bacilli Diabetes panel 04/14/24 Range/Units 03:29 Sodium 142 (135-145) mmol/L Potassium 5.8 H (3.5-5.5) mmol/L Chloride 110 H (96-109) mmol/L Carbon Dioxide 22.7 (21.6-31.8) mmol/L BUN 30.0 H (9.0-27.0) mg/dL Creatinine 2.3 H (0.6-1.5) mg/dL Glucose 83 (70-110) mg/dL Calcium 8.2 L (8.7-10.3) mg/dL Calcium panel 04/14/24 Range/Units 03:29 Calcium 8.2 L (8.7-10.3) mg/dL Pituitary panel 04/14/24 Range/Units 03:29 Sodium 142 (135-145) mmol/L Potassium 5.8 H (3.5-5.5) mmol/L Chloride 110 H (96-109) mmol/L Carbon Dioxide 22.7 (21.6-31.8) mmol/L BUN 30.0 H (9.0-27.0) mg/dL Creatinine 2.3 H (0.6-1.5) mg/dL Glucose 83 (70-110) mg/dL Calcium 8.2 L (8.7-10.3) mg/dL Adrenal panel 04/14/24 Range/Units 03:29 Sodium 142 (135-145) mmol/L Potassium 5.8 H (3.5-5.5) mmol/L Chloride 110 H (96-109) mmol/L Carbon Dioxide 22.7 (21.6-31.8) mmol/L BUN 30.0 H (9.0-27.0) mg/dL Creatinine 2.3 H (0.6-1.5) mg/dL Glucose 83 (70-110) mg/dL Calcium 8.2 L (8.7-10.3) mg/dL Assessment and Plan Assessment: This is a 73-year-old male history of chronic hydronephrosis failed stent insertion in the past. Creatinine is 2.4 from a baseline of 1.7. On bladder ultrasound no evidence of bladder distention, recently underwent a UroLift for urinary retention he has been voiding well since that time. At this time given the low residual would hold off on Harrison catheter placement. His hydronephrosis may be secondary to high bladder pressure, he will benefit from an outpatient urodynamics to further evaluate bladder function.
--- NOTE | 2024-04-15 09:40 | P.PN ---
Subjective Progress Note Date: 04/15/24 Denies any dysuria or gross hematuria, indicates he is voiding to completion, creatinine slightly improved to 2.3 Objective - Vital Signs Vital signs: Vital Signs Temp 97.5 F L 04/15/24 07:19 Pulse 58 L 04/15/24 07:19 Resp 18 04/15/24 07:19 BP 108/54 04/15/24 07:19 Pulse Ox 97 04/15/24 07:19 FiO2 Intake & Output 04/14/24 04/15/24 04/15/24 18:59 06:59 18:59 Intake Total 1620 975 Balance 1620 975 Weight 65.771 kg Intake: Intake, IV Titration 575 Amount Cefepime 1 gm In Sodium 50 Chloride 0.9% 50 ml @ 12. 5 mls/hr IVPB Q12H [facility] Rx #:[id number] Sodium Chloride 0.9% 1, 525 000 ml @ 75 mls/hr IV . [id number] [facility] Rx#:[id number] Oral 1620 400 Other: Voiding Method Toilet Toilet # Voids 2 1 - Constitutional General appearance: Present: no acute distress - Gastrointestinal General gastrointestinal: Present: soft. Absent: distended, tenderness - Psychiatric Psychiatric: Present: A&O x's 3 - Labs CBC & Chem 7: 04/14/24 03:29 04/14/24 03:29 Labs: Abnormal Lab Results - Last 24 Hours (Table) 04/14/24 Range/Units 03:29 WBC 30.22 H (4.50-10.00) X 10*3/uL RBC 3.82 L (4.40-5.60) X 10*6/uL Hgb 10.2 L (13.0-17.0) g/dL Hct 33.5 L (39.6-50.0) % MCH 26.7 L (27.0-32.0) pg MCHC 30.4 L (32.0-37.0) g/dL RDW 15.1 H (11.5-14.5) % Neutrophils # (Manual) 10.58 H (1.80-7.70) X 10*3/uL Lymphocytes # (Manual) 19.04 H (0.90-5.00) X 10*3/uL Microbiology - Last 24 Hours (Table) 04/13/24 12:25 Blood Culture - Preliminary Blood 04/13/24 09:54 Urine Culture - Preliminary Urine,Voided Gram Neg Bacilli Assessment and Plan Assessment: This is a 73-year-old male history of chronic hydronephrosis failed stent insertion in the past. Creatinine is 2.4 from a baseline of 1.7. On bladder ultrasound no evidence of bladder distention, recently underwent a UroLift for urinary retention he has been voiding well since that time. At this time given the low residual would hold off on Harrison catheter placement. His hydronephrosis may be secondary to high bladder pressure, he will benefit from an outpatient urodynamics to further evaluate bladder function. Given recurrent UTIs and hi story of Crohn's disease we will obtain a CT abdomen and pelvis to rule out a possible colovesical fistula. He did previously undergo a cystogram in the OR last month which was within normal limits -CT abdomen and pelvis
[2024-04-15] MEDS: IOPAMIDOL CONTRAST (ORAL USE) VIAL PO PRN (10:03)
--- NOTE | 2024-04-15 10:09 | P.PN ---
Subjective Progress Note Date: 04/15/24 No new complaints today. UCx growing GNRs, pending finalization. Labs today pending. Discussed with urology, pt cleared from their perspective, but if he's staying in house, would like a CT A/P to r/o fistula due to hx of Crohn's disease Gen: In NAD, non-toxic HEENT: normocephalic, atraumatic, hearing acuity is intant, mucous membranes moist CVS: perfusing all extremities well, no pitting edema, Respiratory: symmetric chest expansion, no accessory muscle use, GI: soft, NTTP, ND, : no suprapubic tenderness, no CVA tenderness MSK/Derm: no rashes, cyanosis Neuro: CN II-XII intact, no motor weakness, Psych: cooperative, euthymic mood, judgment and insight is intact Hospital course Patient is a 73-year-old male with a past medical history of Crohn's disease, recurrent UTIs, prostate cancer status post radiation, CKD stage III with creatinine baseline around 1.7, chronic bilateral hydronephrosis who previously had bilateral stents without improvement in hydronephrosis or kidney function, neurogenic bladder, history of chronic Harrison catheter which was removed 1 month ago after UroLift procedure who was 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 Patient also reports that his urine is cloudy color. Patient otherwise has no symptoms. In the ED patient WBC was 24.8 with predominantly lymphocytes, potassium 6.3, creatinine 2.42, BUN 36. Patient renal ultrasound showed bilateral moderate hydronephrosis with some irregularity tuberculation of the posterior bladder wall. Patient was admitted to the medicine service. Assessment and plan Acute kidney injury on CKD stage III suspect due to urinary obstruction Hyperkalemia Chronic bilateral hydronephrosis History of neurogenic bladder History of chronic Harrison catheter that was removed after UroLift procedure On admission potassium is 6.3, creatinine 2.42 and BUN 36. Patient's baseline creatinine is 1.7 In the ED patient was given IV calcium gluconate 1 g, 10 units of regular insulin IV, 1 amp dextrose, sodium bicarb 1 amp and also 1 L fluid bolus. Follow BMP Consult nephrology, urology Hold nephrotoxic medications which include Lasix Urinary tract infection Patient is immunocompromised as he takes Entyvia Does not meet sepsis criteria except for leukocytosis Patient in the past has a history of Pseudomonas, Proteus mirabilis and Acinetobacter and E. coli that are all sensitive to cefepime Increased IV cefepime to q8h frequency Follow-up on blood culture, urine culture Trend CBC Urology consults is appreciated, see above regarding discussion CT A/P with contrast Crohn's disease Stable Hold off on Entyvia Hypertension Resume Imdur 30 mg at bedtime Neuropathy Continue with gabapentin 3 mg at bedtime Hyperlipidemia Continue atorvastatin 40 mg at bedtime Anxiety and depression Continue with sertraline 150 mg at bedtime DVT prophylaxis: Subcu heparin Objective - Vital Signs Vital signs: Vital Signs Temp 97.5 F L 04/15/24 07:19 Pulse 58 L 04/15/24 07:19 Resp 18 04/15/24 07:19 BP 108/54 04/15/24 07:19 Pulse Ox 97 04/15/24 07:19 FiO2 Intake & Output 04/14/24 04/15/24 04/15/24 18:59 06:59 18:59 Intake Total 1620 975 Balance 1620 975 Weight 65.771 kg Intake: Intake, IV Titration 575 Amount Cefepime 1 gm In Sodium 50 Chloride 0.9% 50 ml @ 12. 5 mls/hr IVPB Q12H [facility] Rx #:[id number] Sodium Chloride 0.9% 1, 525 000 ml @ 75 mls/hr IV . [id number] [facility] Rx#:[id number] Oral 1620 400 Other: Voiding Method Toilet Toilet # Voids 2 1 - Labs CBC & Chem 7: 04/14/24 03:29 04/14/24 03:29 Labs: Abnormal Lab Results - Last 24 Hours (Table) 04/14/24 Range/Units 03:29 WBC 30.22 H (4.50-10.00) X 10*3/uL RBC 3.82 L (4.40-5.60) X 10*6/uL Hgb 10.2 L (13.0-17.0) g/dL Hct 33.5 L (39.6-50.0) % MCH 26.7 L (27.0-32.0) pg MCHC 30.4 L (32.0-37.0) g/dL RDW 15.1 H (11.5-14.5) % Neutrophils # (Manual) 10.58 H (1.80-7.70) X 10*3/uL Lymphocytes # (Manual) 19.04 H (0.90-5.00) X 10*3/uL Microbiology - Last 24 Hours (Table) 04/13/24 12:25 Blood Culture - Preliminary Blood 04/13/24 09:54 Urine Culture - Preliminary Urine,Voided Gram Neg Bacilli
[2024-04-15 11:39] LABS: HCT 34.1 % (39.0-53.0); HGB 10.1 gm/dL (13.0-17.5); Hypochromasia Marked; MCH 26.9 pg (25.0-35.0); MCHC 29.7 g/dL (31.0-37.0); MCV 90.5 fL (80.0-100.0); Mean Platelet Volume 8.8; Platelet Count 226 k/uL (150-450); RBC 3.77 m/uL (4.30-5.90); RDW 15.1 % (11.5-15.5); WBC 20.9 k/uL (3.8-10.6)
[2024-04-15 11:41] LABS: African American GFR (CKD) 36 (>60 ml/min/1.73 sqM); Anion Gap 5 mmol/L; Blood Urea Nitrogen 30 mg/dL (9-20); Calcium 8.5 mg/dL (8.4-10.2); Carbon Dioxide 26 mmol/L (22-30); Chloride 108 mmol/L (98-107); Glucose 236 mg/dL (74-99); Magnesium 1.8 mg/dL (1.6-2.3); Non-African American GFR(CKD) 31 (>60 ml/min/1.73 sqM); Potassium 4.5 mmol/L (3.5-5.1); Sodium 139 mmol/L (137-145)
--- NOTE | 2024-04-15 12:00 | CT ---
EXAMINATION TYPE: CT abdomen pelvis wo con CT DLP: 383.5 mGycm, Automated exposure control for dose reduction was used. DATE OF EXAM: 04/15/2024 11:53 AM COMPARISON: 11/27/2023 CLINICAL INDICATION: Male, 73 years old with history of Colovesical fistula; Colovesical fistula TECHNIQUE: Axial CT abdomen pelvis wo con;Sagittal and coronal reformats were created on a separate workstation. Contrast used: mL of , (none if empty) Oral contrast used: with Oral Contrast (none if empty) FINDINGS: LOWER CHEST: Chronic basilar interstitial thickening with some calcifications. The pleura is prominen t bilaterally. Aortic valve calcifications. ABDOMEN LIVER: Unremarkable GALLBLADDER AND BILE DUCTS: The gallbladder is surgically absent.. PANCREAS: Unremarkable. SPLEEN: Unremarkable. ADRENAL GLANDS: Unremarkable. KIDNEYS AND URETERS: Bilateral hydroureteronephrosis without obstructing calculus. PELVIS BLADDER: Unremarkable REPRODUCTIVE: Prostate is enlarged in size measuring 5.2 cm in transverse dimension. Multiple calcifi cations are seen within the prostate gland. ABDOMEN & PELVIS STOMACH AND BOWEL: No evidence of bowel obstruction. Possible fistulous tract extending from the colo n to the urinary bladder series 3 image 73. No oral contrast seen within the colon in this region. PERITONEUM/RETROPERITONEUM: No evidence of pneumoperitoneum or free fluid. VASCULATURE: No evidence of aortic aneurysm. MUSCULOSKELETAL: No acute osseous abnormalities. Moderate disc degeneration changes are present throu ghout the thoracolumbar spine. Surgical changes in the spine spanning the L1 vertebrae hardware appea rs intact. Vertebroplasty changes at L1. Nerve stimulator lead enters the presacral space. LYMPH NODES: No gross evidence for lymphadenopathy. SOFT TISSUE/ABDOMINAL WALL: Unremarkable IMPRESSION: 1. There is a soft tissue tract extending from the colon to the urinary bladder evaluation for fistu la somewhat limited given lack of contrast in the bowel. Consider barium enema. 2. Bilateral hydroureteronephrosis correlate for bladder outlet obstruction. 3. Prostatomegaly with surgical clips correlate with prior dimension.
[2024-04-15 12:27] LABS: Eosinophils # (M) 0.21 k/uL (0-0.7); Lymphocytes # (M) 14.21 k/uL (1.0-4.8); Monocytes # (M) 0.42 k/uL (0-1.0); Neutrophils # (M) 6.06 k/uL (1.3-7.7); Neutrophils % (M) 29 %; Nucleated Red Blood Cells 0 /100 WBC (0-0); Total Cells Counted 100
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
[2024-04-15] MEDS: PEG 3350 (420 GM/BTL) + LYTES 4,000 ML BOTTLE PO ONE (17:34)
--- NOTE | 2024-04-16 09:21 | P.PN ---
Subjective Progress Note Date: 04/16/24 No new complaints today. UCx growing E coli. CT A/P showing possibility of fistula though exam is limited due to lack of contrast. Seen by general surgery who would like to proceed with colonoscopy Gen: In NAD, non-toxic HEENT: normocephalic, atraumatic, hearing acuity is intant, mucous membranes [address] CVS: perfusing all extremities well, no pitting edema, Respiratory: symmetric chest expansion, no accessory muscle use, GI: soft, NTTP, ND, : no suprapubic tenderness, no CVA tenderness MSK/Derm: no rashes, cyanosis Neuro: CN II-XII intact, no motor weakness, Psych: cooperative, euthymic mood, judgment and insight is intact Hospital course Patient is a 73-year-old male with a past medical history of Crohn's disease, recurrent UTIs, prostate cancer status post radiation, CKD stage III with creatinine baseline around 1.7, chronic bilateral hydronephrosis who previously had bilateral stents without improvement in hydronephrosis or kidney function, neurogenic bladder, history of chronic Harrison catheter which was removed 1 month ago after UroLift procedure who was sent to the ED by his staff midwife/apprenticeship director for abnormal labs. Patient also reports that his urine is cloudy color. Patient ot herwise has no symptoms. In the ED patient WBC was 24.8 with predominantly lymphocytes, potassium 6.3, creatinine 2.42, BUN 36. Patient renal ultrasound showed bilateral moderate hydronephrosis with some irregularity tuberculation of the posterior bladder wall. Patient was admitted to the medicine service. Assessment and plan Acute kidney injury on CKD stage III suspect due to urinary obstruction Hyperkalemia Chronic bilateral hydronephrosis History of neurogenic bladder History of chronic Harrison catheter that was removed after UroLift procedure On admission potassium is 6.3, creatinine 2.42 and BUN 36. Patient's baseline creatinine is 1.7 In the ED patient was given IV calcium gluconate 1 g, 10 units of regular insulin IV, 1 amp dextrose, sodium bicarb 1 amp and also 1 L fluid bolus. Follow BMP Consult nephrology, urology Hold nephrotoxic medications which include Lasix Complicated Urinary tract infection Crohn's disease Patient is immunocompromised as he takes Entyvia, will hold this cefepime discontinued and started on ceftriaxone 1gm q24h Follow-up on blood culture = NGTD, urine culture = e coli Trend CBC Urology consults is appreciated, General surgery consulted CT A/P with contrast shows possible colovesicle fistula Hypertension Resume Imdur 30 mg at bedtime Neuropathy Continue with gabapentin 3 mg at bedtime Hyperlipidemia Continue atorvastatin 40 mg at bedtime Anxiety and depression Continue with sertraline 150 mg at bedtime DVT prophylaxis: Subcu heparin Objective - Vital Signs Vital signs: Vital Signs Temp 97.4 F L 04/16/24 07:13 Pulse 52 L 04/16/24 07:13 Resp 16 04/16/24 07:13 BP 133/62 04/16/24 07:13 Pulse Ox 98 04/16/24 07:13 FiO2 Intake & Output 04/15/24 04/16/24 04/16/24 18:59 06:59 18:59 Intake Total 1557 Balance 1557 Intake: Oral 1557 Other: Voiding Method Toilet Toilet # Voids 1 1 # Bowel Movements 1 1 - Labs CBC & Chem 7: 04/15/24 10:11 04/15/24 10:11 Labs: Abnormal Lab Results - Last 24 Hours (Table) 04/15/24 04/15/24 Range/Units 10:11 10:11 WBC 20.9 H (3.8-10.6) k/uL RBC 3.77 L (4.30-5.90) m/uL Hgb 10.1 L (13.0-17.5) gm/dL Hct 34.1 L (39.0-53.0) % MCHC 29.7 L (31.0-37.0) g/dL Lymphocytes # (Manual) 14.21 H (1.0-4.8) k/uL Chloride 108 H (98-107) mmol/L BUN 30 H (9-20) mg/dL Creatinine 2.06 H (0.66-1.25) mg/dL Glucose 236 H (74-99) mg/dL Microbiology - Last 24 Hours (Table) 04/13/24 12:25 Blood Culture - Preliminary Blood 04/13/24 09:54 Urine Culture - Final Urine,Voided Escherichia coli
[2024-04-16 10:07] LABS: BUN/Creat Ratio 14.05 Ratio (12.00-20.00); Blood Urea Nitrogen 29.5 mg/dL (9.0-27.0); Calcium 8.5 mg/dL (8.7-10.3); Carbon Dioxide 22.9 mmol/L (21.6-31.8); Chloride 108 mmol/L (96-109); Glucose 90 mg/dL (70-110); Magnesium 1.9 mg/dL (1.5-2.4); Potassium 5.5 mmol/L (3.5-5.5); Sodium 139 mmol/L (135-145)
--- NOTE | 2024-04-16 10:41 | P.PN ---
Subjective Progress Note Date: 04/16/24 73 yo male in hosptial with r uti. Had ct scan that suggests a cv fistula. He is being prepared for a colonoscopy. Will probably need a colectomy Objective - Vital Signs Vital signs: Vital Signs Temp 97.4 F L 04/16/24 07:13 Pulse 52 L 04/16/24 07:13 Resp 16 04/16/24 07:13 BP 133/62 04/16/24 07:13 Pulse Ox 98 04/16/24 07:13 FiO2 Intake & Output 04/15/24 04/16/24 04/16/24 18:59 06:59 18:59 Intake Total 1557 Balance 1557 Intake: Oral 1557 Other: Voiding Method Toilet Toilet # Voids 1 1 # Bowel Movements 1 1 - Labs CBC & Chem 7: 04/15/24 10:11 04/16/24 03:46 Labs: Abnormal Lab Results - Last 24 Hours (Table) 04/15/24 04/15/24 04/16/24 Range/Units 10:11 10:11 03:46 WBC 20.9 H (3.8-10.6) k/uL RBC 3.77 L (4.30-5.90) m/uL Hgb 10.1 L (13.0-17.5) gm/dL Hct 34.1 L (39.0-53.0) % MCHC 29.7 L (31.0-37.0) g/dL Lymphocytes # (Manual) 14.21 H (1.0-4.8) k/uL Chloride 108 H (98-107) mmol/L BUN 30 H 29.5 H (9-20) mg/dL Creatinine 2.06 H 2.1 H (0.66-1.25) mg/dL Est GFR (CKD-EPI) 32 L (>=60) Glucose 236 H (74-99) mg/dL Calcium 8.5 L (8.7-10.3) mg/dL Microbiology - Last 24 Hours (Table) 04/13/24 12:25 Blood Culture - Preliminary Blood 04/13/24 09:54 Urine Culture - Final Urine,Voided Escherichia coli Assessment and Plan Assessment: Impression. cv fistula causing r uti Disha: no further urologic recommendations at this time
[2024-04-16 12:46] LABS: Basophils # (M) 0 X 10*3/uL (0.00-0.10); Eosinophils # (M) 0 X 10*3/uL (0.04-0.35); HCT 32.2 % (39.6-50.0); HGB 9.5 g/dL (13.0-17.0); Lymphocytes # (M) 14.84 X 10*3/uL (0.90-5.00); MCH 26.4 pg (27.0-32.0); MCHC 29.5 g/dL (32.0-37.0); MCV 89.4 FL (80.0-97.0); Mean Platelet Volume 11.8 FL (9.5-12.2); Monocytes # (M) 1.92 X 10*3/uL (0.20-1.00); NRBC Per 100 WBC 0 X 10*3/uL (0.00-0.01); Neutrophils # (M) 7.18 X 10*3/uL (1.80-7.70); Neutrophils % (M) 30 %; Platelet Count 237 X 10*3/uL (140-440); RBC Morphology Normal (Normal); RDW 15.1 % (11.5-14.5); Smudge Cells Present; WBC 23.94 X 10*3/uL (4.50-10.00)
--- NOTE | 2024-04-16 12:46 | P.PN ---
Subjective Patient is seen for follow-up for acute kidney injury and chronic kidney disease. Renal function has improved with IV hydration. Admitted with UTI Workup for recurrent UTI showed evidence of colovesical fistula. Surgery on consult and patient is scheduled for colonoscopy in a.m. Objective - Vital Signs Vital signs: Vital Signs Temp 97.6 F 04/16/24 12:22 Pulse 52 L 04/16/24 12:22 Resp 16 04/16/24 12:22 BP 117/57 04/16/24 12:22 Pulse Ox 98 04/16/24 12:22 FiO2 Intake & Output 04/15/24 04/16/24 04/16/24 18:59 06:59 18:59 Intake Total 1557 Balance 1557 Intake: Oral 1557 Other: Voiding Method Toilet Toilet Toilet # Voids 1 1 # Bowel Movements 1 1 - Exam patient is awake, comfortable, no acute distress. Alert oriented 3 Examination of the heart S1 and S2 Examination of the lungs bilateral breath sounds are heard Abdomen is soft nontender Examination of lower extremity shows no significant edema CLINICAL CYTOPATHOLOGIST exam grossly intact - Labs CBC & Chem 7: 04/15/24 10:11 04/16/24 03:46 Labs: Abnormal Lab Results - Last 24 Hours (Table) 04/16/24 Range/Units 03:46 BUN 29.5 H (9.0-27.0) mg/dL Creatinine 2.1 H (0.6-1.5) mg/dL Est GFR (CKD-EPI) 32 L (>=60) Calcium 8.5 L (8.7-10.3) mg/dL Microbiology - Last 24 Hours (Table) 04/13/24 12:25 Blood Culture - Preliminary Blood 04/13/24 09:54 Urine Culture - Final Urine,Voided Escherichia coli Assessment and Plan Assessment: 1. Acute kidney injury, ATN from underlying infection. Patient has chronic bilateral hydronephrosis. Bladder is not distended therefore a Harrison catheter is not placed. Urology is on consult. Currently maintained on IV fluids with some improvement in renal function.. 2. Obstructive uropathy with recent Urolift procedure in March 2024. Patient was hospitalized in November with acute kidney injury and had indwelling Harrison catheter which was subsequently removed about a month ago. Serum creatinine at that time had decreased from a peak of 3.3 to 1.6 on 12/06/2023. 3. Hyperkalemia associated with acute kidney injury and obstructive uropathy. 4. UTI with urine culture growing gram-negative bacilli. History of recent urology group procedure, Urolift on 03/21/2024. CT scan showed colovesical fistula. 5. History of Crohn's disease 6. Colovesical fistula with surgery on consult and plans for colonoscopy in a.m. Plan: continue with IV fluids. Continue antibiotics Repeat labs in a.m.
--- NOTE | 2024-04-16 16:55 | P.PN ---
Subjective Progress Note Date: 04/16/24 CHIEF COMPLAINT: Colovesical fistula HISTORY OF PRESENT ILLNESS: The patient is a 73 year old male with recurrent urinary tract infection including acute renal insufficiency for over 6 months to a year. Abdominal imaging on CT scan demonstrated colovesical fistula. He reports he is tolerating the bowel prep. REVIEW OF ORGAN SYSTEMS: HEENT: Sensorineural hearing loss right ear. Decreased hearing left ear with hearing aid. RESPIRATORY: Has asthma. Remote tobacco abuse disorder. Has obstructive sleep apnea. CARDIOVASCULAR: Has hyperlipidemia. Has hypertensive heart disease including congestive heart failure. Has family history of coronary artery disease including myocardial infarction. GASTROINTESTINAL: Colonoscopy in 2022 with large colon polyp and adenoma. History of Crohn's disease. GENITOURINARY: Recurrent urinary tract infection including hydronephrosis. History of prostate cancer treated with radiation 2009. PHYSICAL EXAM: VITALS: Reviewed CONSTITUTIONAL: Well developed and in no acute distress. EYES: Conjuctivae without sclera icterus. Extraocular movements grossly intact. HEAD, EARS, NOSE, THROAT: Moist buccal mucosa. Head is atraumatic, normocephalic. Hears conversational speech. No nasal drainage. RESPIRATORY: Non-labored respirations and equal bilateral excursions. No gross wheezes. CARDIOVASCULAR: Palpable 2+ radial pulses. ABDOMEN: No abdominal scarring. MUSCULOSKELETAL: No clubbing cyanosis or edema SKIN: Warm and well perfused with good skin turgor. NEUROLOGIC: Cranial nerves II through XII grossly intact. No focal or lateralizing signs. PSYCH: Appropriate affect. Alert and oriented to person, place and time. Displays appropriate insight. CLINCAL LABS: Reviewed. WBC elevated over 30,000, leukocytosis. WBC down to 23,000. ASSESSMENT: 1. Abnormal CT scan for vesicle [place] fistula 2. Leukocytosis 3. E. coli induced urosepsis 4. Bilateral hydronephrosis 5. Anemia 6. Chronic renal insufficiency 7. Hyperkalemia PLAN: 1. Recommend colonoscopy to identify inflammation and or orifice of the colovesical fistula. 2. Will likely need additional testing including barium enema for further assessment. 3. Patient encouraged to continue with GoLytely prep 4. Antibiotic management for sepsis Objective - Vital Signs Vital signs: Vital Signs Temp 97.6 F 04/16/24 12:22 Pulse 52 L 04/16/24 12:22 Resp 16 04/16/24 12:22 BP 117/57 04/16/24 12:22 Pulse Ox 98 04/16/24 12:22 FiO2 Intake & Output 04/15/24 04/16/24 04/16/24 18:59 06:59 18:59 Intake Total 1557 Balance 1557 Intake: Oral 1557 Other: Voiding Method Toilet Toilet Toilet # Voids 1 1 # Bowel Movements 1 1 - Labs CBC & Chem 7: 04/16/24 03:46 04/16/24 03:46 Labs: Abnormal Lab Results - Last 24 Hours (Table) 04/16/24 04/16/24 Range/Units 03:46 03:46 WBC 23.94 H (4.50-10.00) X 10*3/uL RBC 3.60 L (4.40-5.60) X 10*6/uL Hgb 9.5 L (13.0-17.0) g/dL Hct 32.2 L (39.6-50.0) % MCH 26.4 L (27.0-32.0) pg MCHC 29.5 L (32.0-37.0) g/dL RDW 15.1 H (11.5-14.5) % Lymphocytes # (Manual) 14.84 H (0.90-5.00) X 10*3/uL Monocytes # (Manual) 1.92 H (0.20-1.00) X 10*3/uL Eosinophils # (Manual) 0 L (0.04-0.35) X 10*3/uL Smudge Cells Present A BUN 29.5 H (9.0-27.0) mg/dL Creatinine 2.1 H (0.6-1.5) mg/dL Est GFR (CKD-EPI) 32 L (>=60) Calcium 8.5 L (8.7-10.3) mg/dL Microbiology - Last 24 Hours (Table) 04/13/24 12:25 Blood Culture - Preliminary Blood 04/13/24 09:54 Urine Culture - Final Urine,Voided Escherichia coli
[2024-04-17] MEDS ORDERED: PROPOFOL 10 MG/ML 20 ML VIAL IV ONE (08:11)
[2024-04-17] MEDS ORDERED: LIDOCAINE 1% INJ 10MG/ML (20 ML MDV) ONE (08:11)
[2024-04-17] MEDS: IV FLUID CONTINUATION 1,000 ML IV ONE (08:13)
--- NOTE | 2024-04-17 08:52 | P.PCN ---
Date of Procedure: 04/17/24 Description of Procedure: PREOPERATIVE DIAGNOSIS: Abnormal CT scan for colovesical fistula Recurrent urinary tract infection POSTOPERATIVE DIAGNOSIS: Abnormal CT scan for colovesical fistula Recurrent urinary tract infection OPERATION: Colonoscopy to the cecum, ileocecal valve and appendiceal orifice. SURGEON: Willa Alexis MD. ANESTHESIA: MAC. INDICATIONS: The patient is a 73-year-old male who presents with abnormal CT finding of colovesical fistula. Colonoscopy ordered for diagnostic assessment. Benefits and risks were described and informed consent was obtained. DESCRIPTION OF PROCEDURE: The patient had undergone GoLytely prep. The patient had been brought into the operating room and laid in the left lateral decubitus position. After adequate intravenous sedation, the rectum was examined with 2% lidocaine jelly. No external hemorrhoids were encountered. The rectal tone was within normal limits. No lesions were palpated in the rectal vault. An Olympus colonoscope was advanced until the cecum, ileocecal valve and appendiceal orifice were clearly viewed. The prep was excellent. No scattered diverticulosis was encountered. No colonic polyps were found. No evidence of focal colitis was found. Retroflexion of the scope demonstrated grade 1 internal hemorrhoids without acti ve bleeding or inflammation. The colon was desufflated. The patient had tolerated the procedure well. Withdrawal time was over 6 minutes. FINDINGS: Aronchick preparation quality scale 1 (1-5) No inflammatory changes along the colonic mucosa No diverticulosis Internal hemorrhoids, grade 1 No external prolapsed hemorrhoids. No arteriovenous malformations. No adenomatous polyps. No focal colitis. RECOMMENDATIONS: Recommend barium enema to further investigate any findings of colovesical fistula Keep clear liquid diet for barium enema
[2024-04-17 09:03] LABS: BUN/Creat Ratio 12.07 Ratio (12.00-20.00); Blood Urea Nitrogen 18.1 mg/dL (9.0-27.0); Calcium 8.4 mg/dL (8.7-10.3); Carbon Dioxide 23.6 mmol/L (21.6-31.8); Chloride 109 mmol/L (96-109); Glucose 85 mg/dL (70-110); Magnesium 1.8 mg/dL (1.5-2.4); Sodium 140 mmol/L (135-145)
[2024-04-17 10:40] LABS: Basophils # (M) 0 X 10*3/uL (0.00-0.10); Eosinophils # (M) 0.47 X 10*3/uL (0.04-0.35); HCT 31.9 % (39.6-50.0); HGB 9.5 g/dL (13.0-17.0); Lymphocytes # (M) 17.48 X 10*3/uL (0.90-5.00); MCH 26.2 pg (27.0-32.0); MCHC 29.8 g/dL (32.0-37.0); MCV 87.9 FL (80.0-97.0); Mean Platelet Volume 11.1 FL (9.5-12.2); Monocytes # (M) 0.47 X 10*3/uL (0.20-1.00); NRBC Per 100 WBC 0 X 10*3/uL (0.00-0.01); Neutrophils % (M) 22 %; Platelet Count 235 X 10*3/uL (140-440); RBC 3.63 X 10*6/uL (4.40-5.60); WBC 23.62 X 10*3/uL (4.50-10.00)
--- NOTE | 2024-04-17 11:47 | P.PN ---
Subjective Progress Note Date: 04/17/24 No new complaints today. Underwent colonoscopy, they recommended barium enema to r/o fistula. Leukocytosis persists despite tx for sensitive E coli, and smear is demonstrating smudge cells Gen: In NAD, non-toxic HEENT: normocephalic, atraumatic, hearing acuity is intant, mucous membranes moist CVS: perfusing all extremities well, no pitting edema, Respiratory: symmetric chest expansion, no accessory muscle use, GI: soft, NTTP, ND, : no suprapubic tenderness, no CVA tenderness MSK/Derm: no rashes, cyanosis Neuro: CN II-XII intact, no motor weakness, Psych: cooperative, euthymic mood, judgment and insight is intact Hospital course Patient is a 73-year-old male with a past medical history of Crohn's disease, recurrent UTIs, prostate cancer status post radiation, CKD stage III with crea tinine baseline around 1.7, chronic bilateral hydronephrosis who previously had bilateral stents without improvement in hydronephrosis or kidney function, neurogenic bladder, history of chronic Harrison catheter which was removed 1 month ago after UroLift procedure who was sent to the ED by his motor installer for abnormal labs. Patient also reports that his urine is cloudy color. Patient otherwise has no symptoms. In the ED patient WBC was 24.8 with predominantly lymphocytes, potassium 6.3, creatinine 2.42, BUN 36. Patient renal ultrasound showed bilateral moderate hydronephrosis with some irregularity tuberculation of the posterior bladder wall. Patient was admitted to the medicine service. Assessment and plan Acute kidney injury on CKD stage III suspect due to urinary obstruction Hyperkalemia Chronic bilateral hydronephrosis History of neurogenic bladder History of chronic Harrison catheter that was removed after UroLift procedure Follow BMP Consult nephrology, urology Hold nephrotoxic medications which include Lasix Leukocytosis Smudge Cells - hematology consult to r/o CLL Complicated Urinary tract infection Crohn's disease Patient is immunocompromised as he takes Entyvia, will hold this cefepime discontinued and started on ceftriaxone 1gm q24h Follow-up on blood culture = NGTD, urine culture = e coli Trend CBC Urology consults is appreciated, General surgery consulted CT A/P with contrast shows possible colovesicle fistula Barium enema pending Colonoscopy with no concrete evidence of fistula Hypertension Resume Imdur 30 mg at bedtime Neuropathy Continue with gabapentin 3 mg at bedtime Hyperlipidemia Continue atorvastatin 40 mg at bedtime Anxiety and depression Continue with sertraline 150 mg at bedtime DVT prophylaxis: Subcu heparin Objective - Vital Signs Vital signs: Vital Signs Temp 97.5 F L 04/17/24 09:03 Pulse 48 L 04/17/24 09:55 Resp 16 04/17/24 09:03 BP 127/52 04/17/24 09:55 Pulse Ox 99 04/17/24 09:55 FiO2 Intake & Output 04/16/24 04/17/24 04/17/24 18:59 06:59 18:59 Intake Total 900 100 Balance 900 100 Intake: IV 100 Intake, IV Titration 900 Amount Sodium Chloride 0.9% 1, 900 000 ml @ 75 mls/hr IV . [id number] [facility] Rx#:[id number] Other: Voiding Method Toilet Toilet Toilet # Voids 2 # Bowel Movements 3 - Labs CBC & Chem 7: 04/17/24 05:43 04/17/24 05:43 Labs: Abnormal Lab Results - Last 24 Hours (Table) 04/16/24 04/17/24 04/17/24 Range/Units 03:46 05:43 05:43 WBC 23.94 H 23.62 H (4.50-10.00) X 10*3/uL RBC 3.60 L 3.63 L (4.40-5.60) X 10*6/uL Hgb 9.5 L 9.5 L (13.0-17.0) g/dL Hct 32.2 L 31.9 L (39.6-50.0) % MCH 26.4 L 26.2 L (27.0-32.0) pg MCHC 29.5 L 29.8 L (32.0-37.0) g/dL RDW 15.1 H 15.0 H (11.5-14.5) % Lymphocytes # (Manual) 14.84 H 17.48 H (0.90-5.00) X 10*3/uL Monocytes # (Manual) 1.92 H (0.20-1.00) X 10*3/uL Eosinophils # (Manual) 0 L 0.47 H (0.04-0.35) X 10*3/uL Smudge Cells Present A Est GFR (CKD-EPI) 49 L (>=60) Calcium 8.4 L (8.7-10.3) mg/dL Microbiology - Last 24 Hours (Table) 04/13/24 12:25 Blood Culture - Preliminary Blood
--- NOTE | 2024-04-17 12:28 | P.PN ---
Subjective Patient is seen for follow-up for acute kidney injury and chronic kidney disease. Patient continued on NS 0.9% 1000 mL IV 75 MLS per hour. Patient presented with UTI and subsequent workup showed evidence of colovesicular fistula. Surgery on consult and patient underwent colonoscopy this morning, findings included no inflammatory changes along the colonic mucosa, no diverticulosis, internal hemorrhoids grade 1, no prolapsed external hemorrhoids, no AV malformations, no abdomen shows polyps, and no focal colitis. Aronchick preparation was poor, they recommend barium enema to rule out colovesicular fistula. Objective - Vital Signs Vital signs: Vital Signs Temp 97.4 F L 04/17/24 07:10 Pulse 53 L 04/17/24 07:10 Resp 16 04/17/24 07:10 BP 156/71 04/17/24 07:10 Pulse Ox 97 04/17/24 07:10 FiO2 Intake & Output 04/16/24 04/17/24 04/17/24 18:59 06:59 18:59 Intake Total 900 Balance 900 Intake: Intake, IV Titration 900 Amount Sodium Chloride 0.9% 1, 900 000 ml @ 75 mls/hr IV . [id number] [facility] Rx#:[id number] Other: Voiding Method Toilet Toilet # Voids 2 # Bowel Movements 3 - Exam Patient is awake, comfortable, and in no acute distress at bedside. A&O x 3 S1-S2 auscultated with no rubs, murmurs, or gallops. Lungs clear to auscultation bilaterally, no wheezes crackles or rails appreciated Abdomen soft nontender, no distention or guarding noted No significant lower extremity edema No gross POLICE AND FIRE DISPATCHER deformities observed - Labs CBC & Chem 7: 04/17/24 05:43 04/17/24 05:43 Labs: Abnormal Lab Results - Last 24 Hours (Table) 04/16/24 04/16/24 Range/Units 03:46 03:46 WBC 23.94 H (4.50-10.00) X 10*3/uL RBC 3.60 L (4.40-5.60) X 10*6/uL Hgb 9.5 L (13.0-17.0) g/dL Hct 32.2 L (39.6-50.0) % MCH 26.4 L (27.0-32.0) pg MCHC 29.5 L (32.0-37.0) g/dL RDW 15.1 H (11.5-14.5) % Lymphocytes # (Manual) 14.84 H (0.90-5.00) X 10*3/uL Monocytes # (Manual) 1.92 H (0.20-1.00) X 10*3/uL Eosinophils # (Manual) 0 L (0.04-0.35) X 10*3/uL Smudge Cells Present A BUN 29.5 H (9.0-27.0) mg/dL Creatinine 2.1 H (0.6-1.5) mg/dL Est GFR (CKD-EPI) 32 L (>=60) Calcium 8.5 L (8.7-10.3) mg/dL Microbiology - Last 24 Hours (Table) 04/13/24 12:25 Blood Culture - Preliminary Blood Assessment and Plan Assessment: 1. Acute kidney injury, ATN from underlying infection. Patient has chronic bilateral hydronephrosis. Bladder is not distended therefore a Harrison catheter is not placed. Urology is on consult. Currently maintained on IV fluids with some improvement in renal function.. 2. Obstructive uropathy with recent Urolift procedure in March 2024. Patient was hospitalized in November with acute kidney injury and had indwelling Harrison catheter which was subsequently removed about a month ago. Serum creatinine at that time had decreased from a peak of 3.3 to 1.6 on 12/06/2023. 3. Hyperkalemia associated with acute kidney injury and obstructive uropathy. (Resolved) 4. UTI with urine culture growing gram-negative bacilli. History of recent urology group procedure, Urolift on 03/21/2024. CT scan showed colovesical fistula. 5. History of Crohn's disease 6. 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 Anemia of chronic disease Plan: continue with IV fluids. Continue antibiotics Started Aranesp SQ 40 mcg Q7D syringe for anemia of chronic disease Repeat labs in a.m. I have seen and examined the patient with resident. Agree with A&P as written. Renal function improved.
[2024-04-17] MEDS: DARBEPOETIN ALFA 40 MCG/0.4 ML SYRINGE SQ SCH (13:13)
--- NOTE | 2024-04-17 13:33 | FL ---
EXAMINATION TYPE: FL barium enema DATE OF EXAM: 04/17/2024 COMPARISON: CT 11/27/2023 and 04/15/2024 HISTORY: 73-year-old male abnormal CT for colovesical fistula, recurrent UTI. Fistula not identified by colonoscopy. TECHNIQUE: A single contrast enema study is performed with Isovue-370 contrast material. A total of 47 seconds of fluoroscopic time was utilized during procedure and 28 images obtained. Total dose are a product (DAP) in uGy*m?, mGy*cm? (or similar): 35. FINDINGS: Trimming Caser view of the abdomen shows overall non-obstructive bowel gas pattern. There is a resi dual prominent air seen throughout the colon. [id number] stool in the left side of the colon. Contrast is administered per the rectum via gravity. Initial imaging is done in the lateral projectio n with careful attention to the inferior wall of the mid and distal sigmoid colon which corresponds t o the site of question fistula. No abnormal extension of contrast is identified here. There is mild scattered diverticular change in the sigmoid colon. No abnormal annular constricting le krystle is identified. Detailed assessment of the mucosa is limited due to single contrast technique. The post evacuation picture shows refluxing contrast throughout numerous distal small bowel loops. IMPRESSION: Particular attention to the inferior margin of the mid to distal sigmoid colon shows no evidence for fistula or other abnormal communication. There is mild left-sided colonic diverticulosis .
[2024-04-18 07:51] VITALS: BP 121/46; PULSE 62; RESP 16; TEMP 98
--- NOTE | 2024-04-18 09:17 | P.DS ---
Providers Date of admission: 04/13/24 13:26 Expected date of discharge: 04/18/24 Attending physician: Tomas Gomez MD Consults: 04/13/24 13:40 Consult Physician Urgent Consulting Provider: Terrance Lockhart Consult Reason/Comments: Hydronephrosis, UTI Do you want consulting provider notified?: Yes Consult Physician Urgent Consulting Provider: Sharron Jaffe Consult Reason/Comments: Renal failure, hyperkalemia Do you want consulting provider notified?: Yes 04/15/24 15:45 Consult Physician Routine Consulting Provider: Willa Alexis Consult Reason/Comments: colovesicle fistula Do you want consulting provider notified?: Yes 04/17/24 11:44 Consult Physician Routine Consulting Provider: Krishna Sandoval Consult Reason/Comments: Smudge cells with chronic leukocytosis; r/o CLL Do you want consulting provider notified?: Yes Primary care physician: Kevin Ballard DO Hospital Course: Acute kidney injury on CKD stage III suspect due to urinary obstruction Hyperkalemia Chronic bilateral hydronephrosis History of neurogenic bladder History of chronic Harrison catheter that was removed after UroLift procedure Leukocytosis Smudge Cells Complicated Urinary tract infection Crohn's disease Hypertension Neuropathy Hyperlipidemia Anxiety and depression Gen: In NAD, non-toxic HEENT: normocephalic, atraumatic, hearing acuity is intant, mucous membranes moist CVS: perfusing all extremities well, no pitting edema, Respiratory: symmetric chest expansion, no accessory muscle use, GI: soft, NTTP, ND, : no suprapubic tenderness, no CVA tenderness MSK/Derm: no rashes, cyanosis Neuro: CN II-XII intact, no motor weakness, Psych: cooperative, euthymic mood, judgment and insight is intact Hospital course Patient is a 73-year-old male with a past medical history of Crohn's disease, recurrent UTIs, prostate cancer status post radiation, CKD stage III with creatinine baseline around 1.7, chronic bilateral hydronephrosis who previously had bilateral stents without improvement in hydronephrosis or kidney function, neurogenic bladder, history of chronic Harrison catheter which was removed 1 month ago after UroLift procedure who was sent to the ED by his field marketing representative for abnormal labs. Patient also reports that his urine is cloudy color. Patient otherwise has no symptoms. In the ED patient WBC was 24.8 with predominantly lymphocytes, potassium 6.3, creatinine 2.42, BUN 36. Patient renal ultrasound showed bilateral moderate hydronephrosis with some irregularity tuberculation of the posterior bladder wall. Patient was admitted to the medicine service. Patient was initially treated with cefepime, urine culture ultimately grew sensitive E. coli and was transitioned to ceftriaxone. He received antibiotics for total of 5 days inpatient and was discharged with an additional 2 days of cefdinir oral. Given his history of Crohn's disease, and recurrent UTIs, consideration was made of colovesicular fistula and CT scan of the ab domen/pelvis without contrast did show the possibility of this being present. Therefore, surgery was consulted who took the patient for colonoscopy, and they were unable to identify fistula. He subsequently had a barium enema which was again unable to identify fistulous tract. Finally, it was noted that his white blood cell count did not improve significantly with adequate treatment for urinary tract infection, and has been chronically elevated for several months with peripheral smear noting smudge cells on microscopy. Therefore, patient was referred to hematology as an outpatient to rule out CLL. I spent 35 minutes coordinating this discharge Patient Condition at Discharge: Good Plan - Discharge Summary Discharge Rx Participant: No New Discharge Prescriptions: New Darbepoetin Sergei [Aranesp] 40 mcg SQ Q7D #30 each Cefdinir 300 mg PO Q12HR #4 cap Acetaminophen Tab [Tylenol] 650 mg PO Q6HR PRN tab PRN Reason: Mild Pain Or Fever > 100.5 Continue Atorvastatin [Lipitor] 40 mg PO HS Sertraline HCl [Zoloft] 150 mg PO HS Folic Acid 1 mg PO HS Gabapentin [Neurontin] 300 mg PO HS Magnesium Oxide 420mg 840 mg PO HS Vedolizumab [Entyvio] 300 mg IV Q56D Pro-Bifido Probiotic 150 mg PO HS Isosorbide Mononitrate ER [Imdur] 30 mg PO HS Nitroglycerin Sl Tabs [Nitrostat] 0.4 mg SL Q5M PRN PRN Reason: Chest Pain Cyanocobalamin (Vitamin B-12) [Vitamin B-12] 5,000 mcg PO HS Vit C/E/Zn/Coppr/Lutein/Zeaxan [Preservision Areds 2 Softgel] 2 cap PO HS Cholecalciferol [Vitamin D3 (125 Mcg = 5000 Iu)] 125 mcg PO HS Discontinued Furosemide [Lasix] 20 mg PO HS Discharge Medication List Atorvastatin [Lipitor] 40 mg PO HS 09/16/17 [History] Folic Acid 1 mg PO HS 08/22/19 [History] Gabapentin [Neurontin] 300 mg PO HS 08/22/19 [History] Sertraline HCl [Zoloft] 150 mg PO HS 08/22/19 [History] Isosorbide Mononitrate ER [Imdur] 30 mg PO HS 10/25/21 [History] Magnesium Oxide 420mg 840 mg PO HS 11/27/23 [History] Nitroglycerin Sl Tabs [Nitrostat] 0.4 mg SL Q5M PRN 11/27/23 [History] Vedolizumab [Entyvio] 300 mg IV Q56D 11/29/23 [History] Cholecalciferol [Vitamin D3 (125 Mcg = 5000 Iu)] 125 mcg PO HS 04/13/24 [History] Cyanocobalamin (Vitamin B-12) [Vitamin B-12] 5,000 mcg PO HS 04/13/24 [History] Pro-Bifido Probiotic 150 mg PO HS 04/13/24 [History] Vit C/E/Zn/Coppr/Lutein/Zeaxan [Preservision Areds 2 Softgel] 2 cap PO HS 04/13/24 [History] Acetaminophen Tab [Tylenol] 650 mg PO Q6HR PRN tab 04/18/24 [Rx] Cefdinir 300 mg PO Q12HR #4 cap 04/18/24 [Rx] Darbepoetin Sergei [Aranesp] 40 mcg SQ Q7D #30 each 04/18/24 [Rx] Follow up Appointment(s)/Referral(s): Krishna Sandoval [STAFF PHYSICIAN] - 1 Week (f/u regarding chronically elevated WBC) Kevin Ballard DO [Primary Care Provider] - 1-2 days Terrance Lockhart MD [STAFF PHYSICIAN] - 1 Week Discharge Disposition: HOME SELF-CARE
[2024-04-18 09:55] LABS: HCT 37.5 % (39.0-53.0); HGB 11.3 gm/dL (13.0-17.5); Hypochromasia Marked; MCH 26.9 pg (25.0-35.0); MCHC 30.2 g/dL (31.0-37.0); MCV 88.9 fL (80.0-100.0); Mean Platelet Volume 7.7; Platelet Count 294 k/uL (150-450); RBC 4.22 m/uL (4.30-5.90); RDW 15.1 % (11.5-15.5); WBC 31.2 k/uL (3.8-10.6)
[2024-04-18 10:07] LABS: ALT 22 U/L (4-49); AST 31 U/L (17-59); African American GFR (CKD) 49 (>60 ml/min/1.73 sqM); Albumin 3.6 g/dL (3.5-5.0); Alkaline Phosphatase 161 U/L (38-126); Anion Gap 8 mmol/L; Blood Urea Nitrogen 17 mg/dL (9-20); Calcium 9.1 mg/dL (8.4-10.2); Carbon Dioxide 24 mmol/L (22-30); Chloride 111 mmol/L (98-107); Globulin 3.6 g/dL; Glucose 90 mg/dL (74-99); Non-African American GFR(CKD) 42 (>60 ml/min/1.73 sqM); Potassium 4.7 mmol/L (3.5-5.1); Sodium 143 mmol/L (137-145); Total Bilirubin 0.4 mg/dL (0.2-1.3); Total Protein 7.2 g/dL (6.3-8.2)
--- NOTE | 2024-04-18 10:50 | P.PN ---
Subjective Patient is seen for follow-up for acute kidney injury and chronic kidney disease. Patient continued on NS 0.9% 1000 mL IV 75 MLS per hour. Patient started on darbepoetin, hemoglobin improved from 9.5-11.3 today. Patient presented with UTI and subsequent workup showed evidence of colovesicular fistula. No complaints this morning. Patient is making urine. Objective - Vital Signs Vital signs: Vital Signs Temp 98 F 04/18/24 07:13 Pulse 62 04/18/24 07:13 Resp 16 04/18/24 07:13 BP 121/46 04/18/24 07:13 Pulse Ox 98 04/18/24 07:13 FiO2 Intake & Output 04/17/24 04/18/24 04/18/24 18:59 06:59 18:59 Intake Total 100 825 Balance 100 825 Intake: IV 100 Intake, IV Titration 825 Amount Sodium Chloride 0.9% 1, 825 000 ml @ 75 mls/hr IV . [id number] [facility] Rx#:[id number] Other: Voiding Method Toilet Toilet # Voids 1 1 - Exam Patient is awake, comfortable, and in no acute distress at bedside. A&O x 3 S1-S2 auscultated with no rubs, murmurs, or gallops. Lungs clear to auscultation bilaterally, no wheezes crackles or rails appreciated Abdomen soft nontender, no distention or guarding noted No significant lower extremity edema No gross WIRED MUSIC OPERATOR deformities observed - Labs CBC & Chem 7: 04/18/24 09:40 04/18/24 09:40 Labs: Abnormal Lab Results - Last 24 Hours (Table) 04/17/24 Range/Units 05:43 WBC 23.62 H (4.50-10.00) X 10*3/uL RBC 3.63 L (4.40-5.60) X 10*6/uL Hgb 9.5 L (13.0-17.0) g/dL Hct 31.9 L (39.6-50.0) % MCH 26.2 L (27.0-32.0) pg MCHC 29.8 L (32.0-37.0) g/dL RDW 15.0 H (11.5-14.5) % Lymphocytes # (Manual) 17.48 H (0.90-5.00) X 10*3/uL Eosinophils # (Manual) 0.47 H (0.04-0.35) X 10*3/uL Assessment and Plan Assessment: 1. Acute kidney injury, ATN from underlying infection. Patient has chronic bilateral hydronephrosis. Bladder is not distended therefore a Harrison catheter is not placed. Urology is on consult. Currently maintained on IV fluids with some improvement in renal function. 2. Obstructive uropathy with recent Urolift procedure in March 2024. Patient was hospitalized in November with acute kidney injury and had indwelling Harrison catheter which was subsequently removed about a month ago. Serum creatinine at that time had decreased from a peak of 3.3 to 1.6 on 12/06/2023. 3. Hyperkalemia associated with acute kidney injury and obstructive uropathy. (Resolved) 4. UTI with urine culture growing gram-negative bacilli. History of recent urology group procedure, Urolift on 03/21/2024. 5. History of Crohn's disease 6. No evidence of colovesicular fistula on barium enema 7. Anemia of chronic disease Plan: Discharge on antibiotics Aranesp SQ 40 mcg Q7D syringe for anemia of chronic disease Patient should follow-up in office with Dr. Chau. I have seen and examined the patient with resident and agree with A&P as written. No fistula identified on c-scope or barium study. F/u outpatient 1-2 weeks post d/c.
--- NOTE | 2024-04-18 12:01 | P.PN ---
Subjective Progress Note Date: 04/18/24 CHIEF COMPLAINT: Possible colovesical fistula HISTORY OF PRESENT ILLNESS: Patient status post colonoscopy which was normal. Patient also had a barium enema which showed no evidence of fistula. Patient de nies abdominal pain. He is tolerating diet. PHYSICAL EXAM: VITAL SIGNS: Reviewed GENERAL: Well-developed in no acute distress. HEENT: No sclera icterus. Extraocular movements grossly intact. Moist buccal mucosa. Head is atraumatic, normocephalic. Hears conversational speech. No nasal drainage. NECK: Supple without lymphadenopathy. CHEST: Non-labored respirations and equal bilateral excursions. CARDIOVASCULAR: Palpable 2+ radial pulses. ABDOMEN: Soft. Nondistended. Nontender. MUSCULOSKELETAL: No clubbing or cyanosis. NEUROLOGIC: No focal or lateralizing signs. Cranial nerves II through XII grossly intact. PSYCH: Appropriate affect. Alert and oriented to person, place and time. SKIN: Well perfused. Good skin turgor. ASSESSMENT: 1. Abnormal CT scan for colovesical fistula 2. Recurrent urinary tract infection PLAN: -No evidence of colovesical fistula on colonoscopy or barium enema. No surgical intervention planned. -Surgical service will sign off. Please call with any questions or concerns. Physician Test Automation Architect note has been reviewed by physician. Signing provider agrees with the documented findings, assessment, and plan of care. Objective - Vital Signs Vital signs: Vital Signs Temp 98 F 04/18/24 07:13 Pulse 62 04/18/24 07:13 Resp 16 04/18/24 07:13 BP 121/46 04/18/24 07:13 Pulse Ox 98 04/18/24 07:13 FiO2 Intake & Output 04/17/24 04/18/24 04/18/24 18:59 06:59 18:59 Intake Total 100 825 Balance 100 825 Intake: IV 100 Intake, IV Titration 825 Amount Sodium Chloride 0.9% 1, 825 000 ml @ 75 mls/hr IV . [id number] [facility] Rx#:[id number] Other: Voiding Method Toilet Toilet Toilet # Voids 1 1 - Labs CBC & Chem 7: 04/18/24 09:40 04/18/24 09:40 Labs: Abnormal Lab Results - Last 24 Hours (Table) 04/18/24 04/18/24 Range/Units 09:40 09:40 WBC 31.2 H (3.8-10.6) k/uL RBC 4.22 L (4.30-5.90) m/uL Hgb 11.3 L (13.0-17.5) gm/dL Hct 37.5 L (39.0-53.0) % MCHC 30.2 L (31.0-37.0) g/dL Chloride 111 H (98-107) mmol/L Creatinine 1.60 H (0.66-1.25) mg/dL Alkaline Phosphatase 161 H (38-126) U/L
--- NOTE | 2024-05-02 11:54 | P.CONS ---
History of Present Illness - Reason for Consult Consult date: 04/18/24 r/o CLL Requesting physician: Rajani Kirk - Chief Complaint RAISA - History of Present Illness Patient is a 73-year-old male with a past medical history of Crohn's disease treated with Entyvio, recurrent UTIs, prostate cancer status post radiation, CKD stage III, chronic bilateral hydronephrosis, neurogenic bladder, history of chronic Harrison catheter which was removed 1 month ago s/p UroLift procedure. Consult was placed due to concern for leukocytosis/CLL. 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 Patient also reports that his urine is cloudy. Patient otherwise denies symptoms. Upon admission WBC was 24.8 with predominantly lymphocytes. Hgb 11.3, Plt 286. Creatinine 2.42, BUN 36. Urine culture positive for E.coli. CBC on 04/16/24 showed smudge cells. Upon review of labs, luekocytosis/lymphocytosis has been noted since 08/2023. Pt denie s unintentional weight loss, night sweats and fevers, but does reports he has had frequent UTIs requiring multiple admission over the last 1 year. Review of Systems 10 point ROS is negative except as stated in the HPI Past Medical History Past Medical History: Asthma, Cancer, Hearing Disorder / Deafness, Hyperlipidemia, Hypertension, Prostate Disorder, Sleep Apnea/CPAP/BIPAP Additional Past Medical History / Comment(s): hx of Crohn's, hx of prostate ca with radiation approx 2009, does not use cpap machine,deaf rt ear,hearing aide lt ear History of Any Multi-Drug Resistant Organisms: None Reported Past Surgical History: Orthopedic Surgery Additional Past Surgical History / Comment(s): rt knee sx, neck "2 bolts", rod cataracts with lens implant Past Anesthesia/Blood Transfusion Reactions: No Reported Reaction Past Psychological History: No Psychological Hx Reported Smoking Status: Former smoker Past Alcohol Use History: Occasional Past Drug Use History: None Reported - Past Family History Mother Family Medical History: No Reported History Sister(s) Family Medical History: Cancer Additional Family Medical History / Comment(s): breast and lung CA Father Family Medical History: Myocardial Infarction ([place]) Brother(s) Family Medical History: Coronary Artery Disease (CAD) Medications and Allergies Home Medications Medication Instructions Recorded Confirmed Type Atorvastatin [Lipitor] 40 mg PO HS 09/16/17 04/13/24 History Folic Acid 1 mg PO HS 08/22/19 04/13/24 History Gabapentin [Neurontin] 300 mg PO HS 08/22/19 04/13/24 History Sertraline HCl [Zoloft] 150 mg PO HS 08/22/19 04/13/24 History Isosorbide Mononitrate ER [Imdur] 30 mg PO HS 10/25/21 04/13/24 History Magnesium Oxide 420mg 840 mg PO HS 11/27/23 04/13/24 History Nitroglycerin Sl Tabs [Nitrostat] 0.4 mg SL Q5M PRN 11/27/23 04/13/24 History Vedolizumab [Entyvio] 300 mg IV Q56D 11/29/23 04/13/24 History Cholecalciferol [Vitamin D3 (125 125 mcg PO HS 04/13/24 04/13/24 History Mcg = 5000 Iu)] Cyanocobalamin (Vitamin B-12) 5,000 mcg PO HS 04/13/24 04/13/24 History [Vitamin B-12] Pro-Bifido Probiotic 150 mg PO HS 04/13/24 04/13/24 History Vit C/E/Zn/Coppr/Lutein/Zeaxan 2 cap PO HS 04/13/24 04/13/24 History [Preservision Areds 2 Softgel] Acetaminophen Tab [Tylenol] 650 mg PO Q6HR PRN tab 04/18/24 Rx Cefdinir 300 mg PO Q12HR #4 cap 04/18/24 Rx Darbepoetin Sergei [Aranesp] 40 mcg SQ Q7D #30 each 04/18/24 Rx Allergies Allergy/AdvReac Type Severity Reaction Status Date / Time No Known Allergies Allergy Verified 04/13/24 13:37 Physical Exam Vitals: Vital Signs Temp Pulse Resp BP Pulse Ox 04/18/24 07:13 98 F 62 16 121/46 98 04/18/24 01:44 97.9 F 61 18 103/62 97 04/17/24 19:43 97.9 F 54 L 20 132/67 98 04/17/24 12:07 97.8 F 53 L 16 147/63 98 Intake and Output 04/17/24 04/18/24 04/18/24 22:59 06:59 14:59 Intake Total 825 Balance 825 Intake: Intake, IV Titration 825 Amount Sodium Chloride 0.9% 1, 825 000 ml @ 75 mls/hr IV . [id number] [facility] Rx#:[id number] Other: Voiding Method Toilet Toilet # Voids 1 1 - Constitutional General appearance: average body habitus, no acute distress - EENT Eyes: anicteric sclerae, EOMI ENT: hearing grossly normal - Respiratory Respiratory: bilateral: CTA - Cardiovascular Rhythm: regular - Gastrointestinal General gastrointestinal: soft - Integumentary Integumentary: no cyanotic, no jaundiced - Neurologic Neurologic: CNII-XII intact - Musculoskeletal Musculoskeletal: strength equal bilaterally - Psychiatric Psychiatric: A&O x's 3 Results CBC & Chem 7: 04/18/24 09:40 04/18/24 09:40 Labs: Abnormal Lab Results - Last 24 Hours (Table) 04/18/24 04/18/24 Range/Units 09:40 09:40 WBC 31.2 H (3.8-10.6) k/uL RBC 4.22 L (4.30-5.90) m/uL Hgb 11.3 L (13.0-17.5) gm/dL Hct 37.5 L (39.0-53.0) % MCHC 30.2 L (31.0-37.0) g/dL Chloride 111 H (98-107) mmol/L Creatinine 1.60 H (0.66-1.25) mg/dL Alkaline Phosphatase 161 H (38-126) U/L CT scan - abdomen: report reviewed CT scan - pelvis: report reviewed Assessment and Plan (1) RAISA (acute kidney injury) Status: Acute Priority: High Code(s): N17.9 - ACUTE KIDNEY FAILURE, UNSPECIFIED SNOMED Code(s): 63786387 (2) Leukocytosis Status: Acute Priority: Medium Code(s): D72.829 - ELEVATED WHITE BLOOD CELL COUNT, UNSPECIFIED SNOMED Code(s): 603010472 (3) UTI (urinary tract infection) Status: Acute Priority: Medium Code(s): N39.0 - URINARY TRACT INFECTION, SITE NOT SPECIFIED SNOMED Code(s): 38133296 Plan: Leukocytosis: Presented to ER at the direction of his piano case maker due to RAISA. Being treated for UTI, has had multiple UTIs over the last 1 year. Has hx of Crohn's disease treated with Entyvio -Upon admission WBC was 24.8 with predominantly lymphocytes. Hgb 11.3, Plt 286. CBC on 04/16/24 showed smudge cells. Upon review of labs, luekocytosis/lymphocytosis has been noted since 08/2023. Pt denies unintentional weight loss, night sweats and fevers -Leukocytosis could be r/t recurrent infections and hx of Crohn's however CLL is within differential -Plan is for outpt f/u for further workup with flow cytometry and paraproteinemia workup Discussed plan of care with patient and was agreeable to the same
== END 2024-04-18 14:00 | disposition home or self-care (01) | DRG 690 ==
LOC: EC 09:18 → 5NMEDONC 13:26
PROVIDERS: ADMIT Student in an Organized Health Care Education/Training Program; ATTEND Student in an Organized Health Care Education/Training Program
PROC: 0DJD8ZZ Inspection of Lower Intestinal Tract, Via Natural or Artificial Opening Endoscopic (ICD-10-PCS; principal; 2024-04-17 08:25)
DX: N13.6 Pyonephrosis (principal); I13.0 Hypertensive heart and chronic kidney disease with heart failure and stage 1 through stage 4 chronic kidney disease, or unspecified chronic kidney disease; K50.90 Crohn's disease, unspecified, without complications; N17.0 Acute kidney failure with tubular necrosis; E78.5 Hyperlipidemia, unspecified; G47.33 Obstructive sleep apnea (adult) (pediatric); H90.41 Sensorineural hearing loss, unilateral, right ear, with unrestricted hearing on the contralateral side; D63.1 Anemia in chronic kidney disease; E87.5 Hyperkalemia; F32.A Depression, unspecified; K64.8 Other hemorrhoids; F41.9 Anxiety disorder, unspecified; I50.9 Heart failure, unspecified; N31.9 Neuromuscular dysfunction of bladder, unspecified; B96.20 Unspecified Escherichia coli [E. coli] as the cause of diseases classified elsewhere; N18.30 Chronic kidney disease, stage 3 unspecified; G62.9 Polyneuropathy, unspecified; Z85.46 Personal history of malignant neoplasm of prostate; Z79.899 Other long term (current) drug therapy; Z87.440 Personal history of urinary (tract) infections; Z87.891 Personal history of nicotine dependence; Z92.3 Personal history of irradiation
CPT/HCPCS: 36415; 45378; 74176; 74270; 76770; 80048; 80053; 81001; 83735; 84132; 85025; 85027; 87040; 87077; 87086; 87186; 93005; 96361; 96374; 96375; 99285

== ENCOUNTER → 2024-07-13 | Outpatient (CLI) | payer MEDICARE, OTHER ==
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
== END | disposition home or self-care (01) ==
LOC: RADCTMAIN 15:20
PROVIDERS: ATTEND Physician Assistant
DX: M43.8X6 Other specified deforming dorsopathies, lumbar region (principal); S32.009S Unspecified fracture of unspecified lumbar vertebra, sequela; M99.73 Connective tissue and disc stenosis of intervertebral foramina of lumbar region; Z98.1 Arthrodesis status; V49.60XS Unspecified car occupant injured in collision with unspecified motor vehicles in traffic accident, sequela
CPT/HCPCS: 72131

== ENCOUNTER → 2024-07-17 | Day surgery (SDC) | payer MEDICARE ==
[2024-07-17 08:15] VITALS: BP 132/70; PULSE 54; RESP 12; TEMP 98.4
[2024-07-17] MEDS: GLUCAGON 1 MG/ML VIAL IM STA (09:26)
--- NOTE | 2024-07-17 13:00 | MR ---
EXAMINATION TYPE: MR Enterography DATE OF EXAM: 07/17/2024 10:26 AM COMPARISON: 07/28/2023, 10/13/2021. CLINICAL INDICATION: Male, 73 years old with history of K50.10 CROHN'S DISEASE OF LARGE INTESTINE WIT HOUT; PHH, Crohns disease TECHNIQUE: Standard multiplanar, multisequence imaging of the abdomen is performed without and with I V contrast, patient is injected with 7 mL intravenous Gadobutrol gadolinium contrast. Oral Glucagon was given as per enterography protocol. Oral Contrast: 33 FINDINGS: LOWER CHEST: No significant findings. ABDOMEN Bowel: There remains soft tissue signal extending from the sigmoid colon to the a urinary bladder pos sibly representing a fistulous tract.. No fluid identified within this tract. Nondistended cecum and ascending colon with some hyperemia on postcontrast imaging. The be due to nondistention. The small b owel distention is inadequate proximally. No definite evidence to suggest abnormal bowel wall thicke jairo involving a small bowel or large bowel. No evidence of bowel obstruction. No evidence for mucos al hyperenhancement, stricture or additional fistulous tract formation. Peritoneum: No evidence of pneumoperitoneum, free fluid, or adenopathy. Liver: Partially imaged hepatic dome lesion measuring 13 mm most compatible with cyst on prior imagin g on 10/13/2021 Gallbladder and Bile ducts: Gallbladder surgically absent, and bile duct measuring up to [address] is also dilated up to 6 cm. Mild extra hepatic and central intrahepatic biliary dilation. Pancreas: Main pancreatic duct measuring 7 mm. Spleen: Unremarkable. Adrenal glands: Unremarkable. Kidneys: Left renal minimally complex cyst measuring up to 32 x 19 mm. Mild bilateral hydroureteronep hrosis. Proteinaceous/hemorrhagic intrinsic high T1 signal cysts in the left kidney measuring up to 1 8 mm. Bladder: Unremarkable. Reproductive: Unremarkable. Lymph Nodes: Enlarged retroperitoneal lymph node measuring up to 16 mm to the left renal sinus. Vasculature: Unremarkable. No aortic aneurysm. Musculoskeletal: The osseous structures appear intact. Abdominal wall: Left buttock battery pack with susceptibility artifact. IMPRESSION: 1. Similar soft tissue tract extending from the sigmoid colon to the posterior urinary bladder. No f luid identified within this area. Findings could represent area of prior fistulization. 2. No evidence for bowel obstruction or evidence for active Crohn's disease. There is enhancement of the sigmoid colon and cecum seen but thought to be likely due to decompression. No areas of wall thi ckening definitively visualized. 3. Postcholecystectomy changes with presumably physiologic dilation of the expected central intrahep atic biliary system and main pancreatic duct. This concern for ampulla mass consider direct visualiza tion with endoscopy. Retroperitoneal lymph nodes with lymph nodes in the pelvis correlate with histor y of malignancy. 4. Bilateral hydroureteronephrosis correlate for bladder outlet obstruction. 5. Left Bosniak type I and type II renal cysts and right type I Bosniak equivalent renal cyst. [facility], , 07/17/2024 12:57 PM
== END ==
LOC: RADMRIMAIN 07:36
PROVIDERS: ATTEND Internal Medicine Gastroenterology
DX: K50.10 Crohn's disease of large intestine without complications (principal); N28.1 Cyst of kidney, acquired
CPT/HCPCS: 96372; 36415; 72197; 74183; J1610; A9585

== ENCOUNTER → 2025-02-17 | Outpatient (CLI) | payer MEDICARE ==
--- NOTE | 2025-02-17 18:32 | MR ---
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 COMPARISON: MR enterography 07/17/2024, CT abdomen and pelvis 04/15/2024, 11/27/2023 TECHNIQUE: Multiplanar multi-sequence imaging was performed without and with IV contrast. The patie nt was given 10 ccs of Gadobutrol intravenously and dynamic imaging was performed. Post IV contrast s ubtraction images were also submitted for review. FINDINGS: LOWER CHEST: Bilateral gynecomastia.. ABDOMEN Liver: Noncirrhotic morphology. No focal lesion. No fatty infiltration. Drop out of signal on in phas e imaging identified. Gallbladder and Bile ducts: Postcholecystectomy changes with similar intra-axial hepatic biliary duct dilatation. No stricture or filling defect is identified. The common bile duct measures 11 mm at the pancreatic head. The common hepatic duct measures up to 10 mm. There is abrupt cut off of the common bile duct at the ampulla. There is a 11 mm enhancing region of soft tissue within the ampulla (serie s 906, image 23). Pancreas: Smoothly dilated main pancreatic duct measuring up to 6 mm at the pancreatic head. No disti nct pancreatic lesion identified. There is abrupt cut off of the pancreatic duct at the ampulla. Spleen: Not enlarged. Dropout of signal on in phase imaging. Adrenal glands: Unremarkable. Kidneys: Mild right and moderate left hydronephrosis redemonstrated. There is dilatation of the bilat eral ureters with left greater than the right to the level of the ureterovesical junction again. Few bilateral renal and wall T2 hyperintense nonenhancing cysts identified. Additional subcentimeter righ t renal T1 hypointense cortical cyst and left renal 17 mm cyst. These are most consistent with protei naceous hemorrhagic cyst. No enhancement identified in subtraction imaging. No follow-up for these cy sts recommended. Cortical thinning of both kidneys. Stomach and Bowel: Unremarkable as visualized. Peritoneum: No evidence of pneumoperitoneum, free fluid, or adenopathy. Vasculature: Unremarkable. No aortic aneurysm. Abdominal wall: Unremarkable. Musculoskeletal: The osseous structures appear intact. Postsurgical changes from spinal stabilization involving T12-L2 with susceptibility artifact. Left gluteal sacral spinal stimulator device identifi ed with susceptibility artifact. IMPRESSION: 1. Post cholecystectomy changes with redemonstration of intrahepatic and extra hepatic biliary ducta l dilatation with additional pancreatic ductal dilatation. There is abrupt cut off with the appearanc e of a soft tissue 1.1 cm mass in the ampulla. Further evaluation with ERCP is recommended. 2. Moderate left and mild right hydroureteronephrosis redemonstrated extending to the ureterovesical junction. Correlate for bladder obstruction. 3. Bosniak type I and type II equivalent renal cysts. No follow-up recommended. 4. 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 [facility], , 02/17/2025 6:30 PM
== END | disposition home or self-care (01) ==
LOC: RADMRIMAIN 08:45
PROVIDERS: ATTEND Internal Medicine Gastroenterology
DX: Q45.3 Other congenital malformations of pancreas and pancreatic duct (principal); N28.1 Cyst of kidney, acquired; Z90.49 Acquired absence of other specified parts of digestive tract; K83.8 Other specified diseases of biliary tract; N13.30 Unspecified hydronephrosis
CPT/HCPCS: 74183; A9585

== ENCOUNTER 2025-02-28 12:30 | Day surgery (SDC) | payer MEDICARE ==
[2025-02-28] MEDS: IV FLUID CONTINUATION 1,000 ML IV ONE (13:23)
[2025-02-28 13:40] VITALS: TEMP 97.5
[2025-02-28] MEDS: LACTATED RINGERS 1,000 ML IV SCH (13:46)
[2025-02-28] MEDS ORDERED: LIDOCAINE 1% INJ 10MG/ML (20 ML MDV) ONE (14:13)
[2025-02-28] MEDS ORDERED: PROPOFOL 10 MG/ML 20 ML VIAL IV ONE (14:13)
--- NOTE | 2025-02-28 14:33 | P.PCN ---
Date of Procedure: 02/28/25 Procedure(s) Performed: BRIEF HISTORY: Patient is a 74-year-old, pleasant, white male scheduled for an upper endoscopy for further evaluation of abnormal MRE that showed questionable ampullary mass and hence discussed for an upper endoscopy to evaluate further. Patient is asymptomatic. PROCEDURE PERFORMED: Esophagogastroduodenoscopy with biopsy.. PREOPERATIVE DIAGNOSIS: Abnormal MRI of the abdomen that showed questionable ampullary mass. IV sedation per anesthesia. PROCEDURE: After informed consent was obtained, the patient was brought into the endoscopy unit. IV sedation was administered by Anesthesia under continuous monitoring. Initially the Olympus GIF-140 video endoscope was inserted into the mouth. Esophagus intubated without any difficulty. It was gradually advanced into the stomach and duodenum and carefully examined. The bulb and the second part of the duodenum appeared normal. The p major papula was identified without any difficulty which appeared normal. No ampullary mass identified. The scope at this time was withdrawn to the stomach, adequately insufflated with air, and upon careful examination, mucosa of the antrum, body, had scattered erosions consistent with gastritis and biopsies were done from this area. Mucosa cardia and the fundus appeared normal. The scope was then withdrawn into the esophagus. Very small sliding-type hiatal hernia noted. The GE junction was located at 41 cm from the incisors. The esophagus appeared normal. There were no erosions or ulcerations seen and the patient tolerated the procedure well. IMPRESSION: 1. The major papilla and ampulla appeared normal. 2. Antral erosive gastritis. 3. Small sliding-type hiatal hernia. RECOMMENDATIONS: The findings of this examination were discussed with the patient as well as his family.. He was advised to follow-up with the biopsy results. Follow-up in the office in 3 to 4 weeks
[2025-02-28 14:42] VITALS: RESP 16
[2025-02-28 14:52] VITALS: BP 101/47; PULSE 55
== END 2025-02-28 15:28 | disposition home or self-care (01) ==
LOC: ORWHC2ENDO 12:30
PROVIDERS: ATTEND Internal Medicine Gastroenterology
DX: K29.50 Unspecified chronic gastritis without bleeding (principal); K44.9 Diaphragmatic hernia without obstruction or gangrene; I10 Essential (primary) hypertension; E78.5 Hyperlipidemia, unspecified; I25.10 Atherosclerotic heart disease of native coronary artery without angina pectoris; J45.909 Unspecified asthma, uncomplicated; G47.33 Obstructive sleep apnea (adult) (pediatric); K21.9 Gastro-esophageal reflux disease without esophagitis; H91.90 Unspecified hearing loss, unspecified ear; K50.90 Crohn's disease, unspecified, without complications; Z85.46 Personal history of malignant neoplasm of prostate; Z99.89 Dependence on other enabling machines and devices; Z79.899 Other long term (current) drug therapy
CPT/HCPCS: 88305; 43239; J2003; J2704